=== PATIENT | male | born 1940 | race Caucasian/White ===

== ENCOUNTER 2017-05-30 13:26 | Emergency (ER) | payer OTHER, MEDICARE ==
--- NOTE | 2017-05-30 14:23 | ER Document Report ---
ED General - General Chief Complaint: suicidal threat Stated Complaint: SUICIDAL IDEATION Time Seen by Provider: 05/30/17 13:31 Mode of Arrival: Ambulatory Information source: Patient Notes: 76-year-old male history of dementia who resides at the [facility] presents stating he does not wish to stay there anymore. Patient states he does not like being told what to do what to eat and went to eat. He requests to go somewhere else overall she has been hurt himself TRAVEL OUTSIDE OF THE [place] IN LAST 30 DAYS: No - HPI Onset: Just prior to arrival Onset/Duration: Sudden Quality of pain: No pain Severity: None Pain Level: Denies Associated symptoms: None Exacerbated by: Denies Relieved by: Denies Similar symptoms previously: No Recently seen / treated by doctor: No - Related Data Allergies/Adverse Reactions: No Known Allergies Allergy (Unverified 11/01/13 15:05) Home Medications: Current Home Medications Cetirizine HCl [Zyrtec 10 mg Tablet] 10 mg PO DAILY 05/30/17 [History] Citalopram Hydrobromide [Celexa 20 mg Tablet] 20 mg PO DAILY 05/30/17 [History] Hydrochlorothiazide [Hydrodiuril 12.5 mg Capsule] 12.5 mg PO QAM 05/30/17 [ History] Rivastigmine Tartrate [Rivastigmine] 4.5 mg PO Q12 05/30/17 [History] Simvastatin [Zocor 20 mg Tablet] 20 mg PO QHS 05/30/17 [History] Past Medical History - Social History Smoking Status: Never Smoker Cigarette use (# per day): No Chew tobacco use (# tins/day): No Smoking Education Provided: No Family History: Reviewed & Not Pertinent Patient has suicidal ideation: Yes Patient has homicidal ideation: No - Past Medical History Cardiac Medical History: Reports: Hx Hypertension - on meds Denies: Hx Coronary Artery Disease, Hx Heart Attack Pulmonary Medical History: Reports: Hx Bronchitis - hx of Denies: Hx Asthma, Hx COPD, Hx Pneumonia Neurological Medical History: Denies: Hx Cerebrovascular Accident, Hx Seizures Renal/ Medical History: Denies: Hx Peritoneal Dialysis Musculoskeltal Medical History: Denies Hx Arthritis Psychiatric Medical History: Reports: Hx Depression Past Surgical History: Reports: Hx Appendectomy, Hx Herniorrhaphy - Immunizations Hx Diphtheria, Pertussis, Tetanus Vaccination: Yes Review of Systems - Review of Systems Notes: REVIEW OF SYSTEMS: CONSTITUTIONAL : Denies fever, chills, or sweats. Denies recent illness. EENT: Denies eye, ear, throat, or mouth pain or symptoms. Denies nasal or sinus congestion or discharge. Denies throat, tongue, or mouth swelling or difficulty swallowing. CARDIOVASCULAR: Denies chest pain. Denies palpitations or racing or irregular heart beat. Denies ankle edema. RESPIRATORY: Denies cough, cold, or chest congestion. Denies shortness of breath, difficulty breathing, or wheezing. GASTROINTESTINAL: Denies abdominal pain or distention. Denies nausea, vomiting , or diarrhea. Denies blood in vomitus, stools, or per rectum. Denies black, tarry stools. Denies constipation. GENITOURINARY: Denies difficulty urinating, painful urination, burning, frequency, blood in urine, or discharge. MUSCULOSKELETAL: Denies back or neck pain or stiffness. Denies joint pain or swelling. SKIN: Denies rash, lesions or sores. HEMATOLOGIC : Denies easy bruising or bleeding. LYMPHATIC: Denies swollen, enlarged glands. NEUROLOGICAL: Denies confusion or altered mental status. Denies passing out or loss of consciousness. Denies dizziness or lightheadedness. Denies headache. Denies weakness or paralysis or loss of use of either side. Denies problems with gait or speech. Denies sensory loss, numbness, or tingling. Denies seizures. PSYCHIATRIC: Denies anxiety or stress. Denies depression, suicidal ideation, or homicidal ideation. ALL OTHER SYSTEMS REVIEWED AND NEGATIVE. Dictation was performed using [employer] voice recognition software PHYSICAL EXAMINATION: GENERAL: Well-appearing, well-nourished and in no acute distress. HEAD: Atraumatic, normocephalic. EYES: Pupils equal round and reactive to light, extraocular movements intact, sclera anicteric, conjunctiva are normal. ENT: Nares patent, oropharynx clear without exudates. Moist mucous membranes. NECK: Normal range of motion, supple without lymphadenopathy LUNGS: Breath sounds clear to auscultation bilaterally and equal. No wheezes rales or rhonchi. HEART: Regular rate and rhythm without murmurs ABDOMEN: Soft, nontender, nondistended abdomen. No guarding, no rebound. No masses appreciated. Musculoskeletal: Normal range of motion, no pitting or edema. No cyanosis. NEUROLOGICAL: Cranial nerves grossly intact. Normal speech, normal gait. Normal sensory, motor exams PSYCH: Normal mood, normal affect. SKIN: Warm, Dry, normal turgor, no rashes or lesions noted. Physical Exam - Vital signs Vitals: Temp Pulse BP Pulse Ox 99.0 F 77 137/76 H 98 05/30/17 13:33 05/30/17 13:33 05/30/17 13:33 05/30/17 13:33 Course - Re-evaluation Re-evalutation: 05/30/17 14:49 Patient is quite oriented at this time, he knows the date his location. He has no medical conditions that I can see that are concerning labwork is pending I expect him to be a social consult 05/30/17 16:22 Patient unfortunately became agitated wanted to go home. He swung at security and cause a skin tear. 05/30/17 18:39 Daughter is power of securities attorney she wishes for patient to go home I will discharge at this time - Vital Signs Vital signs: Temp Pulse Resp BP Pulse Ox 99.0 F 77 16 137/76 H 98 05/30/17 13:33 05/30/17 13:33 05/30/17 13:39 05/30/17 13:33 05/30/17 13:33 - Laboratory Result Diagrams: 05/30/17 14:10 05/30/17 14:10 Laboratory results interpreted by me: 05/30/17 05/30/17 14:10 14:10 RBC 3.98 L Hgb 12.5 L Hct 36.7 L Carbon Dioxide 32 H BUN 24 H Salicylates < 1.0 L Acetaminophen < 10 L Discharge - Discharge Clinical Impression: Suicidal behavior without attempted self-injury Dementia Qualifiers: Dementia type: Alzheimer's disease Alzheimer's disease onset: unspecified onset Dementia behavioral disturbance: with behavioral disturbance Qualified Code(s): G30.8 - Other Alzheimer's disease Condition: Stable Disposition: HOME, SELF-CARE Additional Instructions: Suicidal Ideation/Gesture Suicidal ideation is a common medical term for thoughts about suicide, which may be as detailed as a formulated plan, without the suicidal act itself. Although most people who undergo suicidal ideation do not commit suicide, some go on to make suicide attempts. The range of suicidal ideation varies greatly from fleeting to detailed planning, role playing, and unsuccessful attempts. Please talk with your provider regarding your thoughts and needs. Please speak with your daughter in regards to your residential setting. Please return if your symptoms worsen. Referrals: ADIA SALEH MD [Primary Care Provider] - Follow up as needed
[2017-05-30 14:24] LABS: ABSOLUTE BASOPHILS # (AUTO) 0.1 10^3/uL (0.0-0.2); ABSOLUTE EOSINOPHILS # (AUTO) 0.3 10^3/uL (0.0-0.6); ABSOLUTE LYMPHOCYTES (AUTO) 1.7 10^3/uL (0.5-4.7); ABSOLUTE MONOCYTES (AUTO) 0.9 10^3/uL (0.1-1.4); ABSOLUTE NEUT (AUTO) 4.8 10^3/uL (1.7-8.2); EOSINOPHILS % (AUTO) 4.3 % (0-6); HEMATOCRIT 36.7 % (37.9-51.0); HEMOGLOBIN 12.5 g/dL (13.5-17.0); HGB HCT DIFFERENCE 0.8; LYMPHOCYTES % (AUTO) 21.3 % (13-45); MEAN CORPUSCULAR HEMOGLOBIN 31.4 pg (27.0-33.4); MEAN CORPUSCULAR VOLUME 92 fl (80-97); MONOCYTES % (AUTO) 11.7 % (3-13); RED BLOOD COUNT 3.98 10^6/uL (4.35-5.55); RED CELL DISTRIBUTION WIDTH 13.3 % (11.5-14.0); SEGMENTED NEUTROPHILS % (AUTO) 61.7 % (42-78); WHITE BLOOD COUNT 7.8 10^3/uL (4.0-10.5)
[2017-05-30 14:38] LABS: ALANINE AMINOTRANSFERASE 28 U/L (21-72); ALBUMIN 4.4 g/dL (3.5-5.0); ALKALINE PHOSPHATASE 60 U/L (38-126); ANION GAP 9 (5-19); ASPARTATE AMINO TRANSFERASE 23 U/L (17-59); BILIRUBIN,DIRECT 0.4 mg/dL (0.0-0.4); BILIRUBIN,TOTAL 0.5 mg/dL (0.2-1.3); BLOOD UREA NITROGEN 24 mg/dL (7-20); CALCIUM 9.4 mg/dL (8.4-10.2); CARBON DIOXIDE 32 mmol/L (22-30); CHLORIDE 100 mmol/L (98-107); CREATININE RESULT 1.12 mg/dL (0.52-1.25); GLUCOSE 93 mg/dL (75-110); SODIUM 140.6 mmol/L (137-145); TOTAL PROTEIN 7.3 g/dL (6.3-8.2)
[2017-05-30 14:39] LABS: ALCOHOL < 10 mg/dL (NONE DETECTED); APPEARANCE,URINE CLEAR; BILIRUBIN,URINE NEGATIVE (NEGATIVE); GLUCOSE, URINE NEGATIVE (NEGATIVE); KETONES,URINE NEGATIVE (NEGATIVE); LEUKOCYTE ESTERASE,URINE NEGATIVE (NEGATIVE); NITRITE,URINE NEGATIVE (NEGATIVE); PROTEIN,URINE NEGATIVE (NEGATIVE); URINE SPECIFIC GRAVITY 1.003; UROBILINOGEN,URINE NEGATIVE mg/dL (<2.0)
[2017-05-30 14:51] LABS: URINE BARBITURATES SCREEN NEGATIVE; URINE METHADONE SCREEN NEGATIVE; URINE OPIATES LOW NEGATIVE; URINE PHENCYCLIDINE SCREEN NEGATIVE
--- NOTE | 2017-05-30 15:40 | ER Document Report ---
ED Psych Disorder / Suicide - General Chief Complaint: suicidal threat Stated Complaint: SUICIDAL IDEATION Time Seen by Provider: 05/30/17 13:31 Information source: Patient, Relative, H Records TRAVEL OUTSIDE OF THE [place] IN LAST 30 DAYS: No - HPI Patient complains to provider of: Homicidal ideation, Other - pt reports he threatened to cut his wrists in order to be able to leave [facility] Onset was: Sudden Suicide Risk Factors: Male, Other - Pt no longer wants to reside at [facility] Situational problems related to: Other - di Normal mood: Yes Associated symptoms: Normal affect, Normal mood Similar symptoms previously: Yes Recently seen / treated by doctor: Yes Notes: Patient is a 76 year old male who presents via EMS from his residential facility , [facility] due to reports of suicidal ideations. Patient states he is not suicidal. Patient states earlier today he informed the staff at the facility he wanted to leave. Patient states he told them that if he was not allowed to leave he would cut his wrists so he could leave. Patient denies wanting to cut his wrists. Patient denies wanting to by suicide. Patient denies any prior attempts of suicide. Patient instructed this clinician to call his and or daughter and tell them to pic his belongings and pick him up to take him home. Daughter, Areli Jean states she is the legal guardian, and that the patient has been diagnosed with Alzheimers and has been placed in a facility to manage his safety and behaviors. Daughter states she cannot come to the hospital at this time. She states she can email copies of the guardianship documents, but cannot fax or hand deliver. [facility] : Staff Crystal states the patient was threatening suicide. Staff states the patient was upset that his or daughter had not come to see him today, and also stated he was not receiving his medications. She states his daughter is his guardian, and will fax over both the guardianship papers as well as home med list. Staff state they were following protocol by sending him to the ER, and he can return any time. Unspecified Neurocognitive Disorder Patient is psychiatrically cleared for discharge. Patient does not meet criteria for IVC per the [id number] as he is presenting with Dementia related behaviors, which is a medical disorder and not covered under the BH627G. Patient acknowledges he does not want to by suicidem and further reports he made the statement with the intent on leaving the residential facility. I consulted with Dr. Valiente in regards to the care and management of this patient. - Related Data Allergies/Adverse Reactions: No Known Allergies Allergy (Unverified 11/01/13 15:05) Past Medical History - General Information source: Patient, Relative - daughter who states she is also the legal guardian, [facility] Records Cannot obtain history due to: Dementia - Social History Smoking Status: Unknown if Ever Smoked Family History: Reviewed & Not Pertinent Patient has suicidal ideation: No Patient has homicidal ideation: No - Past Medical History Cardiac Medical History: Reports: Hx Hypertension - on meds Denies: Hx Coronary Artery Disease, Hx Heart Attack Pulmonary Medical History: Reports: Hx Bronchitis - hx of Denies: Hx Asthma, Hx COPD, Hx Pneumonia Neurological Medical History: Denies: Hx Cerebrovascular Accident, Hx Seizures Renal/ Medical History: Denies: Hx Peritoneal Dialysis Musculoskeltal Medical History: Denies Hx Arthritis Psychiatric Medical History: Reports: Hx Depression Past Surgical History: Reports: Hx Appendectomy, Hx Herniorrhaphy - Immunizations Hx Diphtheria, Pertussis, Tetanus Vaccination: Yes Physical Exam - Vital signs Vitals: Temp Pulse BP Pulse Ox 99.0 F 77 137/76 H 98 05/30/17 13:33 05/30/17 13:33 05/30/17 13:33 05/30/17 13:33 Course - Vital Signs Vital signs: Temp Pulse Resp BP Pulse Ox 99.0 F 77 137/76 H 98 05/30/17 13:33 05/30/17 13:33 05/30/17 13:33 05/30/17 13:33 - Laboratory Result Diagrams: 05/30/17 14:10 05/30/17 14:10 Laboratory results interpreted by me: 05/30/17 05/30/17 14:10 14:10 RBC 3.98 L Hgb 12.5 L Hct 36.7 L Carbon Dioxide 32 H BUN 24 H Salicylates < 1.0 L Acetaminophen < 10 L Discharge - Discharge Clinical Impression: Suicidal behavior without attempted self-injury Dementia Qualifiers: Dementia type: Alzheimer's disease Alzheimer's disease onset: unspecified onset Dementia behavioral disturbance: with behavioral disturbance Qualified Code(s): G30.8 - Other Alzheimer's disease; F02.81 - Dementia in other diseases classified elsewhere with behavioral disturbance Condition: Stable Disposition: HOME, SELF-CARE Additional Instructions: Suicidal Ideation/Gesture Suicidal ideation is a common medical term for thoughts about suicide, which may be as detailed as a formulated plan, without the suicidal act itself. Although most people who undergo suicidal ideation do not commit suicide, some go on to make suicide attempts. The range of suicidal ideation varies greatly from fleeting to detailed planning, role playing, and unsuccessful attempts. Please talk with your provider regarding your thoughts and needs. Please speak with your daughter in regards to your residential setting. Please return if your symptoms worsen. Referrals: ADIA SALEH MD [Primary Care Provider] - Follow up as needed
[2017-05-30] MEDS ORDERED: LORAZEPAM INJ 2 MG/1 ML VIAL IM ONE (16:17)
[2017-05-30] MEDS ORDERED: DIPHENHYDRAMINE HCL 50 MG/ML VIAL IM ONE (16:17)
[2017-05-30] MEDS ORDERED: DIVALPROEX SODIUM 500 MG TAB.SR.24H PO ONE (17:39)
[2017-05-30] MEDS ORDERED: HALOPERIDOL LACTATE INJ 5 MG/1 ML VIAL IM ONE (17:54)
[2017-05-30 20:13] VITALS: BP 138/71
--- NOTE | 2017-05-30 20:14 | EKG REPORT ---
SEVERITY:- NORMAL ECG - SINUS RHYTHM : Confirmed by: Joey Santa 30-May-2017 20:13:55
== END 2017-05-30 20:20 | disposition home or self-care (01) ==
LOC: ER 13:26
DX: R45.851 Suicidal ideations (principal); G30.8 Other Alzheimer's disease; F02.81 Dementia in other diseases classified elsewhere, unspecified severity, with behavioral disturbance; I10 Essential (primary) hypertension
CPT/HCPCS: 93005; 99285; 96372; 36415; 80307 ×4; 85025; 80053; 81001; 93010; J1200; J1630; J2060

== ENCOUNTER 2017-05-31 07:54 | Emergency (ER) | payer OTHER, MEDICARE ==
[2017-05-31] MEDS ORDERED: BACITRACIN ZINC OINTMENT 15 GM TP ONE (08:00)
--- NOTE | 2017-05-31 08:08 | ER Document Report ---
ED General - General Stated Complaint: FALL ARM PAIN Time Seen by Provider: 05/31/17 08:00 Notes: 76-year-old male with advanced dementia and behavioral disturbance presents to the ED after an unwitnessed fall. He was combative this morning in his facility and when 1 of his dobby loom weaver stepped out of the room to get extra help she returned found him on the floor. He had skin tears to both upper extremities. His mental status per EMS is at his baseline, they transported him here last night for the behavioral disturbance. He had no signs of head trauma. The patient is quite demented and cannot give much of a history when I asked him if anything hurts he says "my ego." TRAVEL OUTSIDE OF THE [place] IN LAST 30 DAYS: No - Related Data Allergies/Adverse Reactions: donepezil Allergy (Verified 05/31/17 08:24) Influenza Virus Vaccines Allergy (Verified 05/31/17 08:24) loratadine Allergy (Verified 05/31/17 08:24) Penicillins Allergy (Verified 05/31/17 08:24) Past Medical History - Social History Smoking Status: Former Smoker Family History: Reviewed & Not Pertinent - Past Medical History Cardiac Medical History: Reports: Hx Hypertension - on meds Denies: Hx Coronary Artery Disease, Hx Heart Attack Pulmonary Medical History: Reports: Hx Bronchitis - hx of Denies: Hx Asthma, Hx COPD, Hx Pneumonia Neurological Medical History: Denies: Hx Cerebrovascular Accident, Hx Seizures Renal/ Medical History: Denies: Hx Peritoneal Dialysis Musculoskeltal Medical History: Denies Hx Arthritis Psychiatric Medical History: Reports: Hx Depression Past Surgical History: Reports: Hx Appendectomy, Hx Herniorrhaphy - Immunizations Hx Diphtheria, Pertussis, Tetanus Vaccination: Yes Review of Systems - Review of Systems Notes: REVIEW OF SYSTEMS Limited secondary to dementia PHYSICAL EXAMINATION General: No acute distress, well-nourished Head: Atraumatic, normocephalic ENT: Mouth normal, oropharynx moist, no exudates or tonsillar enlargement Eyes: Conjunctiva normal, pupils equal, lids normal Neck: No JVD, supple, no guarding CVS: Normal rate, regular rhythm, no murmurs Resp: No resp distress, equal and normal breath sounds bilaterally GI: Nondistended, soft, no tenderness to palpation, no rebound or guarding Ext: Superficial skin tears without bony tenderness or deformity on the right elbow and left forearm. Back: No CVA or midline TTP Skin: No rash, warm Lymphatic: No lymphadeopathy noted Neuro: Awake, alert. Face symmetric. GCS 14. For confusion. Patient's baseline. Follows commands with all 4 extremities. Physical Exam - Vital signs Vitals: Temp Pulse Resp BP Pulse Ox 98.4 F 53 L 16 150/52 H 96 05/31/17 08:04 05/31/17 08:04 05/31/17 08:04 05/31/17 08:04 05/31/17 08:04 Course - Re-evaluation Re-evalutation: 05/31/17 08:08 Likely mechanical fall in a demented patient with behavioral disturbance. Patient is at his neurologic baseline and has skin tears but no bony tenderness. CT will be done but I do not think this is a traumatic brain injury. No indication for extremity films. Local wound care. None are deep enough to require advanced repair. 05/31/17 09:38 Imaging negative. Wounds dressed. Stable for discharge back to [facility] care facility. I have discussed with the patient there likely diagnosis, aftercare plan, follow -up plans and my usual and customary return precautions. They verbalized understanding of this. - Vital Signs Vital signs: Temp Pulse Resp BP Pulse Ox 98.4 F 53 L 16 150/52 H 96 05/31/17 08:04 05/31/17 08:04 05/31/17 08:04 05/31/17 08:04 05/31/17 08:04 - Diagnostic Test Radiology reviewed: Image reviewed, Reports reviewed Discharge - Discharge Clinical Impression: Multiple skin tears Condition: Good Disposition: HOME, SELF-CARE Instructions: Antibiotic Ointment Protection ([facility])
--- NOTE | 2017-05-31 09:00 | RADIOLOGY REPORT (SQ) ---
EXAM DESCRIPTION: CT HEAD WITHOUT COMPLETED DATE/TIME: 05/31/2017 8:35 am REASON FOR STUDY: fall trauyma COMPARISON: CT brain 09/09/2014 TECHNIQUE: Axial images acquired through the brain without intravenous contrast. Images reviewed wi th bone, brain and subdural windows. Images stored on PACS. All CT scanners at this facility use dose modulation, iterative reconstruction, and/or weight based d osing when appropriate to reduce radiation dose to as low as reasonably achievable (ALARA). [facility]: Dose Right [facility]: CareDose [facility]: Dose Right [facility]: Teradose 4D [facility]: [employer] RADIATION DOSE: Up-to-date CT equipment and radiation dose reduction techniques were employed. CTDIv ol: 63.0 mGy. DLP: 1034 mGy-cm. mGy. LIMITATIONS: Motion artifact FINDINGS: VENTRICLES: Normal size and contour. 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 No CT evidence of acute large territory ischemic change, intracranial hemorrhage, mass effect, or mid line shift. CEREBELLUM: No masses. No hemorrhage. No alteration of density. No evidence for acute infarction. EXTRAAXIAL SPACES: No fluid collections. No masses. ORBITS AND GLOBE: No intra- or extraconal masses. Normal contour of globe without masses. CALVARIUM: No fracture. PARANASAL SINUSES: No fluid or mucosal thickening. SOFT TISSUES: No mass or hematoma. OTHER: No other significant finding. IMPRESSION: NORMAL BRAIN CT WITHOUT CONTRAST. TECHNICAL DOCUMENTATION: JOB ID: [id number] Quality ID # [id number]: Final reports with documentation of one or more dose reduction techniques (e.g., Au tomated exposure control, adjustment of the mA and/or kV according to patient size, use of iterative reconstruction technique) 2010 [employer]- All Rights Reserved
--- NOTE | 2017-05-31 09:26 | RADIOLOGY REPORT (SQ) ---
EXAM DESCRIPTION: CT CERVICAL SPINE WITHOUT COMPLETED DATE/TIME: 05/31/2017 8:35 am REASON FOR STUDY: fall trauyma COMPARISON: None. TECHNIQUE: Axial images acquired through the cervical spine without intravenous contrast. Images re viewed with lung, soft tissue and bone windows. Reconstructed coronal and sagittal MPR images review ed. Images stored on PACS. All CT scanners at this facility use dose modulation, iterative reconstruction, and/or weight based d osing when appropriate to reduce radiation dose to as low as reasonably achievable (ALARA). [facility]: Dose Right [facility]: CareDose [facility]: Dose Right [facility]: Teradose 4D [facility]: Smart [employer] RADIATION DOSE: Up-to-date CT equipment and radiation dose reduction techniques were employed. CTDIv ol: 18.9 mGy. DLP: 375 mGy-cm. mGy. LIMITATIONS: None. FINDINGS: ALIGNMENT: Reversal of cervical curvature related to degenerative disc changes at C4-5, C5 -6, and C6-7 MINERALIZATION: Normal. VERTEBRAL BODIES: No fractures or dislocation. DISCS: Craniocervical junction, C1-2 are unremarkable. At C2-3, mild posterior disc bulging present without central stenosis. Mild right foraminal narrowin g. No left foraminal narrowing. At C3-4, high-grade central canal stenosis results from broad diffuse posterior disc bulging and liga mentum flavum thickening. There is moderate right and high-grade left foraminal narrowing from facet and uncovertebral hypertrophy. At C4-5, mild to moderate central canal narrowing results from broad diffuse posterior bony spurring. There is moderate right, and high-grade left foraminal narrowing from facet and uncovertebral hyper trophy. At C5-6, moderate to high-grade central canal stenosis results from broad diffuse disc bulge and bony spurring. High-grade bilateral foraminal stenosis. At C6-7, mild central canal stenosis results from broad diffuse posterior disc bulge and bony spurrin g. Moderate bilateral foraminal narrowing. At C7-T1, moderate left foraminal narrowing results from asymmetric left-sided facet hypertrophy. No central or right foraminal narrowing. FACETS, LATERAL MASSES, POSTERIOR ELEMENTS: No fractures. No dislocation. No acute findings. HARDWARE: None in the spine. VISUALIZED RIBS: No fractures. LUNG APICES AND SOFT TISSUES: Calcification at the bilateral carotid bifurcations. OTHER: No other significant finding. IMPRESSION: No acute changes. Multilevel significant central canal stenosis TECHNICAL DOCUMENTATION: JOB ID: [id number] Quality ID # [id number]: Final reports with documentation of one or more dose reduction techniques (e.g., Au tomated exposure control, adjustment of the mA and/or kV according to patient size, use of iterative reconstruction technique) 2010 [employer]- All Rights Reserved
[2017-05-31 10:17] VITALS: BP 147/57
== END 2017-05-31 10:10 | disposition home or self-care (01) ==
LOC: ER 07:54
DX: S51.811A Laceration without foreign body of right forearm, initial encounter (principal); S51.011A Laceration without foreign body of right elbow, initial encounter; W19.XXXA Unspecified fall, initial encounter; Y92.099 Unspecified place in other non-institutional residence as the place of occurrence of the external cause; F03.91 Unspecified dementia, unspecified severity, with behavioral disturbance; I10 Essential (primary) hypertension
CPT/HCPCS: 99284; 70450; 72125; J3490

== ENCOUNTER 2017-06-22 14:28 | Emergency (ER) | payer OTHER, MEDICARE ==
[2017-06-22 14:50] VITALS: BP 159/61
[2017-06-22 15:35] LABS: APPEARANCE,URINE CLEAR; BILIRUBIN,URINE NEGATIVE (NEGATIVE); GLUCOSE, URINE NEGATIVE (NEGATIVE); KETONES,URINE NEGATIVE (NEGATIVE); LEUKOCYTE ESTERASE,URINE NEGATIVE (NEGATIVE); NITRITE,URINE NEGATIVE (NEGATIVE); PROTEIN,URINE NEGATIVE (NEGATIVE); URINE SPECIFIC GRAVITY 1.008; UROBILINOGEN,URINE NEGATIVE mg/dL (<2.0)
[2017-06-22 15:59] LABS: ALANINE AMINOTRANSFERASE 25 U/L (21-72); ALKALINE PHOSPHATASE 74 U/L (38-126); ANION GAP 11 (5-19); ASPARTATE AMINO TRANSFERASE 23 U/L (17-59); BILIRUBIN,DIRECT 0.4 mg/dL (0.0-0.4); BILIRUBIN,TOTAL 0.8 mg/dL (0.2-1.3); BLOOD UREA NITROGEN 19 mg/dL (7-20); CALCIUM 9.3 mg/dL (8.4-10.2); CARBON DIOXIDE 27 mmol/L (22-30); CHLORIDE 104 mmol/L (98-107); CREATININE RESULT 1.04 mg/dL (0.52-1.25); GLUCOSE 97 mg/dL (75-110); POTASSIUM 4.2 mmol/L (3.6-5.0); SODIUM 141.6 mmol/L (137-145); TOTAL PROTEIN 6.6 g/dL (6.3-8.2)
[2017-06-22 16:00] LABS: ABSOLUTE BASOPHILS # (AUTO) 0.1 10^3/uL (0.0-0.2); ABSOLUTE EOSINOPHILS # (AUTO) 0.3 10^3/uL (0.0-0.6); ABSOLUTE LYMPHOCYTES (AUTO) 1.2 10^3/uL (0.5-4.7); ABSOLUTE MONOCYTES (AUTO) 0.6 10^3/uL (0.1-1.4); ABSOLUTE NEUT (AUTO) 5.2 10^3/uL (1.7-8.2); EOSINOPHILS % (AUTO) 3.8 % (0-6); HEMATOCRIT 39.2 % (37.9-51.0); HEMOGLOBIN 13.6 g/dL (13.5-17.0); HGB HCT DIFFERENCE 1.6; LYMPHOCYTES % (AUTO) 16.7 % (13-45); MEAN CORPUSCULAR HEMOGLOBIN 31.5 pg (27.0-33.4); MEAN CORPUSCULAR HGB CONC 34.8 g/dL (32.0-36.0); MEAN CORPUSCULAR VOLUME 91 fl (80-97); MONOCYTES % (AUTO) 8.6 % (3-13); RED BLOOD COUNT 4.33 10^6/uL (4.35-5.55); RED CELL DISTRIBUTION WIDTH 13.4 % (11.5-14.0); SEGMENTED NEUTROPHILS % (AUTO) 69.9 % (42-78); WHITE BLOOD COUNT 7.5 10^3/uL (4.0-10.5)
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
[2017-06-22] MEDS ORDERED: HALOPERIDOL LACTATE INJ 5 MG/1 ML VIAL ONE (17:18)
== END 2017-06-22 17:42 ==
LOC: ER 14:28
DX: G30.9 Alzheimer's disease, unspecified (principal); F02.80 Dementia in other diseases classified elsewhere, unspecified severity, without behavioral disturbance, psychotic disturbance, mood disturbance, and anxiety; R63.0 Anorexia; R53.1 Weakness
CPT/HCPCS: 36415; 80053; 81001; 84443; 85025; 96374; 99285

== ENCOUNTER 2017-07-31 14:23 | Inpatient (IN) | payer OTHER, MEDICARE ==
[2017-07-31] MEDS ORDERED: DEXTROSE 5%-1/2 NORMAL SALINE 1,000 ML IV PRN (14:40)
--- NOTE | 2017-07-31 14:47 | ER Document Report ---
ED GI/ - General Chief Complaint: Abdominal Pain >50 Stated Complaint: ABDOMINAL PAIN Time Seen by Provider: 07/31/17 14:28 Mode of Arrival: Medic Information source: Patient, Emergency Med Personnel, [facility] Records, Outside Facility Records Notes: 76-year-old male presents to ED for complaint of left lower abdominal pain with nausea and vomiting. He was brought to the ER via EMS from the [facility]. They stated that he would not eat and he has been nausea and vomiting and abdominal pain. Patient does verbalize lower left abdominal pain with tenderness on exam. TRAVEL OUTSIDE OF THE [place] IN LAST 30 DAYS: No - HPI Patient complains to provider of: Abdominal pain, Vomiting Onset: This afternoon Timing/Duration: Sudden Quality of pain: Sharp Severity at maximum: Moderate Severity in ED: Moderate Pain Level: 3 Location: LLQ, RLQ Associated symptoms: Loss of appetite - yesterday, Nausea, Vomiting - just before coming to ed Exacerbated by: Movement, Walking Relieved by: Denies Similar symptoms previously: No Recently seen / treated by doctor: No - Related Data Allergies/Adverse Reactions: donepezil Allergy (Verified 05/31/17 08:24) Influenza Virus Vaccines Allergy (Verified 05/31/17 08:24) loratadine Allergy (Verified 05/31/17 08:24) Penicillins Allergy (Verified 05/31/17 08:24) Home Medications: Current Home Medications Acetaminophen [Mapap] 650 mg PO Q6HP PRN 07/31/17 [History] Aspirin [Aspirin 81 mg Chewable Tablet] 81 mg PO DAILY 07/31/17 [History] Cetirizine HCl [24Hour Allergy] 10 mg PO DAILY 07/31/17 [History] Citalopram Hydrobromide [Citalopram HBr] 20 mg PO DAILY 07/31/17 [History] Docusate Calcium 240 mg PO QHS 07/31/17 [History] Ibuprofen 400 mg PO MEALS 07/31/17 [History] Levothyroxine Sodium 75 mcg PO DAILY 07/31/17 [History] Magnesium Hydroxide [Milk of Magnesia 30 ml Udcup] 30 ml PO DAILYP PRN 07/31/17 [History] Nifedipine [Nifedipine ER] 30 mg PO DAILY 07/31/17 [History] Mccormick-3/Dha/Epa/Fish Oil [Fish Oil 1,000 mg Softgel] 1 cap PO DAILY 07/31/17 [ History] Quetiapine Fumarate 25 mg PO BID 07/31/17 [History] Risperidone [Risperdal 1 mg Tablet] 1 mg PO BID 07/31/17 [History] Tamsulosin HCl 0.8 mg PO QPM 07/31/17 [History] Past Medical History - General Information source: Emergency Med Personnel, [facility] Records, Outside Facility Records Cannot obtain history due to: Dementia - Social History Smoking Status: Former Smoker Cigarette use (# per day): No Frequency of alcohol use: None Lives with: Other - [facility] Family History: Other - unable to obtain Patient has suicidal ideation: No Patient has homicidal ideation: No - Past Medical History Cardiac Medical History: Reports: Hx Atrial Fibrillation, Hx Hypercholesterolemia, Hx Hypertension - on meds, Other - AAA Pulmonary Medical History: Reports: Hx Bronchitis - hx of EENT Medical History: Reports: None Neurological Medical History: Reports: Hx Cerebrovascular Accident Endocrine Medical History: Reports: Hx Hypothyroidism Renal/ Medical History: Reports: Other - Prostatitis Malignancy Medical History: Reports None GI Medical History: Reports: None, Other - hx of AAA Musculoskeltal Medical History: Reports Hx Arthritis Skin Medical History: Reports None Psychiatric Medical History: Reports: Hx Anxiety, Hx Dementia, Hx Depression Traumatic Medical History: Reports: None Infectious Medical History: Reports: None Past Surgical History: Reports: Hx Appendectomy, Hx Herniorrhaphy - Immunizations Hx Diphtheria, Pertussis, Tetanus Vaccination: Yes Review of Systems - Review of Systems Constitutional: No symptoms reported EENT: No symptoms reported Cardiovascular: No symptoms reported Respiratory: No symptoms reported Gastrointestinal: Abdominal pain, Nausea, Vomiting Genitourinary: No symptoms reported Male Genitourinary: No symptoms reported Musculoskeletal: Muscle stiffness Skin: No symptoms reported Hematologic/Lymphatic: No symptoms reported Neurological/Psychological: Dementia -: Yes All other systems reviewed and negative Physical Exam - Vital signs Vitals: Temp 97.9 F 07/31/17 14:39 Interpretation: Normal - General General appearance: Appears well, Alert - HEENT Head: Normocephalic, Atraumatic Eyes: Normal Pupils: PERRL - Respiratory Respiratory status: No respiratory distress Chest status: Nontender Breath sounds: Normal Chest palpation: Normal - Cardiovascular Rhythm: Regular Heart sounds: Normal auscultation Murmur: No - Abdominal Inspection: Healed incision - appendectomy Distension: No distension Bowel sounds: Normal Tenderness: Tender - right and left lower abdomen Organomegaly: No organomegaly - Back Back: Normal, Nontender - Extremities General upper extremity: Normal inspection, Nontender, Normal color, Normal ROM , Normal temperature General lower extremity: Normal inspection, Nontender, Normal color, Normal ROM , Normal temperature, Normal weight bearing. No: Fernando's sign - Neurological Neuro grossly intact: Yes Cognition: Normal - This patient has dementia his cognition is normal for him Orientation: No: AAOx4 - Dementia [place] Coma Scale Eye Opening: Spontaneous [place] Coma Scale Verbal: Oriented - Patient is answering questions appropriately but does have a history of dementia [place] Coma Scale Motor: Obeys Commands [place] Coma Scale Total: 15 Speech: Normal Motor strength normal: LUE, RUE, LLE, RLE Additional motor exam normals: Equal stack clerk Sensory: Normal - Psychological Associated symptoms: Normal affect, Normal mood - Skin Skin Temperature: Warm Skin Moisture: Dry Skin Color: Normal Course - Re-evaluation Re-evalutation: 07/31/17 16:58 Nurse came and informed me that the patient abdomen had become distended firm high-pitched bowel sounds. Consulted Dr. Donovan, who examined the patient. Stopped the oral contrast, spoke with maintenance technician 3rd shift and we were going to l send him straight over to get his CT abdomen and pelvis. While talking to the daughter, for consent she stated the patient had a history of aortic abdominal aneurysm. CT was changed to a CTA of abdomen pelvis and chest and patient sent for his cta abdomen pelvic and chest. 07/31/17 18:[address] scan NG ordered and inserted to low intermittent suction. Dr. Dunn called report on CT of abdomen. Surgeon Dr. Iraheta consulted concerning a large bowel obstruction with a stricture at the sigmoid colon. He stated that if the hospitalist would admit him that surgery would consult any surgical concerns. Dr. Borrero consult he will admit the patient to medical floor. - Vital Signs Vital signs: Temp Pulse Resp BP Pulse Ox 98.7 F 60 13 143/61 H 93 08/04/17 07:54 08/04/17 07:54 08/04/17 07:54 08/04/17 07:54 08/04/17 08:39 - Laboratory Result Diagrams: 08/04/17 05:00 08/04/17 05:00 Laboratory results interpreted by me: 07/31/17 07/31/17 14:56 14:56 WBC 10.9 H RBC 3.88 L Hgb 12.3 L Hct 34.9 L Seg Neutrophils % 86.7 H Lymphocytes % 6.2 L Absolute Neutrophils 9.5 H Potassium 2.8 L* BUN 31 H Glucose 198 H Direct Bilirubin 0.6 H - Diagnostic Test Radiology reviewed: Image reviewed, Reports reviewed Discharge - Discharge Clinical Impression: Large bowel obstruction Abdominal pain Qualifiers: Abdominal location: generalized Qualified Code(s): R10.84 - Generalized abdominal pain Disposition: ADMITTED INPATIENT Admitting Provider: Hospitalist Unit Admitted: Medical Floor
[2017-07-31 15:11] LABS: ABSOLUTE BASOPHILS # (AUTO) 0.1 10^3/uL (0.0-0.2); ABSOLUTE LYMPHOCYTES (AUTO) 0.7 10^3/uL (0.5-4.7); ABSOLUTE MONOCYTES (AUTO) 0.7 10^3/uL (0.1-1.4); ABSOLUTE NEUT (AUTO) 9.5 10^3/uL (1.7-8.2); BASOPHILS % (AUTO) 0.5 % (0-2); EOSINOPHILS % (AUTO) 0.1 % (0-6); HEMATOCRIT 34.9 % (37.9-51.0); HEMOGLOBIN 12.3 g/dL (13.5-17.0); LYMPHOCYTES % (AUTO) 6.2 % (13-45); MEAN CORPUSCULAR HEMOGLOBIN 31.6 pg (27.0-33.4); MEAN CORPUSCULAR HGB CONC 35.1 g/dL (32.0-36.0); MEAN CORPUSCULAR VOLUME 90 fl (80-97); MONOCYTES % (AUTO) 6.5 % (3-13); RED BLOOD COUNT 3.88 10^6/uL (4.35-5.55); RED CELL DISTRIBUTION WIDTH 13.8 % (11.5-14.0); SEGMENTED NEUTROPHILS % (AUTO) 86.7 % (42-78); WHITE BLOOD COUNT 10.9 10^3/uL (4.0-10.5)
[2017-07-31 15:27] LABS: ALANINE AMINOTRANSFERASE 35 U/L (21-72); ALBUMIN 4.3 g/dL (3.5-5.0); ALKALINE PHOSPHATASE 70 U/L (38-126); ANION GAP 17 (5-19); ASPARTATE AMINO TRANSFERASE 25 U/L (17-59); BILIRUBIN,DIRECT 0.6 mg/dL (0.0-0.4); BILIRUBIN,TOTAL 0.9 mg/dL (0.2-1.3); BLOOD UREA NITROGEN 31 mg/dL (7-20); CALCIUM 8.9 mg/dL (8.4-10.2); CARBON DIOXIDE 25 mmol/L (22-30); CHLORIDE 100 mmol/L (98-107); CREATINE KINASE 84 U/L (55-170); CREATININE RESULT 0.91 mg/dL (0.52-1.25); GLUCOSE 198 mg/dL (75-110); LIPASE 67.3 U/L (23-300); SODIUM 141.7 mmol/L (137-145); TOTAL PROTEIN 7.1 g/dL (6.3-8.2)
[2017-07-31 15:30] LABS: POTASSIUM 2.8 mmol/L (3.6-5.0)
[2017-07-31] MEDS ORDERED: 1/2 NORMAL SALINE 1,000 ML IV PRN (15:32)
[2017-07-31 15:39] LABS: CREATINE KINASE MB 1.59 ng/mL (<4.55); TROPONIN I < 0.012 ng/mL
[2017-07-31] MEDS ORDERED: MORPHINE SULFATE 10 MG/ML INJ IV ONE (15:51)
[2017-07-31] MEDS: POTASSI CL 20 MEQ/50 ML RIDER 20 MEQ/50 ML RTUPB IV SCH ×2 (15:55→19:09)
--- NOTE | 2017-07-31 18:10 | RADIOLOGY REPORT (SQ) ---
EXAM DESCRIPTION: CTA CHEST; CTA ABDOMEN/PELVIS W WO COMPLETED DATE/TIME: 07/31/2017 5:28 pm REASON FOR STUDY: abdominal pain, Hx AAA COMPARISON: None. TECHNIQUE: CT scan of the thoracic and abdominal aorta extending to the iliac bifurcation performed with and without intravenous contrast using helical scanning technique with dynamic intravenous contr ast injection. Images reviewed with lung, soft tissue, and bone windows. Reconstructed coronal and sa gittal MPR images reviewed. All images stored on PACS. Advanced 3D imaging as volume rendering, MIPS, SSD performed? yes All CT scanners at this facility use dose modulation, iterative reconstruction, and/or weight based d osing when appropriate to reduce radiation dose to as low as reasonably achievable (ALARA). [facility]: Dose Right [facility]: CareDose [facility]: Dose Right [facility]: Teradose 4D [facility]: RecruitLoop CONTRAST TYPE AND DOSE: contrast/concentration: Isovue 370.00 mg/ml; Total Contrast Delivered: 100.0 ml; Total Saline Delivered: 86.0 ml RENAL FUNCTION: BUN 31 creatinine 0.91 LIMITATIONS: None. FINDINGS: ANGIOGRAPHIC FINDINGS: AORTA : There is no aneurysmal dilatation of the ascending and descending thoracic aorta. There is a neurysmal dilatation of the infrarenal abdominal aorta measuring 3.5 x 3.7 cm in greatest AP and brooke sverse dimensions. Significant amount of mural thrombus seen within the aneurysm sac. No dissection , pseudoaneurysm, or penetrating ulcer identified. There is a common origin of the brachiocephalic a rtery and left common carotid artery. Diffuse calcific and fibrofatty plaque noted throughout the de scending thoracic aorta, aortic arch, and the abdominal aorta. No hemodynamically significant stenos is seen in the aorta. GREAT VESSELS: Minimal calcific atherosclerosis seen in the proximal great vessels. No hemodynamica lly significant stenosis. No dissection visualized dissection in the great vessels. MESENTERIC: The celiac artery is patent with conventional branching anatomy of. Calcific atheromato us disease seen at the origin possible 50 to 75% narrowing. Calcific atheromatous disease seen at th e origin the SMA causing less than 50% stenosis. The SMA is patent. The SUZIE is occluded at its orig in and fills distally via collaterals. RENAL: Patent single bilateral renal arteries. No hemodynamically significant stenosis. ILIAC: Diffuse calcific and fibrofatty atheromatous disease seen throughout the iliac arteries. Hernandez ears to be 50 to 75% stenosis of the distal right common iliac artery secondary dated atheromatous di sease. There appears to be greater density 5% narrowing of the proximal left iliac artery and 50 to 75% stenosis of the distal left common iliac artery. Both hypogastric arteries are patent with calci fic atheromatous disease. There is diffuse calcific atheromatous disease throughout both external il iac arteries causing 50 to 75% stenosis in multiple areas. FEMORAL: Calcific atheromatous disease seen in both femoral arteries causing less than 50% stenosis. The visualized portions of the superficial femoral and profunda femoral arteries are patent with sc attered calcific atheromatous disease. PULMONARY: No acute pulmonary embolus. NONANGIOGRAPHIC FINDINGS: CHEST: Parenchymal scarring noted throughout the lungs. There is centrilobular emphysematous disease noted in the apices. There is some mild paraseptal emphysematous disease noted the disease. Atelec tatic changes noted in both lower lobes. No worrisome pulmonary lesions. No focal consolidations. No pneumothorax. No significant pleural effusion. No mediastinal adenopathy. No pericardial effusi on. Coronary artery calcifications noted. No axillary or supraclavicular adenopathy. Visualized th yroid gland is unremarkable. LIVER: Normal size. No masses or dilated ducts. SPLEEN: Normal size. No focal lesions. PANCREAS: No masses. No significant calcifications. No adjacent inflammation or peripancreatic fluid collections. Pancreatic duct not dilated. GALLBLADDER: No identified stones by CT criteria. No inflammatory changes to suggest cholecystitis. ADRENAL GLANDS: No significant masses or asymmetry. RIGHT KIDNEY AND URETER: No mass, calculi or urinary tract obstruction. LEFT KIDNEY AND URETER: No mass, calculi or urinary tract obstruction. RETROPERITONEUM: No retroperitoneal adenopathy, hemorrhage or masses. BOWEL AND PERITONEAL CAVITY: There is significant gaseous distention of the right colon, transverse c olon and left colon with stool. The colon measure approximately 8.1 cm. There is significant redund helena of the colon throughout the abdomen. There appears to be a focal area of narrowing within the s igmoid colon (series 3, image 180) no obstructing mass is seen in this region question possible stric ture. There is no dilatation of the small bowel. No intra-abdominal free air. No mesenteric adenop athy. APPENDIX: Not visualized. ABDOMINAL WALL: No masses. No hernias. BONY STRUCTURES: No acute osseous abnormality. Multilevel degenerative changes of the spine. 3-D IMAGING: Confirms the above findings. OTHER: No other significant finding. IMPRESSION: 1. There is significant gaseous distention of the right, transverse, and left colons. T here is appears to be long segment narrowing of the distal sigmoid colon without definite mass lesion this area on CT. Question possible large bowel obstruction secondary to underlying stricture. Ther e is significant redundancy within the colon. 2. No aortic dissection identified. There is aneurysmal dilatation of the infrarenal abdominal aort a measuring 3.5 x 3.7 cm. 3. 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 The SMA is patent witho ut greater than 50% narrowing. The SUZIE is occluded at its origin and fills distally via collaterals. Multifocal hemodynamically significant narrowing throughout the iliac arteries as detailed above. TECHNICAL DOCUMENTATION: JOB ID: [id number] Quality ID # [id number]: Final reports with documentation of one or more dose reduction techniques (e.g., Au tomated exposure control, adjustment of the mA and/or kV according to patient size, use of iterative reconstruction technique) 2010 [employer]- All Rights Reserved
[2017-07-31] MEDS ORDERED: ACETAMINOPHEN 325 MG TABLET PO PRN (18:22)
[2017-07-31] MEDS ORDERED: ONDANSETRON HCL INJ/PF 4 MG/2 ML SDV IV PRN (18:22)
[2017-07-31] MEDS ORDERED: LORAZEPAM INJ 2 MG/1 ML VIAL IV PRN (18:31)
--- NOTE | 2017-07-31 18:41 | PDOC H&P ---
History of Present Illness Admission Date/PCP: 07/31/2017 Patient complains of: ABD Pain History of Present Illness: SUZI GARCIA SR is a 76 year old male presented with complaint of abd pain. Patient was unable to give history due to dementia and received a morphine. Patient's son states that patient has had history with colon issues and had a colonoscopy done 2 years ago from a doctor that is about 20 miles outside of [place]. He states that patient has an extra long colon and therefore it takes time for things to move through his GI tract. And also reports that patient does have a AAA that has been monitored from time to time. Son also reports that patient has been losing weight over the last several months. Past Medical History Cardiac Medical History: Reports: Atrial Fibrillation, Hyperlipidema, Hypertension - on meds, Other - AAA Denies: Myocardial Infarction Pulmonary Medical History: Reports: Bronchitis - hx of Denies: Asthma, Chronic Obstructive Pulmonary Disease (COPD), Pneumonia EENT Medical History: Reports: None Neurological Medical History: Denies: Seizures Endocrine Medical History: Reports: Hypothyroidism Renal/ Medical History: Reports: Other - Prostatitis Malignancy Medical History: Reports: None GI Medical History: Reports: None, Other - hx of AAA Musculoskeltal Medical History: Reports: Arthritis Skin Medical History: Reports: None Psychiatric Medical History: Reports: Dementia, Depression Traumatic Medical History: Reports: None Hematology: Denies: Anemia Infectious Medical History: Reports: None Past Surgical History Past Surgical History: Reports: Appendectomy, Herniorrhaphy Social History Lives with: Other - Arc Smoking Status: Former Smoker Family History Family History: Other - unable to obtain Parental Family History Reviewed: Yes Children Family History Reviewed: Yes Sibling(s) Family History Reviewed.: Yes Medication/Allergy Home Medications: Cetirizine HCl [Zyrtec 10 mg Tablet] 10 mg PO DAILY 05/30/17 Citalopram Hydrobromide [Celexa 20 mg Tablet] 20 mg PO DAILY 05/30/17 Hydrochlorothiazide [Hydrodiuril 12.5 mg Capsule] 12.5 mg PO QAM 05/30/17 Rivastigmine Tartrate [Rivastigmine] 4.5 mg PO Q12 05/30/17 Simvastatin [Zocor 20 mg Tablet] 20 mg PO QHS 05/30/17 Allergies/Adverse Reactions: donepezil Allergy (Verified 05/31/17 08:24) Influenza Virus Vaccines Allergy (Verified 05/31/17 08:24) loratadine Allergy (Verified 05/31/17 08:24) Penicillins Allergy (Verified 05/31/17 08:24) Review of Systems ROS unobtainable: Due to mental status Physical Exam Vital Signs: Temp Pulse Resp BP Pulse Ox 97.9 F 15 144/64 H 94 07/31/17 14:39 07/31/17 16:02 07/31/17 16:02 07/31/17 16:02 Intake & Output 07/30/17 07/31/17 08/01/17 06:59 06:59 06:59 Output Total 450 Balance -450 General appearance: PRESENT: other - Laying in bed sleeping would arouse to stimuli but would not answer questions. Head exam: PRESENT: atraumatic, normocephalic Eye exam: PRESENT: conjunctiva pink, EOMI. ABSENT: scleral icterus Ear exam: PRESENT: normal external ear exam Mouth exam: PRESENT: moist, tongue midline Neck exam: ABSENT: carotid bruit, JVD, lymphadenopathy, thyromegaly Respiratory exam: PRESENT: clear to auscultation miguelina. ABSENT: rales, rhonchi, wheezes Cardiovascular exam: PRESENT: RRR. ABSENT: diastolic murmur, rubs, systolic murmur Pulses: PRESENT: normal dorsalis pedis pul Vascular exam: PRESENT: normal capillary refill GI/Abdominal exam: PRESENT: other - G-tube in place, patient's abdomen is distended, patient is tender to palpation in lower quadrants Rectal exam: PRESENT: deferred Extremities exam: PRESENT: full ROM. ABSENT: calf tenderness, clubbing, pedal edema Musculoskeletal exam: PRESENT: full ROM Neurological exam: PRESENT: other - Sleeping but able to be aroused Psychiatric exam: PRESENT: other - Sleeping but able to awake Skin exam: PRESENT: dry, intact, warm. ABSENT: cyanosis, rash Results Laboratory Results: 07/31/17 14:56 07/31/17 14:56 07/31/17 07/31/17 14:56 14:56 WBC 10.9 H RBC 3.88 L Hgb 12.3 L Hct 34.9 L MCV 90 MCH 31.6 MCHC 35.1 RDW 13.8 Plt Count 154 Seg Neutrophils % 86.7 H Lymphocytes % 6.2 L Monocytes % 6.5 Eosinophils % 0.1 Basophils % 0.5 Absolute Neutrophils 9.5 H Absolute Lymphocytes 0.7 Absolute Monocytes 0.7 Absolute Eosinophils 0.0 Absolute Basophils 0.1 Sodium 141.7 Potassium 2.8 L* Chloride 100 Carbon Dioxide 25 Anion Gap 17 BUN 31 H Creatinine 0.91 Est GFR ( Amer) > 60 Est GFR (Non-Af Amer) > 60 Glucose 198 H Calcium 8.9 Total Bilirubin 0.9 AST 25 ALT 35 Alkaline Phosphatase 70 Total Protein 7.1 Albumin 4.3 Lipase 67.3 07/31/17 07/31/17 14:56 14:56 Creatine Kinase 84 CK-MB (CK-2) 1.59 Troponin I < 0.012 Impressions: Abdomen/Pelvis CTA 07/31/17 16:40 IMPRESSION: 1. There is significant gaseous distention of the right, transverse , and left colons. There is appears to be long segment narrowing of the distal sigmoid colon without definite mass lesion this area on CT. Question possible large bowel obstruction secondary to underlying stricture. There is significant redundancy within the colon. 2. No aortic dissection identified. There is aneurysmal dilatation of the infrarenal abdominal aorta measuring 3.5 x 3.7 cm. 3. 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 The SMA is patent without greater than 50% narrowing. The SUZIE is occluded at its origin and fills distally via collaterals. Multifocal hemodynamically significant narrowing throughout the iliac arteries as detailed above. Chest/Abdomen CTA 07/31/17 16:41 IMPRESSION: 1. There is significant gaseous distention of the right, transverse , and left colons. There is appears to be long segment narrowing of the distal sigmoid colon without definite mass lesion this area on CT. Question possible large bowel obstruction secondary to underlying stricture. There is significant redundancy within the colon. 2. No aortic dissection identified. There is aneurysmal dilatation of the infrarenal abdominal aorta measuring 3.5 x 3.7 cm. 3. 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 The SMA is patent without greater than 50% narrowing. The SUZIE is occluded at its origin and fills distally via collaterals. Multifocal hemodynamically significant narrowing throughout the iliac arteries as detailed above. Assessment & Plan - Diagnosis (1) Large bowel obstruction Is this a current diagnosis for this admission?: Yes Plan: Secondary to narrowing of the sigmoid colon: Patient's family states that patient had a colonoscopy approximately 2 years ago and an abnormality was seen but not cancerous. Surgery has been consulted per ER and states that they will follow patient. Patient will continue with NG tube to decompress abdomen. Patient n.p.o. Patient placed on IV fluids. (2) Abdominal pain Qualifiers: Abdominal location: generalized Qualified Code(s): R10.84 - Generalized abdominal pain Is this a current diagnosis for this admission?: Yes Plan: Secondary to bowel obstruction etiology unclear: Concerned that patient could have a malignancy that is causing bowel obstruction. Awaiting surgery's recommendations. (3) Hypokalemia Is this a current diagnosis for this admission?: Yes Plan: Patient given potassium replacement in the emergency room. Will check BMP with mag in a.m. (4) AAA (abdominal aortic aneurysm) without rupture Is this a current diagnosis for this admission?: Yes Plan: No acute issues currently. Will monitor. (5) CAD (coronary artery disease) Is this a current diagnosis for this admission?: No Plan: Supportive care (6) Dementia Is this a current diagnosis for this admission?: Yes Plan: Supportive care. (7) Stroke Is this a current diagnosis for this admission?: No Plan: History of stroke: Supportive care. (8) DVT prophylaxis Is this a current diagnosis for this admission?: Yes Plan: SCDs - Time Time Spent: 30 to 50 Minutes - Family requesting CODE STATUS to be full code. Patient will be admitted to [facility]
--- NOTE | 2017-07-31 19:15 | PDOC CONSULTATION ---
Consultation Consult Date: 07/31/17 Attending physician:: BECK AKBAR Consult reason:: Abdominal pain and colonic stricture History of Present Illness Admission Date/PCP: 07/31/17 18:22 Patient complains of: Abdominal pain and vomiting History of Present Illness: SUZI GARCIA SR is a 76 year old male presented with complaint of abd pain. Patient was unable to give history due to dementia and received a morphine. Patient's son states that patient has had history with colon issues and had a colonoscopy done 2 years ago from a doctor that is about 20 miles outside of [place]. He states that patient has an extra long colon and therefore it takes time for things to move through his GI tract. And also reports that patient does have a AAA that has been monitored from time to time. Son also reports that patient has been losing weight over the last several months. Past Medical History Cardiac Medical History: Reports: Atrial Fibrillation, Hyperlipidema, Hypertension - on meds, Other - AAA Denies: Myocardial Infarction Pulmonary Medical History: Reports: Bronchitis - hx of Denies: Asthma, Chronic Obstructive Pulmonary Disease (COPD), Pneumonia EENT Medical History: Reports: None Neurological Medical History: Denies: Seizures Endocrine Medical History: Reports: Hypothyroidism Renal/ Medical History: Reports: Other - Prostatitis Malignancy Medical History: Reports: None GI Medical History: Reports: None, Other - hx of AAA Musculoskeltal Medical History: Reports: Arthritis Skin Medical History: Reports: None Psychiatric Medical History: Reports: Dementia, Depression Traumatic Medical History: Reports: None Hematology: Denies: Anemia Infectious Medical History: Reports: None Past Surgical History Past Surgical History: Reports: Appendectomy, Herniorrhaphy Social History Lives with: Other - [facility] Smoking Status: Former Smoker Family History Family History: Other - unable to obtain Parental Family History Reviewed: No Children Family History Reviewed: No Sibling(s) Family History Reviewed.: No Medication/Allergy Home Medications: Cetirizine HCl [Zyrtec 10 mg Tablet] 10 mg PO DAILY 05/30/17 Citalopram Hydrobromide [Celexa 20 mg Tablet] 20 mg PO DAILY 05/30/17 Hydrochlorothiazide [Hydrodiuril 12.5 mg Capsule] 12.5 mg PO QAM 05/30/17 Rivastigmine Tartrate [Rivastigmine] 4.5 mg PO Q12 08/21/17 Simvastatin [Zocor 20 mg Tablet] 20 mg PO QHS 05/30/17 Allergies/Adverse Reactions: donepezil Allergy (Verified 05/31/17 08:24) Influenza Virus Vaccines Allergy (Verified 05/31/17 08:24) loratadine Allergy (Verified 05/31/17 08:24) Penicillins Allergy (Verified 05/31/17 08:24) Review of Systems ROS unobtainable: Other - Patient is sedated and Alzheimer's disease. Review of systems is from the son. Physical Exam Vital Signs: Temp Pulse Resp BP Pulse Ox 97.9 F 15 144/64 H 94 07/31/17 14:39 07/31/17 16:02 07/31/17 16:02 07/31/17 16:02 General appearance: PRESENT: other - Somnolent and unarousable GI/Abdominal exam: PRESENT: distended, hyperactive bowel sounds Rectal exam: PRESENT: deferred Results Laboratory Results: White count was 10,000 and potassium is 2.8 Impressions: Abdomen/Pelvis CTA 07/31/17 16:40 IMPRESSION: 1. There is significant gaseous distention of the right, transverse , and left colons. There is appears to be long segment narrowing of the distal sigmoid colon without definite mass lesion this area on CT. Question possible large bowel obstruction secondary to underlying stricture. There is significant redundancy within the colon. 2. No aortic dissection identified. There is aneurysmal dilatation of the infrarenal abdominal aorta measuring 3.5 x 3.7 cm. 3. 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 The SMA is patent without greater than 50% narrowing. The SUZIE is occluded at its origin and fills distally via collaterals. Multifocal hemodynamically significant narrowing throughout the iliac arteries as detailed above. Chest/Abdomen CTA 07/31/17 16:41 IMPRESSION: 1. There is significant gaseous distention of the right, transverse , and left colons. There is appears to be long segment narrowing of the distal sigmoid colon without definite mass lesion this area on CT. Question possible large bowel obstruction secondary to underlying stricture. There is significant redundancy within the colon. 2. No aortic dissection identified. There is aneurysmal dilatation of the infrarenal abdominal aorta measuring 3.5 x 3.7 cm. 3. 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 The SMA is patent without greater than 50% narrowing. The SUZIE is occluded at its origin and fills distally via collaterals. Multifocal hemodynamically significant narrowing throughout the iliac arteries as detailed above. Status: Image reviewed by me Assessment & Plan - Diagnosis (1) Large bowel obstruction Is this a current diagnosis for this admission?: Yes Plan: Patient has multiple medical problems. 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 There are there is no indication for emergency surgery at this time. NG tube and IV fluids have been given. I think the patient will need a diversion with colostomy in the next few days after his physical condition is improved.
[2017-07-31] MEDS: NORMAL SALINE 1000 ML 1,000 ML IV PRN (22:27)
[2017-08-01 06:11] LABS: HEMOGLOBIN 11.7 g/dL (13.5-17.0); HGB HCT DIFFERENCE 1.1; MEAN CORPUSCULAR HEMOGLOBIN 31.2 pg (27.0-33.4); MEAN CORPUSCULAR HGB CONC 34.5 g/dL (32.0-36.0); MEAN CORPUSCULAR VOLUME 90 fl (80-97); RED BLOOD COUNT 3.76 10^6/uL (4.35-5.55); RED CELL DISTRIBUTION WIDTH 13.7 % (11.5-14.0)
[2017-08-01 06:35] LABS: ALANINE AMINOTRANSFERASE 34 U/L (21-72); ALBUMIN 3.7 g/dL (3.5-5.0); ALKALINE PHOSPHATASE 59 U/L (38-126); ANION GAP 14 (5-19); ASPARTATE AMINO TRANSFERASE 27 U/L (17-59); BILIRUBIN,DIRECT 0.4 mg/dL (0.0-0.4); BILIRUBIN,TOTAL 0.8 mg/dL (0.2-1.3); BLOOD UREA NITROGEN 27 mg/dL (7-20); CALCIUM 8.4 mg/dL (8.4-10.2); CARBON DIOXIDE 28 mmol/L (22-30); CHLORIDE 101 mmol/L (98-107); CREATININE RESULT 0.92 mg/dL (0.52-1.25); GLUCOSE 105 mg/dL (75-110); SODIUM 142.7 mmol/L (137-145); TOTAL PROTEIN 6.3 g/dL (6.3-8.2)
[2017-08-01 06:50] LABS: POTASSIUM 2.9 mmol/L (3.6-5.0)
[2017-08-01 06:56] LABS: WHITE BLOOD COUNT 26.8 10^3/uL (4.0-10.5)
[2017-08-01] MEDS ORDERED: POTASSIUM CHLORIDE 20 MEQ/15 ML UDCUP NG ONE (06:56)
[2017-08-01 06:59] LABS: BAND NEUTROPHILS % (MANUAL) 6 % (3-5); BASOPHILS % (MANUAL) 0 % (0-2); EOSINOPHILS % (MANUAL) 0 % (0-6); LYMPHOCYTES % (MANUAL) 5 % (13-45); TOTAL CELLS COUNTED 100
[2017-08-01 07:00] LABS: OVALOCYTES SLIGHT; POIKILOCYTOSIS SLIGHT
[2017-08-01] MEDS: POTASSI CL 20 MEQ/50 ML RIDER 20 MEQ/50 ML RTUPB IV SCH ×3 (08:44→14:54)
[2017-08-01] MEDS ORDERED: MORPHINE SULFATE 10 MG/ML INJ IV PRN ×3 (12:53→19:20)
--- NOTE | 2017-08-01 13:44 | PDOC PROGRESS REPORT ---
Subjective Progress Note for:: 08/01/17 Subjective:: Nursing states that pt pulled out NGT this morning. Nursing states that pt's daughter became upset because we were giving him ativan keep calm. Spoke to patient's son who states that he understands why were having to use Ativan in the situation. Nursing states that patient has been tolerating Ativan without any problems. However daughter refused to allow nurse to give Ativan and patient pulled out his NG tube. Physical Exam Vital Signs: Temp Pulse Resp BP Pulse Ox 99.3 F 71 18 153/58 H 98 08/01/17 11:05 08/01/17 11:05 08/01/17 11:05 08/01/17 11:05 08/01/17 11:05 Intake & Output 07/31/17 08/01/17 08/02/17 06:59 06:59 06:59 Intake Total 875 Output Total 100 Balance 775 Weight 75.1 kg General appearance: PRESENT: no acute distress, well-developed, well-nourished Head exam: PRESENT: atraumatic, normocephalic Eye exam: PRESENT: conjunctiva pink, EOMI. ABSENT: scleral icterus Ear exam: PRESENT: normal external ear exam Mouth exam: PRESENT: moist, tongue midline Neck exam: ABSENT: carotid bruit, JVD, lymphadenopathy, thyromegaly Respiratory exam: PRESENT: clear to auscultation miguelina. ABSENT: rales, rhonchi, wheezes Cardiovascular exam: PRESENT: RRR. ABSENT: diastolic murmur, rubs, systolic murmur Pulses: PRESENT: normal dorsalis pedis pul Vascular exam: PRESENT: normal capillary refill GI/Abdominal exam: PRESENT: tenderness - + tenderness to palpation in all qds. Rectal exam: PRESENT: deferred Extremities exam: PRESENT: full ROM. ABSENT: calf tenderness, clubbing, pedal edema Neurological exam: PRESENT: awake, oriented to person Psychiatric exam: PRESENT: appropriate affect, normal mood. ABSENT: homicidal ideation, suicidal ideation Skin exam: PRESENT: dry, intact, warm. ABSENT: cyanosis, rash Results Laboratory Results: 08/01/17 05:00 08/01/17 05:00 08/01/17 08/01/17 08/01/17 05:00 05:00 05:00 WBC 26.8 H D RBC 3.76 L Hgb 11.7 L Hct 34.0 L MCV 90 MCH 31.2 MCHC 34.5 RDW 13.7 Plt Count 164 Seg Neutrophils % Not Reportable Lymphocytes % Not Reportable Monocytes % Not Reportable Eosinophils % Not Reportable Basophils % Not Reportable Absolute Neutrophils Not Reportable Absolute Lymphocytes Not Reportable Absolute Monocytes Not Reportable Absolute Eosinophils Not Reportable Absolute Basophils Not Reportable Sodium 142.7 Potassium 2.9 L* Chloride 101 Carbon Dioxide 28 Anion Gap 14 BUN 27 H Creatinine 0.92 Est GFR ( Amer) > 60 Est GFR (Non-Af Amer) > 60 Glucose 105 Calcium 8.4 Magnesium 2.0 2.0 Total Bilirubin 0.8 AST 27 ALT 34 Alkaline Phosphatase 59 Total Protein 6.3 Albumin 3.7 Impressions: Abdomen/Pelvis CTA 07/31/17 16:40 IMPRESSION: 1. There is significant gaseous distention of the right, transverse , and left colons. There is appears to be long segment narrowing of the distal sigmoid colon without definite mass lesion this area on CT. Question possible large bowel obstruction secondary to underlying stricture. There is significant redundancy within the colon. 2. No aortic dissection identified. There is aneurysmal dilatation of the infrarenal abdominal aorta measuring 3.5 x 3.7 cm. 3. 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 The SMA is patent without greater than 50% narrowing. The SUZIE is occluded at its origin and fills distally via collaterals. Multifocal hemodynamically significant narrowing throughout the iliac arteries as detailed above. Chest/Abdomen CTA 07/31/17 16:41 IMPRESSION: 1. There is significant gaseous distention of the right, transverse , and left colons. There is appears to be long segment narrowing of the distal sigmoid colon without definite mass lesion this area on CT. Question possible large bowel obstruction secondary to underlying stricture. There is significant redundancy within the colon. 2. No aortic dissection identified. There is aneurysmal dilatation of the infrarenal abdominal aorta measuring 3.5 x 3.7 cm. 3. 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 The SMA is patent without greater than 50% narrowing. The SUZIE is occluded at its origin and fills distally via collaterals. Multifocal hemodynamically significant narrowing throughout the iliac arteries as detailed above. Assessment & Plan - Diagnosis (1) Large bowel obstruction Is this a current diagnosis for this admission?: Yes Plan: Secondary to narrowing of the sigmoid colon: We will continue NG tube. (2) Leukocytosis Is this a current diagnosis for this admission?: Yes Plan: Will monitor. Will place on Levaquin and Flagyl. (3) Abdominal pain Qualifiers: Abdominal location: generalized Qualified Code(s): R10.84 - Generalized abdominal pain Is this a current diagnosis for this admission?: Yes Plan: Secondary to bowel obstruction etiology unclear: Concerned that patient could have a malignancy that is causing bowel obstruction. Awaiting surgery's recommendations. (4) Hypokalemia Is this a current diagnosis for this admission?: Yes Plan: Will give potassium chloride. (5) AAA (abdominal aortic aneurysm) without rupture Is this a current diagnosis for this admission?: Yes Plan: No acute issues currently. Will monitor. (6) CAD (coronary artery disease) Is this a current diagnosis for this admission?: No Plan: Supportive care (7) Dementia Is this a current diagnosis for this admission?: Yes Plan: Supportive care. (8) Stroke Is this a current diagnosis for this admission?: No Plan: History of stroke: Supportive care. (9) DVT prophylaxis Is this a current diagnosis for this admission?: Yes Plan: SCDs - Time Time Spent with patient: 15-24 minutes - Nursing will have NGT placed.
[2017-08-01] MEDS ORDERED: LORAZEPAM INJ 2 MG/1 ML VIAL IV PRN (14:00)
[2017-08-01] MEDS ORDERED: ONDANSETRON HCL INJ/PF 4 MG/2 ML SDV IV PRN (14:00)
[2017-08-01] MEDS ORDERED: ACETAMINOPHEN 325 MG TABLET PO PRN (14:00)
[2017-08-01 16:41] LABS: ANION GAP 12 (5-19); BLOOD UREA NITROGEN 31 mg/dL (7-20); CALCIUM 8.6 mg/dL (8.4-10.2); CARBON DIOXIDE 27 mmol/L (22-30); CHLORIDE 104 mmol/L (98-107); CREATININE RESULT 0.92 mg/dL (0.52-1.25); GLUCOSE 120 mg/dL (75-110); POTASSIUM 3.7 mmol/L (3.6-5.0); SODIUM 143.4 mmol/L (137-145)
--- NOTE | 2017-08-01 16:55 | PDOC CONSULTATION ---
Consultation Consult Date: 08/01/17 Attending physician:: JENNIFER MENDEZ Consult reason:: Large Bowel Obstruction History of Present Illness Admission Date/PCP: 07/31/17 18:22 Patient complains of: This patient is a 76 year old male presented with complaint of abd pain. Patient was unable to give history due to dementia and received a morphine. Patient's son states that patient has had history with colon issues and had a colonoscopy done 2 years ago from a doctor that is about 20 miles outside of [place]. He states that patient has an extra long colon and therefore it takes time for things to move through his GI tract. [facility], which the patient has pulled out already. Upon my examination, he was found to have a distended, tense , and tender abdomen, with diminished B.S. 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 Emergency surgical intervention is highly reommended. Past Medical History Cardiac Medical History: Reports: Atrial Fibrillation, Hyperlipidema, Hypertension - on meds, Other - AAA Denies: Myocardial Infarction Pulmonary Medical History: Reports: Bronchitis - hx of Denies: Asthma, Chronic Obstructive Pulmonary Disease (COPD), Pneumonia EENT Medical History: Reports: None Neurological Medical History: Denies: Seizures Endocrine Medical History: Reports: Hypothyroidism Renal/ Medical History: Reports: Other - Prostatitis Malignancy Medical History: Reports: None GI Medical History: Reports: None, Other - hx of AAA Musculoskeltal Medical History: Reports: Arthritis Skin Medical History: Reports: None Psychiatric Medical History: Reports: Dementia, Depression Traumatic Medical History: Reports: None Hematology: Denies: Anemia Infectious Medical History: Reports: None Past Surgical History Past Surgical History: Reports: Appendectomy, Herniorrhaphy Social History Lives with: Other - [facility] Smoking Status: Unknown if Ever Smoked Frequency of Alcohol Use: None Hx Recreational Drug Use: No - not known at this time Family History Family History: Other - unable to obtain Parental Family History Reviewed: No Children Family History Reviewed: No Sibling(s) Family History Reviewed.: No Medication/Allergy Home Medications: Hydrochlorothiazide [Hydrodiuril 12.5 mg Capsule] 12.5 mg PO QAM 05/30/17 Simvastatin [Zocor 20 mg Tablet] 20 mg PO DAILY 05/30/17 Acetaminophen [Mapap] 650 mg PO Q6HP PRN 07/31/17 Aspirin [Aspirin 81 mg Chewable Tablet] 81 mg PO DAILY 07/31/17 Cetirizine HCl [24Hour Allergy] 10 mg PO DAILY 07/31/17 Citalopram Hydrobromide [Citalopram HBr] 20 mg PO DAILY 07/31/17 Docusate Calcium 240 mg PO QHS 07/31/17 Ibuprofen 400 mg PO MEALS 07/31/17 Levothyroxine Sodium 75 mcg PO DAILY 07/31/17 Magnesium Hydroxide [Milk of Magnesia 30 ml Udcup] 30 ml PO DAILYP PRN 07/31/17 Nifedipine [Nifedipine ER] 30 mg PO DAILY 07/31/17 [place]-3/Dha/Epa/Fish Oil [Fish Oil 1,000 mg Softgel] 1 cap PO DAILY 07/31/17 Quetiapine Fumarate 25 mg PO BID 07/31/17 Risperidone [Risperdal 1 mg Tablet] 1 mg PO BID 07/31/17 Tamsulosin HCl 0.8 mg PO QPM 07/31/17 Allergies/Adverse Reactions: donepezil Allergy (Verified 05/31/17 08:24) Influenza Virus Vaccines Allergy (Verified 05/31/17 08:24) loratadine Allergy (Verified 05/31/17 08:24) Penicillins Allergy (Verified 05/31/17 08:24) Physical Exam Vital Signs: Temp Pulse Resp BP Pulse Ox 99.3 F 71 18 153/58 H 98 08/01/17 11:05 08/01/17 11:05 08/01/17 11:05 08/01/17 11:05 08/01/17 11:05 Intake & Output 07/31/17 08/01/17 08/02/17 06:59 06:59 06:59 Intake Total 875 Output Total 100 Balance 775 Weight 75.1 kg General appearance: PRESENT: well-developed, well-nourished, other - Pt. has dementia. Head exam: PRESENT: atraumatic, normocephalic Eye exam: PRESENT: conjunctiva pink Mouth exam: PRESENT: dry mucosa, neck supple, tongue midline Neck exam: PRESENT: full ROM. ABSENT: JVD, lymphadenopathy, tenderness, thyromegaly, tracheal deviation Respiratory exam: PRESENT: clear to auscultation miguelina, symmetrical Cardiovascular exam: PRESENT: RRR GI/Abdominal exam: PRESENT: diminished bowel sounds, distended, firm, guarding, rigid, tenderness Rectal exam: PRESENT: deferred Extremities exam: ABSENT: calf tenderness, clubbing Results Laboratory Results: 08/01/17 05:00 08/01/17 08/01/17 08/01/17 05:00 05:00 05:00 WBC 26.8 H D RBC 3.76 L Hgb 11.7 L Hct 34.0 L MCV 90 MCH 31.2 MCHC 34.5 RDW 13.7 Plt Count 164 Seg Neutrophils % Not Reportable Lymphocytes % Not Reportable Monocytes % Not Reportable Eosinophils % Not Reportable Basophils % Not Reportable Absolute Neutrophils Not Reportable Absolute Lymphocytes Not Reportable Absolute Monocytes Not Reportable Absolute Eosinophils Not Reportable Absolute Basophils Not Reportable Sodium 142.7 Potassium 2.9 L* Chloride 101 Carbon Dioxide 28 Anion Gap 14 BUN 27 H Creatinine 0.92 Est GFR ( Amer) > 60 Est GFR (Non-Af Amer) > 60 Glucose 105 Calcium 8.4 Magnesium 2.0 2.0 Total Bilirubin 0.8 AST 27 ALT 34 Alkaline Phosphatase 59 Total Protein 6.3 Albumin 3.7 Impressions: Abdomen/Pelvis CTA 07/31/17 16:40 IMPRESSION: 1. There is significant gaseous distention of the right, transverse , and left colons. There is appears to be long segment narrowing of the distal sigmoid colon without definite mass lesion this area on CT. Question possible large bowel obstruction secondary to underlying stricture. There is significant redundancy within the colon. 2. No aortic dissection identified. There is aneurysmal dilatation of the infrarenal abdominal aorta measuring 3.5 x 3.7 cm. 3. 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 The SMA is patent without greater than 50% narrowing. The SUZIE is occluded at its origin and fills distally via collaterals. Multifocal hemodynamically significant narrowing throughout the iliac arteries as detailed above. Chest/Abdomen CTA 07/31/17 16:41 IMPRESSION: 1. There is significant gaseous distention of the right, transverse , and left colons. There is appears to be long segment narrowing of the distal sigmoid colon without definite mass lesion this area on CT. Question possible large bowel obstruction secondary to underlying stricture. There is significant redundancy within the colon. 2. No aortic dissection identified. There is aneurysmal dilatation of the infrarenal abdominal aorta measuring 3.5 x 3.7 cm. 3. 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 The SMA is patent without greater than 50% narrowing. The SUZIE is occluded at its origin and fills distally via collaterals. Multifocal hemodynamically significant narrowing throughout the iliac arteries as detailed above. Assessment & Plan - Diagnosis (1) Large bowel obstruction Is this a current diagnosis for this admission?: Yes - Plan Summary Plan Summary: Patient is to be taken to the O.R. today for diverting colostomy, and sigmoid resection.
[2017-08-01] MEDS ORDERED: FENTANYL CITRATE INJ/PF 250 MCG/5 ML AMPULE ONE (17:52)
[2017-08-01] MEDS ORDERED: MIDAZOLAM 2 MG/2 ML INJ ONE (17:52)
[2017-08-01] MEDS ORDERED: PROPOFOL INJ 200 MG/20 ML VIAL IV ONE (17:53)
[2017-08-01] MEDS ORDERED: MORPHINE SULFATE 10 MG/ML INJ ONE (17:53)
[2017-08-01] MEDS: LEVOFLOXACIN 750 MG/D5W RTU 750 MG/150 ML RTUPB IV SCH (18:36)
[2017-08-01] MEDS ORDERED: DIPHENHYDRAMINE HCL 50 MG/ML VIAL IV PRN (19:20)
[2017-08-01] MEDS ORDERED: FENTANYL CITRATE INJ/PF 100 MCG/2 ML AMPUL IV PRN ×3 (19:20)
[2017-08-01] MEDS ORDERED: MEPERIDINE HCL/PF INJ 25 MG/1 ML DISP.SYRIN IV PRN (19:20)
[2017-08-01] MEDS: METRONIDAZOLE 500 MG/NS RTU 100 ML IV SCH ×2 (19:39→20:17)
[2017-08-01] MEDS ORDERED: FENTANYL CITRATE INJ/PF 100 MCG/2 ML AMPUL ONE (20:09)
[2017-08-01] MEDS ORDERED: PROPOFOL 100 ML IV ONE (21:39)
--- NOTE | 2017-08-01 21:42 | EKG REPORT ---
SEVERITY:- BORDERLINE ECG - SINUS RHYTHM BORDERLINE T ABNORMALITIES, INFERIOR LEADS BORDERLINE PROLONGED QT INTERVAL : Confirmed by: Joey Santa 01-Aug-2017 21:41:26
--- NOTE | 2017-08-01 21:49 | Operative Report ---
Operative Report DATE OF SURGERY: 08/01/17 PREOPERATIVE DIAGNOSIS: Large bowel obstruction secondary to segmental stricture and sigmoid volvulus with ischemia POSTOPERATIVE DIAGNOSIS: Same OPERATION: Exploratory Laparotomy, Sigmoid colectomy, Diverting Colostomy SURGEON: JENNIFER MENDEZ ANESTHESIA: GA TISSUE REMOVED OR ALTERED: Sigmoid colon COMPLICATIONS: None ESTIMATED BLOOD LOSS: 50cc
--- NOTE | 2017-08-01 22:37 | OPERATIVE REPORT E ---
Operative Report NAME: SUZI GARCIA : 1940 AGE: 76Y DATE OF SURGERY: 08/01/2017 ROOM: 601 PREOPERATIVE DIAGNOSIS: Large bowel obstruction secondary to segmental stricture of the sigmoid colon. 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 OPERATION: 1. Sigmoid colectomy for markedly redundant sigmoid colon. 2. Sigmoid volvulus with diverting descending colon colostomy. SURGEON: JENNIFER MENDEZ M.D. ANESTHESIA: General. REPLACEMENT: Crystalloid. DRAINS: None. COMPLICATIONS: None. CONDITION: Stable. FINDINGS: The patient had ischemic sigmoid colon secondary to sigmoid volvulus causing sigmoid ischemia with reported segmental narrowing or stricture of the sigmoid colon according to the CT scan. INDICATION FOR PROCEDURE: This 76-year-old male presented to the hospital with abdominal pain, abdomen on exam which showed diffuse tenderness with some guarding and rebound tenderness. CT scan revealed dilated right transverse descending colon as well as sigmoid colon with a long segment stricture of the sigmoid colon causing obstruction. Because of the patient's abdominal findings on exam with tenderness at the time of making rounds, surgical intervention was recommended. PROCEDURE: The patient was brought to the operating room suite and placed in a supine position on the operating table. Monitoring devices were attached and IV sedation was administered followed by the induction of general endotracheal anesthesia. The patient's abdomen was prepped and draped in the usual sterile manner, and a then timeout was achieved. After all concurred, a midline incision was made through the skin and subcutaneous tissue down to the linea alba. The linea alba was divided. The abdominal cavity was entered. The patient was noted to have marked dilatation of the entire colon, particularly the transverse colon and the sigmoid colon. The patient had a markedly redundant sigmoid colon with a length of sigmoid colon close to 40 cm in length, which required decompression in order to manipulate it. In the sigmoid colon and on the transverse colon, a 3-0 silk pursestring was placed and a #16 gauge Angiocath was placed into the bowel at the midpoint of the pursestring. We decompressed the transverse colon, descending colon and sigmoid colon in order so that we could mobilize each. We then noted the patient had sigmoid volvulus with ischemia of the *------* mesenteric wall involving a 10 cm length of sigmoid colon. We began by incising along the white line of Toldt to mobilize the sigmoid colon. The ureter was identified. After mobilizing the sigmoid colon along the white line of Toldt, we made an opening in the mesentery at the most proximal end of the sigmoid colon and divided the proximal sigmoid colon using the ESTEE 75. We then divided the rectosigmoid junction using 75 mm ESTEE and we then divided the mesentery using the LigaSure. After removing the extend length of redundant sigmoid, we then decided to create an end-diverting descending colon colostomy. An opening was made in the abdominal way midway between the umbilicus and the anterior superior *------*. We placed an Allis on the skin and cut directly under the Allis to create a circular opening. We then enlarged this opening through skin and subcutaneous tissue down to the fascia. The fascia, peritoneum was divided, the opening was stretched and the descending colon was then brought through as an end colostomy. We then secured the descending colon to the peritoneum using 3-0 silk and once this was done, we proceeded to irrigate the abdomen with normal saline and then proceeded to close the abdomen. The fascia was closed using #1 PDS and the skin was approximated using skin ton. The descending colon colostomy was matured using 3-0 and 4-0 Vicryl and colostomy bag was placed and stool was noted to be emptying directly into the colostomy immediately. DICTATING PHYSICIAN: JENNIFER MENDEZ M.D. [id number] PHY#: [id number] ID: [id number] JOB#: [id number] ACCT: [id number] cc:JENNIFER MENDEZ M.D. >
[2017-08-02] MEDS ORDERED: FUROSEMIDE INJ/PF 20 MG/2 ML SDV IV PRN (00:11)
[2017-08-02] MEDS ORDERED: NORMAL SALINE 500 ML IV PRN (00:15)
[2017-08-02 00:26] LABS: ARTERIAL BLOOD BASE EXCESS 0.2 mmol/L; ARTERIAL BLOOD O2 SATURATION 98.8 % (94-98)
[2017-08-02] MEDS: PROPOFOL 100 ML IV PRN ×3 (00:34→23:55)
[2017-08-02] MEDS ORDERED: NORMAL SALINE 500 ML IV ONE ×2 (00:45→21:45)
[2017-08-02] MEDS ORDERED: FAMOTIDINE INJ/PF 20 MG/2 ML SDV IV ONE (00:45)
[2017-08-02] MEDS: MORPHINE SULFATE 10 MG/ML INJ IV PRN ×6 (02:13→20:27)
[2017-08-02] MEDS: METRONIDAZOLE 500 MG/NS RTU 100 ML IV SCH ×4 (02:13→20:26)
--- NOTE | 2017-08-02 03:19 | RADIOLOGY REPORT (SQ) ---
EXAM DESCRIPTION: CHEST SINGLE VIEW COMPLETED DATE/TIME: 08/02/2017 2:46 am REASON FOR STUDY: ETT Placement COMPARISON: 08/16/2016. CT, 07/31/2017. EXAM PARAMETERS: NUMBER OF VIEWS: One view. TECHNIQUE: Single frontal radiographic view of the chest acquired. RADIATION DOSE: NA LIMITATIONS: None. FINDINGS: LUNGS AND PLEURA: Moderate -small lung volume. Minimal opacity -effusion of the left cost ophrenic angle. MEDIASTINUM AND HILAR STRUCTURES: No masses. Contour normal. HEART AND VASCULAR STRUCTURES: Normal cardiac silhouette size. Atherosclerosis. BONES: No acute findings. HARDWARE: Adequate appearing endotracheal tube and NG tube. Surgical clips of the abdomen along the midline. OTHER: No other significant finding. IMPRESSION: Small lung volume. Small left basilar effusion -opacity. Lines and tubes. TECHNICAL DOCUMENTATION: JOB ID: [id number]
[2017-08-02 04:18] LABS: HEMATOCRIT 31.1 % (37.9-51.0); HEMOGLOBIN 10.8 g/dL (13.5-17.0); HGB HCT DIFFERENCE 1.3; MEAN CORPUSCULAR HEMOGLOBIN 31.7 pg (27.0-33.4); MEAN CORPUSCULAR HGB CONC 34.9 g/dL (32.0-36.0); MEAN CORPUSCULAR VOLUME 91 fl (80-97); RED BLOOD COUNT 3.42 10^6/uL (4.35-5.55); WHITE BLOOD COUNT 16.9 10^3/uL (4.0-10.5)
[2017-08-02 04:21] LABS: ALANINE AMINOTRANSFERASE 30 U/L (21-72); ALBUMIN 2.4 g/dL (3.5-5.0); ALKALINE PHOSPHATASE 37 U/L (38-126); ANION GAP 8 (5-19); ASPARTATE AMINO TRANSFERASE 21 U/L (17-59); BILIRUBIN,DIRECT 0.4 mg/dL (0.0-0.4); BILIRUBIN,TOTAL 0.7 mg/dL (0.2-1.3); BLOOD UREA NITROGEN 29 mg/dL (7-20); CALCIUM 7.1 mg/dL (8.4-10.2); CARBON DIOXIDE 25 mmol/L (22-30); CHLORIDE 109 mmol/L (98-107); CREATININE RESULT 0.83 mg/dL (0.52-1.25); GLUCOSE 107 mg/dL (75-110); POTASSIUM 4.1 mmol/L (3.6-5.0); SODIUM 142.4 mmol/L (137-145); TOTAL PROTEIN 4.5 g/dL (6.3-8.2)
[2017-08-02 04:52] LABS: BAND NEUTROPHILS % (MANUAL) 4 % (3-5); BASOPHILS % (MANUAL) 0 % (0-2); EOSINOPHILS % (MANUAL) 0 % (0-6); LYMPHOCYTES % (MANUAL) 4 % (13-45); TOTAL CELLS COUNTED 100
[2017-08-02 04:55] LABS: ANISOCYTOSIS SLIGHT; POIKILOCYTOSIS SLIGHT; TOXIC GRANULATION 1+; TOXIC VACUOLATION PRESENT
[2017-08-02 04:56] LABS: OVALOCYTES SLIGHT
[2017-08-02 06:31] LABS: ARTERIAL BLOOD BASE EXCESS -1.7 mmol/L; ARTERIAL BLOOD O2 SATURATION 95.1 % (94-98)
[2017-08-02] MEDS: FAMOTIDINE INJ/PF 20 MG/2 ML SDV IV SCH ×2 (10:14→21:48)
[2017-08-02] MEDS: ENOXAPARIN SODIUM INJ 40 MG/0.4 ML DISP.SYRIN SUBCUT SCH (10:15)
[2017-08-02] MEDS ORDERED: ROCURONIUM BROMIDE INJ 50 MG/5 ML VIAL IV ONE (12:04)
[2017-08-02] MEDS ORDERED: SUCCINYLCHOLINE CHLORIDE INJ 200 MG/10 ML VIAL ONE (12:04)
--- NOTE | 2017-08-02 13:13 | PDOC CONSULTATION ---
Consultation Consult Date: 08/02/17 Attending physician:: JENNIFER MENDEZ Consult reason:: Respiratory failure History of Present Illness Admission Date/PCP: 07/31/17 18:22 History of Present Illness: SUZI GARCIA SR is a 76 year old male presented with complaint of abd pain.He was subsequently taken to the operating room had colonic surgery is now returning to the ICU. Surgery resulted in a left-sided ostomy. He is Alzheimer 's patient was unable to deliver the amount of inflammation preoperatively currently he is intubated and sedated Past Medical History Cardiac Medical History: Reports: Atrial Fibrillation, Hyperlipidema, Hypertension - on meds, Other - AAA Denies: Myocardial Infarction Pulmonary Medical History: Reports: Bronchitis - hx of Denies: Asthma, Chronic Obstructive Pulmonary Disease (COPD), Pneumonia EENT Medical History: Reports: None Neurological Medical History: Denies: Seizures Endocrine Medical History: Reports: Hypothyroidism Renal/ Medical History: Reports: Other - Prostatitis Malignancy Medical History: Reports: None GI Medical History: Reports: None, Other - hx of AAA Musculoskeltal Medical History: Reports: Arthritis Skin Medical History: Reports: None Psychiatric Medical History: Reports: Dementia, Depression Traumatic Medical History: Reports: None Hematology: Denies: Anemia Infectious Medical History: Reports: None Past Surgical History Past Surgical History: Reports: Appendectomy, Herniorrhaphy Social History Information Source: [facility] Records Lives with: Other - [facility] Smoking Status: Unknown if Ever Smoked Frequency of Alcohol Use: None Hx Recreational Drug Use: No - not known at this time - Advance Directive Resuscitation Status: Full Code Family History Family History: Other - unable to obtain Parental Family History Reviewed: No Children Family History Reviewed: No Sibling(s) Family History Reviewed.: No Medication/Allergy Home Medications: Hydrochlorothiazide [Hydrodiuril 12.5 mg Capsule] 12.5 mg PO QAM 05/30/17 Simvastatin [Zocor 20 mg Tablet] 20 mg PO DAILY 05/30/17 Acetaminophen [Mapap] 650 mg PO Q6HP PRN 07/31/17 Aspirin [Aspirin 81 mg Chewable Tablet] 81 mg PO DAILY 07/31/17 Cetirizine HCl [24Hour Allergy] 10 mg PO DAILY 07/31/17 Citalopram Hydrobromide [Citalopram HBr] 20 mg PO DAILY 07/31/17 Docusate Calcium 240 mg PO QHS 07/31/17 Ibuprofen 400 mg PO MEALS 07/31/17 Levothyroxine Sodium 75 mcg PO DAILY 07/31/17 Magnesium Hydroxide [Milk of Magnesia 30 ml Udcup] 30 ml PO DAILYP PRN 07/31/17 Nifedipine [Nifedipine ER] 30 mg PO DAILY 07/31/17 [place]-3/Dha/Epa/Fish Oil [Fish Oil 1,000 mg Softgel] 1 cap PO DAILY 07/31/17 Quetiapine Fumarate 25 mg PO BID 07/31/17 Risperidone [Risperdal 1 mg Tablet] 1 mg PO BID 07/31/17 Tamsulosin HCl 0.8 mg PO QPM 07/31/17 Allergies/Adverse Reactions: donepezil Allergy (Verified 05/31/17 08:24) Influenza Virus Vaccines Allergy (Verified 05/31/17 08:24) loratadine Allergy (Verified 05/31/17 08:24) Penicillins Allergy (Verified 05/31/17 08:24) Review of Systems ROS unobtainable: Due to endotracheal tube, Due to mental status Physical Exam Vital Signs: Temp Pulse Resp BP Pulse Ox 97.9 F 66 17 115/53 L 95 08/02/17 07:31 08/02/17 08:00 08/02/17 07:31 08/02/17 07:31 08/02/17 07:31 Intake & Output 08/01/17 08/02/17 08/03/17 06:59 06:59 06:59 Intake Total 875 7244 Output Total 100 895 75 Balance 775 6349 -75 Weight 75.1 kg 78.5 kg General appearance: PRESENT: no acute distress, disheveled, well-developed, well -nourished Head exam: PRESENT: atraumatic, normocephalic Eye exam: PRESENT: conjunctiva pale Mouth exam: PRESENT: moist, neck supple, tongue midline, other - Endotracheal tube intact Neck exam: ABSENT: carotid bruit, JVD, lymphadenopathy, thyromegaly Respiratory exam: PRESENT: decreased breath sounds, prolonged expiratory phas, rhonchi, symmetrical, unlabored. ABSENT: crackles, rales, retraction, stridor, tachypnea Cardiovascular exam: PRESENT: RRR, +S1, +S2 Pulses: PRESENT: normal radial pulses GI/Abdominal exam: PRESENT: other - Postoperative midline surgical incision dressing dry and intact left-sided ostomy bag Rectal exam: PRESENT: deferred Gentrourinary exam: PRESENT: indwelling catheter Musculoskeletal exam: PRESENT: normal inspection Neurological exam: PRESENT: other - Sedated Skin exam: PRESENT: dry, warm Results Laboratory Results: 08/02/17 03:48 08/02/17 03:48 08/01/17 08/01/17 08/02/17 16:00 18:12 00:15 WBC RBC Hgb Hct MCV MCH MCHC RDW Plt Count Seg Neutrophils % Lymphocytes % Monocytes % Eosinophils % Basophils % Absolute Neutrophils Absolute Lymphocytes Absolute Monocytes Absolute Eosinophils Absolute Basophils Carbonic Acid 1.31 HCO3/H2CO3 Ratio 19:1 ABG pH 7.39 ABG pCO2 43.5 ABG pO2 145.3 H ABG HCO3 25.4 ABG O2 Saturation 98.8 H ABG Base Excess 0.2 FiO2 70% Sodium 143.4 Potassium 3.7 Chloride 104 Carbon Dioxide 27 Anion Gap 12 BUN 31 H Creatinine 0.92 Est GFR ( Amer) > 60 Est GFR (Non-Af Amer) > 60 Glucose 120 H Calcium 8.6 Total Bilirubin AST ALT Alkaline Phosphatase Total Protein Albumin Blood Type AB POSITIVE Antibody Screen NEGATIVE 08/02/17 08/02/17 08/02/17 03:48 03:48 05:47 WBC 16.9 H RBC 3.42 L Hgb 10.8 L Hct 31.1 L MCV 91 MCH 31.7 MCHC 34.9 RDW 14.0 Plt Count 132 L Seg Neutrophils % Not Reportable Lymphocytes % Not Reportable Monocytes % Not Reportable Eosinophils % Not Reportable Basophils % Not Reportable Absolute Neutrophils Not Reportable Absolute Lymphocytes Not Reportable Absolute Monocytes Not Reportable Absolute Eosinophils Not Reportable Absolute Basophils Not Reportable Carbonic Acid 1.26 HCO3/H2CO3 Ratio 18:1 ABG pH 7.37 ABG pCO2 41.8 ABG pO2 77.6 L ABG HCO3 23.6 ABG O2 Saturation 95.1 ABG Base Excess -1.7 FiO2 30% Sodium 142.4 Potassium 4.1 Chloride 109 H Carbon Dioxide 25 Anion Gap 8 BUN 29 H Creatinine 0.83 Est GFR ( Amer) > 60 Est GFR (Non-Af Amer) > 60 Glucose 107 Calcium 7.1 L Total Bilirubin 0.7 AST 21 ALT 30 Alkaline Phosphatase 37 L Total Protein 4.5 L Albumin 2.4 L Blood Type Antibody Screen Impressions: Abdomen/Pelvis CTA 07/31/17 16:40 IMPRESSION: 1. There is significant gaseous distention of the right, transverse , and left colons. There is appears to be long segment narrowing of the distal sigmoid colon without definite mass lesion this area on CT. Question possible large bowel obstruction secondary to underlying stricture. There is significant redundancy within the colon. 2. No aortic dissection identified. There is aneurysmal dilatation of the infrarenal abdominal aorta measuring 3.5 x 3.7 cm. 3. 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 The SMA is patent without greater than 50% narrowing. The SUZIE is occluded at its origin and fills distally via collaterals. Multifocal hemodynamically significant narrowing throughout the iliac arteries as detailed above. Chest/Abdomen CTA 07/31/17 16:41 IMPRESSION: 1. There is significant gaseous distention of the right, transverse , and left colons. There is appears to be long segment narrowing of the distal sigmoid colon without definite mass lesion this area on CT. Question possible large bowel obstruction secondary to underlying stricture. There is significant redundancy within the colon. 2. No aortic dissection identified. There is aneurysmal dilatation of the infrarenal abdominal aorta measuring 3.5 x 3.7 cm. 3. 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 The SMA is patent without greater than 50% narrowing. The SUZIE is occluded at its origin and fills distally via collaterals. Multifocal hemodynamically significant narrowing throughout the iliac arteries as detailed above. Chest X-Ray 08/01/17 00:00 IMPRESSION: Small lung volume. Small left basilar effusion -opacity. Lines and tubes. Assessment & Plan - Diagnosis (1) Respiratory failure Is this a current diagnosis for this admission?: Yes Plan: Currently having long periods apnea on pressure support and CPAP appears to be well-nourished although ventilatory requirements low but unable to arouse for sufficient enough response to believe patient could protect his airway (2) Dementia Is this a current diagnosis for this admission?: Yes (3) Incarcerated left inguinal hernia Is this a current diagnosis for this admission?: Yes - Time Critical Time spent with patient: 35 or more minutes - 50 minutes
--- NOTE | 2017-08-02 13:45 | PDOC PROGRESS REPORT ---
Subjective Progress Note for:: 08/02/17 Subjective:: Patient is intubated and sedated. Physical Exam Vital Signs: Temp Pulse Resp BP Pulse Ox 98.7 F 68 16 108/63 94 08/02/17 12:00 08/02/17 12:00 08/02/17 12:00 08/02/17 12:00 08/02/17 12:00 Intake & Output 08/01/17 08/02/17 08/03/17 06:59 06:59 06:59 Intake Total 875 7244 Output Total 100 895 195 Balance 775 6349 -195 Weight 75.1 kg 78.5 kg General appearance: PRESENT: no acute distress Eye exam: PRESENT: conjunctiva pink. ABSENT: scleral icterus Mouth exam: PRESENT: moist, tongue midline Neck exam: ABSENT: JVD Respiratory exam: PRESENT: clear to auscultation miguelina. ABSENT: rales, rhonchi, wheezes Cardiovascular exam: PRESENT: RRR. ABSENT: diastolic murmur, rubs, systolic murmur GI/Abdominal exam: PRESENT: normal bowel sounds, soft, other - Ostomy in place in the left lower quadrant.. ABSENT: distended, guarding, mass, organolmegaly, rebound, tenderness Extremities exam: ABSENT: calf tenderness, clubbing, pedal edema Neurological exam: PRESENT: other - Patient is intubated and sedated. Psychiatric exam: PRESENT: appropriate affect Skin exam: PRESENT: dry, intact, warm. ABSENT: cyanosis, rash Results Laboratory Results: 08/02/17 03:48 08/02/17 03:48 08/01/17 08/01/17 08/02/17 16:00 18:12 00:15 WBC RBC Hgb Hct MCV MCH MCHC RDW Plt Count Seg Neutrophils % Lymphocytes % Monocytes % Eosinophils % Basophils % Absolute Neutrophils Absolute Lymphocytes Absolute Monocytes Absolute Eosinophils Absolute Basophils Carbonic Acid 1.31 HCO3/H2CO3 Ratio 19:1 ABG pH 7.39 ABG pCO2 43.5 ABG pO2 145.3 H ABG HCO3 25.4 ABG O2 Saturation 98.8 H ABG Base Excess 0.2 FiO2 70% Sodium 143.4 Potassium 3.7 Chloride 104 Carbon Dioxide 27 Anion Gap 12 BUN 31 H Creatinine 0.92 Est GFR ( Amer) > 60 Est GFR (Non-Af Amer) > 60 Glucose 120 H Calcium 8.6 Total Bilirubin AST ALT Alkaline Phosphatase Total Protein Albumin Blood Type AB POSITIVE Antibody Screen NEGATIVE 08/02/17 08/02/17 08/02/17 03:48 03:48 05:47 WBC 16.9 H RBC 3.42 L Hgb 10.8 L Hct 31.1 L MCV 91 MCH 31.7 MCHC 34.9 RDW 14.0 Plt Count 132 L Seg Neutrophils % Not Reportable Lymphocytes % Not Reportable Monocytes % Not Reportable Eosinophils % Not Reportable Basophils % Not Reportable Absolute Neutrophils Not Reportable Absolute Lymphocytes Not Reportable Absolute Monocytes Not Reportable Absolute Eosinophils Not Reportable Absolute Basophils Not Reportable Carbonic Acid 1.26 HCO3/H2CO3 Ratio 18:1 ABG pH 7.37 ABG pCO2 41.8 ABG pO2 77.6 L ABG HCO3 23.6 ABG O2 Saturation 95.1 ABG Base Excess -1.7 FiO2 30% Sodium 142.4 Potassium 4.1 Chloride 109 H Carbon Dioxide 25 Anion Gap 8 BUN 29 H Creatinine 0.83 Est GFR ( Amer) > 60 Est GFR (Non-Af Amer) > 60 Glucose 107 Calcium 7.1 L Total Bilirubin 0.7 AST 21 ALT 30 Alkaline Phosphatase 37 L Total Protein 4.5 L Albumin 2.4 L Blood Type Antibody Screen Impressions: Abdomen/Pelvis CTA 07/31/17 16:40 IMPRESSION: 1. There is significant gaseous distention of the right, transverse , and left colons. There is appears to be long segment narrowing of the distal sigmoid colon without definite mass lesion this area on CT. Question possible large bowel obstruction secondary to underlying stricture. There is significant redundancy within the colon. 2. No aortic dissection identified. There is aneurysmal dilatation of the infrarenal abdominal aorta measuring 3.5 x 3.7 cm. 3. 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 The SMA is patent without greater than 50% narrowing. The SUZIE is occluded at its origin and fills distally via collaterals. Multifocal hemodynamically significant narrowing throughout the iliac arteries as detailed above. Chest/Abdomen CTA 07/31/17 16:41 IMPRESSION: 1. There is significant gaseous distention of the right, transverse , and left colons. There is appears to be long segment narrowing of the distal sigmoid colon without definite mass lesion this area on CT. Question possible large bowel obstruction secondary to underlying stricture. There is significant redundancy within the colon. 2. No aortic dissection identified. There is aneurysmal dilatation of the infrarenal abdominal aorta measuring 3.5 x 3.7 cm. 3. 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 The SMA is patent without greater than 50% narrowing. The SUZIE is occluded at its origin and fills distally via collaterals. Multifocal hemodynamically significant narrowing throughout the iliac arteries as detailed above. Chest X-Ray 08/01/17 00:00 IMPRESSION: Small lung volume. Small left basilar effusion -opacity. Lines and tubes. Assessment & Plan - Diagnosis (1) Large bowel obstruction Is this a current diagnosis for this admission?: Yes Plan: Patient had surgery for obstruction with volvulus. he he currently has a ostomy that appears to be functioning. (2) CAD (coronary artery disease) Is this a current diagnosis for this admission?: Yes Plan: Patient is intubated and unable to complain of any difficulties. (3) Dementia Is this a current diagnosis for this admission?: Yes (4) Hypokalemia Is this a current diagnosis for this admission?: Yes Plan: Resolved. (5) Leukocytosis Is this a current diagnosis for this admission?: Yes Plan: The patient's white count is still elevated but has decreased. Continue with Flagyl and Levaquin. (6) AAA (abdominal aortic aneurysm) without rupture Is this a current diagnosis for this admission?: Yes (7) DVT prophylaxis Is this a current diagnosis for this admission?: Yes - Time Time Spent with patient: 25-34 minutes - Inpatient Certification Medical Necessity: Need Close Monitoring Due to Risk of Patient Decompensation, Need for IV Antibiotics - Plan Summary Plan Summary: Patient had surgery yesterday. Will rest on the vent today and hopefully be able to be extubated tomorrow.
[2017-08-02] MEDS: LEVOFLOXACIN 750 MG/D5W RTU 750 MG/150 ML RTUPB IV SCH (17:12)
[2017-08-02] MEDS: NORMAL SALINE 1000 ML 1,000 ML IV PRN (17:12)
[2017-08-03] MEDS ORDERED: NORMAL SALINE 500 ML IV ONE (02:00)
[2017-08-03] MEDS: MORPHINE SULFATE 10 MG/ML INJ IV PRN ×2 (02:07→21:33)
[2017-08-03] MEDS: METRONIDAZOLE 500 MG/NS RTU 100 ML IV SCH ×4 (03:00→21:32)
[2017-08-03 03:47] LABS: ABSOLUTE BASOPHILS # (AUTO) 0.1 10^3/uL (0.0-0.2); ABSOLUTE NEUT (AUTO) 9.7 10^3/uL (1.7-8.2); BASOPHILS % (AUTO) 0.5 % (0-2); EOSINOPHILS % (AUTO) 0.1 % (0-6); HEMATOCRIT 27.8 % (37.9-51.0); HEMOGLOBIN 9.7 g/dL (13.5-17.0); HGB HCT DIFFERENCE 1.3; LYMPHOCYTES % (AUTO) 8.8 % (13-45); MEAN CORPUSCULAR HEMOGLOBIN 31.9 pg (27.0-33.4); MEAN CORPUSCULAR HGB CONC 34.8 g/dL (32.0-36.0); MEAN CORPUSCULAR VOLUME 92 fl (80-97); MONOCYTES % (AUTO) 8.8 % (3-13); RED BLOOD COUNT 3.04 10^6/uL (4.35-5.55); RED CELL DISTRIBUTION WIDTH 13.9 % (11.5-14.0); SEGMENTED NEUTROPHILS % (AUTO) 81.8 % (42-78); WHITE BLOOD COUNT 11.8 10^3/uL (4.0-10.5)
[2017-08-03 04:09] LABS: ALANINE AMINOTRANSFERASE 31 U/L (21-72); ALBUMIN 2.4 g/dL (3.5-5.0); ALKALINE PHOSPHATASE 44 U/L (38-126); ANION GAP 6 (5-19); ASPARTATE AMINO TRANSFERASE 41 U/L (17-59); BILIRUBIN,DIRECT 0.4 mg/dL (0.0-0.4); BILIRUBIN,TOTAL 0.5 mg/dL (0.2-1.3); BLOOD UREA NITROGEN 30 mg/dL (7-20); CALCIUM 7.2 mg/dL (8.4-10.2); CARBON DIOXIDE 27 mmol/L (22-30); CHLORIDE 112 mmol/L (98-107); CREATININE RESULT 0.99 mg/dL (0.52-1.25); GLUCOSE 81 mg/dL (75-110); POTASSIUM 4.2 mmol/L (3.6-5.0); SODIUM 144.5 mmol/L (137-145); TOTAL PROTEIN 4.7 g/dL (6.3-8.2)
[2017-08-03 05:33] LABS: ARTERIAL BLOOD BASE EXCESS 2.3 mmol/L; ARTERIAL BLOOD O2 SATURATION 92.1 % (94-98)
[2017-08-03 06:54] LABS: APPEARANCE,URINE CLEAR; BILIRUBIN,URINE NEGATIVE (NEGATIVE); GLUCOSE, URINE NEGATIVE (NEGATIVE); KETONES,URINE NEGATIVE (NEGATIVE); LEUKOCYTE ESTERASE,URINE SMALL (NEGATIVE); NITRITE,URINE NEGATIVE (NEGATIVE); PROTEIN,URINE 30 mg/dL (NEGATIVE); URINE SPECIFIC GRAVITY 1.027
--- NOTE | 2017-08-03 07:42 | RADIOLOGY REPORT (SQ) ---
EXAM DESCRIPTION: CHEST SINGLE VIEW COMPLETED DATE/TIME: 08/03/2017 6:09 am REASON FOR STUDY: Pt intubated COMPARISON: 08/02/2017. EXAM PARAMETERS: NUMBER OF VIEWS: One view. TECHNIQUE: Single frontal radiographic view of the chest acquired. RADIATION DOSE: NA LIMITATIONS: None. FINDINGS: LUNGS AND PLEURA: Moderate opacity -layered effusion of bilateral lung bases. Moderate gita ng volumes. MEDIASTINUM AND HILAR STRUCTURES: No masses. Contour normal. HEART AND VASCULAR STRUCTURES: Borderline cardiac silhouette size. Atherosclerosis. BONES: No acute findings. HARDWARE: Adequate appearing endotracheal and nasogastric tubes. OTHER: No other significant finding. IMPRESSION: Moderate bibasilar opacity-effusion. Interval worsening. Lines and tubes. TECHNICAL DOCUMENTATION: JOB ID: [id number]
[2017-08-03] MEDS: NORMAL SALINE 1000 ML 1,000 ML IV PRN (08:46)
[2017-08-03] MEDS: PROPOFOL 100 ML IV PRN ×2 (08:51→17:12)
--- NOTE | 2017-08-03 10:29 | PDOC PROGRESS REPORT ---
Subjective Progress Note for:: 08/03/17 Subjective:: Patient intubated Responsive focally to stimuli Incision C/D/I Stoma pink edematous Physical Exam Vital Signs: Temp Pulse Resp BP Pulse Ox 98.5 F 57 L 10 L 93/49 L 95 08/03/17 05:08 08/02/17 19:58 08/03/17 06:05 08/03/17 06:05 08/03/17 06:05 Intake & Output 08/02/17 08/03/17 08/04/17 06:59 06:59 06:59 Intake Total 7244 4021 Output Total 895 797 Balance 6349 3224 Weight 78.5 kg 80.9 kg General appearance: PRESENT: no acute distress, well-developed, well-nourished Head exam: PRESENT: atraumatic, normocephalic Mouth exam: PRESENT: moist, tongue midline, other - OET tube in place Neck exam: ABSENT: lymphadenopathy, thyromegaly Respiratory exam: PRESENT: rhonchi - bilateral basal rhonich. ABSENT: accessory muscle use Cardiovascular exam: PRESENT: RRR. ABSENT: rubs Vascular exam: PRESENT: normal capillary refill GI/Abdominal exam: PRESENT: normal bowel sounds, soft. ABSENT: hernia Extremities exam: ABSENT: clubbing Neurological exam: PRESENT: other - sedated Results Laboratory Results: 08/03/17 03:26 08/03/17 03:26 08/03/17 08/03/17 08/03/17 03:26 03:26 03:26 WBC 11.8 H RBC 3.04 L Hgb 9.7 L Hct 27.8 L MCV 92 MCH 31.9 MCHC 34.8 RDW 13.9 Plt Count 105 L Seg Neutrophils % 81.8 H Lymphocytes % 8.8 L Monocytes % 8.8 Eosinophils % 0.1 Basophils % 0.5 Absolute Neutrophils 9.7 H Absolute Lymphocytes 1.0 Absolute Monocytes 1.0 Absolute Eosinophils 0.0 Absolute Basophils 0.1 Carbonic Acid HCO3/H2CO3 Ratio ABG pH ABG pCO2 ABG pO2 ABG HCO3 ABG O2 Saturation ABG Base Excess FiO2 Sodium Cancelled 144.5 Potassium Cancelled 4.2 Chloride Cancelled 112 H Carbon Dioxide Cancelled 27 Anion Gap Cancelled 6 BUN Cancelled 30 H Creatinine Cancelled 0.99 Est GFR ( Amer) Cancelled > 60 Est GFR (Non-Af Amer) Cancelled > 60 Glucose Cancelled 81 Calcium Cancelled 7.2 L Magnesium 2.0 Total Bilirubin 0.5 AST 41 ALT 31 Alkaline Phosphatase 44 Total Protein 4.7 L Albumin 2.4 L Urine Color Urine Appearance Urine pH Ur Specific [place] Urine Protein Urine Glucose (UA) Urine Ketones Urine Blood Urine Nitrite Ur Leukocyte Esterase Urine WBC (Auto) Urine RBC (Auto) 08/03/17 08/03/17 05:10 06:30 WBC RBC Hgb Hct MCV MCH MCHC RDW Plt Count Seg Neutrophils % Lymphocytes % Monocytes % Eosinophils % Basophils % Absolute Neutrophils Absolute Lymphocytes Absolute Monocytes Absolute Eosinophils Absolute Basophils Carbonic Acid 1.35 HCO3/H2CO3 Ratio 20:1 ABG pH 7.40 ABG pCO2 44.7 ABG pO2 63.1 L ABG HCO3 27.3 H ABG O2 Saturation 92.1 L ABG Base Excess 2.3 FiO2 30% Sodium Potassium Chloride Carbon Dioxide Anion Gap BUN Creatinine Est GFR ( Amer) Est GFR (Non-Af Amer) Glucose Calcium Magnesium Total Bilirubin AST ALT Alkaline Phosphatase Total Protein Albumin Urine Color [place] Urine Appearance CLEAR Urine pH 5.0 Ur Specific [place] 1.027 Urine Protein 30 H Urine Glucose (UA) NEGATIVE Urine Ketones NEGATIVE Urine Blood NEGATIVE Urine Nitrite NEGATIVE Ur Leukocyte Esterase SMALL H Urine WBC (Auto) 6 Urine RBC (Auto) 1 Impressions: Abdomen/Pelvis CTA 07/31/17 16:40 IMPRESSION: 1. There is significant gaseous distention of the right, transverse , and left colons. There is appears to be long segment narrowing of the distal sigmoid colon without definite mass lesion this area on CT. Question possible large bowel obstruction secondary to underlying stricture. There is significant redundancy within the colon. 2. No aortic dissection identified. There is aneurysmal dilatation of the infrarenal abdominal aorta measuring 3.5 x 3.7 cm. 3. 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 The SMA is patent without greater than 50% narrowing. The SUZIE is occluded at its origin and fills distally via collaterals. Multifocal hemodynamically significant narrowing throughout the iliac arteries as detailed above. Chest/Abdomen CTA 07/31/17 16:41 IMPRESSION: 1. There is significant gaseous distention of the right, transverse , and left colons. There is appears to be long segment narrowing of the distal sigmoid colon without definite mass lesion this area on CT. Question possible large bowel obstruction secondary to underlying stricture. There is significant redundancy within the colon. 2. No aortic dissection identified. There is aneurysmal dilatation of the infrarenal abdominal aorta measuring 3.5 x 3.7 cm. 3. 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 The SMA is patent without greater than 50% narrowing. The SUZIE is occluded at its origin and fills distally via collaterals. Multifocal hemodynamically significant narrowing throughout the iliac arteries as detailed above. Chest X-Ray 08/03/17 06:00 IMPRESSION: Moderate bibasilar opacity-effusion. Interval worsening. Lines and tubes. Assessment & Plan - Diagnosis (1) S/P colectomy Is this a current diagnosis for this admission?: Yes Plan: Coordination of care with PCC and Hospitalist. Awaiting bowel function prior to trialing with any oral intake. Anticipate stoma output soon. Monitor WBC/Hgb Monitor Uop, adequate Plans per ICU possible extubation today Pain control Pulmonary toilet DVT/GI prophylaxis Monitor incision, Incision C/D/I Dietary with any bowel function, held surrounding timing of extubation
--- NOTE | 2017-08-03 11:45 | PDOC PROGRESS REPORT ---
Subjective Progress Note for:: 08/03/17 Subjective:: Patient is intubated and sedated. Physical Exam Vital Signs: Temp Pulse Resp BP Pulse Ox 98.5 F 57 L 10 L 93/49 L 98 08/03/17 05:08 08/02/17 19:58 08/03/17 06:05 08/03/17 06:05 08/03/17 11:02 Intake & Output 08/02/17 08/03/17 08/04/17 06:59 06:59 06:59 Intake Total 7244 4021 Output Total 895 797 Balance 6349 3224 Weight 78.5 kg 80.9 kg General appearance: PRESENT: no acute distress Eye exam: PRESENT: conjunctiva pink. ABSENT: scleral icterus Ear exam: PRESENT: normal external ear exam Mouth exam: PRESENT: moist, tongue midline Neck exam: ABSENT: JVD Respiratory exam: PRESENT: clear to auscultation miguelina. ABSENT: rales, rhonchi, wheezes Cardiovascular exam: PRESENT: RRR. ABSENT: diastolic murmur, rubs, systolic murmur GI/Abdominal exam: PRESENT: normal bowel sounds, soft, other - Midline surgical wound with no drainage.. ABSENT: distended, guarding, mass, organolmegaly, rebound, tenderness Extremities exam: ABSENT: calf tenderness, clubbing, pedal edema Neurological exam: PRESENT: other - Intubated and sedated. Psychiatric exam: PRESENT: other - Unable to assess. Skin exam: PRESENT: dry, intact, warm. ABSENT: cyanosis, rash Results Laboratory Results: 08/03/17 03:26 08/03/17 03:26 08/03/17 08/03/17 08/03/17 03:26 03:26 03:26 WBC 11.8 H RBC 3.04 L Hgb 9.7 L Hct 27.8 L MCV 92 MCH 31.9 MCHC 34.8 RDW 13.9 Plt Count 105 L Seg Neutrophils % 81.8 H Lymphocytes % 8.8 L Monocytes % 8.8 Eosinophils % 0.1 Basophils % 0.5 Absolute Neutrophils 9.7 H Absolute Lymphocytes 1.0 Absolute Monocytes 1.0 Absolute Eosinophils 0.0 Absolute Basophils 0.1 Carbonic Acid HCO3/H2CO3 Ratio ABG pH ABG pCO2 ABG pO2 ABG HCO3 ABG O2 Saturation ABG Base Excess FiO2 Sodium Cancelled 144.5 Potassium Cancelled 4.2 Chloride Cancelled 112 H Carbon Dioxide Cancelled 27 Anion Gap Cancelled 6 BUN Cancelled 30 H Creatinine Cancelled 0.99 Est GFR ( Amer) Cancelled > 60 Est GFR (Non-Af Amer) Cancelled > 60 Glucose Cancelled 81 Calcium Cancelled 7.2 L Magnesium 2.0 Total Bilirubin 0.5 AST 41 ALT 31 Alkaline Phosphatase 44 Total Protein 4.7 L Albumin 2.4 L Urine Color Urine Appearance Urine pH Ur Specific [place] Urine Protein Urine Glucose (UA) Urine Ketones Urine Blood Urine Nitrite Ur Leukocyte Esterase Urine WBC (Auto) Urine RBC (Auto) 08/03/17 08/03/17 05:10 06:30 WBC RBC Hgb Hct MCV MCH MCHC RDW Plt Count Seg Neutrophils % Lymphocytes % Monocytes % Eosinophils % Basophils % Absolute Neutrophils Absolute Lymphocytes Absolute Monocytes Absolute Eosinophils Absolute Basophils Carbonic Acid 1.35 HCO3/H2CO3 Ratio 20:1 ABG pH 7.40 ABG pCO2 44.7 ABG pO2 63.1 L ABG HCO3 27.3 H ABG O2 Saturation 92.1 L ABG Base Excess 2.3 FiO2 30% Sodium Potassium Chloride Carbon Dioxide Anion Gap BUN Creatinine Est GFR ( Amer) Est GFR (Non-Af Amer) Glucose Calcium Magnesium Total Bilirubin AST ALT Alkaline Phosphatase Total Protein Albumin Urine Color [place] Urine Appearance CLEAR Urine pH 5.0 Ur Specific [place] 1.027 Urine Protein 30 H Urine Glucose (UA) NEGATIVE Urine Ketones NEGATIVE Urine Blood NEGATIVE Urine Nitrite NEGATIVE Ur Leukocyte Esterase SMALL H Urine WBC (Auto) 6 Urine RBC (Auto) 1 Impressions: Abdomen/Pelvis CTA 07/31/17 16:40 IMPRESSION: 1. There is significant gaseous distention of the right, transverse , and left colons. There is appears to be long segment narrowing of the distal sigmoid colon without definite mass lesion this area on CT. Question possible large bowel obstruction secondary to underlying stricture. There is significant redundancy within the colon. 2. No aortic dissection identified. There is aneurysmal dilatation of the infrarenal abdominal aorta measuring 3.5 x 3.7 cm. 3. 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 The SMA is patent without greater than 50% narrowing. The SUZIE is occluded at its origin and fills distally via collaterals. Multifocal hemodynamically significant narrowing throughout the iliac arteries as detailed above. Chest/Abdomen CTA 07/31/17 16:41 IMPRESSION: 1. There is significant gaseous distention of the right, transverse , and left colons. There is appears to be long segment narrowing of the distal sigmoid colon without definite mass lesion this area on CT. Question possible large bowel obstruction secondary to underlying stricture. There is significant redundancy within the colon. 2. No aortic dissection identified. There is aneurysmal dilatation of the infrarenal abdominal aorta measuring 3.5 x 3.7 cm. 3. 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 The SMA is patent without greater than 50% narrowing. The SUZIE is occluded at its origin and fills distally via collaterals. Multifocal hemodynamically significant narrowing throughout the iliac arteries as detailed above. Chest X-Ray 08/03/17 06:00 IMPRESSION: Moderate bibasilar opacity-effusion. Interval worsening. Lines and tubes. Assessment & Plan - Diagnosis (1) Large bowel obstruction Is this a current diagnosis for this admission?: Yes Plan: Patient had surgery for obstruction with volvulus. he he currently has a ostomy that appears to be functioning. (2) CAD (coronary artery disease) Is this a current diagnosis for this admission?: Yes Plan: Patient is intubated and unable to complain of any difficulties. (3) Dementia Is this a current diagnosis for this admission?: Yes (4) Hypokalemia Is this a current diagnosis for this admission?: Yes Plan: Resolved. (5) Leukocytosis Is this a current diagnosis for this admission?: Yes Plan: The patient's white count is still elevated but has decreased. Continue with Flagyl and Levaquin. (6) AAA (abdominal aortic aneurysm) without rupture Is this a current diagnosis for this admission?: Yes (7) DVT prophylaxis Is this a current diagnosis for this admission?: Yes - Time Time Spent with patient: 25-34 minutes - Inpatient Certification Medical Necessity: Need Close Monitoring Due to Risk of Patient Decompensation, Need for IV Antibiotics
[2017-08-03 12:10] LABS: PROTHROMBIN TIME 16.1 SEC (11.4-15.4)
[2017-08-03] MEDS: ENOXAPARIN SODIUM INJ 40 MG/0.4 ML DISP.SYRIN SUBCUT SCH (12:13)
[2017-08-03] MEDS: FAMOTIDINE INJ/PF 20 MG/2 ML SDV IV SCH ×2 (13:26→21:33)
--- NOTE | 2017-08-03 14:56 | PDOC PROGRESS REPORT ---
Subjective Progress Note for:: 08/03/17 Subjective:: Intubated and sedated Did poorly on sedation vacation Physical Exam Vital Signs: Temp Pulse Resp BP Pulse Ox 98.5 F 51 L 0 L 118/50 L 99 08/03/17 05:08 08/03/17 08:00 08/03/17 14:05 08/03/17 14:06 08/03/17 14:06 Intake & Output 08/02/17 08/03/17 08/04/17 06:59 06:59 06:59 Intake Total 7244 4021 Output Total 895 797 125 Balance 6349 3224 -125 Weight 78.5 kg 80.9 kg General appearance: PRESENT: no acute distress, disheveled, thin, well-developed Head exam: PRESENT: atraumatic, normocephalic Eye exam: PRESENT: conjunctiva pale Mouth exam: PRESENT: dry mucosa, neck supple, tongue midline, other - Endotracheal tube in place Neck exam: ABSENT: carotid bruit, JVD, lymphadenopathy, thyromegaly Respiratory exam: PRESENT: decreased breath sounds, prolonged expiratory phas, rales, rhonchi, symmetrical, unlabored. ABSENT: retraction, stridor, tachypnea Cardiovascular exam: PRESENT: RRR, +S1, +S2 Pulses: PRESENT: normal radial pulses GI/Abdominal exam: PRESENT: other - Status post surgery dressing midline dry and intact ostomy left lower abdomen Rectal exam: PRESENT: deferred Gentrourinary exam: PRESENT: indwelling catheter Musculoskeletal exam: PRESENT: normal inspection Skin exam: PRESENT: dry, warm Results Laboratory Results: 08/03/17 03:26 08/03/17 03:26 08/03/17 08/03/17 08/03/17 03:26 03:26 03:26 WBC 11.8 H RBC 3.04 L Hgb 9.7 L Hct 27.8 L MCV 92 MCH 31.9 MCHC 34.8 RDW 13.9 Plt Count 105 L Seg Neutrophils % 81.8 H Lymphocytes % 8.8 L Monocytes % 8.8 Eosinophils % 0.1 Basophils % 0.5 Absolute Neutrophils 9.7 H Absolute Lymphocytes 1.0 Absolute Monocytes 1.0 Absolute Eosinophils 0.0 Absolute Basophils 0.1 Carbonic Acid HCO3/H2CO3 Ratio ABG pH ABG pCO2 ABG pO2 ABG HCO3 ABG O2 Saturation ABG Base Excess FiO2 Sodium Cancelled 144.5 Potassium Cancelled 4.2 Chloride Cancelled 112 H Carbon Dioxide Cancelled 27 Anion Gap Cancelled 6 BUN Cancelled 30 H Creatinine Cancelled 0.99 Est GFR ( Amer) Cancelled > 60 Est GFR (Non-Af Amer) Cancelled > 60 Glucose Cancelled 81 Calcium Cancelled 7.2 L Magnesium 2.0 Total Bilirubin 0.5 AST 41 ALT 31 Alkaline Phosphatase 44 Total Protein 4.7 L Albumin 2.4 L Urine Color Urine Appearance Urine pH Ur Specific [place] Urine Protein Urine Glucose (UA) Urine Ketones Urine Blood Urine Nitrite Ur Leukocyte Esterase Urine WBC (Auto) Urine RBC (Auto) 08/03/17 08/03/17 05:10 06:30 WBC RBC Hgb Hct MCV MCH MCHC RDW Plt Count Seg Neutrophils % Lymphocytes % Monocytes % Eosinophils % Basophils % Absolute Neutrophils Absolute Lymphocytes Absolute Monocytes Absolute Eosinophils Absolute Basophils Carbonic Acid 1.35 HCO3/H2CO3 Ratio 20:1 ABG pH 7.40 ABG pCO2 44.7 ABG pO2 63.1 L ABG HCO3 27.3 H ABG O2 Saturation 92.1 L ABG Base Excess 2.3 FiO2 30% Sodium Potassium Chloride Carbon Dioxide Anion Gap BUN Creatinine Est GFR ( Amer) Est GFR (Non-Af Amer) Glucose Calcium Magnesium Total Bilirubin AST ALT Alkaline Phosphatase Total Protein Albumin Urine Color [place] Urine Appearance CLEAR Urine pH 5.0 Ur Specific [place] 1.027 Urine Protein 30 H Urine Glucose (UA) NEGATIVE Urine Ketones NEGATIVE Urine Blood NEGATIVE Urine Nitrite NEGATIVE Ur Leukocyte Esterase SMALL H Urine WBC (Auto) 6 Urine RBC (Auto) 1 Impressions: Abdomen/Pelvis CTA 07/31/17 16:40 IMPRESSION: 1. There is significant gaseous distention of the right, transverse , and left colons. There is appears to be long segment narrowing of the distal sigmoid colon without definite mass lesion this area on CT. Question possible large bowel obstruction secondary to underlying stricture. There is significant redundancy within the colon. 2. No aortic dissection identified. There is aneurysmal dilatation of the infrarenal abdominal aorta measuring 3.5 x 3.7 cm. 3. 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 The SMA is patent without greater than 50% narrowing. The SUZIE is occluded at its origin and fills distally via collaterals. Multifocal hemodynamically significant narrowing throughout the iliac arteries as detailed above. Chest/Abdomen CTA 07/31/17 16:41 IMPRESSION: 1. There is significant gaseous distention of the right, transverse , and left colons. There is appears to be long segment narrowing of the distal sigmoid colon without definite mass lesion this area on CT. Question possible large bowel obstruction secondary to underlying stricture. There is significant redundancy within the colon. 2. No aortic dissection identified. There is aneurysmal dilatation of the infrarenal abdominal aorta measuring 3.5 x 3.7 cm. 3. 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 The SMA is patent without greater than 50% narrowing. The SUZIE is occluded at its origin and fills distally via collaterals. Multifocal hemodynamically significant narrowing throughout the iliac arteries as detailed above. Chest X-Ray 08/03/17 06:00 IMPRESSION: Moderate bibasilar opacity-effusion. Interval worsening. Lines and tubes. Assessment & Plan - Diagnosis (1) Respiratory failure Is this a current diagnosis for this admission?: Yes Plan: Patient failed sedation vacation became agitated tachypnea and subsequently ulcerations to fill his rapidly returned to his baseline. We will attempt again to extubate him and upon extubation will immediately place him on BiPAP. (2) Dementia Is this a current diagnosis for this admission?: Yes (3) Incarcerated left inguinal hernia Is this a current diagnosis for this admission?: Yes Plan: As per surgery - Time Critical Time spent with patient: 25-34 minutes
[2017-08-03] MEDS ORDERED: NORMAL SALINE 10 ML SDV (AFTER EACH USE) IV PRN (15:31)
--- NOTE | 2017-08-03 15:39 | RADIOLOGY REPORT (SQ) ---
EXAM DESCRIPTION: PICC INSERTION; U/S GUIDE FOR VASCULAR ACCESS COMPLETED DATE/TIME: 08/03/2017 3:20 pm REASON FOR STUDY: iv access; IV ACCESS COMPARISON: Chest films 08/03/2017, 08/02/2017 CT angio chest 07/31/2017 FLUOROSCOPY TIME: No fluoro 2 portable digital chest films during and post placement, 1 ultrasound imagesaved to PACS. TECHNIQUE: Fluoroscopic guided PICC placement. LIMITATIONS: None. PROCEDURE: After written consent and assessment were obtained, ultrasound was used on the patient's right arm for PICC access. The right arm was prepped and draped in a sterile fashion along with the u ltrasound probe. The entry site was anesthetized with 3 mL of 1% lidocaine. A 21 gauge 7 cm needle wa s advanced through the skin and into the basilic vein under live ultrasound guidance. An ultrasound image was saved to PACS confirming access site. A .018 guide wire was then inserted through the need le and into the venous system. The needle was the removed and an 11 blade scalpel was used to make a 1cm skin incision. A 5 fr peel-away sheath was advanced over the wire and into the venous system. A measurement was then made using the existing wire and live fluoroscopic guidance. The wire was then r emoved and the trimmed. The PICC was advanced through the peel-away sheath and into the venous system . The peel-away sheath was removed and the catheter was adhered to the patients arm with a stat lock. The catheter was then aspirated and flushed and a sterile bandage was placed over the access site. A fluoroscopic spot image was saved to PACS confirming the catheter tip within the superior vena cava . IMPRESSION: SUCCESSFUL PLACEMENT OF A 5 FR DUAL LUMEN 31 CM PICC IN THE RIGHT BASILIC VEIN. COMMENT: Patient medication list reviewed: Yes- Quality ID# [id number]:Eligible professional attests to doc umenting in the medical record they obtained, updated, or reviewed the patient's current medications. . Quality ID 145: Final reports for procedures using fluoroscopy that document radiation exposure alhaji new, or exposure time and number of fluorographic images (if radiation exposure indices are not avail able) Quality ID #76: The patient was prepped and draped using maximum sterile barrier technique including cap, mask, sterile gown, sterile gloves, a large sterile sheet, hand hygiene, and 2% Chlorhexidine fo r cutaneous antisepsis. When ultrasound is used, sterile ultrasound techniques are followed requiring sterile gel and sterile probes. TECHNICAL DOCUMENTATION: JOB ID: [id number] [employer] [facility] [employer]- All Rights Reserved
[2017-08-03] MEDS: LEVOFLOXACIN 750 MG/D5W RTU 750 MG/150 ML RTUPB IV SCH (18:03)
[2017-08-03] MEDS: NORMAL SALINE 10 ML SDV (SCHEDULED) IV SCH (21:34)
[2017-08-04] MEDS: NORMAL SALINE 1000 ML 1,000 ML IV PRN ×3 (00:02→20:11)
[2017-08-04] MEDS: PROPOFOL 100 ML IV PRN ×2 (00:07→05:06)
[2017-08-04] MEDS: METRONIDAZOLE 500 MG/NS RTU 100 ML IV SCH ×4 (03:27→20:17)
[2017-08-04 05:21] LABS: ABSOLUTE BASOPHILS # (AUTO) 0.1 10^3/uL (0.0-0.2); ABSOLUTE EOSINOPHILS # (AUTO) 0.1 10^3/uL (0.0-0.6); ABSOLUTE LYMPHOCYTES (AUTO) 1.1 10^3/uL (0.5-4.7); ABSOLUTE MONOCYTES (AUTO) 0.9 10^3/uL (0.1-1.4); ABSOLUTE NEUT (AUTO) 9.4 10^3/uL (1.7-8.2); BASOPHILS % (AUTO) 0.5 % (0-2); EOSINOPHILS % (AUTO) 0.6 % (0-6); HEMOGLOBIN 9.1 g/dL (13.5-17.0); HGB HCT DIFFERENCE 1.3; LYMPHOCYTES % (AUTO) 9.6 % (13-45); MEAN CORPUSCULAR HEMOGLOBIN 32.2 pg (27.0-33.4); MEAN CORPUSCULAR HGB CONC 35.1 g/dL (32.0-36.0); MEAN CORPUSCULAR VOLUME 92 fl (80-97); MONOCYTES % (AUTO) 7.6 % (3-13); RED BLOOD COUNT 2.83 10^6/uL (4.35-5.55); RED CELL DISTRIBUTION WIDTH 14.1 % (11.5-14.0); SEGMENTED NEUTROPHILS % (AUTO) 81.7 % (42-78); WHITE BLOOD COUNT 11.5 10^3/uL (4.0-10.5)
[2017-08-04 05:33] LABS: ALANINE AMINOTRANSFERASE 35 U/L (21-72); ALBUMIN 2.1 g/dL (3.5-5.0); ALKALINE PHOSPHATASE 39 U/L (38-126); ANION GAP 9 (5-19); ASPARTATE AMINO TRANSFERASE 26 U/L (17-59); BILIRUBIN,DIRECT 0.4 mg/dL (0.0-0.4); BILIRUBIN,TOTAL 0.4 mg/dL (0.2-1.3); BLOOD UREA NITROGEN 24 mg/dL (7-20); CARBON DIOXIDE 22 mmol/L (22-30); CHLORIDE 113 mmol/L (98-107); CREATININE RESULT 0.77 mg/dL (0.52-1.25); GLUCOSE 76 mg/dL (75-110); POTASSIUM 3.4 mmol/L (3.6-5.0); SODIUM 144.3 mmol/L (137-145); TOTAL PROTEIN 3.9 g/dL (6.3-8.2)
[2017-08-04 06:34] LABS: ARTERIAL BLOOD BASE EXCESS -3.2 mmol/L; ARTERIAL BLOOD O2 SATURATION 97.2 % (94-98)
[2017-08-04] MEDS: POTASSIUM CHLORIDE 20 MEQ/50 ML RTU IV SCH ×2 (06:45→09:39)
--- NOTE | 2017-08-04 07:30 | PDOC PROGRESS REPORT ---
Subjective Progress Note for:: 08/04/17 Subjective:: Patient intubated Responsive focally to stimuli Functional stoma initiating tube feeds, dietary consult Failed vent weaning trial yesturday Physical Exam Vital Signs: Temp Pulse Resp BP Pulse Ox 98.4 F 54 L 14 134/52 H 96 08/04/17 05:02 08/03/17 23:58 08/04/17 06:00 08/04/17 05:46 08/04/17 06:00 Intake & Output 08/03/17 08/04/17 08/05/17 06:59 06:59 06:59 Intake Total 4021 2500 Output Total 797 935 Balance 3224 1565 Weight 80.9 kg 83.2 kg General appearance: PRESENT: no acute distress Head exam: PRESENT: atraumatic, normocephalic Neck exam: ABSENT: lymphadenopathy, thyromegaly, tracheal deviation Respiratory exam: PRESENT: clear to auscultation miguelina Cardiovascular exam: PRESENT: RRR Vascular exam: PRESENT: normal capillary refill GI/Abdominal exam: PRESENT: soft, other - incision C/D/I, edema at the lower aspect Stoma pink Extremities exam: PRESENT: other - minimal bilateral lower extremity edema Results Laboratory Results: 08/04/17 05:00 08/04/17 05:00 08/04/17 08/04/17 08/04/17 05:00 05:00 05:30 WBC 11.5 H RBC 2.83 L Hgb 9.1 L Hct 26.0 L MCV 92 MCH 32.2 MCHC 35.1 RDW 14.1 H Plt Count 119 L Seg Neutrophils % 81.7 H Lymphocytes % 9.6 L Monocytes % 7.6 Eosinophils % 0.6 Basophils % 0.5 Absolute Neutrophils 9.4 H Absolute Lymphocytes 1.1 Absolute Monocytes 0.9 Absolute Eosinophils 0.1 Absolute Basophils 0.1 Carbonic Acid 1.07 HCO3/H2CO3 Ratio 19:1 ABG pH 7.39 ABG pCO2 35.5 ABG pO2 94.2 ABG HCO3 21.1 ABG O2 Saturation 97.2 ABG Base Excess -3.2 FiO2 40% Sodium 144.3 Potassium 3.4 L Chloride 113 H Carbon Dioxide 22 Anion Gap 9 BUN 24 H Creatinine 0.77 Est GFR ( Amer) > 60 Est GFR (Non-Af Amer) > 60 Glucose 76 Calcium 7.0 L* Magnesium 2.0 Total Bilirubin 0.4 AST 26 ALT 35 Alkaline Phosphatase 39 Total Protein 3.9 L Albumin 2.1 L Impressions: Abdomen/Pelvis CTA 07/31/17 16:40 IMPRESSION: 1. There is significant gaseous distention of the right, transverse , and left colons. There is appears to be long segment narrowing of the distal sigmoid colon without definite mass lesion this area on CT. Question possible large bowel obstruction secondary to underlying stricture. There is significant redundancy within the colon. 2. No aortic dissection identified. There is aneurysmal dilatation of the infrarenal abdominal aorta measuring 3.5 x 3.7 cm. 3. 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 The SMA is patent without greater than 50% narrowing. The SUZIE is occluded at its origin and fills distally via collaterals. Multifocal hemodynamically significant narrowing throughout the iliac arteries as detailed above. Chest/Abdomen CTA 07/31/17 16:41 IMPRESSION: 1. There is significant gaseous distention of the right, transverse , and left colons. There is appears to be long segment narrowing of the distal sigmoid colon without definite mass lesion this area on CT. Question possible large bowel obstruction secondary to underlying stricture. There is significant redundancy within the colon. 2. No aortic dissection identified. There is aneurysmal dilatation of the infrarenal abdominal aorta measuring 3.5 x 3.7 cm. 3. 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 The SMA is patent without greater than 50% narrowing. The SUZIE is occluded at its origin and fills distally via collaterals. Multifocal hemodynamically significant narrowing throughout the iliac arteries as detailed above. Interventional Vascular Procedure 08/03/17 00:00 IMPRESSION: SUCCESSFUL PLACEMENT OF A 5 FR DUAL LUMEN 31 CM PICC IN THE RIGHT BASILIC VEIN. PICC Line Insertion 08/03/17 00:00 IMPRESSION: SUCCESSFUL PLACEMENT OF A 5 FR DUAL LUMEN 31 CM PICC IN THE RIGHT BASILIC VEIN. Assessment & Plan - Diagnosis (1) S/P colectomy Is this a current diagnosis for this admission?: Yes Plan: Failed weaning from vent yesturday Monitor WBC/Hgb Monitor Uop, adequate Pain control Pulmonary toilet DVT/GI prophylaxis Monitor incision, Incision C/D/I Added tube feeds of jevity at 10mls/hour, goal of 65mls, advance q4 10mls to goal, hold for residual of 300mls Hold feeds with any extubation
--- NOTE | 2017-08-04 07:55 | RADIOLOGY REPORT (SQ) ---
EXAM DESCRIPTION: CHEST SINGLE VIEW COMPLETED DATE/TIME: 08/04/2017 6:40 am REASON FOR STUDY: Pt on vent COMPARISON: 08/03/2017. EXAM PARAMETERS: NUMBER OF VIEWS: One view. TECHNIQUE: Single frontal radiographic view of the chest acquired. RADIATION DOSE: NA LIMITATIONS: None. FINDINGS: LUNGS AND PLEURA: Moderate lung volume, small patchiness of the left lower lobe, and mild interstitial markings. MEDIASTINUM AND HILAR STRUCTURES: No masses. Contour normal. HEART AND VASCULAR STRUCTURES: Mild enlargement of the cardiac silhouette. Atherosclerosis. BONES: No acute findings. HARDWARE: Adequate appearing endotracheal tube and right subclavian PICC. OTHER: No other significant finding. IMPRESSION: No significant interval change. TECHNICAL DOCUMENTATION: JOB ID: [id number]
[2017-08-04] MEDS: ENOXAPARIN SODIUM INJ 40 MG/0.4 ML DISP.SYRIN SUBCUT SCH (09:38)
[2017-08-04] MEDS: HALOPERIDOL LACTATE INJ 5 MG/1 ML VIAL IV PRN ×2 (09:39→16:48)
[2017-08-04] MEDS: FAMOTIDINE INJ/PF 20 MG/2 ML SDV IV SCH ×2 (09:39→21:48)
[2017-08-04] MEDS: NORMAL SALINE 10 ML SDV (SCHEDULED) IV SCH ×2 (09:40→22:09)
[2017-08-04 12:11] LABS: ARTERIAL BLOOD BASE EXCESS -1.9 mmol/L; ARTERIAL BLOOD O2 SATURATION 97.4 % (94-98)
[2017-08-04] MEDS: LEVOFLOXACIN 750 MG/D5W RTU 750 MG/150 ML RTUPB IV SCH (16:51)
[2017-08-04] MEDS ORDERED: HYDRALAZINE HCL INJ/PF 20 MG/1 ML SDV IV PRN (17:07)
--- NOTE | 2017-08-04 17:32 | PDOC PROGRESS REPORT ---
Subjective Progress Note for:: 08/04/17 Subjective:: Patient is intubated and sedated. Physical Exam Vital Signs: Temp Pulse Resp BP Pulse Ox 99.7 F 92 20 167/72 H 93 08/04/17 16:00 08/04/17 16:00 08/04/17 16:32 08/04/17 16:00 08/04/17 16:32 Intake & Output 08/03/17 08/04/17 08/05/17 06:59 06:59 06:59 Intake Total 4021 2500 Output Total 797 935 420 Balance 3224 1565 -420 Weight 80.9 kg 83.2 kg General appearance: PRESENT: no acute distress Eye exam: PRESENT: conjunctiva pink. ABSENT: scleral icterus Mouth exam: PRESENT: moist, tongue midline Neck exam: ABSENT: JVD Respiratory exam: PRESENT: clear to auscultation miguelina. ABSENT: rales, rhonchi, wheezes Cardiovascular exam: PRESENT: RRR. ABSENT: diastolic murmur, rubs, systolic murmur GI/Abdominal exam: PRESENT: normal bowel sounds, soft, other - Midline surgical wound with ton and no drainage. ABSENT: distended, guarding, mass, organolmegaly, rebound, tenderness Extremities exam: ABSENT: calf tenderness, clubbing, pedal edema Neurological exam: PRESENT: other - Intubated and sedated at the time of my exam the morning Skin exam: PRESENT: dry, intact, warm. ABSENT: cyanosis, rash Results Laboratory Results: 08/04/17 05:00 08/04/17 05:00 08/04/17 08/04/17 08/04/17 05:00 05:00 05:30 WBC 11.5 H RBC 2.83 L Hgb 9.1 L Hct 26.0 L MCV 92 MCH 32.2 MCHC 35.1 RDW 14.1 H Plt Count 119 L Seg Neutrophils % 81.7 H Lymphocytes % 9.6 L Monocytes % 7.6 Eosinophils % 0.6 Basophils % 0.5 Absolute Neutrophils 9.4 H Absolute Lymphocytes 1.1 Absolute Monocytes 0.9 Absolute Eosinophils 0.1 Absolute Basophils 0.1 Carbonic Acid 1.07 HCO3/H2CO3 Ratio 19:1 ABG pH 7.39 ABG pCO2 35.5 ABG pO2 94.2 ABG HCO3 21.1 ABG O2 Saturation 97.2 ABG Base Excess -3.2 FiO2 40% Sodium 144.3 Potassium 3.4 L Chloride 113 H Carbon Dioxide 22 Anion Gap 9 BUN 24 H Creatinine 0.77 Est GFR ( Amer) > 60 Est GFR (Non-Af Amer) > 60 Glucose 76 Calcium 7.0 L* Magnesium 2.0 Total Bilirubin 0.4 AST 26 ALT 35 Alkaline Phosphatase 39 Total Protein 3.9 L Albumin 2.1 L 08/04/17 11:55 WBC RBC Hgb Hct MCV MCH MCHC RDW Plt Count Seg Neutrophils % Lymphocytes % Monocytes % Eosinophils % Basophils % Absolute Neutrophils Absolute Lymphocytes Absolute Monocytes Absolute Eosinophils Absolute Basophils Carbonic Acid 0.99 L HCO3/H2CO3 Ratio 21:1 ABG pH 7.44 ABG pCO2 32.9 L ABG pO2 92.9 ABG HCO3 21.7 ABG O2 Saturation 97.4 ABG Base Excess -1.9 FiO2 40% Sodium Potassium Chloride Carbon Dioxide Anion Gap BUN Creatinine Est GFR ( Amer) Est GFR (Non-Af Amer) Glucose Calcium Magnesium Total Bilirubin AST ALT Alkaline Phosphatase Total Protein Albumin Impressions: Abdomen/Pelvis CTA 07/31/17 16:40 IMPRESSION: 1. There is significant gaseous distention of the right, transverse , and left colons. There is appears to be long segment narrowing of the distal sigmoid colon without definite mass lesion this area on CT. Question possible large bowel obstruction secondary to underlying stricture. There is significant redundancy within the colon. 2. No aortic dissection identified. There is aneurysmal dilatation of the infrarenal abdominal aorta measuring 3.5 x 3.7 cm. 3. 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 The SMA is patent without greater than 50% narrowing. The SUZIE is occluded at its origin and fills distally via collaterals. Multifocal hemodynamically significant narrowing throughout the iliac arteries as detailed above. Chest/Abdomen CTA 07/31/17 16:41 IMPRESSION: 1. There is significant gaseous distention of the right, transverse , and left colons. There is appears to be long segment narrowing of the distal sigmoid colon without definite mass lesion this area on CT. Question possible large bowel obstruction secondary to underlying stricture. There is significant redundancy within the colon. 2. No aortic dissection identified. There is aneurysmal dilatation of the infrarenal abdominal aorta measuring 3.5 x 3.7 cm. 3. 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 The SMA is patent without greater than 50% narrowing. The SUZIE is occluded at its origin and fills distally via collaterals. Multifocal hemodynamically significant narrowing throughout the iliac arteries as detailed above. Interventional Vascular Procedure 08/03/17 00:00 IMPRESSION: SUCCESSFUL PLACEMENT OF A 5 FR DUAL LUMEN 31 CM PICC IN THE RIGHT BASILIC VEIN. PICC Line Insertion 08/03/17 00:00 IMPRESSION: SUCCESSFUL PLACEMENT OF A 5 FR DUAL LUMEN 31 CM PICC IN THE RIGHT BASILIC VEIN. Chest X-Ray 08/04/17 06:00 IMPRESSION: No significant interval change. Assessment & Plan - Diagnosis (1) Large bowel obstruction Is this a current diagnosis for this admission?: Yes Plan: Patient had surgery for obstruction with volvulus. he he currently has a ostomy that appears to be functioning. (2) CAD (coronary artery disease) Is this a current diagnosis for this admission?: Yes Plan: Patient is intubated and unable to complain of any difficulties. (3) Dementia Is this a current diagnosis for this admission?: Yes (4) Hypokalemia Is this a current diagnosis for this admission?: Yes Plan: Resolved. (5) Leukocytosis Is this a current diagnosis for this admission?: Yes Plan: The patient's white count needs to improve. Continue with Flagyl and Levaquin. (6) AAA (abdominal aortic aneurysm) without rupture Is this a current diagnosis for this admission?: Yes (7) DVT prophylaxis Is this a current diagnosis for this admission?: Yes - Time Time Spent with patient: 25-34 minutes - Inpatient Certification Medical Necessity: Need Close Monitoring Due to Risk of Patient Decompensation - Plan Summary Plan Summary: Patient is improving and may be able to be extubated today. Will defer to pulmonary medicine.
--- NOTE | 2017-08-04 18:16 | PDOC PROGRESS REPORT ---
Subjective Progress Note for:: 08/04/17 Subjective:: Intubated Physical Exam Vital Signs: Temp Pulse Resp BP Pulse Ox 98.7 F 60 13 143/61 H 93 08/04/17 07:54 08/04/17 07:54 08/04/17 07:54 08/04/17 07:54 08/04/17 08:39 Intake & Output 08/03/17 08/04/17 08/05/17 06:59 06:59 06:59 Intake Total 4021 2500 Output Total 797 935 75 Balance 3224 1565 -75 Weight 80.9 kg 83.2 kg General appearance: PRESENT: no acute distress, disheveled, thin, well-developed Head exam: PRESENT: atraumatic, normocephalic Eye exam: PRESENT: conjunctiva pale Mouth exam: PRESENT: dry mucosa, neck supple, tongue midline, other - ET tube Neck exam: ABSENT: carotid bruit, JVD, lymphadenopathy, thyromegaly Respiratory exam: PRESENT: decreased breath sounds, prolonged expiratory phas, rhonchi, symmetrical, unlabored. ABSENT: rales, retraction, stridor, tachypnea Cardiovascular exam: PRESENT: RRR, +S1, +S2 Pulses: PRESENT: normal radial pulses GI/Abdominal exam: PRESENT: other - s/p surgery Rectal exam: PRESENT: deferred Gentrourinary exam: PRESENT: indwelling catheter Musculoskeletal exam: PRESENT: normal inspection Neurological exam: PRESENT: awake Psychiatric exam: PRESENT: flat affect Skin exam: PRESENT: dry, warm Results Laboratory Results: 08/04/17 05:00 08/04/17 05:00 08/04/17 08/04/17 08/04/17 05:00 05:00 05:30 WBC 11.5 H RBC 2.83 L Hgb 9.1 L Hct 26.0 L MCV 92 MCH 32.2 MCHC 35.1 RDW 14.1 H Plt Count 119 L Seg Neutrophils % 81.7 H Lymphocytes % 9.6 L Monocytes % 7.6 Eosinophils % 0.6 Basophils % 0.5 Absolute Neutrophils 9.4 H Absolute Lymphocytes 1.1 Absolute Monocytes 0.9 Absolute Eosinophils 0.1 Absolute Basophils 0.1 Carbonic Acid 1.07 HCO3/H2CO3 Ratio 19:1 ABG pH 7.39 ABG pCO2 35.5 ABG pO2 94.2 ABG HCO3 21.1 ABG O2 Saturation 97.2 ABG Base Excess -3.2 FiO2 40% Sodium 144.3 Potassium 3.4 L Chloride 113 H Carbon Dioxide 22 Anion Gap 9 BUN 24 H Creatinine 0.77 Est GFR ( Amer) > 60 Est GFR (Non-Af Amer) > 60 Glucose 76 Calcium 7.0 L* Magnesium 2.0 Total Bilirubin 0.4 AST 26 ALT 35 Alkaline Phosphatase 39 Total Protein 3.9 L Albumin 2.1 L Impressions: Abdomen/Pelvis CTA 07/31/17 16:40 IMPRESSION: 1. There is significant gaseous distention of the right, transverse , and left colons. There is appears to be long segment narrowing of the distal sigmoid colon without definite mass lesion this area on CT. Question possible large bowel obstruction secondary to underlying stricture. There is significant redundancy within the colon. 2. No aortic dissection identified. There is aneurysmal dilatation of the infrarenal abdominal aorta measuring 3.5 x 3.7 cm. 3. 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 The SMA is patent without greater than 50% narrowing. The SUZIE is occluded at its origin and fills distally via collaterals. Multifocal hemodynamically significant narrowing throughout the iliac arteries as detailed above. Chest/Abdomen CTA 07/31/17 16:41 IMPRESSION: 1. There is significant gaseous distention of the right, transverse , and left colons. There is appears to be long segment narrowing of the distal sigmoid colon without definite mass lesion this area on CT. Question possible large bowel obstruction secondary to underlying stricture. There is significant redundancy within the colon. 2. No aortic dissection identified. There is aneurysmal dilatation of the infrarenal abdominal aorta measuring 3.5 x 3.7 cm. 3. 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 The SMA is patent without greater than 50% narrowing. The SUZIE is occluded at its origin and fills distally via collaterals. Multifocal hemodynamically significant narrowing throughout the iliac arteries as detailed above. Interventional Vascular Procedure 08/03/17 00:00 IMPRESSION: SUCCESSFUL PLACEMENT OF A 5 FR DUAL LUMEN 31 CM PICC IN THE RIGHT BASILIC VEIN. PICC Line Insertion 08/03/17 00:00 IMPRESSION: SUCCESSFUL PLACEMENT OF A 5 FR DUAL LUMEN 31 CM PICC IN THE RIGHT BASILIC VEIN. Chest X-Ray 08/04/17 06:00 IMPRESSION: No significant interval change. Assessment & Plan - Diagnosis (1) Respiratory failure Is this a current diagnosis for this admission?: Yes Plan: extubate to bipap (2) Dementia Is this a current diagnosis for this admission?: Yes (3) Incarcerated left inguinal hernia Is this a current diagnosis for this admission?: Yes Plan: As per surgery - Time Critical Time spent with patient: 35 or more minutes - 55 min extubation
[2017-08-04] MEDS ORDERED: NORMAL SALINE 500 ML IV ONE (18:30)
[2017-08-04] MEDS ORDERED: OLANZAPINE 2.5 MG TABLET NG ONE (20:00)
[2017-08-05] MEDS: HALOPERIDOL LACTATE INJ 5 MG/1 ML VIAL IV PRN (00:22)
[2017-08-05] MEDS: MORPHINE SULFATE 10 MG/ML INJ IV PRN ×2 (00:29→22:59)
[2017-08-05] MEDS ORDERED: DILTIAZEM HCL/D5W 125 MG/125 ML RTUINJ IV ONE (00:36)
[2017-08-05] MEDS: METRONIDAZOLE 500 MG/NS RTU 100 ML IV SCH ×4 (03:18→21:55)
[2017-08-05 06:41] LABS: ARTERIAL BLOOD BASE EXCESS -0.9 mmol/L
[2017-08-05 06:46] LABS: HEMATOCRIT 31.2 % (37.9-51.0); HEMOGLOBIN 10.7 g/dL (13.5-17.0); HGB HCT DIFFERENCE 0.9; MEAN CORPUSCULAR HEMOGLOBIN 31.2 pg (27.0-33.4); MEAN CORPUSCULAR HGB CONC 34.1 g/dL (32.0-36.0); MEAN CORPUSCULAR VOLUME 92 fl (80-97); RED BLOOD COUNT 3.41 10^6/uL (4.35-5.55); RED CELL DISTRIBUTION WIDTH 14.1 % (11.5-14.0); WHITE BLOOD COUNT 12.5 10^3/uL (4.0-10.5)
[2017-08-05 06:53] LABS: ANION GAP 8 (5-19); BLOOD UREA NITROGEN 20 mg/dL (7-20); CALCIUM 7.5 mg/dL (8.4-10.2); CARBON DIOXIDE 25 mmol/L (22-30); CHLORIDE 114 mmol/L (98-107); CREATININE RESULT 0.74 mg/dL (0.52-1.25); GLUCOSE 146 mg/dL (75-110); MAGNESIUM 2.2 mg/dL (1.6-2.3); POTASSIUM 3.4 mmol/L (3.6-5.0)
[2017-08-05 06:58] LABS: APPEARANCE,URINE SLIGHTLY-CLOUDY; BILIRUBIN,URINE NEGATIVE (NEGATIVE); GLUCOSE, URINE NEGATIVE (NEGATIVE); KETONES,URINE 20 mg/dL (NEGATIVE); LEUKOCYTE ESTERASE,URINE SMALL (NEGATIVE); NITRITE,URINE NEGATIVE (NEGATIVE); PROTEIN,URINE NEGATIVE (NEGATIVE); URINE SPECIFIC GRAVITY 1.025
--- NOTE | 2017-08-05 07:19 | PDOC PROGRESS REPORT ---
Subjective Progress Note for:: 08/05/17 Subjective:: Episode of afib with svr, now rate controlled but still in afib Patient extubated yesturday NGT in place with feeds progressing to goal Responsive, question near baseline given advanced dementia prior to clinical course and hospitalization probable transfer to [facility] today with continued stability Needs swallow evaluation Physical Exam Vital Signs: Temp Pulse Resp BP Pulse Ox 97.0 F 84 15 117/58 L 97 08/05/17 04:00 08/04/17 20:00 08/05/17 06:38 08/05/17 06:38 08/05/17 06:38 Intake & Output 08/04/17 08/05/17 08/06/17 06:59 06:59 06:59 Intake Total 2500 3582 Output Total 935 1050 Balance 1565 2532 Weight 83.2 kg 85 kg General appearance: PRESENT: no acute distress, well-developed, well-nourished Head exam: PRESENT: atraumatic, normocephalic Eye exam: PRESENT: conjunctiva pink Mouth exam: PRESENT: moist, neck supple, tongue midline Respiratory exam: PRESENT: clear to auscultation miguelina Cardiovascular exam: PRESENT: irregular rhythm Vascular exam: PRESENT: normal capillary refill GI/Abdominal exam: PRESENT: normal bowel sounds, soft, tenderness, other - Incision C/D/I, stoma pink and functional. ABSENT: hernia, rebound Neurological exam: PRESENT: awake, CN II-XII grossly intact. ABSENT: alert Psychiatric exam: ABSENT: agitated, anxious Results Laboratory Results: 08/05/17 06:26 08/05/17 06:26 08/04/17 08/05/17 08/05/17 11:55 06:26 06:26 WBC 12.5 H RBC 3.41 L Hgb 10.7 L Hct 31.2 L MCV 92 MCH 31.2 MCHC 34.1 RDW 14.1 H Plt Count 170 Carbonic Acid 0.99 L HCO3/H2CO3 Ratio 21:1 ABG pH 7.44 ABG pCO2 32.9 L ABG pO2 92.9 ABG HCO3 21.7 ABG O2 Saturation 97.4 ABG Base Excess -1.9 FiO2 40% Sodium 147.0 H Potassium 3.4 L Chloride 114 H Carbon Dioxide 25 Anion Gap 8 BUN 20 Creatinine 0.74 Est GFR ( Amer) > 60 Est GFR (Non-Af Amer) > 60 Glucose 146 H Calcium 7.5 L Magnesium 2.2 Urine Color Urine Appearance Urine pH Ur Specific [place] Urine Protein Urine Glucose (UA) Urine Ketones Urine Blood Urine Nitrite Ur Leukocyte Esterase Urine WBC (Auto) Urine RBC (Auto) 08/05/17 08/05/17 06:26 06:30 WBC RBC Hgb Hct MCV MCH MCHC RDW Plt Count Carbonic Acid 0.99 L HCO3/H2CO3 Ratio 22:1 ABG pH 7.45 ABG pCO2 32.9 L ABG pO2 76.2 L ABG HCO3 22.5 ABG O2 Saturation 96.0 ABG Base Excess -0.9 FiO2 4L Sodium Potassium Chloride Carbon Dioxide Anion Gap BUN Creatinine Est GFR ( Amer) Est GFR (Non-Af Amer) Glucose Calcium Magnesium Urine Color [place] Urine Appearance SLIGHTLY-CLOUDY Urine pH 5.0 Ur Specific [place] 1.025 Urine Protein NEGATIVE Urine Glucose (UA) NEGATIVE Urine Ketones 20 H Urine Blood SMALL H Urine Nitrite NEGATIVE Ur Leukocyte Esterase SMALL H Urine WBC (Auto) 9 Urine RBC (Auto) 78 Impressions: Abdomen/Pelvis CTA 07/31/17 16:40 IMPRESSION: 1. There is significant gaseous distention of the right, transverse , and left colons. There is appears to be long segment narrowing of the distal sigmoid colon without definite mass lesion this area on CT. Question possible large bowel obstruction secondary to underlying stricture. There is significant redundancy within the colon. 2. No aortic dissection identified. There is aneurysmal dilatation of the infrarenal abdominal aorta measuring 3.5 x 3.7 cm. 3. 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 The SMA is patent without greater than 50% narrowing. The SUZIE is occluded at its origin and fills distally via collaterals. Multifocal hemodynamically significant narrowing throughout the iliac arteries as detailed above. Chest/Abdomen CTA 07/31/17 16:41 IMPRESSION: 1. There is significant gaseous distention of the right, transverse , and left colons. There is appears to be long segment narrowing of the distal sigmoid colon without definite mass lesion this area on CT. Question possible large bowel obstruction secondary to underlying stricture. There is significant redundancy within the colon. 2. No aortic dissection identified. There is aneurysmal dilatation of the infrarenal abdominal aorta measuring 3.5 x 3.7 cm. 3. 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 The SMA is patent without greater than 50% narrowing. The SUZIE is occluded at its origin and fills distally via collaterals. Multifocal hemodynamically significant narrowing throughout the iliac arteries as detailed above. Interventional Vascular Procedure 08/03/17 00:00 IMPRESSION: SUCCESSFUL PLACEMENT OF A 5 FR DUAL LUMEN 31 CM PICC IN THE RIGHT BASILIC VEIN. PICC Line Insertion 08/03/17 00:00 IMPRESSION: SUCCESSFUL PLACEMENT OF A 5 FR DUAL LUMEN 31 CM PICC IN THE RIGHT BASILIC VEIN. Assessment & Plan - Diagnosis (1) S/P colectomy Is this a current diagnosis for this admission?: Yes Plan: Pain control, minimize narcotic use Pulmonary toilet, attempt IS use but not likely amenable given mentation Continue IV qtt cardizem with current rate control Likely transfer to [facility] today Speech therapy evaluation for swallow function Continue to advance feeds to goal, currently via NGT Monitor UOP, responded to bolus last PM DVT/GI prophylaxis Antibiotics, broad spectrum
--- NOTE | 2017-08-05 07:48 | RADIOLOGY REPORT (SQ) ---
EXAM DESCRIPTION: CHEST SINGLE VIEW COMPLETED DATE/TIME: 08/05/2017 6:53 am REASON FOR STUDY: resp failure COMPARISON: 08/04/2017. 08/03/2017 EXAM PARAMETERS: NUMBER OF VIEWS: One view. TECHNIQUE: Single frontal radiographic view of the chest acquired. RADIATION DOSE: NA LIMITATIONS: None. FINDINGS: LUNGS AND PLEURA: Moderate lung volumes. Mild interstitial markings. Small obscuration - effusion of the left costophrenic angle. MEDIASTINUM AND HILAR STRUCTURES: No masses. Contour normal. HEART AND VASCULAR STRUCTURES: Mild enlargement of the cardiac silhouette. Atherosclerosis. BONES: No acute findings. HARDWARE: Adequate appearing NG tube. Right subclavian PICC tip at the cavoatrial junction. OTHER: No other significant finding. IMPRESSION: No significant interval change pre TECHNICAL DOCUMENTATION: JOB ID: [id number]
[2017-08-05] MEDS: NORMAL SALINE 10 ML SDV (SCHEDULED) IV SCH ×2 (10:39→22:40)
[2017-08-05] MEDS: FAMOTIDINE INJ/PF 20 MG/2 ML SDV IV SCH ×2 (10:43→21:56)
[2017-08-05] MEDS: ENOXAPARIN SODIUM INJ 40 MG/0.4 ML DISP.SYRIN SUBCUT SCH (10:43)
[2017-08-05] MEDS: OLANZAPINE 2.5 MG TABLET NG SCH ×2 (10:43→22:40)
[2017-08-05] MEDS: NORMAL SALINE 1000 ML 1,000 ML IV PRN ×2 (12:42→23:56)
--- NOTE | 2017-08-05 13:34 | PDOC PROGRESS REPORT ---
Subjective Progress Note for:: 08/05/17 Subjective:: Patient is demented and confused and does not answer questions for me. Physical Exam Vital Signs: Temp Pulse Resp BP Pulse Ox 97.9 F 105 H 19 134/56 H 93 08/05/17 10:00 08/05/17 10:00 08/05/17 11:00 08/05/17 10:23 08/05/17 11:00 Intake & Output 08/04/17 08/05/17 08/06/17 06:59 06:59 06:59 Intake Total 2500 3582 Output Total 935 1050 235 Balance 1565 2532 -235 Weight 83.2 kg 85 kg General appearance: PRESENT: no acute distress Eye exam: PRESENT: conjunctiva pink. ABSENT: scleral icterus Mouth exam: PRESENT: moist, tongue midline Neck exam: ABSENT: JVD Respiratory exam: PRESENT: clear to auscultation miguelina. ABSENT: rales, rhonchi, wheezes Cardiovascular exam: PRESENT: RRR. ABSENT: diastolic murmur, rubs, systolic murmur GI/Abdominal exam: PRESENT: normal bowel sounds, soft, other - Patient's midline surgical wound has ton with no drainage.. ABSENT: distended, guarding, mass, organolmegaly, rebound, tenderness Extremities exam: ABSENT: calf tenderness, clubbing, pedal edema Neurological exam: PRESENT: awake. ABSENT: oriented to person, oriented to place, oriented to time, oriented to situation Psychiatric exam: PRESENT: anxious Skin exam: PRESENT: dry, intact, warm. ABSENT: cyanosis, rash Results Laboratory Results: 08/05/17 06:26 08/05/17 06:26 08/05/17 08/05/17 08/05/17 06:26 06:26 06:26 WBC 12.5 H RBC 3.41 L Hgb 10.7 L Hct 31.2 L MCV 92 MCH 31.2 MCHC 34.1 RDW 14.1 H Plt Count 170 Carbonic Acid 0.99 L HCO3/H2CO3 Ratio 22:1 ABG pH 7.45 ABG pCO2 32.9 L ABG pO2 76.2 L ABG HCO3 22.5 ABG O2 Saturation 96.0 ABG Base Excess -0.9 FiO2 4L Sodium 147.0 H Potassium 3.4 L Chloride 114 H Carbon Dioxide 25 Anion Gap 8 BUN 20 Creatinine 0.74 Est GFR ( Amer) > 60 Est GFR (Non-Af Amer) > 60 Glucose 146 H Calcium 7.5 L Magnesium 2.2 Urine Color Urine Appearance Urine pH Ur Specific [place] Urine Protein Urine Glucose (UA) Urine Ketones Urine Blood Urine Nitrite Ur Leukocyte Esterase Urine WBC (Auto) Urine RBC (Auto) Stool Occult Blood 08/05/17 08/05/17 06:30 06:30 WBC RBC Hgb Hct MCV MCH MCHC RDW Plt Count Carbonic Acid HCO3/H2CO3 Ratio ABG pH ABG pCO2 ABG pO2 ABG HCO3 ABG O2 Saturation ABG Base Excess FiO2 Sodium Potassium Chloride Carbon Dioxide Anion Gap BUN Creatinine Est GFR ( Amer) Est GFR (Non-Af Amer) Glucose Calcium Magnesium Urine Color [place] Urine Appearance SLIGHTLY-CLOUDY Urine pH 5.0 Ur Specific [place] 1.025 Urine Protein NEGATIVE Urine Glucose (UA) NEGATIVE Urine Ketones 20 H Urine Blood SMALL H Urine Nitrite NEGATIVE Ur Leukocyte Esterase SMALL H Urine WBC (Auto) 9 Urine RBC (Auto) 78 Stool Occult Blood NEGATIVE Impressions: Abdomen/Pelvis CTA 07/31/17 16:40 IMPRESSION: 1. There is significant gaseous distention of the right, transverse , and left colons. There is appears to be long segment narrowing of the distal sigmoid colon without definite mass lesion this area on CT. Question possible large bowel obstruction secondary to underlying stricture. There is significant redundancy within the colon. 2. No aortic dissection identified. There is aneurysmal dilatation of the infrarenal abdominal aorta measuring 3.5 x 3.7 cm. 3. 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 The SMA is patent without greater than 50% narrowing. The SUZIE is occluded at its origin and fills distally via collaterals. Multifocal hemodynamically significant narrowing throughout the iliac arteries as detailed above. Chest/Abdomen CTA 07/31/17 16:41 IMPRESSION: 1. There is significant gaseous distention of the right, transverse , and left colons. There is appears to be long segment narrowing of the distal sigmoid colon without definite mass lesion this area on CT. Question possible large bowel obstruction secondary to underlying stricture. There is significant redundancy within the colon. 2. No aortic dissection identified. There is aneurysmal dilatation of the infrarenal abdominal aorta measuring 3.5 x 3.7 cm. 3. 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 The SMA is patent without greater than 50% narrowing. The SUZIE is occluded at its origin and fills distally via collaterals. Multifocal hemodynamically significant narrowing throughout the iliac arteries as detailed above. Interventional Vascular Procedure 08/03/17 00:00 IMPRESSION: SUCCESSFUL PLACEMENT OF A 5 FR DUAL LUMEN 31 CM PICC IN THE RIGHT BASILIC VEIN. PICC Line Insertion 08/03/17 00:00 IMPRESSION: SUCCESSFUL PLACEMENT OF A 5 FR DUAL LUMEN 31 CM PICC IN THE RIGHT BASILIC VEIN. Chest X-Ray 08/05/17 06:00 IMPRESSION: No significant interval change pre Assessment & Plan - Diagnosis (1) Large bowel obstruction Is this a current diagnosis for this admission?: Yes Plan: Patient had surgery for obstruction with volvulus. He currently has a ostomy that appears to be functioning. (2) CAD (coronary artery disease) Is this a current diagnosis for this admission?: Yes Plan: No evidence for active disease at this time. (3) Dementia Is this a current diagnosis for this admission?: Yes (4) Hypokalemia Is this a current diagnosis for this admission?: Yes Plan: Resolved. (5) Leukocytosis Is this a current diagnosis for this admission?: Yes Plan: The patient's white count continues to improve. Continue with Flagyl and Levaquin. (6) AAA (abdominal aortic aneurysm) without rupture Is this a current diagnosis for this admission?: Yes (7) DVT prophylaxis Is this a current diagnosis for this admission?: Yes (8) Tachycardia Is this a current diagnosis for this admission?: Yes Plan: Patient was started on diltiazem drip last night for rate control. - Time Time Spent with patient: 25-34 minutes - Inpatient Certification Medical Necessity: Need Close Monitoring Due to Risk of Patient Decompensation
[2017-08-05] MEDS ORDERED: POTASSIUM CHLORIDE 20 MEQ/15 ML UDCUP PO ONE (15:00)
[2017-08-05] MEDS: LEVOFLOXACIN 750 MG/D5W RTU 750 MG/150 ML RTUPB IV SCH (17:50)
[2017-08-05] MEDS: DILTIAZEM HCL/D5W 125 MG/125 ML RTUINJ IV PRN (18:37)
--- NOTE | 2017-08-05 19:43 | RADIOLOGY REPORT (SQ) ---
EXAM DESCRIPTION: KUB/ABDOMEN (SINGLE VIEW) COMPLETED DATE/TIME: 08/05/2017 7:05 pm REASON FOR STUDY: persistent vomitting COMPARISON: Correlation made to CT from 07/31/2017 NUMBER OF VIEWS: One view. TECHNIQUE: Supine radiographic image of the abdomen acquired. LIMITATIONS: None. FINDINGS: BOWEL GAS PATTERN: Marked gaseous distension limb of small and possibly large bowel loops. CALCIFICATIONS: No suspicious calcifications. SOFT TISSUES: No gross mass or suggestion of organomegaly. HARDWARE: Skin ton in place compatible with recent surgery. Partial visualization of nasogastric tube appear BONES: No acute fracture. No worrisome bone lesions. OTHER: No other significant finding. IMPRESSION: MARKED GASEOUS DISTENSION OF SMALL AND POSSIBLY LARGE BOWEL LOOPS STATUS POST RECENT MANUELA KARY. PRESUMABLY THIS REPRESENTS A POSTOPERATIVE ILEUS HOWEVER PERSISTENT OBSTRUCTION CANNOT BE EXCL UDED. TECHNICAL DOCUMENTATION: JOB ID: [id number] [employer]- All Rights Reserved
[2017-08-05] MEDS ORDERED: POTASSIUM CHLORIDE 20 MEQ/15 ML UDCUP PO SCH ×2 (22:00→23:00)
[2017-08-06] MEDS: METRONIDAZOLE 500 MG/NS RTU 100 ML IV SCH ×2 (02:13→08:50)
[2017-08-06] MEDS: DILTIAZEM HCL/D5W 125 MG/125 ML RTUINJ IV PRN (04:12)
[2017-08-06 04:40] LABS: HEMATOCRIT 30.6 % (37.9-51.0); HEMOGLOBIN 10.5 g/dL (13.5-17.0); HGB HCT DIFFERENCE 0.9; MEAN CORPUSCULAR HEMOGLOBIN 30.8 pg (27.0-33.4); MEAN CORPUSCULAR HGB CONC 34.2 g/dL (32.0-36.0); MEAN CORPUSCULAR VOLUME 90 fl (80-97); RED BLOOD COUNT 3.41 10^6/uL (4.35-5.55); RED CELL DISTRIBUTION WIDTH 14.1 % (11.5-14.0); WHITE BLOOD COUNT 13.2 10^3/uL (4.0-10.5)
[2017-08-06] MEDS: POTASSIUM CHLORIDE 20 MEQ/50 ML RTU IV SCH ×3 (05:06→21:24)
[2017-08-06] MEDS: METOCLOPRAMIDE HCL INJ/PF 10 MG/2 ML SDV IV SCH ×2 (05:07→13:21)
[2017-08-06] MEDS: NORMAL SALINE 1000 ML 1,000 ML IV PRN ×3 (05:08→22:26)
[2017-08-06 07:29] LABS: ANION GAP 10 (5-19); BLOOD UREA NITROGEN 19 mg/dL (7-20); CALCIUM 7.3 mg/dL (8.4-10.2); CARBON DIOXIDE 23 mmol/L (22-30); CHLORIDE 115 mmol/L (98-107); CREATININE RESULT 0.67 mg/dL (0.52-1.25); GLUCOSE 124 mg/dL (75-110); POTASSIUM 3.3 mmol/L (3.6-5.0)
[2017-08-06] MEDS: ENOXAPARIN SODIUM INJ 40 MG/0.4 ML DISP.SYRIN SUBCUT SCH (10:14)
[2017-08-06] MEDS: FAMOTIDINE INJ/PF 20 MG/2 ML SDV IV SCH ×2 (10:14→21:24)
[2017-08-06] MEDS: NORMAL SALINE 10 ML SDV (SCHEDULED) IV SCH ×2 (10:15→21:36)
--- NOTE | 2017-08-06 10:37 | PROGRESS NOTE E ---
Progress Note NAME: SUZI GARCIA : 1940 AGE: 76Y DATE: 08/06/2017 ROOM: 327 This is hospital day 6, postoperative day 5. SUBJECTIVE: The patient is non-communicative. PHYSICAL EXAMINATION: Patient is examined on the third floor of [facility]. VITAL SIGNS: The vital signs are stable. PSYCHIATRIC: The patient is hardly arousable. He grimaces but does not vocalize. ABDOMEN: Examined. Minimal distension. Midline incision with ton intact. Paramedian incision, chronic. Ostomy full of stool. LABORATORY PROFILE: Shows white blood cell count of 13,200; hemoglobin of 10.5. Electrolytes show potassium of 3.3. Calcium is 7.3. IMPRESSION: 1. SATISFACTORY FUNCTIONING OF DIVERTING COLOSTOMY, 5 DAYS STATUS POST SIGMOID COLECTOMY FOR VOLVULUS; FINAL PATHOLOGY REPORT SHOWS SIGMOID COLON WITH ACUTE ISCHEMIC CHANGES INCLUDING NECROSIS. 2. SEVERE DEMENTIA. 3. ELECTROLYTE ABNORMALITIES. RECOMMENDATIONS: 1. Continuing correcting electrolytes. 2. Patient unable to participate in swallowing study by report yesterday; ongoing nutritional needs to be discussed with medical team and healthcare power of portable canteen operator. 3. We will need to discuss with family expectations of ongoing medical care including ultimate objectives, particularly with regards to nutritional support, and code status; We will attempt to make those connections today. DICTATING PHYSICIAN: SAHIL DE LEON M.D. [id number] PHY#: [id number] ID: [id number] JOB#: [id number] ACCT: [id number] cc: > [facility]
[2017-08-06] MEDS: OLANZAPINE INJ/PF 10 MG SDV IM SCH ×2 (11:30→21:35)
--- NOTE | 2017-08-06 11:45 | PDOC PROGRESS REPORT ---
Subjective Progress Note for:: 08/06/17 Subjective:: Patient is demented and confused and does not answer questions for me. Physical Exam Vital Signs: Temp Pulse Resp BP Pulse Ox 97.6 F 83 19 121/66 96 08/06/17 08:26 08/06/17 09:00 08/06/17 08:26 08/06/17 11:02 08/06/17 08:26 Intake & Output 08/05/17 08/06/17 08/07/17 06:59 06:59 06:59 Intake Total 3582 1923 Output Total 1050 1635 Balance 2532 288 Weight 85 kg 84.8 kg General appearance: PRESENT: no acute distress Eye exam: PRESENT: conjunctiva pink. ABSENT: scleral icterus Mouth exam: PRESENT: moist, tongue midline Neck exam: ABSENT: JVD Respiratory exam: PRESENT: clear to auscultation miguelina. ABSENT: rales, rhonchi, wheezes Cardiovascular exam: PRESENT: RRR, systolic murmur - 2/6 systolic murmur. ABSENT: diastolic murmur, rubs GI/Abdominal exam: PRESENT: normal bowel sounds, soft, other - Midline surgical wound with ton present no drainage.. ABSENT: distended, guarding, mass, organolmegaly, rebound, tenderness Extremities exam: PRESENT: full ROM. ABSENT: calf tenderness, clubbing, pedal edema Neurological exam: PRESENT: awake, other - Patient is demented and does not answer questions. Psychiatric exam: PRESENT: flat affect Results Laboratory Results: 08/06/17 04:20 08/06/17 04:20 08/06/17 08/06/17 08/06/17 04:20 04:20 04:20 WBC 13.2 H RBC 3.41 L Hgb 10.5 L Hct 30.6 L MCV 90 MCH 30.8 MCHC 34.2 RDW 14.1 H Plt Count 179 Sodium 148.0 H Potassium 3.3 L Chloride 115 H Carbon Dioxide 23 Anion Gap 10 BUN 19 Creatinine 0.67 Est GFR ( Amer) > 60 Est GFR (Non-Af Amer) > 60 Glucose 124 H Calcium 7.3 L Stool Occult Blood NEGATIVE Impressions: Abdomen/Pelvis CTA 07/31/17 16:40 IMPRESSION: 1. There is significant gaseous distention of the right, transverse , and left colons. There is appears to be long segment narrowing of the distal sigmoid colon without definite mass lesion this area on CT. Question possible large bowel obstruction secondary to underlying stricture. There is significant redundancy within the colon. 2. No aortic dissection identified. There is aneurysmal dilatation of the infrarenal abdominal aorta measuring 3.5 x 3.7 cm. 3. 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 The SMA is patent without greater than 50% narrowing. The SUZIE is occluded at its origin and fills distally via collaterals. Multifocal hemodynamically significant narrowing throughout the iliac arteries as detailed above. Chest/Abdomen CTA 07/31/17 16:41 IMPRESSION: 1. There is significant gaseous distention of the right, transverse , and left colons. There is appears to be long segment narrowing of the distal sigmoid colon without definite mass lesion this area on CT. Question possible large bowel obstruction secondary to underlying stricture. There is significant redundancy within the colon. 2. No aortic dissection identified. There is aneurysmal dilatation of the infrarenal abdominal aorta measuring 3.5 x 3.7 cm. 3. 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 The SMA is patent without greater than 50% narrowing. The SUZIE is occluded at its origin and fills distally via collaterals. Multifocal hemodynamically significant narrowing throughout the iliac arteries as detailed above. Interventional Vascular Procedure 08/03/17 00:00 IMPRESSION: SUCCESSFUL PLACEMENT OF A 5 FR DUAL LUMEN 31 CM PICC IN THE RIGHT BASILIC VEIN. PICC Line Insertion 08/03/17 00:00 IMPRESSION: SUCCESSFUL PLACEMENT OF A 5 FR DUAL LUMEN 31 CM PICC IN THE RIGHT BASILIC VEIN. KUB X-Ray 08/05/17 00:00 IMPRESSION: MARKED GASEOUS DISTENSION OF SMALL AND POSSIBLY LARGE BOWEL LOOPS STATUS POST RECENT SURGERY. PRESUMABLY THIS REPRESENTS A POSTOPERATIVE ILEUS HOWEVER PERSISTENT OBSTRUCTION CANNOT BE EXCLUDED. Chest X-Ray 08/05/17 06:00 IMPRESSION: No significant interval change pre Assessment & Plan - Diagnosis (1) Large bowel obstruction Is this a current diagnosis for this admission?: Yes Plan: Patient had surgery for obstruction with volvulus. He currently has a ostomy that appears to be functioning. (2) CAD (coronary artery disease) Is this a current diagnosis for this admission?: Yes Plan: No evidence for active disease at this time. (3) Dementia Is this a current diagnosis for this admission?: Yes Plan: Patient is on IV Seroquel. (4) Hypokalemia Is this a current diagnosis for this admission?: Yes Plan: Resolved. (5) Leukocytosis Is this a current diagnosis for this admission?: Yes Plan: The patient's white count has improved. Surgery is recommending stopping the antibiotics. (6) AAA (abdominal aortic aneurysm) without rupture Is this a current diagnosis for this admission?: Yes (7) DVT prophylaxis Is this a current diagnosis for this admission?: Yes (8) Tachycardia Is this a current diagnosis for this admission?: Yes Plan: Patient was started on diltiazem drip last night for rate control. The patient this morning converted from atrial fibrillation to normal sinus rhythm. - Time Time Spent with patient: 25-34 minutes - Inpatient Certification Medical Necessity: Need Close Monitoring Due to Risk of Patient Decompensation, Need For IV Fluids
--- NOTE | 2017-08-06 13:35 | PDOC PROGRESS REPORT ---
Subjective Progress Note for:: 08/05/17 Subjective:: 24 hours status post extubation Physical Exam Vital Signs: Temp Pulse Resp BP Pulse Ox 97.9 F 105 H 19 134/56 H 93 08/05/17 10:00 08/05/17 10:00 08/05/17 11:00 08/05/17 10:23 08/05/17 11:00 Intake & Output 08/04/17 08/05/17 08/06/17 06:59 06:59 06:59 Intake Total 2500 3582 Output Total 935 1050 235 Balance 1565 2532 -235 Weight 83.2 kg 85 kg General appearance: PRESENT: no acute distress, cooperative, disheveled, thin, well-developed Head exam: PRESENT: atraumatic, normocephalic Eye exam: PRESENT: conjunctiva pale, EOMI Mouth exam: PRESENT: dry mucosa, neck supple, tongue midline Neck exam: ABSENT: carotid bruit, JVD, lymphadenopathy, thyromegaly Respiratory exam: PRESENT: decreased breath sounds, prolonged expiratory phas, rhonchi, symmetrical, unlabored, wheezes. ABSENT: rales, retraction, stridor, tachypnea Cardiovascular exam: PRESENT: RRR, +S1, +S2 Pulses: PRESENT: normal radial pulses GI/Abdominal exam: PRESENT: other - Post surgery on dressing dry and intact ostomy Rectal exam: PRESENT: deferred Gentrourinary exam: PRESENT: indwelling catheter Musculoskeletal exam: PRESENT: tenderness Neurological exam: PRESENT: awake. ABSENT: alert Psychiatric exam: PRESENT: flat affect Skin exam: PRESENT: dry, warm Results Laboratory Results: 08/05/17 06:26 08/05/17 06:26 08/05/17 08/05/17 08/05/17 06:26 06:26 06:26 WBC 12.5 H RBC 3.41 L Hgb 10.7 L Hct 31.2 L MCV 92 MCH 31.2 MCHC 34.1 RDW 14.1 H Plt Count 170 Carbonic Acid 0.99 L HCO3/H2CO3 Ratio 22:1 ABG pH 7.45 ABG pCO2 32.9 L ABG pO2 76.2 L ABG HCO3 22.5 ABG O2 Saturation 96.0 ABG Base Excess -0.9 FiO2 4L Sodium 147.0 H Potassium 3.4 L Chloride 114 H Carbon Dioxide 25 Anion Gap 8 BUN 20 Creatinine 0.74 Est GFR ( Amer) > 60 Est GFR (Non-Af Amer) > 60 Glucose 146 H Calcium 7.5 L Magnesium 2.2 Urine Color Urine Appearance Urine pH Ur Specific [place] Urine Protein Urine Glucose (UA) Urine Ketones Urine Blood Urine Nitrite Ur Leukocyte Esterase Urine WBC (Auto) Urine RBC (Auto) Stool Occult Blood 08/05/17 08/05/17 06:30 06:30 WBC RBC Hgb Hct MCV MCH MCHC RDW Plt Count Carbonic Acid HCO3/H2CO3 Ratio ABG pH ABG pCO2 ABG pO2 ABG HCO3 ABG O2 Saturation ABG Base Excess FiO2 Sodium Potassium Chloride Carbon Dioxide Anion Gap BUN Creatinine Est GFR ( Amer) Est GFR (Non-Af Amer) Glucose Calcium Magnesium Urine Color [place] Urine Appearance SLIGHTLY-CLOUDY Urine pH 5.0 Ur Specific [place] 1.025 Urine Protein NEGATIVE Urine Glucose (UA) NEGATIVE Urine Ketones 20 H Urine Blood SMALL H Urine Nitrite NEGATIVE Ur Leukocyte Esterase SMALL H Urine WBC (Auto) 9 Urine RBC (Auto) 78 Stool Occult Blood NEGATIVE Impressions: Abdomen/Pelvis CTA 07/31/17 16:40 IMPRESSION: 1. There is significant gaseous distention of the right, transverse , and left colons. There is appears to be long segment narrowing of the distal sigmoid colon without definite mass lesion this area on CT. Question possible large bowel obstruction secondary to underlying stricture. There is significant redundancy within the colon. 2. No aortic dissection identified. There is aneurysmal dilatation of the infrarenal abdominal aorta measuring 3.5 x 3.7 cm. 3. 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 The SMA is patent without greater than 50% narrowing. The SUZIE is occluded at its origin and fills distally via collaterals. Multifocal hemodynamically significant narrowing throughout the iliac arteries as detailed above. Chest/Abdomen CTA 07/31/17 16:41 IMPRESSION: 1. There is significant gaseous distention of the right, transverse , and left colons. There is appears to be long segment narrowing of the distal sigmoid colon without definite mass lesion this area on CT. Question possible large bowel obstruction secondary to underlying stricture. There is significant redundancy within the colon. 2. No aortic dissection identified. There is aneurysmal dilatation of the infrarenal abdominal aorta measuring 3.5 x 3.7 cm. 3. 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 The SMA is patent without greater than 50% narrowing. The SUZIE is occluded at its origin and fills distally via collaterals. Multifocal hemodynamically significant narrowing throughout the iliac arteries as detailed above. Interventional Vascular Procedure 08/03/17 00:00 IMPRESSION: SUCCESSFUL PLACEMENT OF A 5 FR DUAL LUMEN 31 CM PICC IN THE RIGHT BASILIC VEIN. PICC Line Insertion 08/03/17 00:00 IMPRESSION: SUCCESSFUL PLACEMENT OF A 5 FR DUAL LUMEN 31 CM PICC IN THE RIGHT BASILIC VEIN. Chest X-Ray 08/05/17 06:00 IMPRESSION: No significant interval change pre Assessment & Plan - Diagnosis (1) Respiratory failure Is this a current diagnosis for this admission?: Yes Plan: Was weaned from ventilator to BiPAP currently on nasal cannula patient stated (2) Dementia Is this a current diagnosis for this admission?: Yes (3) Incarcerated left inguinal hernia Is this a current diagnosis for this admission?: Yes Plan: As per surgery - Time Time Spent with patient: 25-34 minutes
--- NOTE | 2017-08-06 13:45 | EKG REPORT ---
SEVERITY:- BORDERLINE ECG - SINUS RHYTHM BORDERLINE T ABNORMALITIES, INFERIOR LEADS APC : Confirmed by: Joey Santa 06-Aug-2017 13:44:49
[2017-08-07 05:48] LABS: ABSOLUTE NEUT (AUTO) 10.5 10^3/uL (1.7-8.2); BASOPHILS % (AUTO) 0.4 % (0-2); EOSINOPHILS % (AUTO) 0.1 % (0-6); HEMATOCRIT 32.8 % (37.9-51.0); HEMOGLOBIN 11.1 g/dL (13.5-17.0); HGB HCT DIFFERENCE 0.5; MEAN CORPUSCULAR HEMOGLOBIN 30.6 pg (27.0-33.4); MEAN CORPUSCULAR HGB CONC 33.7 g/dL (32.0-36.0); MEAN CORPUSCULAR VOLUME 91 fl (80-97); MONOCYTES % (AUTO) 7.9 % (3-13); RED BLOOD COUNT 3.63 10^6/uL (4.35-5.55); RED CELL DISTRIBUTION WIDTH 14.5 % (11.5-14.0); SEGMENTED NEUTROPHILS % (AUTO) 83.6 % (42-78); WHITE BLOOD COUNT 12.6 10^3/uL (4.0-10.5)
[2017-08-07 06:06] LABS: ANION GAP 12 (5-19); BLOOD UREA NITROGEN 23 mg/dL (7-20); CALCIUM 7.5 mg/dL (8.4-10.2); CARBON DIOXIDE 22 mmol/L (22-30); CHLORIDE 116 mmol/L (98-107); CREATININE RESULT 0.72 mg/dL (0.52-1.25); GLUCOSE 122 mg/dL (75-110); POTASSIUM 3.4 mmol/L (3.6-5.0); SODIUM 149.9 mmol/L (137-145)
[2017-08-07] MEDS: FAMOTIDINE INJ/PF 20 MG/2 ML SDV IV SCH ×2 (10:52→21:48)
[2017-08-07] MEDS: ENOXAPARIN SODIUM INJ 40 MG/0.4 ML DISP.SYRIN SUBCUT SCH (10:52)
[2017-08-07] MEDS: NORMAL SALINE 10 ML SDV (SCHEDULED) IV SCH ×2 (11:11→21:55)
[2017-08-07] MEDS: OLANZAPINE INJ/PF 10 MG SDV IM SCH ×2 (11:15→21:49)
--- NOTE | 2017-08-07 11:19 | PDOC PROGRESS REPORT ---
Subjective Progress Note for:: 08/07/17 Subjective:: Patient is demented and confused and does not answer questions for me. He has had some nausea and vomiting this morning. Physical Exam Vital Signs: Temp Pulse Resp BP Pulse Ox 98.5 F 84 22 H 180/69 H 100 08/07/17 08:02 08/07/17 08:02 08/07/17 08:02 08/07/17 08:02 08/07/17 08:02 Intake & Output 08/06/17 08/07/17 08/08/17 06:59 06:59 06:59 Intake Total 1923 1900 Output Total 1635 851 Balance 288 1049 Weight 84.8 kg 86.8 kg General appearance: PRESENT: no acute distress Eye exam: PRESENT: conjunctiva pink. ABSENT: scleral icterus Mouth exam: PRESENT: moist, tongue midline Neck exam: ABSENT: JVD Respiratory exam: PRESENT: clear to auscultation miguelina. ABSENT: rales, rhonchi, wheezes Cardiovascular exam: PRESENT: RRR. ABSENT: diastolic murmur, rubs, systolic murmur GI/Abdominal exam: PRESENT: normal bowel sounds, soft, other - Midline surgical wound dry and intact.. ABSENT: distended, guarding, mass, organolmegaly, rebound, tenderness Extremities exam: ABSENT: calf tenderness, clubbing, pedal edema Neurological exam: PRESENT: awake. ABSENT: oriented to person, oriented to place, oriented to time, oriented to situation, motor sensory deficit Psychiatric exam: PRESENT: flat affect Skin exam: PRESENT: dry, intact, warm. ABSENT: cyanosis, rash Results Laboratory Results: 08/07/17 05:20 08/07/17 05:20 08/07/17 08/07/17 05:20 05:20 WBC 12.6 H RBC 3.63 L Hgb 11.1 L Hct 32.8 L MCV 91 MCH 30.6 MCHC 33.7 RDW 14.5 H Plt Count 203 Seg Neutrophils % 83.6 H Lymphocytes % 8.0 L Monocytes % 7.9 Eosinophils % 0.1 Basophils % 0.4 Absolute Neutrophils 10.5 H Absolute Lymphocytes 1.0 Absolute Monocytes 1.0 Absolute Eosinophils 0.0 Absolute Basophils 0.0 Sodium 149.9 H Potassium 3.4 L Chloride 116 H Carbon Dioxide 22 Anion Gap 12 BUN 23 H Creatinine 0.72 Est GFR ( Amer) > 60 Est GFR (Non-Af Amer) > 60 Glucose 122 H Calcium 7.5 L Impressions: Abdomen/Pelvis CTA 07/31/17 16:40 IMPRESSION: 1. There is significant gaseous distention of the right, transverse , and left colons. There is appears to be long segment narrowing of the distal sigmoid colon without definite mass lesion this area on CT. Question possible large bowel obstruction secondary to underlying stricture. There is significant redundancy within the colon. 2. No aortic dissection identified. There is aneurysmal dilatation of the infrarenal abdominal aorta measuring 3.5 x 3.7 cm. 3. 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 The SMA is patent without greater than 50% narrowing. The SUZIE is occluded at its origin and fills distally via collaterals. Multifocal hemodynamically significant narrowing throughout the iliac arteries as detailed above. Chest/Abdomen CTA 07/31/17 16:41 IMPRESSION: 1. There is significant gaseous distention of the right, transverse , and left colons. There is appears to be long segment narrowing of the distal sigmoid colon without definite mass lesion this area on CT. Question possible large bowel obstruction secondary to underlying stricture. There is significant redundancy within the colon. 2. No aortic dissection identified. There is aneurysmal dilatation of the infrarenal abdominal aorta measuring 3.5 x 3.7 cm. 3. 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 The SMA is patent without greater than 50% narrowing. The SUZIE is occluded at its origin and fills distally via collaterals. Multifocal hemodynamically significant narrowing throughout the iliac arteries as detailed above. Interventional Vascular Procedure 08/03/17 00:00 IMPRESSION: SUCCESSFUL PLACEMENT OF A 5 FR DUAL LUMEN 31 CM PICC IN THE RIGHT BASILIC VEIN. PICC Line Insertion 08/03/17 00:00 IMPRESSION: SUCCESSFUL PLACEMENT OF A 5 FR DUAL LUMEN 31 CM PICC IN THE RIGHT BASILIC VEIN. KUB X-Ray 08/05/17 00:00 IMPRESSION: MARKED GASEOUS DISTENSION OF SMALL AND POSSIBLY LARGE BOWEL LOOPS STATUS POST RECENT SURGERY. PRESUMABLY THIS REPRESENTS A POSTOPERATIVE ILEUS HOWEVER PERSISTENT OBSTRUCTION CANNOT BE EXCLUDED. Chest X-Ray 08/05/17 06:00 IMPRESSION: No significant interval change pre Assessment & Plan - Diagnosis (1) Large bowel obstruction Is this a current diagnosis for this admission?: Yes Plan: Patient had surgery for obstruction with volvulus. He currently has a ostomy that appears to be functioning. Patient however is having some nausea and vomiting this morning. We will replace an NG tube down to check KUB. (2) CAD (coronary artery disease) Is this a current diagnosis for this admission?: Yes (3) Dementia Is this a current diagnosis for this admission?: Yes Plan: Patient is on IV Seroquel. (4) Hypokalemia Is this a current diagnosis for this admission?: Yes Plan: Resolved. (5) Leukocytosis Is this a current diagnosis for this admission?: Yes Plan: The patient's white count has remained stable. Antibiotics were stopped. (6) AAA (abdominal aortic aneurysm) without rupture Is this a current diagnosis for this admission?: Yes (7) DVT prophylaxis Is this a current diagnosis for this admission?: Yes (8) Tachycardia Is this a current diagnosis for this admission?: Yes Plan: Patient remains in a normal sinus rhythm. He has been in atrial fibrillation previously. - Time Time Spent with patient: 25-34 minutes - Inpatient Certification Medical Necessity: Need Close Monitoring Due to Risk of Patient Decompensation
--- NOTE | 2017-08-07 13:00 | RADIOLOGY REPORT (SQ) ---
EXAM DESCRIPTION: KUB/ABDOMEN (SINGLE VIEW) COMPLETED DATE/TIME: 08/07/2017 12:39 pm REASON FOR STUDY: check tube placement COMPARISON: 08/05/2017 NUMBER OF VIEWS: One view. TECHNIQUE: Supine radiographic image of the abdomen acquired. LIMITATIONS: None. FINDINGS: Nasogastric tube in the stomach. Persistent dilated loops of small bowel in the left uppe r quadrant and mid abdomen. Skin ton. IMPRESSION: Nasogastric tube in the stomach.
--- NOTE | 2017-08-07 14:47 | PDOC PROGRESS REPORT ---
Subjective Progress Note for:: 08/07/17 Subjective:: Patient developed abdominal distention and pain early this morning. Nasogastric tube was inserted in approximately 800 cc of dark green bile was evacuated. Patient is clinically improved. Otherwise no change overnight. 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 No eye opening. GI/Abdominal exam: PRESENT: other - Soft ton in place no significant distention only mild. Ostomy with minimal amount of stool, moderate edema to the wall. Results Laboratory Results: 08/07/17 05:20 08/07/17 05:20 08/07/17 08/07/17 05:20 05:20 WBC 12.6 H RBC 3.63 L Hgb 11.1 L Hct 32.8 L MCV 91 MCH 30.6 MCHC 33.7 RDW 14.5 H Plt Count 203 Seg Neutrophils % 83.6 H Lymphocytes % 8.0 L Monocytes % 7.9 Eosinophils % 0.1 Basophils % 0.4 Absolute Neutrophils 10.5 H Absolute Lymphocytes 1.0 Absolute Monocytes 1.0 Absolute Eosinophils 0.0 Absolute Basophils 0.0 Sodium 149.9 H Potassium 3.4 L Chloride 116 H Carbon Dioxide 22 Anion Gap 12 BUN 23 H Creatinine 0.72 Est GFR ( Amer) > 60 Est GFR (Non-Af Amer) > 60 Glucose 122 H Calcium 7.5 L Impressions: Abdomen/Pelvis CTA 07/31/17 16:40 IMPRESSION: 1. There is significant gaseous distention of the right, transverse , and left colons. There is appears to be long segment narrowing of the distal sigmoid colon without definite mass lesion this area on CT. Question possible large bowel obstruction secondary to underlying stricture. There is significant redundancy within the colon. 2. No aortic dissection identified. There is aneurysmal dilatation of the infrarenal abdominal aorta measuring 3.5 x 3.7 cm. 3. 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 The SMA is patent without greater than 50% narrowing. The SUZIE is occluded at its origin and fills distally via collaterals. Multifocal hemodynamically significant narrowing throughout the iliac arteries as detailed above. Chest/Abdomen CTA 07/31/17 16:41 IMPRESSION: 1. There is significant gaseous distention of the right, transverse , and left colons. There is appears to be long segment narrowing of the distal sigmoid colon without definite mass lesion this area on CT. Question possible large bowel obstruction secondary to underlying stricture. There is significant redundancy within the colon. 2. No aortic dissection identified. There is aneurysmal dilatation of the infrarenal abdominal aorta measuring 3.5 x 3.7 cm. 3. 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 The SMA is patent without greater than 50% narrowing. The SUZIE is occluded at its origin and fills distally via collaterals. Multifocal hemodynamically significant narrowing throughout the iliac arteries as detailed above. Interventional Vascular Procedure 08/03/17 00:00 IMPRESSION: SUCCESSFUL PLACEMENT OF A 5 FR DUAL LUMEN 31 CM PICC IN THE RIGHT BASILIC VEIN. PICC Line Insertion 08/03/17 00:00 IMPRESSION: SUCCESSFUL PLACEMENT OF A 5 FR DUAL LUMEN 31 CM PICC IN THE RIGHT BASILIC VEIN. Chest X-Ray 08/05/17 06:00 IMPRESSION: No significant interval change pre KUB X-Ray 08/07/17 00:00 IMPRESSION: Nasogastric tube in the stomach. Assessment & Plan - Diagnosis (1) Large bowel obstruction Is this a current diagnosis for this admission?: Yes Plan: Patient is now one-week status post exploratory laparotomy, sigmoid colectomy, diverting colostomy for sigmoid volvulus. Operative course delayed due to postoperative ileus now with nasogastric tube noted with clinical improvement, but nonresolution. Plan: 1. Continue IV fluids and nasogastric decompression; electrolytes being replaced for potassium of 3.4. 2. No formal communication is been had with durable healthcare power of corporate associate attorney, and medical staff regarding level of aggressiveness of care and management plan going forward. I will be available to communicate with the family to get this dialogue moving. 3. We will check abdominal films tomorrow to assess interval change in ileus pattern.
[2017-08-07] MEDS ORDERED: POTASSIUM CHLORIDE 20 MEQ/50 ML RTU IV ONE (15:30)
[2017-08-07] MEDS: NORMAL SALINE 1000 ML 1,000 ML IV PRN (21:40)
[2017-08-07] MEDS: HALOPERIDOL LACTATE INJ 5 MG/1 ML VIAL IV PRN (23:37)
[2017-08-08] MEDS: MORPHINE SULFATE 10 MG/ML INJ IV PRN (00:43)
[2017-08-08 06:50] LABS: ABSOLUTE EOSINOPHILS # (AUTO) 0.1 10^3/uL (0.0-0.6); ABSOLUTE LYMPHOCYTES (AUTO) 1.1 10^3/uL (0.5-4.7); ABSOLUTE MONOCYTES (AUTO) 1.4 10^3/uL (0.1-1.4); BASOPHILS % (AUTO) 0.2 % (0-2); HEMOGLOBIN 10.9 g/dL (13.5-17.0); HGB HCT DIFFERENCE 0.7; LYMPHOCYTES % (AUTO) 7.4 % (13-45); MEAN CORPUSCULAR HGB CONC 33.9 g/dL (32.0-36.0); MEAN CORPUSCULAR VOLUME 92 fl (80-97); MONOCYTES % (AUTO) 9.5 % (3-13); RED CELL DISTRIBUTION WIDTH 14.4 % (11.5-14.0); SEGMENTED NEUTROPHILS % (AUTO) 81.9 % (42-78); WHITE BLOOD COUNT 14.6 10^3/uL (4.0-10.5)
[2017-08-08 06:52] LABS: APPEARANCE,URINE CLEAR; BILIRUBIN,URINE NEGATIVE (NEGATIVE); GLUCOSE, URINE NEGATIVE (NEGATIVE); KETONES,URINE 20 mg/dL (NEGATIVE); LEUKOCYTE ESTERASE,URINE TRACE (NEGATIVE); NITRITE,URINE NEGATIVE (NEGATIVE); PROTEIN,URINE NEGATIVE (NEGATIVE); URINE SPECIFIC GRAVITY 1.017; UROBILINOGEN,URINE NEGATIVE mg/dL (<2.0)
[2017-08-08 07:06] LABS: ANION GAP 8 (5-19); BLOOD UREA NITROGEN 21 mg/dL (7-20); CALCIUM 7.4 mg/dL (8.4-10.2); CARBON DIOXIDE 25 mmol/L (22-30); CHLORIDE 116 mmol/L (98-107); CREATININE RESULT 0.61 mg/dL (0.52-1.25); GLUCOSE 113 mg/dL (75-110); POTASSIUM 3.2 mmol/L (3.6-5.0); SODIUM 149.2 mmol/L (137-145)
[2017-08-08] MEDS ORDERED: ACETAMINOPHEN SOLN 325 MG/10.15 ML UDCUP NG PRN (07:30)
--- NOTE | 2017-08-08 08:18 | PDOC PROGRESS REPORT ---
Subjective Progress Note for:: 08/08/17 Subjective:: Patient minimally interactive, functional at bedside with nonpurposeful movements, may be baseline No family at bedside Stoma functional, liquid stool output NGT output bilious in appearance AAS shows NGT crossing midline and recovery of bilious output only with continuous suction per nursing, converted back to LIWS and retraction of NGT 5cm Physical Exam Vital Signs: Temp Pulse Resp BP Pulse Ox 97.9 F 28 L 20 139/75 H 86 L 08/07/17 19:42 08/08/17 04:28 08/07/17 23:52 08/08/17 04:28 08/08/17 04:28 Intake & Output 08/07/17 08/08/17 08/09/17 06:59 06:59 06:59 Intake Total 1900 3110 Output Total 851 2300 Balance 1049 810 Weight 86.8 kg 86 kg General appearance: PRESENT: no acute distress Head exam: PRESENT: atraumatic, normocephalic Eye exam: PRESENT: conjunctiva pink Mouth exam: PRESENT: moist, neck supple Neck exam: ABSENT: lymphadenopathy, thyromegaly, tracheal deviation Respiratory exam: PRESENT: clear to auscultation miguelina Cardiovascular exam: PRESENT: RRR Vascular exam: PRESENT: normal capillary refill GI/Abdominal exam: PRESENT: distended, hypoactive bowel sounds, soft, tenderness. ABSENT: firm, guarding Extremities exam: ABSENT: pedal edema Neurological exam: PRESENT: alert, awake, oriented to person, oriented to place , oriented to time, CN II-XII grossly intact Results Laboratory Results: 08/08/17 06:40 08/08/17 06:40 08/08/17 08/08/17 08/08/17 06:15 06:40 06:40 WBC 14.6 H RBC 3.50 L Hgb 10.9 L Hct 32.0 L MCV 92 MCH 31.0 MCHC 33.9 RDW 14.4 H Plt Count 196 Seg Neutrophils % 81.9 H Lymphocytes % 7.4 L Monocytes % 9.5 Eosinophils % 1.0 Basophils % 0.2 Absolute Neutrophils 12.0 H Absolute Lymphocytes 1.1 Absolute Monocytes 1.4 Absolute Eosinophils 0.1 Absolute Basophils 0.0 Sodium 149.2 H Potassium 3.2 L Chloride 116 H Carbon Dioxide 25 Anion Gap 8 BUN 21 H Creatinine 0.61 Est GFR ( Amer) > 60 Est GFR (Non-Af Amer) > 60 Glucose 113 H Calcium 7.4 L Urine Color YELLOW Urine Appearance CLEAR Urine pH 5.0 Ur Specific [place] 1.017 Urine Protein NEGATIVE Urine Glucose (UA) NEGATIVE Urine Ketones 20 H Urine Blood MODERATE H Urine Nitrite NEGATIVE Ur Leukocyte Esterase TRACE H Urine WBC (Auto) 11 Urine RBC (Auto) 50 Impressions: Abdomen/Pelvis CTA 07/31/17 16:40 IMPRESSION: 1. There is significant gaseous distention of the right, transverse , and left colons. There is appears to be long segment narrowing of the distal sigmoid colon without definite mass lesion this area on CT. Question possible large bowel obstruction secondary to underlying stricture. There is significant redundancy within the colon. 2. No aortic dissection identified. There is aneurysmal dilatation of the infrarenal abdominal aorta measuring 3.5 x 3.7 cm. 3. 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 The SMA is patent without greater than 50% narrowing. The SUZIE is occluded at its origin and fills distally via collaterals. Multifocal hemodynamically significant narrowing throughout the iliac arteries as detailed above. Chest/Abdomen CTA 07/31/17 16:41 IMPRESSION: 1. There is significant gaseous distention of the right, transverse , and left colons. There is appears to be long segment narrowing of the distal sigmoid colon without definite mass lesion this area on CT. Question possible large bowel obstruction secondary to underlying stricture. There is significant redundancy within the colon. 2. No aortic dissection identified. There is aneurysmal dilatation of the infrarenal abdominal aorta measuring 3.5 x 3.7 cm. 3. 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 The SMA is patent without greater than 50% narrowing. The SUZIE is occluded at its origin and fills distally via collaterals. Multifocal hemodynamically significant narrowing throughout the iliac arteries as detailed above. Interventional Vascular Procedure 08/03/17 00:00 IMPRESSION: SUCCESSFUL PLACEMENT OF A 5 FR DUAL LUMEN 31 CM PICC IN THE RIGHT BASILIC VEIN. PICC Line Insertion 08/03/17 00:00 IMPRESSION: SUCCESSFUL PLACEMENT OF A 5 FR DUAL LUMEN 31 CM PICC IN THE RIGHT BASILIC VEIN. Chest X-Ray 08/05/17 06:00 IMPRESSION: No significant interval change pre KUB X-Ray 08/07/17 00:00 IMPRESSION: Nasogastric tube in the stomach. Assessment & Plan - Diagnosis (1) S/P colectomy Is this a current diagnosis for this admission?: Yes Plan: POD 7 s/p laparotomy, sigmoidectomy Postoperative ileus Baseline advanced dementia Pain control Pulmonary toilet as possible, lungs clear Per Primary team discussion with family recently for code status and care wishing full code and feeding tube if necessary With return of bowel function will need to assess swallow function and discern need for feeding tube
[2017-08-08] MEDS: POTASSI CL 20 MEQ/50 ML RIDER 20 MEQ/50 ML RTUPB IV SCH ×2 (08:38→11:33)
--- NOTE | 2017-08-08 10:27 | RADIOLOGY REPORT (SQ) ---
EXAM DESCRIPTION: ABDOMEN 2 VIEWS COMPLETED DATE/TIME: 08/08/2017 7:39 am REASON FOR STUDY: Interval change in postoperative lesions COMPARISON: None. NUMBER OF VIEWS: Two views. TECHNIQUE: Supine and erect images of the abdomen acquired. LIMITATIONS: None. FINDINGS: FREE AIR: None. No abnormal gas collections. LUNG BASES: Clear. BOWEL GAS PATTERN: There are distended loops of small bowel. CALCIFICATIONS: No suspicious calcifications. SOFT TISSUES: No gross mass or suggestion of organomegaly. HARDWARE: Skin ton are present in the midline. And NG tube extends to the stomach. BONES: No acute fracture. No worrisome bone lesions. OTHER: No other significant finding. IMPRESSION: Distention of some small bowel loops postsurgically. Ileus versus partial small bowel o bstruction. TECHNICAL DOCUMENTATION: JOB ID: [id number] [employer]- All Rights Reserved
[2017-08-08] MEDS: FAMOTIDINE INJ/PF 20 MG/2 ML SDV IV SCH ×2 (11:12→21:12)
[2017-08-08] MEDS: OLANZAPINE INJ/PF 10 MG SDV IM SCH ×2 (11:12→21:12)
[2017-08-08] MEDS: ENOXAPARIN SODIUM INJ 40 MG/0.4 ML DISP.SYRIN SUBCUT SCH (11:13)
[2017-08-08] MEDS: NORMAL SALINE 10 ML SDV (SCHEDULED) IV SCH ×2 (11:13→21:12)
--- NOTE | 2017-08-08 12:23 | PDOC PROGRESS REPORT ---
Subjective Progress Note for:: 08/08/17 Subjective:: 76-year-old gentleman who has a history dementia who presented with abdominal pain. Patient was found to have a bowel obstruction. The patient was initially managed conservatively with NG tube. The patient failed to improve and eventually underwent a partial colectomy with colostomy and Marjorie pouch. The patient was found to have a volvulus as the cause for his large bowel obstruction. The patient postoperatively did well and initially was in the intensive care unit for short period of time. The patient had resumption of bowel function and was transferred to the floor. Over the last 24 hours the patient has developed a ileus and has had some nausea. Because of this an NG tube was placed. He pulled out his initial NG and it was replaced and he was placed in mittens. The case was discussed with the patient's daughter on Tuesday and she reported that he was a full code and they wanted everything done for their father As this was his wishes. We discussed the possibility of hospice and they were not interested in that at all. Physical Exam Vital Signs: Temp Pulse Resp BP Pulse Ox 97.4 F 78 18 117/93 H 100 08/08/17 08:31 08/08/17 08:31 08/08/17 08:31 08/08/17 08:31 08/08/17 08:31 Intake & Output 08/07/17 08/08/17 08/09/17 06:59 06:59 06:59 Intake Total 1900 3110 Output Total 851 2300 Balance 1049 810 Weight 86.8 kg 86 kg General appearance: PRESENT: no acute distress Eye exam: PRESENT: conjunctiva pink. ABSENT: scleral icterus Mouth exam: PRESENT: moist, tongue midline Neck exam: ABSENT: JVD Respiratory exam: PRESENT: clear to auscultation miguelina. ABSENT: rales, rhonchi, wheezes Cardiovascular exam: PRESENT: RRR. ABSENT: diastolic murmur, rubs, systolic murmur GI/Abdominal exam: PRESENT: hypoactive bowel sounds, normal bowel sounds, soft, other - Midline surgical ton with no drainage.. ABSENT: distended, guarding , mass, organolmegaly, rebound Extremities exam: PRESENT: full ROM. ABSENT: calf tenderness, clubbing, pedal edema Neurological exam: PRESENT: awake, oriented to person. ABSENT: oriented to place, oriented to time, oriented to situation Psychiatric exam: PRESENT: flat affect Skin exam: PRESENT: dry, intact, warm. ABSENT: cyanosis, rash Results Laboratory Results: 08/08/17 06:40 08/08/17 06:40 08/08/17 08/08/17 08/08/17 06:15 06:40 06:40 WBC 14.6 H RBC 3.50 L Hgb 10.9 L Hct 32.0 L MCV 92 MCH 31.0 MCHC 33.9 RDW 14.4 H Plt Count 196 Seg Neutrophils % 81.9 H Lymphocytes % 7.4 L Monocytes % 9.5 Eosinophils % 1.0 Basophils % 0.2 Absolute Neutrophils 12.0 H Absolute Lymphocytes 1.1 Absolute Monocytes 1.4 Absolute Eosinophils 0.1 Absolute Basophils 0.0 Sodium 149.2 H Potassium 3.2 L Chloride 116 H Carbon Dioxide 25 Anion Gap 8 BUN 21 H Creatinine 0.61 Est GFR ( Amer) > 60 Est GFR (Non-Af Amer) > 60 Glucose 113 H Calcium 7.4 L Urine Color YELLOW Urine Appearance CLEAR Urine pH 5.0 Ur Specific [place] 1.017 Urine Protein NEGATIVE Urine Glucose (UA) NEGATIVE Urine Ketones 20 H Urine Blood MODERATE H Urine Nitrite NEGATIVE Ur Leukocyte Esterase TRACE H Urine WBC (Auto) 11 Urine RBC (Auto) 50 Impressions: Abdomen/Pelvis CTA 07/31/17 16:40 IMPRESSION: 1. There is significant gaseous distention of the right, transverse , and left colons. There is appears to be long segment narrowing of the distal sigmoid colon without definite mass lesion this area on CT. Question possible large bowel obstruction secondary to underlying stricture. There is significant redundancy within the colon. 2. No aortic dissection identified. There is aneurysmal dilatation of the infrarenal abdominal aorta measuring 3.5 x 3.7 cm. 3. 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 The SMA is patent without greater than 50% narrowing. The SUZIE is occluded at its origin and fills distally via collaterals. Multifocal hemodynamically significant narrowing throughout the iliac arteries as detailed above. Chest/Abdomen CTA 07/31/17 16:41 IMPRESSION: 1. There is significant gaseous distention of the right, transverse , and left colons. There is appears to be long segment narrowing of the distal sigmoid colon without definite mass lesion this area on CT. Question possible large bowel obstruction secondary to underlying stricture. There is significant redundancy within the colon. 2. No aortic dissection identified. There is aneurysmal dilatation of the infrarenal abdominal aorta measuring 3.5 x 3.7 cm. 3. 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 The SMA is patent without greater than 50% narrowing. The SUZIE is occluded at its origin and fills distally via collaterals. Multifocal hemodynamically significant narrowing throughout the iliac arteries as detailed above. Interventional Vascular Procedure 08/03/17 00:00 IMPRESSION: SUCCESSFUL PLACEMENT OF A 5 FR DUAL LUMEN 31 CM PICC IN THE RIGHT BASILIC VEIN. PICC Line Insertion 08/03/17 00:00 IMPRESSION: SUCCESSFUL PLACEMENT OF A 5 FR DUAL LUMEN 31 CM PICC IN THE RIGHT BASILIC VEIN. Chest X-Ray 08/05/17 06:00 IMPRESSION: No significant interval change pre KUB X-Ray 08/07/17 00:00 IMPRESSION: Nasogastric tube in the stomach. Abdomen X-Ray 08/08/17 08:00 IMPRESSION: Distention of some small bowel loops postsurgically. Ileus versus partial small bowel obstruction. Assessment & Plan - Diagnosis (1) Large bowel obstruction Is this a current diagnosis for this admission?: Yes Plan: Patient had surgery for obstruction with volvulus. He currently has a ostomy that appears to be functioning. The patient however appears to have a small bowel ileus. NG tube has been placed and he is on low intermittent suction. Patient is being followed by surgery. 2 days ago I discussed with the family as to whether or not to be more aggressive or whether or not to make him a DNR possibly comfort care and they are adamant that they want everything done for him. Will continue with the NG tube for now and hopefully his ileus will resolve. (2) CAD (coronary artery disease) Is this a current diagnosis for this admission?: Yes Plan: No evidence for active disease at this time. (3) Dementia Is this a current diagnosis for this admission?: Yes Plan: Patient is on IV Seroquel. (4) Hypokalemia Is this a current diagnosis for this admission?: Yes Plan: Resolved. (5) Leukocytosis Is this a current diagnosis for this admission?: Yes Plan: The patient's white count has remained stable. Antibiotics were stopped. (6) AAA (abdominal aortic aneurysm) without rupture Is this a current diagnosis for this admission?: Yes (7) DVT prophylaxis Is this a current diagnosis for this admission?: Yes (8) Tachycardia Is this a current diagnosis for this admission?: Yes Plan: Patient remains in a normal sinus rhythm. He has been in atrial fibrillation previously. - Time Time Spent with patient: 25-34 minutes - Inpatient Certification Medical Necessity: Need Close Monitoring Due to Risk of Patient Decompensation, Need For IV Fluids
--- NOTE | 2017-08-08 14:29 | PDOC PROGRESS REPORT ---
Subjective Progress Note for:: 08/08/17 Subjective:: Disoriented and confused Physical Exam Vital Signs: Temp Pulse Resp BP Pulse Ox 97.4 F 78 18 117/93 H 100 08/08/17 08:31 08/08/17 14:00 08/08/17 08:31 08/08/17 08:31 08/08/17 08:31 Intake & Output 08/07/17 08/08/17 08/09/17 06:59 06:59 06:59 Intake Total 1900 3110 Output Total 851 2300 Balance 1049 810 Weight 86.8 kg 86 kg General appearance: PRESENT: no acute distress, disheveled, thin, well-developed Head exam: PRESENT: atraumatic, normocephalic Eye exam: PRESENT: conjunctiva pale, EOMI Mouth exam: PRESENT: dry mucosa, neck supple, tongue midline Neck exam: ABSENT: carotid bruit, JVD, lymphadenopathy, thyromegaly Respiratory exam: PRESENT: decreased breath sounds, prolonged expiratory phas, rhonchi, symmetrical, unlabored. ABSENT: accessory muscle use, chest wall tenderness, crackles, retraction, stridor, tachypnea Cardiovascular exam: PRESENT: RRR, +S1, +S2 Pulses: PRESENT: normal radial pulses GI/Abdominal exam: PRESENT: normal bowel sounds, soft. ABSENT: distended, guarding, mass, organolmegaly, rebound, tenderness Rectal exam: PRESENT: deferred Gentrourinary exam: PRESENT: indwelling catheter Neurological exam: PRESENT: awake. ABSENT: alert, altered, oriented to person, oriented to place, oriented to time, oriented to situation Skin exam: PRESENT: dry Results Laboratory Results: 08/08/17 06:40 08/08/17 06:40 08/08/17 08/08/17 08/08/17 06:15 06:40 06:40 WBC 14.6 H RBC 3.50 L Hgb 10.9 L Hct 32.0 L MCV 92 MCH 31.0 MCHC 33.9 RDW 14.4 H Plt Count 196 Seg Neutrophils % 81.9 H Lymphocytes % 7.4 L Monocytes % 9.5 Eosinophils % 1.0 Basophils % 0.2 Absolute Neutrophils 12.0 H Absolute Lymphocytes 1.1 Absolute Monocytes 1.4 Absolute Eosinophils 0.1 Absolute Basophils 0.0 Sodium 149.2 H Potassium 3.2 L Chloride 116 H Carbon Dioxide 25 Anion Gap 8 BUN 21 H Creatinine 0.61 Est GFR ( Amer) > 60 Est GFR (Non-Af Amer) > 60 Glucose 113 H Calcium 7.4 L Urine Color YELLOW Urine Appearance CLEAR Urine pH 5.0 Ur Specific Porum 1.017 Urine Protein NEGATIVE Urine Glucose (UA) NEGATIVE Urine Ketones 20 H Urine Blood MODERATE H Urine Nitrite NEGATIVE Ur Leukocyte Esterase TRACE H Urine WBC (Auto) 11 Urine RBC (Auto) 50 Impressions: Abdomen/Pelvis CTA 07/31/17 16:40 IMPRESSION: 1. There is significant gaseous distention of the right, transverse , and left colons. There is appears to be long segment narrowing of the distal sigmoid colon without definite mass lesion this area on CT. Question possible large bowel obstruction secondary to underlying stricture. There is significant redundancy within the colon. 2. No aortic dissection identified. There is aneurysmal dilatation of the infrarenal abdominal aorta measuring 3.5 x 3.7 cm. 3. 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 The SMA is patent without greater than 50% narrowing. The SUZIE is occluded at its origin and fills distally via collaterals. Multifocal hemodynamically significant narrowing throughout the iliac arteries as detailed above. Chest/Abdomen CTA 07/31/17 16:41 IMPRESSION: 1. There is significant gaseous distention of the right, transverse , and left colons. There is appears to be long segment narrowing of the distal sigmoid colon without definite mass lesion this area on CT. Question possible large bowel obstruction secondary to underlying stricture. There is significant redundancy within the colon. 2. No aortic dissection identified. There is aneurysmal dilatation of the infrarenal abdominal aorta measuring 3.5 x 3.7 cm. 3. 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 The SMA is patent without greater than 50% narrowing. The SUZIE is occluded at its origin and fills distally via collaterals. Multifocal hemodynamically significant narrowing throughout the iliac arteries as detailed above. Interventional Vascular Procedure 08/03/17 00:00 IMPRESSION: SUCCESSFUL PLACEMENT OF A 5 FR DUAL LUMEN 31 CM PICC IN THE RIGHT BASILIC VEIN. PICC Line Insertion 08/03/17 00:00 IMPRESSION: SUCCESSFUL PLACEMENT OF A 5 FR DUAL LUMEN 31 CM PICC IN THE RIGHT BASILIC VEIN. Chest X-Ray 08/05/17 06:00 IMPRESSION: No significant interval change pre KUB X-Ray 08/07/17 00:00 IMPRESSION: Nasogastric tube in the stomach. Abdomen X-Ray 08/08/17 08:00 IMPRESSION: Distention of some small bowel loops postsurgically. Ileus versus partial small bowel obstruction. Assessment & Plan - Diagnosis (1) Respiratory failure Is this a current diagnosis for this admission?: No (2) Dementia Is this a current diagnosis for this admission?: Yes Plan: unchanged (3) Incarcerated left inguinal hernia Is this a current diagnosis for this admission?: Yes Plan: As per surgery - Plan Summary Plan Summary: will sign off please call if Ican be of additional assistance;thank you for allowing me to help participate in his care
[2017-08-08] MEDS: NORMAL SALINE 1000 ML 1,000 ML IV PRN (20:01)
[2017-08-09] MEDS: MORPHINE SULFATE 10 MG/ML INJ IV PRN (01:13)
[2017-08-09] MEDS: HALOPERIDOL LACTATE INJ 5 MG/1 ML VIAL IV PRN (02:23)
[2017-08-09 06:40] LABS: ABSOLUTE EOSINOPHILS # (AUTO) 0.2 10^3/uL (0.0-0.6); ABSOLUTE LYMPHOCYTES (AUTO) 0.8 10^3/uL (0.5-4.7); ABSOLUTE NEUT (AUTO) 8.8 10^3/uL (1.7-8.2); BASOPHILS % (AUTO) 0.3 % (0-2); EOSINOPHILS % (AUTO) 2.2 % (0-6); HEMATOCRIT 28.5 % (37.9-51.0); HEMOGLOBIN 9.7 g/dL (13.5-17.0); HGB HCT DIFFERENCE 0.6; LYMPHOCYTES % (AUTO) 7.8 % (13-45); MEAN CORPUSCULAR HGB CONC 33.9 g/dL (32.0-36.0); MEAN CORPUSCULAR VOLUME 91 fl (80-97); RED BLOOD COUNT 3.12 10^6/uL (4.35-5.55); RED CELL DISTRIBUTION WIDTH 14.3 % (11.5-14.0); SEGMENTED NEUTROPHILS % (AUTO) 80.7 % (42-78); WHITE BLOOD COUNT 10.9 10^3/uL (4.0-10.5)
[2017-08-09 07:00] LABS: BLOOD UREA NITROGEN 17 mg/dL (7-20); CHLORIDE 115 mmol/L (98-107); CREATININE RESULT 0.56 mg/dL (0.52-1.25); GLUCOSE 84 mg/dL (75-110)
[2017-08-09 07:10] LABS: ANION GAP 5 (5-19); CARBON DIOXIDE 28 mmol/L (22-30); POTASSIUM 3.2 mmol/L (3.6-5.0); SODIUM 147.7 mmol/L (137-145)
--- NOTE | 2017-08-09 08:59 | PDOC PROGRESS REPORT ---
Subjective Progress Note for:: 08/09/17 Subjective:: Improved mentation NGT output minimal Stoma functional but output less Postoperative illeus after function likely 2nd to hypokalemia Physical Exam Vital Signs: Temp Pulse Resp BP Pulse Ox 97.9 F 70 20 142/62 H 100 08/09/17 07:31 08/09/17 07:31 08/09/17 07:31 08/09/17 07:31 08/09/17 07:31 Intake & Output 08/08/17 08/09/17 08/10/17 06:59 06:59 06:59 Intake Total 3110 3200 Output Total 2300 2070 Balance 810 1130 Weight 86 kg 89.6 kg General appearance: PRESENT: no acute distress. ABSENT: mild distress Head exam: PRESENT: atraumatic, normocephalic Eye exam: PRESENT: conjunctiva pink. ABSENT: conjunctiva pale Mouth exam: PRESENT: moist, neck supple Neck exam: ABSENT: lymphadenopathy, tenderness, thyromegaly, tracheal deviation Respiratory exam: PRESENT: symmetrical, unlabored. ABSENT: accessory muscle use , tachypnea Vascular exam: PRESENT: normal capillary refill GI/Abdominal exam: PRESENT: hypoactive bowel sounds, soft, other - incision C/D/ I. ABSENT: distended, firm, guarding, hernia Extremities exam: ABSENT: calf tenderness, pedal edema, tenderness Neurological exam: PRESENT: alert, awake, oriented to person, CN II-XII grossly intact. ABSENT: oriented to place, oriented to time Psychiatric exam: ABSENT: agitated, anxious Results Laboratory Results: 08/09/17 06:20 08/09/17 06:20 08/09/17 08/09/17 06:20 06:20 WBC 10.9 H RBC 3.12 L Hgb 9.7 L Hct 28.5 L MCV 91 MCH 31.0 MCHC 33.9 RDW 14.3 H Plt Count 185 Seg Neutrophils % 80.7 H Lymphocytes % 7.8 L Monocytes % 9.0 Eosinophils % 2.2 Basophils % 0.3 Absolute Neutrophils 8.8 H Absolute Lymphocytes 0.8 Absolute Monocytes 1.0 Absolute Eosinophils 0.2 Absolute Basophils 0.0 Sodium 147.7 H Potassium 3.2 L Chloride 115 H Carbon Dioxide 28 Anion Gap 5 BUN 17 Creatinine 0.56 Est GFR ( Amer) > 60 Est GFR (Non-Af Amer) > 60 Glucose 84 Calcium 7.0 L* Magnesium 2.0 Impressions: Abdomen/Pelvis CTA 07/31/17 16:40 IMPRESSION: 1. There is significant gaseous distention of the right, transverse , and left colons. There is appears to be long segment narrowing of the distal sigmoid colon without definite mass lesion this area on CT. Question possible large bowel obstruction secondary to underlying stricture. There is significant redundancy within the colon. 2. No aortic dissection identified. There is aneurysmal dilatation of the infrarenal abdominal aorta measuring 3.5 x 3.7 cm. 3. 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 The SMA is patent without greater than 50% narrowing. The SUZIE is occluded at its origin and fills distally via collaterals. Multifocal hemodynamically significant narrowing throughout the iliac arteries as detailed above. Chest/Abdomen CTA 07/31/17 16:41 IMPRESSION: 1. There is significant gaseous distention of the right, transverse , and left colons. There is appears to be long segment narrowing of the distal sigmoid colon without definite mass lesion this area on CT. Question possible large bowel obstruction secondary to underlying stricture. There is significant redundancy within the colon. 2. No aortic dissection identified. There is aneurysmal dilatation of the infrarenal abdominal aorta measuring 3.5 x 3.7 cm. 3. 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 The SMA is patent without greater than 50% narrowing. The SUZIE is occluded at its origin and fills distally via collaterals. Multifocal hemodynamically significant narrowing throughout the iliac arteries as detailed above. Interventional Vascular Procedure 08/03/17 00:00 IMPRESSION: SUCCESSFUL PLACEMENT OF A 5 FR DUAL LUMEN 31 CM PICC IN THE RIGHT BASILIC VEIN. PICC Line Insertion 08/03/17 00:00 IMPRESSION: SUCCESSFUL PLACEMENT OF A 5 FR DUAL LUMEN 31 CM PICC IN THE RIGHT BASILIC VEIN. Chest X-Ray 08/05/17 06:00 IMPRESSION: No significant interval change pre KUB X-Ray 08/07/17 00:00 IMPRESSION: Nasogastric tube in the stomach. Abdomen X-Ray 08/08/17 08:00 IMPRESSION: Distention of some small bowel loops postsurgically. Ileus versus partial small bowel obstruction. Assessment & Plan - Diagnosis (1) S/P colectomy Is this a current diagnosis for this admission?: Yes Plan: Postoperative illeus should improve with electrolyte correction given prior history of function and loss corresponding with electrolyte derrangement Speech evaluation with subsequent trial of diet, confirm tolerance and progression of fluid prior to removal of NGT Monitor midline incision Stoma probed at bedside, nonobstructed DVT/GI prophylaxis PT consultation for ADLs
[2017-08-09] MEDS: OLANZAPINE INJ/PF 10 MG SDV IM SCH ×2 (10:30→21:31)
[2017-08-09] MEDS: FAMOTIDINE INJ/PF 20 MG/2 ML SDV IV SCH (10:30)
[2017-08-09] MEDS: ENOXAPARIN SODIUM INJ 40 MG/0.4 ML DISP.SYRIN SUBCUT SCH (10:30)
[2017-08-09] MEDS: NORMAL SALINE 10 ML SDV (SCHEDULED) IV SCH (10:30)
[2017-08-09] MEDS: POTASSI CL 40 MEQ/D5-1/2NS 1L 1000 ML IV PRN (16:06)
--- NOTE | 2017-08-09 16:27 | PDOC PROGRESS REPORT ---
Subjective Progress Note for:: 08/09/17 Subjective:: Unable to obtain since markedly confused. ROS: Unable to obtain due to mental status All significant laboratories and diagnostics had been reviewed. Physical Exam Vital Signs: Temp Pulse Resp BP Pulse Ox 97.9 F 70 20 142/62 H 100 08/09/17 07:31 08/09/17 07:31 08/09/17 07:31 08/09/17 07:31 08/09/17 07:31 Intake & Output 08/08/17 08/09/17 08/10/17 06:59 06:59 06:59 Intake Total 3110 3200 Output Total 2300 2070 Balance 810 1130 Weight 86 kg 89.6 kg General appearance: PRESENT: no acute distress, cooperative, well-developed, well-nourished Head exam: PRESENT: atraumatic, normocephalic Eye exam: PRESENT: conjunctiva pink, EOMI, PERRLA Mouth exam: PRESENT: moist Neck exam: PRESENT: full ROM. ABSENT: JVD, tenderness Respiratory exam: PRESENT: clear to auscultation miguelina, unlabored Cardiovascular exam: PRESENT: RRR. ABSENT: diastolic murmur, systolic murmur Vascular exam: PRESENT: normal capillary refill GI/Abdominal exam: PRESENT: hypoactive bowel sounds. ABSENT: guarding, tenderness Rectal exam: PRESENT: deferred Extremities exam: PRESENT: full ROM. ABSENT: calf tenderness, clubbing, joint swelling, tenderness Musculoskeletal exam: ABSENT: tenderness Neurological exam: PRESENT: alert, awake, oriented to person. ABSENT: oriented to place, oriented to time Psychiatric exam: PRESENT: anxious Skin exam: PRESENT: intact, normal color Results Laboratory Results: 08/09/17 06:20 08/09/17 06:20 08/09/17 08/09/17 06:20 06:20 WBC 10.9 H RBC 3.12 L Hgb 9.7 L Hct 28.5 L MCV 91 MCH 31.0 MCHC 33.9 RDW 14.3 H Plt Count 185 Seg Neutrophils % 80.7 H Lymphocytes % 7.8 L Monocytes % 9.0 Eosinophils % 2.2 Basophils % 0.3 Absolute Neutrophils 8.8 H Absolute Lymphocytes 0.8 Absolute Monocytes 1.0 Absolute Eosinophils 0.2 Absolute Basophils 0.0 Sodium 147.7 H Potassium 3.2 L Chloride 115 H Carbon Dioxide 28 Anion Gap 5 BUN 17 Creatinine 0.56 Est GFR ( Amer) > 60 Est GFR (Non-Af Amer) > 60 Glucose 84 Calcium 7.0 L* Magnesium 2.0 Impressions: Abdomen/Pelvis CTA 07/31/17 16:40 IMPRESSION: 1. There is significant gaseous distention of the right, transverse , and left colons. There is appears to be long segment narrowing of the distal sigmoid colon without definite mass lesion this area on CT. Question possible large bowel obstruction secondary to underlying stricture. There is significant redundancy within the colon. 2. No aortic dissection identified. There is aneurysmal dilatation of the infrarenal abdominal aorta measuring 3.5 x 3.7 cm. 3. 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 The SMA is patent without greater than 50% narrowing. The SUZIE is occluded at its origin and fills distally via collaterals. Multifocal hemodynamically significant narrowing throughout the iliac arteries as detailed above. Chest/Abdomen CTA 07/31/17 16:41 IMPRESSION: 1. There is significant gaseous distention of the right, transverse , and left colons. There is appears to be long segment narrowing of the distal sigmoid colon without definite mass lesion this area on CT. Question possible large bowel obstruction secondary to underlying stricture. There is significant redundancy within the colon. 2. No aortic dissection identified. There is aneurysmal dilatation of the infrarenal abdominal aorta measuring 3.5 x 3.7 cm. 3. 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 The SMA is patent without greater than 50% narrowing. The SUZIE is occluded at its origin and fills distally via collaterals. Multifocal hemodynamically significant narrowing throughout the iliac arteries as detailed above. Interventional Vascular Procedure 08/03/17 00:00 IMPRESSION: SUCCESSFUL PLACEMENT OF A 5 FR DUAL LUMEN 31 CM PICC IN THE RIGHT BASILIC VEIN. PICC Line Insertion 08/03/17 00:00 IMPRESSION: SUCCESSFUL PLACEMENT OF A 5 FR DUAL LUMEN 31 CM PICC IN THE RIGHT BASILIC VEIN. Chest X-Ray 08/05/17 06:00 IMPRESSION: No significant interval change pre KUB X-Ray 08/07/17 00:00 IMPRESSION: Nasogastric tube in the stomach. Abdomen X-Ray 08/08/17 08:00 IMPRESSION: Distention of some small bowel loops postsurgically. Ileus versus partial small bowel obstruction. Assessment & Plan - Diagnosis (1) Sigmoid volvulus Is this a current diagnosis for this admission?: Yes Plan: Tolerated procedure well but developed ileus which required NG placement. (2) Hypokalemia Is this a current diagnosis for this admission?: Yes Plan: relace IV via maintenance IVF's and boluses. Trend. (3) Dementia Qualifiers: Dementia type: unspecified type Dementia behavioral disturbance: with behavioral disturbance Qualified Code(s): F03.91 - Unspecified dementia with behavioral disturbance Is this a current diagnosis for this admission?: Yes Plan: Will discontinue haldol and keep zyprexa as ordered. Continue mitten and restrains to try to avoid pulling off NG tube. (4) S/P colectomy Is this a current diagnosis for this admission?: Yes Plan: Being follow up by surgical team and appreciated. To change IVF's to D51/2 NSS with KCL 40 meq/liter and try reglan IV. - Time Time Spent with patient: 15-24 minutes Medications reviewed and adjusted accordingly: Yes Anticipated discharge: SNF - Inpatient Certification I certify that my determination is in accordance with my understanding of Medicare's requirements for reasonable and necessary INPATIENT services [42 CFR 412.3e].: Yes Medical Necessity: Need Close Monitoring Due to Risk of Patient Decompensation, Need For IV Fluids, Other - persistent ileus
[2017-08-09] MEDS: METOCLOPRAMIDE HCL INJ/PF 10 MG/2 ML SDV IV SCH ×2 (17:27→21:31)
[2017-08-10] MEDS: MORPHINE SULFATE 10 MG/ML INJ IV PRN (01:55)
[2017-08-10] MEDS: POTASSI CL 40 MEQ/D5-1/2NS 1L 1000 ML IV PRN (01:56)
[2017-08-10] MEDS ORDERED: DILTIAZEM HCL INJ 25 MG/5 ML VIAL ONE (03:15)
[2017-08-10] MEDS ORDERED: DILTIAZEM HCL/D5W 125 MG/125 ML RTUINJ IV ONE (03:15)
[2017-08-10] MEDS ORDERED: DILTIAZEM HCL/D5W 125 MG/125 ML RTUINJ IV PRN (03:50)
[2017-08-10] MEDS ORDERED: DILTIAZEM HCL INJ 25 MG/5 ML VIAL IV ONE (04:00)
[2017-08-10 06:34] LABS: HEMATOCRIT 29.7 % (37.9-51.0); HEMOGLOBIN 10.1 g/dL (13.5-17.0); HGB HCT DIFFERENCE 0.6; MEAN CORPUSCULAR HEMOGLOBIN 30.9 pg (27.0-33.4); MEAN CORPUSCULAR HGB CONC 33.9 g/dL (32.0-36.0); MEAN CORPUSCULAR VOLUME 91 fl (80-97); RED BLOOD COUNT 3.26 10^6/uL (4.35-5.55); RED CELL DISTRIBUTION WIDTH 14.6 % (11.5-14.0)
[2017-08-10] MEDS: METOCLOPRAMIDE HCL INJ/PF 10 MG/2 ML SDV IV SCH (08:42)
[2017-08-10 09:39] LABS: ANION GAP 5 (5-19); BLOOD UREA NITROGEN 13 mg/dL (7-20); CALCIUM 7.2 mg/dL (8.4-10.2); CARBON DIOXIDE 30 mmol/L (22-30); CHLORIDE 108 mmol/L (98-107); CREATININE RESULT 0.59 mg/dL (0.52-1.25); GLUCOSE 139 mg/dL (75-110); POTASSIUM 3.4 mmol/L (3.6-5.0); SODIUM 143.2 mmol/L (137-145)
[2017-08-10 11:02] LABS: APPEARANCE,URINE SLIGHTLY-CLOUDY; BILIRUBIN,URINE NEGATIVE (NEGATIVE); GLUCOSE, URINE NEGATIVE (NEGATIVE); KETONES,URINE 20 mg/dL (NEGATIVE); LEUKOCYTE ESTERASE,URINE NEGATIVE (NEGATIVE); NITRITE,URINE NEGATIVE (NEGATIVE); PROTEIN,URINE NEGATIVE (NEGATIVE); URINE SPECIFIC GRAVITY 1.016; UROBILINOGEN,URINE NEGATIVE mg/dL (<2.0)
[2017-08-10] MEDS ORDERED: FUROSEMIDE INJ/PF 40 MG/4 ML SDV IV ONE (11:21)
[2017-08-10] MEDS ORDERED: POTASSIUM CHLORIDE 20 MEQ/15 ML UDCUP PO ONE (11:22)
[2017-08-10] MEDS: OLANZAPINE INJ/PF 10 MG SDV IM SCH ×2 (11:51→21:33)
[2017-08-10] MEDS: ENOXAPARIN SODIUM INJ 40 MG/0.4 ML DISP.SYRIN SUBCUT SCH (11:51)
[2017-08-10] MEDS ORDERED: DILTIAZEM HCL 30 MG TABLET PO ONE (12:30)
--- NOTE | 2017-08-10 13:17 | PROGRESS NOTE E ---
Progress Note NAME: SUZI GARCIA : 1940 AGE: 76Y DATE: 08/10/2017 ROOM: 327 SUBJECTIVE: The patient is still confused. NG drainage minimal since last night. OBJECTIVE: VITAL SIGNS: Stable and afebrile. ABDOMEN: Soft, with the incision site clean and dry. Colostomy is viable and appears to be functioning. ASSESSMENT: ILEUS POST COLOSTOMY. PLAN: Discontinue the NG tube and start the patient on clear liquids. DICTATING PHYSICIAN: ELISSA TOVAR M.D. [id number] PHY#: [id number] ID: [id number] JOB#: [id number] ACCT: [id number] cc: >
[2017-08-10] MEDS: METOCLOPRAMIDE HCL ORAL SOLN 10 MG/10 ML UDCUP PO SCH ×2 (18:05→21:35)
[2017-08-10] MEDS: DILTIAZEM HCL 30 MG TABLET PO SCH (21:33)
--- NOTE | 2017-08-10 23:42 | PDOC PROGRESS REPORT ---
Subjective Progress Note for:: 08/10/17 Subjective:: Unable to obtain since markedly confused. Nurse reports that patient had a good bowel movement and that surgery ordered removal of NG. No swallowing difficulties noted by occupational therapy. ROS: Unable to obtain due to mental status All significant laboratories and diagnostics had been reviewed. Physical Exam Vital Signs: Temp Pulse Resp BP Pulse Ox 97.6 F 106 H 21 H 121/54 L 89 L 08/10/17 03:07 08/10/17 07:00 08/10/17 03:07 08/10/17 07:00 08/10/17 03:07 Intake & Output 08/09/17 08/10/17 08/11/17 06:59 06:59 06:59 Intake Total 3200 3350 Output Total 2070 1475 Balance 1130 1875 Weight 89.6 kg 85.4 kg General appearance: PRESENT: no acute distress, cooperative Head exam: PRESENT: atraumatic, normocephalic Eye exam: PRESENT: EOMI Mouth exam: PRESENT: moist, neck supple Neck exam: ABSENT: JVD, tenderness Respiratory exam: PRESENT: chest wall tenderness, clear to auscultation miguelina Cardiovascular exam: PRESENT: other - irregular. ABSENT: diastolic murmur, systolic murmur Vascular exam: PRESENT: normal capillary refill GI/Abdominal exam: PRESENT: normal bowel sounds, soft. ABSENT: guarding, tenderness Extremities exam: PRESENT: other - extremetiesswelling Neurological exam: PRESENT: alert, other - confused Results Laboratory Results: 08/10/17 05:23 08/09/17 06:20 08/10/17 05:23 WBC 12.0 H RBC 3.26 L Hgb 10.1 L Hct 29.7 L MCV 91 MCH 30.9 MCHC 33.9 RDW 14.6 H Plt Count 218 Impressions: Abdomen/Pelvis CTA 07/31/17 16:40 IMPRESSION: 1. There is significant gaseous distention of the right, transverse , and left colons. There is appears to be long segment narrowing of the distal sigmoid colon without definite mass lesion this area on CT. Question possible large bowel obstruction secondary to underlying stricture. There is significant redundancy within the colon. 2. No aortic dissection identified. There is aneurysmal dilatation of the infrarenal abdominal aorta measuring 3.5 x 3.7 cm. 3. 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 The SMA is patent without greater than 50% narrowing. The SUZIE is occluded at its origin and fills distally via collaterals. Multifocal hemodynamically significant narrowing throughout the iliac arteries as detailed above. Chest/Abdomen CTA 07/31/17 16:41 IMPRESSION: 1. There is significant gaseous distention of the right, transverse , and left colons. There is appears to be long segment narrowing of the distal sigmoid colon without definite mass lesion this area on CT. Question possible large bowel obstruction secondary to underlying stricture. There is significant redundancy within the colon. 2. No aortic dissection identified. There is aneurysmal dilatation of the infrarenal abdominal aorta measuring 3.5 x 3.7 cm. 3. 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 The SMA is patent without greater than 50% narrowing. The SUZIE is occluded at its origin and fills distally via collaterals. Multifocal hemodynamically significant narrowing throughout the iliac arteries as detailed above. Interventional Vascular Procedure 08/03/17 00:00 IMPRESSION: SUCCESSFUL PLACEMENT OF A 5 FR DUAL LUMEN 31 CM PICC IN THE RIGHT BASILIC VEIN. PICC Line Insertion 08/03/17 00:00 IMPRESSION: SUCCESSFUL PLACEMENT OF A 5 FR DUAL LUMEN 31 CM PICC IN THE RIGHT BASILIC VEIN. Chest X-Ray 08/05/17 06:00 IMPRESSION: No significant interval change pre KUB X-Ray 08/07/17 00:00 IMPRESSION: Nasogastric tube in the stomach. Abdomen X-Ray 08/08/17 08:00 IMPRESSION: Distention of some small bowel loops postsurgically. Ileus versus partial small bowel obstruction. Assessment & Plan - Diagnosis (1) Sigmoid volvulus Is this a current diagnosis for this admission?: Yes Plan: Tolerated procedure well but developed ileus which required NG placement. Ileus resolved. (2) Dementia Qualifiers: Dementia type: unspecified type Dementia behavioral disturbance: with behavioral disturbance Qualified Code(s): F03.91 - Unspecified dementia with behavioral disturbance Is this a current diagnosis for this admission?: Yes Plan: Discontinue restrains, rey and limit iv access. Increase ambulation. (3) S/P colectomy Is this a current diagnosis for this admission?: Yes Plan: Doing better. Foolwed up by surgical team. (4) Hypokalemia Is this a current diagnosis for this admission?: Yes Plan: Replace orally and trend. (5) Atrial fibrillation Is this a current diagnosis for this admission?: Yes Plan: Had to be started on cardiazem drip overnight.Concerned about fluid overload. Rate improved and to order BNP. Order lasix iv x one dose empirally and to start cardiazem orally. Wean off cardiazem iv. - Time Time Spent with patient: 15-24 minutes Anticipated discharge: SNF - Inpatient Certification I certify that my determination is in accordance with my understanding of Medicare's requirements for reasonable and necessary INPATIENT services [42 CFR 412.3e].: Yes Medical Necessity: Significant Comorbidiites Make Outpatient Treatment Too Risky , Need For Continuous Telemetry Monitoring
[2017-08-11] MEDS: DILTIAZEM HCL 30 MG TABLET PO SCH (06:09)
[2017-08-11 07:08] LABS: ALANINE AMINOTRANSFERASE 37 U/L (21-72); ALBUMIN 2.4 g/dL (3.5-5.0); ALKALINE PHOSPHATASE 46 U/L (38-126); ANION GAP 7 (5-19); ASPARTATE AMINO TRANSFERASE 35 U/L (17-59); BILIRUBIN,DIRECT 1.1 mg/dL (0.0-0.4); BILIRUBIN,TOTAL 1.7 mg/dL (0.2-1.3); BLOOD UREA NITROGEN 14 mg/dL (7-20); CALCIUM 7.7 mg/dL (8.4-10.2); CARBON DIOXIDE 32 mmol/L (22-30); CHLORIDE 105 mmol/L (98-107); CREATININE RESULT 0.72 mg/dL (0.52-1.25); GLUCOSE 90 mg/dL (75-110); MAGNESIUM 1.9 mg/dL (1.6-2.3); POTASSIUM 3.3 mmol/L (3.6-5.0); TOTAL PROTEIN 4.5 g/dL (6.3-8.2)
[2017-08-11] MEDS: METOCLOPRAMIDE HCL ORAL SOLN 10 MG/10 ML UDCUP PO SCH ×2 (08:22→10:32)
--- NOTE | 2017-08-11 09:28 | PDOC PROGRESS REPORT ---
Subjective Progress Note for:: 08/11/17 Subjective:: No complaints. No apparent distress however patient is in a bad mood Physical Exam Vital Signs: Temp Pulse Resp BP Pulse Ox 99 F 66 16 135/50 H 93 08/11/17 04:00 08/11/17 04:00 08/11/17 04:00 08/11/17 04:00 08/11/17 04:00 Intake & Output 08/10/17 08/11/17 08/12/17 06:59 06:59 06:59 Intake Total 3350 1837 Output Total 1475 2400 Balance 1875 -563 Weight 85.4 kg 85.2 kg General appearance: PRESENT: no acute distress Respiratory exam: PRESENT: clear to auscultation miguelina Cardiovascular exam: PRESENT: RRR GI/Abdominal exam: PRESENT: other - Soft, wound clean dry and intact, ostomy bag with small amount of solid stool and some air. Results Laboratory Results: 08/10/17 05:23 08/11/17 06:20 08/10/17 08/10/17 08/10/17 07:30 07:30 08:51 Sodium 143.2 Potassium 3.4 L Chloride 108 H Carbon Dioxide 30 Anion Gap 5 BUN 13 Creatinine 0.59 Est GFR ( Amer) > 60 Est GFR (Non-Af Amer) > 60 Glucose 139 H Calcium 7.2 L Magnesium Total Bilirubin AST ALT Alkaline Phosphatase Total Protein Albumin Urine Color YELLOW Urine Appearance SLIGHTLY-CLOUDY Urine pH 6.0 Ur Specific [place] 1.016 Urine Protein NEGATIVE Urine Glucose (UA) NEGATIVE Urine Ketones 20 H Urine Blood LARGE H Urine Nitrite NEGATIVE Ur Leukocyte Esterase NEGATIVE Urine WBC (Auto) 5 Urine RBC (Auto) >182 Stool Occult Blood NEGATIVE 08/11/17 06:20 Sodium 144.0 Potassium 3.3 L Chloride 105 Carbon Dioxide 32 H Anion Gap 7 BUN 14 Creatinine 0.72 Est GFR ( Amer) > 60 Est GFR (Non-Af Amer) > 60 Glucose 90 Calcium 7.7 L Magnesium 1.9 Total Bilirubin 1.7 H AST 35 ALT 37 Alkaline Phosphatase 46 Total Protein 4.5 L Albumin 2.4 L Urine Color Urine Appearance Urine pH Ur Specific [place] Urine Protein Urine Glucose (UA) Urine Ketones Urine Blood Urine Nitrite Ur Leukocyte Esterase Urine WBC (Auto) Urine RBC (Auto) Stool Occult Blood 08/11/17 06:20 NT-Pro-B Natriuret Pep 5230 H Impressions: Abdomen/Pelvis CTA 07/31/17 16:40 IMPRESSION: 1. There is significant gaseous distention of the right, transverse , and left colons. There is appears to be long segment narrowing of the distal sigmoid colon without definite mass lesion this area on CT. Question possible large bowel obstruction secondary to underlying stricture. There is significant redundancy within the colon. 2. No aortic dissection identified. There is aneurysmal dilatation of the infrarenal abdominal aorta measuring 3.5 x 3.7 cm. 3. 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 The SMA is patent without greater than 50% narrowing. The SUZIE is occluded at its origin and fills distally via collaterals. Multifocal hemodynamically significant narrowing throughout the iliac arteries as detailed above. Chest/Abdomen CTA 07/31/17 16:41 IMPRESSION: 1. There is significant gaseous distention of the right, transverse , and left colons. There is appears to be long segment narrowing of the distal sigmoid colon without definite mass lesion this area on CT. Question possible large bowel obstruction secondary to underlying stricture. There is significant redundancy within the colon. 2. No aortic dissection identified. There is aneurysmal dilatation of the infrarenal abdominal aorta measuring 3.5 x 3.7 cm. 3. 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 The SMA is patent without greater than 50% narrowing. The SUZIE is occluded at its origin and fills distally via collaterals. Multifocal hemodynamically significant narrowing throughout the iliac arteries as detailed above. Interventional Vascular Procedure 08/03/17 00:00 IMPRESSION: SUCCESSFUL PLACEMENT OF A 5 FR DUAL LUMEN 31 CM PICC IN THE RIGHT BASILIC VEIN. PICC Line Insertion 08/03/17 00:00 IMPRESSION: SUCCESSFUL PLACEMENT OF A 5 FR DUAL LUMEN 31 CM PICC IN THE RIGHT BASILIC VEIN. Chest X-Ray 08/05/17 06:00 IMPRESSION: No significant interval change pre KUB X-Ray 08/07/17 00:00 IMPRESSION: Nasogastric tube in the stomach. Abdomen X-Ray 08/08/17 08:00 IMPRESSION: Distention of some small bowel loops postsurgically. Ileus versus partial small bowel obstruction. Assessment & Plan - Diagnosis (1) Sigmoid volvulus Is this a current diagnosis for this admission?: Yes Plan: Status post Muir's procedure. Output noted in the ostomy bag now. Will start clear liquids.
[2017-08-11] MEDS ORDERED: POTASSIUM CHLORIDE 10 MEQ TABLET.SA PO SCH (10:00)
[2017-08-11] MEDS: OLANZAPINE INJ/PF 10 MG SDV IM SCH ×2 (10:26→22:13)
[2017-08-11] MEDS: ENOXAPARIN SODIUM INJ 40 MG/0.4 ML DISP.SYRIN SUBCUT SCH (10:34)
[2017-08-11] MEDS ORDERED: METOPROLOL TARTRATE PF/INJ 5 MG/5 ML SDV IV SCH (12:00)
[2017-08-11] MEDS: POTASSI CL 40 MEQ/D5-1/2NS 1L 40 MEQ/1,000 ML RTUINJ IV PRN (12:11)
[2017-08-11] MEDS ORDERED: METOPROLOL TARTRATE PF/INJ 5 MG/5 ML SDV IV ONE (12:30)
[2017-08-11] MEDS ORDERED: PHARMACY COMMUNICATION ORDER MC NR (12:30)
--- NOTE | 2017-08-11 13:25 | RADIOLOGY REPORT (SQ) ---
EXAM DESCRIPTION: CHEST SINGLE VIEW COMPLETED DATE/TIME: 08/11/2017 1:12 pm REASON FOR STUDY: aspiration COMPARISON: 08/05/2017. EXAM PARAMETERS: NUMBER OF VIEWS: One view. TECHNIQUE: Single frontal radiographic view of the chest acquired. RADIATION DOSE: NA LIMITATIONS: None. FINDINGS: LUNGS AND PLEURA: Slightly increased parenchymal density in the right lung base. Generall y stable appearance of the left lung. MEDIASTINUM AND HILAR STRUCTURES: No masses. Contour normal. HEART AND VASCULAR STRUCTURES: Heart upper limits of normal in size. Normal vasculature. BONES: No acute findings. HARDWARE: None in the chest. OTHER: No other significant finding. IMPRESSION: SLIGHTLY INCREASED PARENCHYMAL DENSITY IN THE RIGHT LUNG BASE, NONSPECIFIC. MAY BE DUE TO ATELECTASIS VERSUS DEVELOPING INFILTRATE. TECHNICAL DOCUMENTATION: JOB ID: [id number]
--- NOTE | 2017-08-11 13:26 | RADIOLOGY REPORT (SQ) ---
EXAM DESCRIPTION: KUB/ABDOMEN (SINGLE VIEW) COMPLETED DATE/TIME: 08/11/2017 1:12 pm REASON FOR STUDY: Check Placement of NG Tube COMPARISON: 08/08/2017. NUMBER OF VIEWS: One view. TECHNIQUE: Supine radiographic image of the abdomen acquired. LIMITATIONS: None. FINDINGS: BOWEL GAS PATTERN: Dilated small bowel with a few nonspecific air-fluid levels. Similar t o the previous study. CALCIFICATIONS: No suspicious calcifications. SOFT TISSUES: No gross mass or suggestion of organomegaly. HARDWARE: Nasogastric tube with the tip in the stomach. Midline skin ton. BONES: No acute fracture. No worrisome bone lesions. OTHER: No other significant finding. IMPRESSION: SATISFACTORY POSITION OF THE NASOGASTRIC TUBE. NO CHANGE IN THE SMALL BOWEL DILATION, S UGGESTING EITHER ILEUS OR PARTIAL OBSTRUCTION. TECHNICAL DOCUMENTATION: JOB ID: [id number] [employer]- All Rights Reserved
[2017-08-11] MEDS ORDERED: DEXTROSE 40% GEL 15 GM TUBE PO PRN ×2 (13:27)
[2017-08-11] MEDS ORDERED: DEXTROSE 50%-WATER 25 GM/50 ML DISP.SYRIN IV PRN ×2 (13:27)
[2017-08-11] MEDS ORDERED: GLUCAGON,HUMAN RECOMB 1 MG INJ SUBCUT PRN (13:27)
--- NOTE | 2017-08-11 13:44 | PDOC PROGRESS REPORT ---
Subjective Progress Note for:: 08/11/17 Subjective:: Patient was noted with small amounts of emesis for which he had an NG tube placed and during placement apparently had large amounts of emesis as well as copious amounts of dark fluid aspirated via the NG tube. All occurred prior to start of a diet. He was noted to have diminished saturations for which he was placed on oxygen by facemask with 100% saturations. Patient is alert and somewhat cooperative. Physical Exam Vital Signs: Temp Pulse Resp BP Pulse Ox 98.9 F 122 H 17 128/65 H 89 L 08/11/17 12:20 08/11/17 12:20 08/11/17 12:20 08/11/17 12:20 08/11/17 12:20 Intake & Output 08/10/17 08/11/17 08/12/17 06:59 06:59 06:59 Intake Total 3350 1837 Output Total 1475 2400 1140 Balance 1875 -563 -1140 Weight 85.4 kg 85.2 kg General appearance: PRESENT: no acute distress, disheveled Respiratory exam: PRESENT: rhonchi Cardiovascular exam: PRESENT: RRR GI/Abdominal exam: PRESENT: other - Soft, wound clean dry and intact. Had stool and air this morning in his ostomy bag but since ostomy bag was changed today no further output. No apparent tenderness. Abdomen appears protuberant. NG tube output is dark bilious. Neurological exam: PRESENT: alert, awake Psychiatric exam: PRESENT: agitated Results Laboratory Results: 08/10/17 05:23 08/11/17 06:20 08/11/17 08/11/17 06:20 12:52 Carbonic Acid Cancelled HCO3/H2CO3 Ratio Cancelled ABG pH Cancelled ABG pCO2 Cancelled ABG pO2 Cancelled ABG HCO3 Cancelled ABG O2 Saturation Cancelled ABG Base Excess Cancelled FiO2 Cancelled Sodium 144.0 Potassium 3.3 L Chloride 105 Carbon Dioxide 32 H Anion Gap 7 BUN 14 Creatinine 0.72 Est GFR ( Amer) > 60 Est GFR (Non-Af Amer) > 60 Glucose 90 Calcium 7.7 L Magnesium 1.9 Total Bilirubin 1.7 H AST 35 ALT 37 Alkaline Phosphatase 46 Total Protein 4.5 L Albumin 2.4 L 08/11/17 06:20 NT-Pro-B Natriuret Pep 5230 H Impressions: Abdomen/Pelvis CTA 07/31/17 16:40 IMPRESSION: 1. There is significant gaseous distention of the right, transverse , and left colons. There is appears to be long segment narrowing of the distal sigmoid colon without definite mass lesion this area on CT. Question possible large bowel obstruction secondary to underlying stricture. There is significant redundancy within the colon. 2. No aortic dissection identified. There is aneurysmal dilatation of the infrarenal abdominal aorta measuring 3.5 x 3.7 cm. 3. 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 The SMA is patent without greater than 50% narrowing. The SUZIE is occluded at its origin and fills distally via collaterals. Multifocal hemodynamically significant narrowing throughout the iliac arteries as detailed above. Chest/Abdomen CTA 07/31/17 16:41 IMPRESSION: 1. There is significant gaseous distention of the right, transverse , and left colons. There is appears to be long segment narrowing of the distal sigmoid colon without definite mass lesion this area on CT. Question possible large bowel obstruction secondary to underlying stricture. There is significant redundancy within the colon. 2. No aortic dissection identified. There is aneurysmal dilatation of the infrarenal abdominal aorta measuring 3.5 x 3.7 cm. 3. 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 The SMA is patent without greater than 50% narrowing. The SUZIE is occluded at its origin and fills distally via collaterals. Multifocal hemodynamically significant narrowing throughout the iliac arteries as detailed above. Interventional Vascular Procedure 08/03/17 00:00 IMPRESSION: SUCCESSFUL PLACEMENT OF A 5 FR DUAL LUMEN 31 CM PICC IN THE RIGHT BASILIC VEIN. PICC Line Insertion 08/03/17 00:00 IMPRESSION: SUCCESSFUL PLACEMENT OF A 5 FR DUAL LUMEN 31 CM PICC IN THE RIGHT BASILIC VEIN. KUB X-Ray 08/07/17 00:00 IMPRESSION: Nasogastric tube in the stomach. Abdomen X-Ray 08/08/17 08:00 IMPRESSION: Distention of some small bowel loops postsurgically. Ileus versus partial small bowel obstruction. Assessment & Plan - Diagnosis (1) Sigmoid volvulus Is this a current diagnosis for this admission?: Yes Plan: Status post Muir's procedure. Was going to start liquid diet today but patient has had emesis with dark bilious output via NG tube. Chest x-ray reveals opacity in the right lower lung field and KUB demonstrates dilated loops of small bowel. Patient has postoperative bowel obstruction versus ileus. He may have aspirated. Will transfer the patient to the intensive care unit for closer monitoring and aggressive pulmonary toilet. Start Abx. If he has worsening of his pulmonary status will intubate. Check abdominal pelvic CT scan when he is more stable in the unit.
[2017-08-11] MEDS ORDERED: LEVOTHYROXINE SODIUM INJ/PF 0.5 MG SDV IV SCH (13:45)
[2017-08-11] MEDS ORDERED: CLINDAMYCIN 600 MG/D5W RTU 600 MG/50 ML RTUPB IV SCH (14:00)
[2017-08-11] MEDS ORDERED: DEXTROSE 40% GEL 15 GM TUBE NG PRN ×2 (14:00)
[2017-08-11 14:02] LABS: ABSOLUTE BASOPHILS # (AUTO) 0.1 10^3/uL (0.0-0.2); ABSOLUTE EOSINOPHILS # (AUTO) 0.1 10^3/uL (0.0-0.6); ABSOLUTE LYMPHOCYTES (AUTO) 0.8 10^3/uL (0.5-4.7); ABSOLUTE MONOCYTES (AUTO) 1.1 10^3/uL (0.1-1.4); ABSOLUTE NEUT (AUTO) 10.8 10^3/uL (1.7-8.2); BASOPHILS % (AUTO) 0.4 % (0-2); EOSINOPHILS % (AUTO) 0.9 % (0-6); HEMATOCRIT 30.1 % (37.9-51.0); HEMOGLOBIN 10.3 g/dL (13.5-17.0); HGB HCT DIFFERENCE 0.8; LYMPHOCYTES % (AUTO) 6.4 % (13-45); MEAN CORPUSCULAR HEMOGLOBIN 30.9 pg (27.0-33.4); MEAN CORPUSCULAR HGB CONC 34.1 g/dL (32.0-36.0); MEAN CORPUSCULAR VOLUME 91 fl (80-97); MONOCYTES % (AUTO) 8.6 % (3-13); RED BLOOD COUNT 3.32 10^6/uL (4.35-5.55); RED CELL DISTRIBUTION WIDTH 14.2 % (11.5-14.0); SEGMENTED NEUTROPHILS % (AUTO) 83.7 % (42-78); WHITE BLOOD COUNT 12.9 10^3/uL (4.0-10.5)
[2017-08-11 14:08] LABS: ARTERIAL BLOOD O2 SATURATION 99.5 % (94-98)
[2017-08-11 14:15] LABS: ALANINE AMINOTRANSFERASE 43 U/L (21-72); ALBUMIN 2.4 g/dL (3.5-5.0); ALKALINE PHOSPHATASE 54 U/L (38-126); ANION GAP 7 (5-19); ASPARTATE AMINO TRANSFERASE 50 U/L (17-59); BILIRUBIN,DIRECT 0.8 mg/dL (0.0-0.4); BILIRUBIN,TOTAL 1.4 mg/dL (0.2-1.3); BLOOD UREA NITROGEN 14 mg/dL (7-20); CALCIUM 7.5 mg/dL (8.4-10.2); CARBON DIOXIDE 32 mmol/L (22-30); CHLORIDE 105 mmol/L (98-107); GLUCOSE 107 mg/dL (75-110); POTASSIUM 3.3 mmol/L (3.6-5.0); SODIUM 144.2 mmol/L (137-145); TOTAL PROTEIN 4.8 g/dL (6.3-8.2)
[2017-08-11] MEDS ORDERED: LEVOTHYROXINE SODIUM INJ/PF 0.1 MG SDV IV ONE (14:15)
[2017-08-11] MEDS ORDERED: FUROSEMIDE INJ/PF 20 MG/2 ML SDV IV ONE (14:42)
[2017-08-11] MEDS: METRONIDAZOLE 500 MG/NS RTU 100 ML IV SCH ×2 (14:58→22:04)
[2017-08-11] MEDS: LEVOFLOXACIN 500 MG/D5W RTU 500 MG/100 ML RTUPB IV SCH (15:29)
[2017-08-11] MEDS: POTASSI CL 20 MEQ/50 ML RIDER 20 MEQ/50 ML RTUPB IV SCH ×2 (16:35→22:10)
--- NOTE | 2017-08-11 17:47 | RADIOLOGY REPORT (SQ) ---
EXAM DESCRIPTION: VENOUS UNILATERAL UPPER COMPLETED DATE/TIME: 08/11/2017 5:16 pm REASON FOR STUDY: RUE swelling COMPARISON: None. TECHNIQUE: Dynamic and static bang scale and color images acquired of the right arm venous system. S elected spectral images acquired with additional compression and augmentation maneuvers. The contrala teral subclavian vein and internal jugular vein were also imaged. Images stored on PACS. LIMITATIONS: None. FINDINGS: There is acute, nonocclusive thrombus in the distal right superficial femoral vein around the PICC line. There is nonocclusive thrombus in the right cephalic vein. IMPRESSION: There is DVT and SVT in the right upper extremity as described. TECHNICAL DOCUMENTATION: JOB ID: [id number] [employer]- All Rights Reserved
[2017-08-11] MEDS: METOPROLOL TARTRATE PF/INJ 5 MG/5 ML SDV IV SCH (18:39)
[2017-08-11] MEDS: ENOXAPARIN SODIUM INJ 100 MG/1 ML DISP.SYRIN SUBCUT SCH (22:12)
[2017-08-11] MEDS: FUROSEMIDE INJ/PF 20 MG/2 ML SDV IV SCH (22:12)
[2017-08-12] MEDS: METOPROLOL TARTRATE PF/INJ 5 MG/5 ML SDV IV SCH ×4 (00:33→17:42)
[2017-08-12] MEDS: POTASSI CL 40 MEQ/D5-1/2NS 1L 40 MEQ/1,000 ML RTUINJ IV PRN ×3 (00:34→22:55)
[2017-08-12] MEDS: METRONIDAZOLE 500 MG/NS RTU 100 ML IV SCH ×4 (02:02→20:08)
--- NOTE | 2017-08-12 03:26 | PDOC PROGRESS REPORT ---
Subjective Progress Note for:: 08/11/17 Subjective:: Unable to obtain since markedly confused. ROS: Unable to obtain due to mental status All significant laboratories and diagnostics had been reviewed. Physical Exam Vital Signs: Temp Pulse Resp BP Pulse Ox 99 F 66 16 135/50 H 93 08/11/17 04:00 08/11/17 04:00 08/11/17 04:00 08/11/17 04:00 08/11/17 04:00 Intake & Output 08/10/17 08/11/17 08/12/17 06:59 06:59 06:59 Intake Total 3350 1804 Output Total 1475 2400 Balance 1875 -596 Weight 85.4 kg 85.2 kg General appearance: PRESENT: no acute distress, cooperative Head exam: PRESENT: atraumatic, normocephalic Eye exam: PRESENT: EOMI, PERRLA Ear exam: PRESENT: normal external ear exam Mouth exam: PRESENT: moist Neck exam: PRESENT: full ROM. ABSENT: JVD Respiratory exam: PRESENT: crackles, decreased breath sounds. ABSENT: chest wall tenderness Cardiovascular exam: PRESENT: other - irregular. ABSENT: diastolic murmur, systolic murmur Vascular exam: PRESENT: normal capillary refill GI/Abdominal exam: PRESENT: distended, hypoactive bowel sounds, other - hard Extremities exam: PRESENT: full ROM, other - RUE swollen. ABSENT: pedal edema Musculoskeletal exam: PRESENT: other - bed ridden Neurological exam: PRESENT: altered Skin exam: PRESENT: normal color Results Laboratory Results: 08/10/17 05:23 08/11/17 06:20 08/10/17 08/10/17 08/10/17 07:30 07:30 08:51 Sodium 143.2 Potassium 3.4 L Chloride 108 H Carbon Dioxide 30 Anion Gap 5 BUN 13 Creatinine 0.59 Est GFR ( Amer) > 60 Est GFR (Non-Af Amer) > 60 Glucose 139 H Calcium 7.2 L Magnesium Total Bilirubin AST ALT Alkaline Phosphatase Total Protein Albumin Urine Color YELLOW Urine Appearance SLIGHTLY-CLOUDY Urine pH 6.0 Ur Specific [place] 1.016 Urine Protein NEGATIVE Urine Glucose (UA) NEGATIVE Urine Ketones 20 H Urine Blood LARGE H Urine Nitrite NEGATIVE Ur Leukocyte Esterase NEGATIVE Urine WBC (Auto) 5 Urine RBC (Auto) >182 Stool Occult Blood NEGATIVE 08/11/17 06:20 Sodium 144.0 Potassium 3.3 L Chloride 105 Carbon Dioxide 32 H Anion Gap 7 BUN 14 Creatinine 0.72 Est GFR ( Amer) > 60 Est GFR (Non-Af Amer) > 60 Glucose 90 Calcium 7.7 L Magnesium 1.9 Total Bilirubin 1.7 H AST 35 ALT 37 Alkaline Phosphatase 46 Total Protein 4.5 L Albumin 2.4 L Urine Color Urine Appearance Urine pH Ur Specific [place] Urine Protein Urine Glucose (UA) Urine Ketones Urine Blood Urine Nitrite Ur Leukocyte Esterase Urine WBC (Auto) Urine RBC (Auto) Stool Occult Blood Impressions: Abdomen/Pelvis CTA 07/31/17 16:40 IMPRESSION: 1. There is significant gaseous distention of the right, transverse , and left colons. There is appears to be long segment narrowing of the distal sigmoid colon without definite mass lesion this area on CT. Question possible large bowel obstruction secondary to underlying stricture. There is significant redundancy within the colon. 2. No aortic dissection identified. There is aneurysmal dilatation of the infrarenal abdominal aorta measuring 3.5 x 3.7 cm. 3. 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 The SMA is patent without greater than 50% narrowing. The SUZIE is occluded at its origin and fills distally via collaterals. Multifocal hemodynamically significant narrowing throughout the iliac arteries as detailed above. Chest/Abdomen CTA 07/31/17 16:41 IMPRESSION: 1. There is significant gaseous distention of the right, transverse , and left colons. There is appears to be long segment narrowing of the distal sigmoid colon without definite mass lesion this area on CT. Question possible large bowel obstruction secondary to underlying stricture. There is significant redundancy within the colon. 2. No aortic dissection identified. There is aneurysmal dilatation of the infrarenal abdominal aorta measuring 3.5 x 3.7 cm. 3. 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 The SMA is patent without greater than 50% narrowing. The SUZIE is occluded at its origin and fills distally via collaterals. Multifocal hemodynamically significant narrowing throughout the iliac arteries as detailed above. Interventional Vascular Procedure 08/03/17 00:00 IMPRESSION: SUCCESSFUL PLACEMENT OF A 5 FR DUAL LUMEN 31 CM PICC IN THE RIGHT BASILIC VEIN. PICC Line Insertion 08/03/17 00:00 IMPRESSION: SUCCESSFUL PLACEMENT OF A 5 FR DUAL LUMEN 31 CM PICC IN THE RIGHT BASILIC VEIN. Chest X-Ray 08/05/17 06:00 IMPRESSION: No significant interval change pre KUB X-Ray 08/07/17 00:00 IMPRESSION: Nasogastric tube in the stomach. Abdomen X-Ray 08/08/17 08:00 IMPRESSION: Distention of some small bowel loops postsurgically. Ileus versus partial small bowel obstruction. Assessment & Plan - Diagnosis (1) Sigmoid volvulus Is this a current diagnosis for this admission?: Yes Plan: Tolerated procedure well but developed ileus which required NG placement which was removed on 08/10 since began to move his bowel. Ordered reinsertion of NG since abdomen became distend and patient vomited according to nurse. (2) Dementia Qualifiers: Dementia type: unspecified type Dementia behavioral disturbance: with behavioral disturbance Qualified Code(s): F03.91 - Unspecified dementia with behavioral disturbance Is this a current diagnosis for this admission?: Yes Plan: Accordingly patient is baseline. (3) S/P colectomy Is this a current diagnosis for this admission?: Yes Plan: Ileus recurred (4) Hypokalemia Is this a current diagnosis for this admission?: Yes Plan: Replace thur iv and trend. (5) Atrial fibrillation Is this a current diagnosis for this admission?: Yes Plan: To place on lopressor iv since cardiazem can cause constipation (6) Arm swelling Is this a current diagnosis for this admission?: Yes Plan: BEL[place]N donnelly where PICC is located. Concerned about DVT. Order venous sonogram. (7) Fluid overload Is this a current diagnosis for this admission?: Yes Plan: Start lasix IV - Time Time Spent with patient: 35 or more minutes Anticipated discharge: SNF Within: within 72 hours - Inpatient Certification I certify that my determination is in accordance with my understanding of Medicare's requirements for reasonable and necessary INPATIENT services [42 CFR 412.3e].: Yes Medical Necessity: Need Close Monitoring Due to Risk of Patient Decompensation, Need For IV Fluids
[2017-08-12 04:25] LABS: HEMATOCRIT 31.2 % (37.9-51.0); HEMOGLOBIN 10.8 g/dL (13.5-17.0); HGB HCT DIFFERENCE 1.2; MEAN CORPUSCULAR HEMOGLOBIN 31.2 pg (27.0-33.4); MEAN CORPUSCULAR HGB CONC 34.7 g/dL (32.0-36.0); MEAN CORPUSCULAR VOLUME 90 fl (80-97); RED BLOOD COUNT 3.47 10^6/uL (4.35-5.55); RED CELL DISTRIBUTION WIDTH 14.5 % (11.5-14.0)
[2017-08-12] MEDS ORDERED: HALOPERIDOL LACTATE INJ 5 MG/1 ML VIAL IV PRN (05:16)
[2017-08-12 07:22] LABS: APPEARANCE,URINE CLEAR; BILIRUBIN,URINE NEGATIVE (NEGATIVE); GLUCOSE, URINE NEGATIVE (NEGATIVE); KETONES,URINE NEGATIVE (NEGATIVE); LEUKOCYTE ESTERASE,URINE NEGATIVE (NEGATIVE); NITRITE,URINE NEGATIVE (NEGATIVE); PROTEIN,URINE NEGATIVE (NEGATIVE)
[2017-08-12 08:01] LABS: ANION GAP 7 (5-19); BLOOD UREA NITROGEN 12 mg/dL (7-20); CALCIUM 7.6 mg/dL (8.4-10.2); CARBON DIOXIDE 33 mmol/L (22-30); CHLORIDE 102 mmol/L (98-107); CREATININE RESULT 0.71 mg/dL (0.52-1.25); GLUCOSE 109 mg/dL (75-110); MAGNESIUM 1.9 mg/dL (1.6-2.3); POTASSIUM 3.6 mmol/L (3.6-5.0); SODIUM 142.3 mmol/L (137-145)
--- NOTE | 2017-08-12 09:26 | PDOC PROGRESS REPORT ---
Subjective Progress Note for:: 08/12/17 Subjective:: Unable to obtain since markedly confused. Was agitated last night and restrains were placed. Today says that has pain in his stomach. Appears a bit more coherent. ROS: Unable to obtain due to mental status All significant laboratories and diagnostics had been reviewed. Physical Exam Vital Signs: Temp Pulse Resp BP Pulse Ox 98.5 F 122 H 15 124/51 L 99 08/12/17 03:43 08/11/17 12:20 08/12/17 06:45 08/12/17 06:45 08/12/17 06:45 Intake & Output 08/11/17 08/12/17 08/13/17 06:59 06:59 06:59 Intake Total 1837 586 Output Total 2400 3090 600 Balance -563 -2504 -600 Weight 85.2 kg 80 kg General appearance: PRESENT: no acute distress, cooperative Head exam: PRESENT: atraumatic, normocephalic Eye exam: PRESENT: conjunctiva pink, EOMI, PERRLA Mouth exam: PRESENT: moist Neck exam: PRESENT: full ROM, tenderness. ABSENT: JVD Respiratory exam: PRESENT: clear to auscultation miguelina. ABSENT: chest wall tenderness Cardiovascular exam: ABSENT: diastolic murmur - IRR, systolic murmur Vascular exam: PRESENT: normal capillary refill GI/Abdominal exam: PRESENT: diminished bowel sounds - better output from ostomy , tenderness, other - less distended Extremities exam: PRESENT: other - RUE swelling improved Neurological exam: PRESENT: awake Results Laboratory Results: 08/12/17 04:10 08/12/17 04:10 08/11/17 08/11/17 08/11/17 12:52 13:15 13:45 WBC RBC Hgb Hct MCV MCH MCHC RDW Plt Count Seg Neutrophils % Lymphocytes % Monocytes % Eosinophils % Basophils % Absolute Neutrophils Absolute Lymphocytes Absolute Monocytes Absolute Eosinophils Absolute Basophils Carbonic Acid Cancelled Cancelled 1.26 HCO3/H2CO3 Ratio Cancelled Cancelled 24:1 ABG pH Cancelled Cancelled 7.49 H ABG pCO2 Cancelled Cancelled 41.9 ABG pO2 Cancelled Cancelled 214.2 H ABG HCO3 Cancelled Cancelled 31.0 H ABG O2 Saturation Cancelled Cancelled 99.5 H ABG Base Excess Cancelled Cancelled 7.0 FiO2 Cancelled Cancelled 15L Sodium Potassium Chloride Carbon Dioxide Anion Gap BUN Creatinine Est GFR ( Amer) Est GFR (Non-Af Amer) Glucose Calcium Magnesium Total Bilirubin AST ALT Alkaline Phosphatase Total Protein Albumin Urine Color Urine Appearance Urine pH Ur Specific [place] Urine Protein Urine Glucose (UA) Urine Ketones Urine Blood Urine Nitrite Ur Leukocyte Esterase Urine WBC (Auto) Urine RBC (Auto) Stool Occult Blood 08/11/17 08/11/17 08/12/17 13:50 13:50 04:10 WBC 12.9 H 13.0 H RBC 3.32 L 3.47 L Hgb 10.3 L 10.8 L Hct 30.1 L 31.2 L MCV 91 90 MCH 30.9 31.2 MCHC 34.1 34.7 RDW 14.2 H 14.5 H Plt Count 251 255 Seg Neutrophils % 83.7 H Lymphocytes % 6.4 L Monocytes % 8.6 Eosinophils % 0.9 Basophils % 0.4 Absolute Neutrophils 10.8 H Absolute Lymphocytes 0.8 Absolute Monocytes 1.1 Absolute Eosinophils 0.1 Absolute Basophils 0.1 Carbonic Acid HCO3/H2CO3 Ratio ABG pH ABG pCO2 ABG pO2 ABG HCO3 ABG O2 Saturation ABG Base Excess FiO2 Sodium 144.2 Potassium 3.3 L Chloride 105 Carbon Dioxide 32 H Anion Gap 7 BUN 14 Creatinine 0.80 Est GFR ( Amer) > 60 Est GFR (Non-Af Amer) > 60 Glucose 107 Calcium 7.5 L Magnesium Total Bilirubin 1.4 H AST 50 ALT 43 Alkaline Phosphatase 54 Total Protein 4.8 L Albumin 2.4 L Urine Color Urine Appearance Urine pH Ur Specific [place] Urine Protein Urine Glucose (UA) Urine Ketones Urine Blood Urine Nitrite Ur Leukocyte Esterase Urine WBC (Auto) Urine RBC (Auto) Stool Occult Blood 08/12/17 08/12/17 08/12/17 04:10 07:00 07:00 WBC RBC Hgb Hct MCV MCH MCHC RDW Plt Count Seg Neutrophils % Lymphocytes % Monocytes % Eosinophils % Basophils % Absolute Neutrophils Absolute Lymphocytes Absolute Monocytes Absolute Eosinophils Absolute Basophils Carbonic Acid HCO3/H2CO3 Ratio ABG pH ABG pCO2 ABG pO2 ABG HCO3 ABG O2 Saturation ABG Base Excess FiO2 Sodium 142.3 Potassium 3.6 Chloride 102 Carbon Dioxide 33 H Anion Gap 7 BUN 12 Creatinine 0.71 Est GFR ( Amer) > 60 Est GFR (Non-Af Amer) > 60 Glucose 109 Calcium 7.6 L Magnesium 1.9 Total Bilirubin AST ALT Alkaline Phosphatase Total Protein Albumin Urine Color YELLOW Urine Appearance CLEAR Urine pH 8.0 Ur Specific [place] 1.010 Urine Protein NEGATIVE Urine Glucose (UA) NEGATIVE Urine Ketones NEGATIVE Urine Blood NEGATIVE Urine Nitrite NEGATIVE Ur Leukocyte Esterase NEGATIVE Urine WBC (Auto) 2 Urine RBC (Auto) 1 Stool Occult Blood POSITIVE 08/11/17 06:20 NT-Pro-B Natriuret Pep 5230 H Impressions: Abdomen/Pelvis CTA 07/31/17 16:40 IMPRESSION: 1. There is significant gaseous distention of the right, transverse , and left colons. There is appears to be long segment narrowing of the distal sigmoid colon without definite mass lesion this area on CT. Question possible large bowel obstruction secondary to underlying stricture. There is significant redundancy within the colon. 2. No aortic dissection identified. There is aneurysmal dilatation of the infrarenal abdominal aorta measuring 3.5 x 3.7 cm. 3. 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 The SMA is patent without greater than 50% narrowing. The SUZIE is occluded at its origin and fills distally via collaterals. Multifocal hemodynamically significant narrowing throughout the iliac arteries as detailed above. Chest/Abdomen CTA 07/31/17 16:41 IMPRESSION: 1. There is significant gaseous distention of the right, transverse , and left colons. There is appears to be long segment narrowing of the distal sigmoid colon without definite mass lesion this area on CT. Question possible large bowel obstruction secondary to underlying stricture. There is significant redundancy within the colon. 2. No aortic dissection identified. There is aneurysmal dilatation of the infrarenal abdominal aorta measuring 3.5 x 3.7 cm. 3. 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 The SMA is patent without greater than 50% narrowing. The SUZIE is occluded at its origin and fills distally via collaterals. Multifocal hemodynamically significant narrowing throughout the iliac arteries as detailed above. Interventional Vascular Procedure 08/03/17 00:00 IMPRESSION: SUCCESSFUL PLACEMENT OF A 5 FR DUAL LUMEN 31 CM PICC IN THE RIGHT BASILIC VEIN. PICC Line Insertion 08/03/17 00:00 IMPRESSION: SUCCESSFUL PLACEMENT OF A 5 FR DUAL LUMEN 31 CM PICC IN THE RIGHT BASILIC VEIN. Abdomen X-Ray 08/08/17 08:00 IMPRESSION: Distention of some small bowel loops postsurgically. Ileus versus partial small bowel obstruction. Chest X-Ray 08/11/17 00:00 IMPRESSION: SLIGHTLY INCREASED PARENCHYMAL DENSITY IN THE RIGHT LUNG BASE, NONSPECIFIC. MAY BE DUE TO ATELECTASIS VERSUS DEVELOPING INFILTRATE. Venous Doppler Study 08/11/17 00:00 IMPRESSION: There is DVT and SVT in the right upper extremity as described. KUB X-Ray 08/11/17 12:22 IMPRESSION: SATISFACTORY POSITION OF THE NASOGASTRIC TUBE. NO CHANGE IN THE SMALL BOWEL DILATION, SUGGESTING EITHER ILEUS OR PARTIAL OBSTRUCTION. Assessment & Plan - Diagnosis (1) Sigmoid volvulus Is this a current diagnosis for this admission?: Yes Plan: Tolerated procedure well but developed ileus which required NG placement which was removed on 08/10 since began to move his bowel. Ordered reinsertion of NG since abdomen became distended and patient vomited according to nurse. Abdomen less distended and is having decent output from the ostomy. Restart reglan. (2) Dementia Qualifiers: Dementia type: unspecified type Dementia behavioral disturbance: with behavioral disturbance Qualified Code(s): F03.91 - Unspecified dementia with behavioral disturbance Is this a current diagnosis for this admission?: Yes Plan: Accordingly patient is baseline. Will continue zyprexa but will add scheduled morphine (discussed with nurse) since pain may be worsening agitation. (3) S/P colectomy Is this a current diagnosis for this admission?: Yes Plan: Ileus recurred. Followe up by surgery. (4) Hypokalemia Is this a current diagnosis for this admission?: Yes Plan: Replace thur iv and trend. Improving (5) Atrial fibrillation Is this a current diagnosis for this admission?: Yes Plan: Continue lopressor instead of cardiazem (6) Fluid overload Is this a current diagnosis for this admission?: Yes Plan: Appears improved. (7) DVT of axillary vein, acute right Plan: Started on lovenox 1 mg/kg bid since may need to go to surgery. Discussed with surgery. (8) Aspiration pneumonia due to gastric secretions Plan: Continue levaquin and flagyl - Time Time Spent with patient: 15-24 minutes Medications reviewed and adjusted accordingly: Yes Anticipated discharge: SNF Within: Other - when improved which is uncertain to estimate at this time - Inpatient Certification Based on my medical assessment, after consideration of the patient's comorbidities, presenting symptoms, or acuity I expect that the services needed warrant INPATIENT care.: Yes I certify that my determination is in accordance with my understanding of Medicare's requirements for reasonable and necessary INPATIENT services [42 CFR 412.3e].: Yes Medical Necessity: Need For IV Fluids, Need For Continuous Telemetry Monitoring , Need for Pain Control, Need for IV Antibiotics
[2017-08-12] MEDS: FUROSEMIDE INJ/PF 20 MG/2 ML SDV IV SCH ×2 (09:35→22:50)
[2017-08-12] MEDS: LEVOTHYROXINE SODIUM INJ/PF 0.1 MG SDV IV SCH (09:35)
[2017-08-12] MEDS: OLANZAPINE INJ/PF 10 MG SDV IM SCH ×2 (09:35→22:50)
[2017-08-12] MEDS: ENOXAPARIN SODIUM INJ 100 MG/1 ML DISP.SYRIN SUBCUT SCH ×2 (09:35→22:50)
[2017-08-12] MEDS: METOCLOPRAMIDE HCL INJ/PF 10 MG/2 ML SDV IV SCH ×2 (12:49→17:43)
[2017-08-12] MEDS: LEVOFLOXACIN 500 MG/D5W RTU 500 MG/100 ML RTUPB IV SCH (15:33)
--- NOTE | 2017-08-12 21:09 | PDOC PROGRESS REPORT ---
Subjective Progress Note for:: 08/12/17 Subjective:: Patient appears alert but not very communicative though appears to be saying no abdominal pains when asked. Physical Exam Vital Signs: Temp Pulse Resp BP Pulse Ox 98.4 F 55 L 15 128/80 H 98 08/12/17 20:00 08/12/17 20:00 08/12/17 20:00 08/12/17 20:00 08/12/17 20:00 Intake & Output 08/11/17 08/12/17 08/13/17 06:59 06:59 06:59 Intake Total 1837 586 Output Total 2400 3090 900 Balance -563 -2504 -900 Weight 85.2 kg 80 kg General appearance: PRESENT: no acute distress Respiratory exam: PRESENT: other - Patient undergoing chest compression through a special bed for atelectasis GI/Abdominal exam: PRESENT: soft - No obvious tenderness but may have some voluntary guarding. Colostomy is viable but bag is empty. Nurse claims the bag was emptied of about 100 cc of fluid and air NG tube only drained about 100 cc according to the nurse since this morning Results Laboratory Results: 08/12/17 04:10 08/12/17 04:10 08/12/17 08/12/17 08/12/17 04:10 04:10 07:00 WBC 13.0 H RBC 3.47 L Hgb 10.8 L Hct 31.2 L MCV 90 MCH 31.2 MCHC 34.7 RDW 14.5 H Plt Count 255 Sodium 142.3 Potassium 3.6 Chloride 102 Carbon Dioxide 33 H Anion Gap 7 BUN 12 Creatinine 0.71 Est GFR ( Amer) > 60 Est GFR (Non-Af Amer) > 60 Glucose 109 Calcium 7.6 L Magnesium 1.9 Urine Color Urine Appearance Urine pH Ur Specific [place] Urine Protein Urine Glucose (UA) Urine Ketones Urine Blood Urine Nitrite Ur Leukocyte Esterase Urine WBC (Auto) Urine RBC (Auto) Stool Occult Blood POSITIVE 08/12/17 07:00 WBC RBC Hgb Hct MCV MCH MCHC RDW Plt Count Sodium Potassium Chloride Carbon Dioxide Anion Gap BUN Creatinine Est GFR ( Amer) Est GFR (Non-Af Amer) Glucose Calcium Magnesium Urine Color YELLOW Urine Appearance CLEAR Urine pH 8.0 Ur Specific [place] 1.010 Urine Protein NEGATIVE Urine Glucose (UA) NEGATIVE Urine Ketones NEGATIVE Urine Blood NEGATIVE Urine Nitrite NEGATIVE Ur Leukocyte Esterase NEGATIVE Urine WBC (Auto) 2 Urine RBC (Auto) 1 Stool Occult Blood 08/11/17 06:20 NT-Pro-B Natriuret Pep 5230 H Impressions: Abdomen/Pelvis CTA 07/31/17 16:40 IMPRESSION: 1. There is significant gaseous distention of the right, transverse , and left colons. There is appears to be long segment narrowing of the distal sigmoid colon without definite mass lesion this area on CT. Question possible large bowel obstruction secondary to underlying stricture. There is significant redundancy within the colon. 2. No aortic dissection identified. There is aneurysmal dilatation of the infrarenal abdominal aorta measuring 3.5 x 3.7 cm. 3. 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 The SMA is patent without greater than 50% narrowing. The SUZIE is occluded at its origin and fills distally via collaterals. Multifocal hemodynamically significant narrowing throughout the iliac arteries as detailed above. Chest/Abdomen CTA 07/31/17 16:41 IMPRESSION: 1. There is significant gaseous distention of the right, transverse , and left colons. There is appears to be long segment narrowing of the distal sigmoid colon without definite mass lesion this area on CT. Question possible large bowel obstruction secondary to underlying stricture. There is significant redundancy within the colon. 2. No aortic dissection identified. There is aneurysmal dilatation of the infrarenal abdominal aorta measuring 3.5 x 3.7 cm. 3. 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 The SMA is patent without greater than 50% narrowing. The SUZIE is occluded at its origin and fills distally via collaterals. Multifocal hemodynamically significant narrowing throughout the iliac arteries as detailed above. Interventional Vascular Procedure 08/03/17 00:00 IMPRESSION: SUCCESSFUL PLACEMENT OF A 5 FR DUAL LUMEN 31 CM PICC IN THE RIGHT BASILIC VEIN. PICC Line Insertion 08/03/17 00:00 IMPRESSION: SUCCESSFUL PLACEMENT OF A 5 FR DUAL LUMEN 31 CM PICC IN THE RIGHT BASILIC VEIN. Abdomen X-Ray 08/08/17 08:00 IMPRESSION: Distention of some small bowel loops postsurgically. Ileus versus partial small bowel obstruction. Chest X-Ray 08/11/17 00:00 IMPRESSION: SLIGHTLY INCREASED PARENCHYMAL DENSITY IN THE RIGHT LUNG BASE, NONSPECIFIC. MAY BE DUE TO ATELECTASIS VERSUS DEVELOPING INFILTRATE. Venous Doppler Study 08/11/17 00:00 IMPRESSION: There is DVT and SVT in the right upper extremity as described. KUB X-Ray 08/11/17 12:22 IMPRESSION: SATISFACTORY POSITION OF THE NASOGASTRIC TUBE. NO CHANGE IN THE SMALL BOWEL DILATION, SUGGESTING EITHER ILEUS OR PARTIAL OBSTRUCTION. Assessment & Plan - Diagnosis (1) Postoperative ileus Is this a current diagnosis for this admission?: Yes - Time Time Spent with patient: 15-24 minutes - Plan Summary Plan Summary: #1 continue the NG tube overnight. 2. Monitor colostomy function and if still with minimal improvement may do CT scan of the abdomen and pelvis tomorrow with the contrast via the NG tube
[2017-08-13] MEDS: METOCLOPRAMIDE HCL INJ/PF 10 MG/2 ML SDV IV SCH ×5 (00:39→23:41)
[2017-08-13] MEDS: METOPROLOL TARTRATE PF/INJ 5 MG/5 ML SDV IV SCH ×5 (00:40→23:35)
[2017-08-13 01:15] LABS: APPEARANCE,URINE CLEAR; BILIRUBIN,URINE NEGATIVE (NEGATIVE); GLUCOSE, URINE NEGATIVE (NEGATIVE); KETONES,URINE NEGATIVE (NEGATIVE); LEUKOCYTE ESTERASE,URINE NEGATIVE (NEGATIVE); NITRITE,URINE NEGATIVE (NEGATIVE); PROTEIN,URINE NEGATIVE (NEGATIVE); URINE SPECIFIC GRAVITY 1.004; UROBILINOGEN,URINE NEGATIVE mg/dL (<2.0)
[2017-08-13] MEDS: METRONIDAZOLE 500 MG/NS RTU 100 ML IV SCH ×4 (02:15→22:53)
[2017-08-13] MEDS: MORPHINE SULFATE 10 MG/ML INJ IV PRN ×2 (02:16→23:38)
[2017-08-13 04:47] LABS: ABSOLUTE BASOPHILS # (AUTO) 0.1 10^3/uL (0.0-0.2); ABSOLUTE EOSINOPHILS # (AUTO) 0.3 10^3/uL (0.0-0.6); ABSOLUTE LYMPHOCYTES (AUTO) 1.4 10^3/uL (0.5-4.7); ABSOLUTE MONOCYTES (AUTO) 1.1 10^3/uL (0.1-1.4); ABSOLUTE NEUT (AUTO) 7.2 10^3/uL (1.7-8.2); BASOPHILS % (AUTO) 0.9 % (0-2); EOSINOPHILS % (AUTO) 2.7 % (0-6); HEMATOCRIT 29.7 % (37.9-51.0); HEMOGLOBIN 10.4 g/dL (13.5-17.0); HGB HCT DIFFERENCE 1.5; MEAN CORPUSCULAR VOLUME 91 fl (80-97); MONOCYTES % (AUTO) 11.2 % (3-13); RED BLOOD COUNT 3.25 10^6/uL (4.35-5.55); RED CELL DISTRIBUTION WIDTH 14.6 % (11.5-14.0); SEGMENTED NEUTROPHILS % (AUTO) 71.2 % (42-78); WHITE BLOOD COUNT 10.2 10^3/uL (4.0-10.5)
[2017-08-13 04:59] LABS: ALANINE AMINOTRANSFERASE 42 U/L (21-72); ALBUMIN 2.4 g/dL (3.5-5.0); ALKALINE PHOSPHATASE 46 U/L (38-126); ANION GAP 5 (5-19); ASPARTATE AMINO TRANSFERASE 41 U/L (17-59); BILIRUBIN,DIRECT 0.5 mg/dL (0.0-0.4); BILIRUBIN,TOTAL 0.9 mg/dL (0.2-1.3); BLOOD UREA NITROGEN 10 mg/dL (7-20); CALCIUM 7.2 mg/dL (8.4-10.2); CARBON DIOXIDE 35 mmol/L (22-30); CHLORIDE 100 mmol/L (98-107); CREATININE RESULT 0.83 mg/dL (0.52-1.25); GLUCOSE 100 mg/dL (75-110); MAGNESIUM 1.7 mg/dL (1.6-2.3); POTASSIUM 3.8 mmol/L (3.6-5.0); SODIUM 140.3 mmol/L (137-145); TOTAL PROTEIN 4.8 g/dL (6.3-8.2)
--- NOTE | 2017-08-13 08:51 | PDOC PROGRESS REPORT ---
Subjective Progress Note for:: 08/13/17 Subjective:: Unable to obtain since markedly confused. Nurse reports good output in the ostomy. Has been getting morphine around the clock. ROS: Unable to obtain due to mental status All significant laboratories and diagnostics had been reviewed. Physical Exam Vital Signs: Temp Pulse Resp BP Pulse Ox 99.3 F 62 14 114/49 L 100 08/13/17 05:03 08/13/17 05:03 08/13/17 06:00 08/13/17 05:49 08/13/17 06:00 Intake & Output 08/12/17 08/13/17 08/14/17 06:59 06:59 05:59 Intake Total 586 1228 Output Total 3090 7635 Balance -6724 -5521 Weight 80 kg 77.6 kg General appearance: PRESENT: no acute distress, cooperative Head exam: PRESENT: atraumatic, normocephalic Eye exam: PRESENT: EOMI, PERRLA Mouth exam: PRESENT: moist, neck supple Neck exam: PRESENT: full ROM. ABSENT: JVD Respiratory exam: PRESENT: clear to auscultation miguelina Cardiovascular exam: ABSENT: diastolic murmur, systolic murmur - IRR Vascular exam: PRESENT: normal capillary refill GI/Abdominal exam: PRESENT: normal bowel sounds. ABSENT: guarding, tenderness Extremities exam: ABSENT: joint swelling, pedal edema, tenderness Musculoskeletal exam: PRESENT: full ROM Neurological exam: PRESENT: alert Results Laboratory Results: 08/13/17 04:38 08/13/17 04:38 08/12/17 08/13/17 08/13/17 04:10 00:55 04:38 WBC 10.2 RBC 3.25 L Hgb 10.4 L Hct 29.7 L MCV 91 MCH 32.0 MCHC 35.0 RDW 14.6 H Plt Count 231 Seg Neutrophils % 71.2 Lymphocytes % 14.0 Monocytes % 11.2 Eosinophils % 2.7 Basophils % 0.9 Absolute Neutrophils 7.2 Absolute Lymphocytes 1.4 Absolute Monocytes 1.1 Absolute Eosinophils 0.3 Absolute Basophils 0.1 Sodium 142.3 Potassium 3.6 Chloride 102 Carbon Dioxide 33 H Anion Gap 7 BUN 12 Creatinine 0.71 Est GFR ( Amer) > 60 Est GFR (Non-Af Amer) > 60 Glucose 109 Calcium 7.6 L Magnesium 1.9 Total Bilirubin AST ALT Alkaline Phosphatase Total Protein Albumin Urine Color YELLOW Urine Appearance CLEAR Urine pH 8.0 Ur Specific [place] 1.004 Urine Protein NEGATIVE Urine Glucose (UA) NEGATIVE Urine Ketones NEGATIVE Urine Blood NEGATIVE Urine Nitrite NEGATIVE Ur Leukocyte Esterase NEGATIVE Urine WBC (Auto) 1 Urine RBC (Auto) 0 Stool Occult Blood 08/13/17 08/13/17 04:38 05:40 WBC RBC Hgb Hct MCV MCH MCHC RDW Plt Count Seg Neutrophils % Lymphocytes % Monocytes % Eosinophils % Basophils % Absolute Neutrophils Absolute Lymphocytes Absolute Monocytes Absolute Eosinophils Absolute Basophils Sodium 140.3 Potassium 3.8 Chloride 100 Carbon Dioxide 35 H Anion Gap 5 BUN 10 Creatinine 0.83 Est GFR ( Amer) > 60 Est GFR (Non-Af Amer) > 60 Glucose 100 Calcium 7.2 L Magnesium 1.7 Total Bilirubin 0.9 AST 41 ALT 42 Alkaline Phosphatase 46 Total Protein 4.8 L Albumin 2.4 L Urine Color Urine Appearance Urine pH Ur Specific [place] Urine Protein Urine Glucose (UA) Urine Ketones Urine Blood Urine Nitrite Ur Leukocyte Esterase Urine WBC (Auto) Urine RBC (Auto) Stool Occult Blood POSITIVE 08/11/17 06:20 NT-Pro-B Natriuret Pep 5230 H Impressions: Abdomen/Pelvis CTA 07/31/17 16:40 IMPRESSION: 1. There is significant gaseous distention of the right, transverse , and left colons. There is appears to be long segment narrowing of the distal sigmoid colon without definite mass lesion this area on CT. Question possible large bowel obstruction secondary to underlying stricture. There is significant redundancy within the colon. 2. No aortic dissection identified. There is aneurysmal dilatation of the infrarenal abdominal aorta measuring 3.5 x 3.7 cm. 3. 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 The SMA is patent without greater than 50% narrowing. The SUZIE is occluded at its origin and fills distally via collaterals. Multifocal hemodynamically significant narrowing throughout the iliac arteries as detailed above. Chest/Abdomen CTA 07/31/17 16:41 IMPRESSION: 1. There is significant gaseous distention of the right, transverse , and left colons. There is appears to be long segment narrowing of the distal sigmoid colon without definite mass lesion this area on CT. Question possible large bowel obstruction secondary to underlying stricture. There is significant redundancy within the colon. 2. No aortic dissection identified. There is aneurysmal dilatation of the infrarenal abdominal aorta measuring 3.5 x 3.7 cm. 3. 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 The SMA is patent without greater than 50% narrowing. The SUZIE is occluded at its origin and fills distally via collaterals. Multifocal hemodynamically significant narrowing throughout the iliac arteries as detailed above. Interventional Vascular Procedure 08/03/17 00:00 IMPRESSION: SUCCESSFUL PLACEMENT OF A 5 FR DUAL LUMEN 31 CM PICC IN THE RIGHT BASILIC VEIN. PICC Line Insertion 08/03/17 00:00 IMPRESSION: SUCCESSFUL PLACEMENT OF A 5 FR DUAL LUMEN 31 CM PICC IN THE RIGHT BASILIC VEIN. Abdomen X-Ray 08/08/17 08:00 IMPRESSION: Distention of some small bowel loops postsurgically. Ileus versus partial small bowel obstruction. Chest X-Ray 08/11/17 00:00 IMPRESSION: SLIGHTLY INCREASED PARENCHYMAL DENSITY IN THE RIGHT LUNG BASE, NONSPECIFIC. MAY BE DUE TO ATELECTASIS VERSUS DEVELOPING INFILTRATE. Venous Doppler Study 08/11/17 00:00 IMPRESSION: There is DVT and SVT in the right upper extremity as described. KUB X-Ray 08/11/17 12:22 IMPRESSION: SATISFACTORY POSITION OF THE NASOGASTRIC TUBE. NO CHANGE IN THE SMALL BOWEL DILATION, SUGGESTING EITHER ILEUS OR PARTIAL OBSTRUCTION. Assessment & Plan - Diagnosis (1) Sigmoid volvulus Is this a current diagnosis for this admission?: Yes Plan: Tolerated procedure well but developed ileus which required NG placement which was removed on 08/10 since began to move his bowel. Ordered reinsertion of NG on 08/11 since abdomen became distended and patient vomited according to nurse. Abdomen improved. Will defer to surgery when to remove NG and start clear liquids. In my opinion will be worth to try. (2) Dementia Qualifiers: Dementia type: unspecified type Dementia behavioral disturbance: with behavioral disturbance Qualified Code(s): F03.91 - Unspecified dementia with behavioral disturbance Is this a current diagnosis for this admission?: Yes Plan: Accordingly patient is baseline. Continue present tx. (3) S/P colectomy Is this a current diagnosis for this admission?: Yes Plan: Ileus resolved. Transfer to telemetry unit. (4) Hypokalemia Is this a current diagnosis for this admission?: Yes Plan: Resolved. Trend (5) Atrial fibrillation Is this a current diagnosis for this admission?: Yes Plan: Stable on current tx. (6) Fluid overload Is this a current diagnosis for this admission?: Yes Plan: Doing better. Continue lasix iv for 24 hrs. (7) DVT of axillary vein, acute right Is this a current diagnosis for this admission?: Yes Plan: Cntinue lovenox 1 mg/kg bid since may need to go to surgery. (8) Aspiration pneumonia due to gastric secretions Is this a current diagnosis for this admission?: Yes Plan: Continue levaquin and flagyl - Time Time Spent with patient: 15-24 minutes Medications reviewed and adjusted accordingly: Yes Anticipated discharge: Home, SNF Within: Other - undetermined at this time - Inpatient Certification Based on my medical assessment, after consideration of the patient's comorbidities, presenting symptoms, or acuity I expect that the services needed warrant INPATIENT care.: Yes I certify that my determination is in accordance with my understanding of Medicare's requirements for reasonable and necessary INPATIENT services [42 CFR 412.3e].: Yes Medical Necessity: Need For IV Fluids, Need for Pain Control, Need for IV Antibiotics
[2017-08-13] MEDS: LEVOTHYROXINE SODIUM INJ/PF 0.1 MG SDV IV SCH (11:02)
[2017-08-13] MEDS: OLANZAPINE INJ/PF 10 MG SDV IM SCH ×2 (11:02→23:41)
[2017-08-13] MEDS: FUROSEMIDE INJ/PF 20 MG/2 ML SDV IV SCH ×3 (11:03→22:55)
[2017-08-13] MEDS: ENOXAPARIN SODIUM INJ 100 MG/1 ML DISP.SYRIN SUBCUT SCH ×2 (11:04→22:54)
[2017-08-13] MEDS: POTASSI CL 40 MEQ/D5-1/2NS 1L 40 MEQ/1,000 ML RTUINJ IV PRN (12:17)
[2017-08-13] MEDS: LEVOFLOXACIN 500 MG/D5W RTU 500 MG/100 ML RTUPB IV SCH (16:38)
--- NOTE | 2017-08-13 19:45 | PDOC PROGRESS REPORT ---
Subjective Progress Note for:: 08/13/17 Subjective:: Patient remains quite confused. Nurses claimed of the colostomy has been functioning better. I spoke to 1 of the nurses who took care of him the day and it is probably better to leave the NG tube in and try to use it for feeding since patient is quite confused and will need swallowing evaluation by speech pathologist Tuesday. Physical Exam Vital Signs: Temp Pulse Resp BP Pulse Ox 99.0 F 59 L 18 107/85 97 08/13/17 12:00 08/13/17 16:00 08/13/17 16:00 08/13/17 16:00 08/13/17 16:34 Intake & Output 08/12/17 08/13/17 08/14/17 06:59 06:59 05:59 Intake Total 586 1228 Output Total 3090 3135 200 Balance -2504 -1907 -200 Weight 80 kg 77.6 kg Exam: Vital signs remained stable. Patient remains confused and unable to answer appropriately. His abdomen is less distended and the colostomy had some small amount of stool in the bag. Nurses claim the colostomy has been functioning better. I spoke to 1 of the nurses who took care of him in the past few days and patient will need swallowing evaluation to prevent him from developing aspiration. Meantime we will start him on NG tube feedings tomorrow. He will then swallow eval relation with the speech pathologist on Tuesday Results Laboratory Results: 08/13/17 04:38 08/13/17 04:38 08/13/17 08/13/17 08/13/17 00:55 04:38 04:38 WBC 10.2 RBC 3.25 L Hgb 10.4 L Hct 29.7 L MCV 91 MCH 32.0 MCHC 35.0 RDW 14.6 H Plt Count 231 Seg Neutrophils % 71.2 Lymphocytes % 14.0 Monocytes % 11.2 Eosinophils % 2.7 Basophils % 0.9 Absolute Neutrophils 7.2 Absolute Lymphocytes 1.4 Absolute Monocytes 1.1 Absolute Eosinophils 0.3 Absolute Basophils 0.1 Sodium 140.3 Potassium 3.8 Chloride 100 Carbon Dioxide 35 H Anion Gap 5 BUN 10 Creatinine 0.83 Est GFR ( Amer) > 60 Est GFR (Non-Af Amer) > 60 Glucose 100 Calcium 7.2 L Magnesium 1.7 Total Bilirubin 0.9 AST 41 ALT 42 Alkaline Phosphatase 46 Total Protein 4.8 L Albumin 2.4 L Urine Color YELLOW Urine Appearance CLEAR Urine pH 8.0 Ur Specific [place] 1.004 Urine Protein NEGATIVE Urine Glucose (UA) NEGATIVE Urine Ketones NEGATIVE Urine Blood NEGATIVE Urine Nitrite NEGATIVE Ur Leukocyte Esterase NEGATIVE Urine WBC (Auto) 1 Urine RBC (Auto) 0 Stool Occult Blood 08/13/17 05:40 WBC RBC Hgb Hct MCV MCH MCHC RDW Plt Count Seg Neutrophils % Lymphocytes % Monocytes % Eosinophils % Basophils % Absolute Neutrophils Absolute Lymphocytes Absolute Monocytes Absolute Eosinophils Absolute Basophils Sodium Potassium Chloride Carbon Dioxide Anion Gap BUN Creatinine Est GFR ( Amer) Est GFR (Non-Af Amer) Glucose Calcium Magnesium Total Bilirubin AST ALT Alkaline Phosphatase Total Protein Albumin Urine Color Urine Appearance Urine pH Ur Specific [place] Urine Protein Urine Glucose (UA) Urine Ketones Urine Blood Urine Nitrite Ur Leukocyte Esterase Urine WBC (Auto) Urine RBC (Auto) Stool Occult Blood POSITIVE 08/11/17 06:20 NT-Pro-B Natriuret Pep 5230 H Impressions: Abdomen/Pelvis CTA 07/31/17 16:40 IMPRESSION: 1. There is significant gaseous distention of the right, transverse , and left colons. There is appears to be long segment narrowing of the distal sigmoid colon without definite mass lesion this area on CT. Question possible large bowel obstruction secondary to underlying stricture. There is significant redundancy within the colon. 2. No aortic dissection identified. There is aneurysmal dilatation of the infrarenal abdominal aorta measuring 3.5 x 3.7 cm. 3. 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 The SMA is patent without greater than 50% narrowing. The SUZIE is occluded at its origin and fills distally via collaterals. Multifocal hemodynamically significant narrowing throughout the iliac arteries as detailed above. Chest/Abdomen CTA 07/31/17 16:41 IMPRESSION: 1. There is significant gaseous distention of the right, transverse , and left colons. There is appears to be long segment narrowing of the distal sigmoid colon without definite mass lesion this area on CT. Question possible large bowel obstruction secondary to underlying stricture. There is significant redundancy within the colon. 2. No aortic dissection identified. There is aneurysmal dilatation of the infrarenal abdominal aorta measuring 3.5 x 3.7 cm. 3. 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 The SMA is patent without greater than 50% narrowing. The SUZIE is occluded at its origin and fills distally via collaterals. Multifocal hemodynamically significant narrowing throughout the iliac arteries as detailed above. Interventional Vascular Procedure 08/03/17 00:00 IMPRESSION: SUCCESSFUL PLACEMENT OF A 5 FR DUAL LUMEN 31 CM PICC IN THE RIGHT BASILIC VEIN. PICC Line Insertion 08/03/17 00:00 IMPRESSION: SUCCESSFUL PLACEMENT OF A 5 FR DUAL LUMEN 31 CM PICC IN THE RIGHT BASILIC VEIN. Abdomen X-Ray 08/08/17 08:00 IMPRESSION: Distention of some small bowel loops postsurgically. Ileus versus partial small bowel obstruction. Chest X-Ray 08/11/17 00:00 IMPRESSION: SLIGHTLY INCREASED PARENCHYMAL DENSITY IN THE RIGHT LUNG BASE, NONSPECIFIC. MAY BE DUE TO ATELECTASIS VERSUS DEVELOPING INFILTRATE. Venous Doppler Study 08/11/17 00:00 IMPRESSION: There is DVT and SVT in the right upper extremity as described. KUB X-Ray 08/11/17 12:22 IMPRESSION: SATISFACTORY POSITION OF THE NASOGASTRIC TUBE. NO CHANGE IN THE SMALL BOWEL DILATION, SUGGESTING EITHER ILEUS OR PARTIAL OBSTRUCTION. Assessment & Plan - Diagnosis (1) Postoperative ileus Is this a current diagnosis for this admission?: Yes - Time Time Spent with patient: 15-24 minutes - Plan Summary Plan Summary: Possible start tube feedings in a.m. if the colostomy continues to function well. Patient has been confused and unable to respond appropriately. He he will then have a swallowing evaluation on Tuesday prior to pulling the NG tube. He will need adequate nutrition since his been n.p.o. for quite a few days.
[2017-08-14] MEDS: METRONIDAZOLE 500 MG/NS RTU 100 ML IV SCH ×4 (02:37→21:32)
[2017-08-14] MEDS ORDERED: HALOPERIDOL LACTATE INJ 5 MG/1 ML VIAL ONE (06:24)
[2017-08-14] MEDS ORDERED: HALOPERIDOL LACTATE INJ 5 MG/1 ML VIAL IV PRN (06:25)
[2017-08-14] MEDS: METOPROLOL TARTRATE PF/INJ 5 MG/5 ML SDV IV SCH ×3 (06:27→17:14)
[2017-08-14] MEDS: METOCLOPRAMIDE HCL INJ/PF 10 MG/2 ML SDV IV SCH ×3 (06:28→17:18)
[2017-08-14] MEDS: POTASSI CL 40 MEQ/D5-1/2NS 1L 40 MEQ/1,000 ML RTUINJ IV PRN ×2 (08:15→21:31)
[2017-08-14 08:31] LABS: ANION GAP 7 (5-19); BLOOD UREA NITROGEN 10 mg/dL (7-20); CALCIUM 7.6 mg/dL (8.4-10.2); CARBON DIOXIDE 31 mmol/L (22-30); CHLORIDE 101 mmol/L (98-107); CREATININE RESULT 0.92 mg/dL (0.52-1.25); GLUCOSE 84 mg/dL (75-110); MAGNESIUM 1.7 mg/dL (1.6-2.3); SODIUM 138.6 mmol/L (137-145)
[2017-08-14] MEDS: LEVOTHYROXINE SODIUM INJ/PF 0.1 MG SDV IV SCH (11:13)
[2017-08-14] MEDS: ENOXAPARIN SODIUM INJ 100 MG/1 ML DISP.SYRIN SUBCUT SCH ×2 (11:13→23:00)
[2017-08-14] MEDS: FUROSEMIDE INJ/PF 20 MG/2 ML SDV IV SCH ×2 (11:41)
--- NOTE | 2017-08-14 15:01 | PDOC PROGRESS REPORT ---
Subjective Progress Note for:: 08/14/17 Subjective:: Unable to obtain since markedly confused. and son to bedside and updated regarding patient's condition. Encouraged to look into revisiting code status but reluctant to change. Son was transiently upset because thought patient had comprehension of what we were discussing, eg. full code status. ROS: Unable to obtain due to mental status All significant laboratories and diagnostics had been reviewed. Physical Exam Vital Signs: Temp Pulse Resp BP Pulse Ox 99.0 F 124 H 18 131/109 H 97 08/14/17 05:06 08/14/17 05:06 08/14/17 05:06 08/14/17 05:06 08/14/17 05:06 Intake & Output 08/13/17 08/14/17 08/15/17 07:59 06:59 06:59 Intake Total Output Total Balance Weight General appearance: PRESENT: no acute distress, cooperative Head exam: PRESENT: atraumatic, normocephalic Eye exam: PRESENT: EOMI Ear exam: PRESENT: normal external ear exam Mouth exam: PRESENT: moist, neck supple Neck exam: PRESENT: full ROM, tenderness. ABSENT: JVD Respiratory exam: PRESENT: clear to auscultation miguelina Cardiovascular exam: ABSENT: diastolic murmur, systolic murmur - IRRR Vascular exam: PRESENT: normal capillary refill GI/Abdominal exam: PRESENT: normal bowel sounds, other - good ostomy output. ABSENT: distended, firm, guarding Musculoskeletal exam: PRESENT: full ROM Neurological exam: PRESENT: other - somnolent Results Laboratory Results: 08/13/17 04:38 08/13/17 04:38 08/11/17 06:20 NT-Pro-B Natriuret Pep 5230 H Impressions: Abdomen/Pelvis CTA 07/31/17 16:40 IMPRESSION: 1. There is significant gaseous distention of the right, transverse , and left colons. There is appears to be long segment narrowing of the distal sigmoid colon without definite mass lesion this area on CT. Question possible large bowel obstruction secondary to underlying stricture. There is significant redundancy within the colon. 2. No aortic dissection identified. There is aneurysmal dilatation of the infrarenal abdominal aorta measuring 3.5 x 3.7 cm. 3. 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 The SMA is patent without greater than 50% narrowing. The SUZIE is occluded at its origin and fills distally via collaterals. Multifocal hemodynamically significant narrowing throughout the iliac arteries as detailed above. Chest/Abdomen CTA 07/31/17 16:41 IMPRESSION: 1. There is significant gaseous distention of the right, transverse , and left colons. There is appears to be long segment narrowing of the distal sigmoid colon without definite mass lesion this area on CT. Question possible large bowel obstruction secondary to underlying stricture. There is significant redundancy within the colon. 2. No aortic dissection identified. There is aneurysmal dilatation of the infrarenal abdominal aorta measuring 3.5 x 3.7 cm. 3. 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 The SMA is patent without greater than 50% narrowing. The SUZIE is occluded at its origin and fills distally via collaterals. Multifocal hemodynamically significant narrowing throughout the iliac arteries as detailed above. Interventional Vascular Procedure 08/03/17 00:00 IMPRESSION: SUCCESSFUL PLACEMENT OF A 5 FR DUAL LUMEN 31 CM PICC IN THE RIGHT BASILIC VEIN. PICC Line Insertion 08/03/17 00:00 IMPRESSION: SUCCESSFUL PLACEMENT OF A 5 FR DUAL LUMEN 31 CM PICC IN THE RIGHT BASILIC VEIN. Abdomen X-Ray 08/08/17 08:00 IMPRESSION: Distention of some small bowel loops postsurgically. Ileus versus partial small bowel obstruction. Chest X-Ray 08/11/17 00:00 IMPRESSION: SLIGHTLY INCREASED PARENCHYMAL DENSITY IN THE RIGHT LUNG BASE, NONSPECIFIC. MAY BE DUE TO ATELECTASIS VERSUS DEVELOPING INFILTRATE. Venous Doppler Study 08/11/17 00:00 IMPRESSION: There is DVT and SVT in the right upper extremity as described. KUB X-Ray 08/11/17 12:22 IMPRESSION: SATISFACTORY POSITION OF THE NASOGASTRIC TUBE. NO CHANGE IN THE SMALL BOWEL DILATION, SUGGESTING EITHER ILEUS OR PARTIAL OBSTRUCTION. Assessment & Plan - Diagnosis (1) Sigmoid volvulus Is this a current diagnosis for this admission?: Yes Plan: Tolerated procedure well but developed ileus which required NG placement which was removed on 08/10 since began to move his bowel. Ordered reinsertion of NG on 08/11 since abdomen became distended and patient vomited according to nurse. Abdomen improved. Recommend removal of NG tube and start clear liquids. Patient was seen earlier during the week by ST and passed swallowing test. (2) Dementia Qualifiers: Dementia type: unspecified type Dementia behavioral disturbance: with behavioral disturbance Qualified Code(s): F03.91 - Unspecified dementia with behavioral disturbance Is this a current diagnosis for this admission?: Yes Plan: Accordingly patient is baseline. Had been getting more agitated at night and medicated. Now somnolent. Will change zyprexa to bedtime. (3) S/P colectomy Is this a current diagnosis for this admission?: Yes Plan: Ileus resolved. (4) Hypokalemia Is this a current diagnosis for this admission?: Yes Plan: Resolved. Trend (5) Atrial fibrillation Is this a current diagnosis for this admission?: Yes Plan: Stable on current tx. (6) Fluid overload Is this a current diagnosis for this admission?: Yes Plan: Doing better. Discontinue lasix IV. (7) DVT of axillary vein, acute right Is this a current diagnosis for this admission?: Yes Plan: Continue lovenox 1 mg/kg bid for now. If no need for surgery may transition to DOAC (8) Aspiration pneumonia due to gastric secretions Is this a current diagnosis for this admission?: Yes Plan: Continue levaquin and flagyl - Time Time Spent with patient: 25-34 minutes Medications reviewed and adjusted accordingly: Yes Anticipated discharge: SNF Within: when bed available, Other - unable to tell at this present time - Inpatient Certification Based on my medical assessment, after consideration of the patient's comorbidities, presenting symptoms, or acuity I expect that the services needed warrant INPATIENT care.: Yes I certify that my determination is in accordance with my understanding of Medicare's requirements for reasonable and necessary INPATIENT services [42 CFR 412.3e].: Yes Medical Necessity: Need For IV Fluids, Need For Continuous Telemetry Monitoring , Need for Pain Control, Need for IV Antibiotics
[2017-08-14] MEDS: LEVOFLOXACIN 500 MG/D5W RTU 500 MG/100 ML RTUPB IV SCH (15:36)
--- NOTE | 2017-08-14 19:28 | PDOC PROGRESS REPORT ---
Subjective Progress Note for:: 08/14/17 Subjective:: Patient's remains confused and unable to tell us if he has any significant pains. However his colostomy appears to be functioning well. Physical Exam Vital Signs: Temp Pulse Resp BP Pulse Ox 98.6 F 115 H 18 131/55 H 93 08/14/17 16:28 08/14/17 16:28 08/14/17 16:28 08/14/17 16:28 08/14/17 16:28 Intake & Output 08/13/17 08/14/17 08/15/17 07:59 06:59 06:59 Intake Total 1200 Output Total 25 Balance 1175 Weight Exam: Colostomy appears to be functioning well. Abdomen is appears to be less distended with minimal tenderness. Incision is clean and dry. The nurses can remove alternate ton. Results Laboratory Results: 08/13/17 04:38 08/14/17 08:02 08/14/17 08:02 Sodium 138.6 Potassium 4.0 Chloride 101 Carbon Dioxide 31 H Anion Gap 7 BUN 10 Creatinine 0.92 Est GFR ( Amer) > 60 Est GFR (Non-Af Amer) > 60 Glucose 84 Calcium 7.6 L Magnesium 1.7 08/11/17 06:20 NT-Pro-B Natriuret Pep 5230 H Impressions: Abdomen/Pelvis CTA 07/31/17 16:40 IMPRESSION: 1. There is significant gaseous distention of the right, transverse , and left colons. There is appears to be long segment narrowing of the distal sigmoid colon without definite mass lesion this area on CT. Question possible large bowel obstruction secondary to underlying stricture. There is significant redundancy within the colon. 2. No aortic dissection identified. There is aneurysmal dilatation of the infrarenal abdominal aorta measuring 3.5 x 3.7 cm. 3. 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 The SMA is patent without greater than 50% narrowing. The SUZIE is occluded at its origin and fills distally via collaterals. Multifocal hemodynamically significant narrowing throughout the iliac arteries as detailed above. Chest/Abdomen CTA 07/31/17 16:41 IMPRESSION: 1. There is significant gaseous distention of the right, transverse , and left colons. There is appears to be long segment narrowing of the distal sigmoid colon without definite mass lesion this area on CT. Question possible large bowel obstruction secondary to underlying stricture. There is significant redundancy within the colon. 2. No aortic dissection identified. There is aneurysmal dilatation of the infrarenal abdominal aorta measuring 3.5 x 3.7 cm. 3. 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 The SMA is patent without greater than 50% narrowing. The SUZIE is occluded at its origin and fills distally via collaterals. Multifocal hemodynamically significant narrowing throughout the iliac arteries as detailed above. Interventional Vascular Procedure 08/03/17 00:00 IMPRESSION: SUCCESSFUL PLACEMENT OF A 5 FR DUAL LUMEN 31 CM PICC IN THE RIGHT BASILIC VEIN. PICC Line Insertion 08/03/17 00:00 IMPRESSION: SUCCESSFUL PLACEMENT OF A 5 FR DUAL LUMEN 31 CM PICC IN THE RIGHT BASILIC VEIN. Abdomen X-Ray 08/08/17 08:00 IMPRESSION: Distention of some small bowel loops postsurgically. Ileus versus partial small bowel obstruction. Chest X-Ray 08/11/17 00:00 IMPRESSION: SLIGHTLY INCREASED PARENCHYMAL DENSITY IN THE RIGHT LUNG BASE, NONSPECIFIC. MAY BE DUE TO ATELECTASIS VERSUS DEVELOPING INFILTRATE. Venous Doppler Study 08/11/17 00:00 IMPRESSION: There is DVT and SVT in the right upper extremity as described. KUB X-Ray 08/11/17 12:22 IMPRESSION: SATISFACTORY POSITION OF THE NASOGASTRIC TUBE. NO CHANGE IN THE SMALL BOWEL DILATION, SUGGESTING EITHER ILEUS OR PARTIAL OBSTRUCTION. Assessment & Plan - Diagnosis (1) Postoperative ileus Is this a current diagnosis for this admission?: Yes Plan: iLEUS appears to be resolving. Therefore the NG tube can be DC'd and start him on clear liquids. - Time Time Spent with patient: 15-24 minutes - Plan Summary Plan Summary: #1 DC NG tube and start on clear liquid diet 2. May need to be scheduled for swallowing eval by speech pathologist tomorrow prior to increasing his diet 3. The hospitalist will schedule him for possible swallowing eval.
[2017-08-14] MEDS ORDERED: OLANZAPINE INJ/PF 10 MG SDV IM SCH (22:00)
[2017-08-15] MEDS: METOCLOPRAMIDE HCL INJ/PF 10 MG/2 ML SDV IV SCH ×3 (01:08→12:13)
[2017-08-15] MEDS: METOPROLOL TARTRATE PF/INJ 5 MG/5 ML SDV IV SCH ×2 (01:08→05:37)
[2017-08-15] MEDS: METRONIDAZOLE 500 MG/NS RTU 100 ML IV SCH ×2 (04:20→09:31)
[2017-08-15 08:24] LABS: HEMATOCRIT 29.2 % (37.9-51.0); HEMOGLOBIN 10.1 g/dL (13.5-17.0); HGB HCT DIFFERENCE 1.1; MEAN CORPUSCULAR HEMOGLOBIN 31.6 pg (27.0-33.4); MEAN CORPUSCULAR HGB CONC 34.6 g/dL (32.0-36.0); MEAN CORPUSCULAR VOLUME 91 fl (80-97); RED CELL DISTRIBUTION WIDTH 14.7 % (11.5-14.0); WHITE BLOOD COUNT 7.3 10^3/uL (4.0-10.5)
[2017-08-15] MEDS: LEVOTHYROXINE SODIUM INJ/PF 0.1 MG SDV IV SCH (09:31)
[2017-08-15] MEDS: POTASSI CL 40 MEQ/D5-1/2NS 1L 40 MEQ/1,000 ML RTUINJ IV PRN (09:32)
[2017-08-15] MEDS: ENOXAPARIN SODIUM INJ 100 MG/1 ML DISP.SYRIN SUBCUT SCH (09:32)
--- NOTE | 2017-08-15 09:55 | PDOC PROGRESS REPORT ---
Subjective Subjective:: Patient much more awake alert communicative but disoriented. He is currently minutes on. Physical Exam Vital Signs: Temp Pulse Resp BP Pulse Ox 98.3 F 63 18 117/57 L 90 L 08/15/17 04:00 08/15/17 07:00 08/15/17 04:00 08/15/17 04:00 08/15/17 04:00 Intake & Output 08/14/17 08/15/17 08/16/17 06:59 06:59 06:59 Intake Total 2500 Output Total 25 Balance 2475 Weight 78.8 kg General appearance: PRESENT: no acute distress GI/Abdominal exam: PRESENT: other - Taught, nontender, not distended. One half ton out. Ostomy with stool. Results Laboratory Results: 08/15/17 07:38 08/14/17 08:02 08/15/17 07:38 WBC 7.3 RBC 3.20 L Hgb 10.1 L Hct 29.2 L MCV 91 MCH 31.6 MCHC 34.6 RDW 14.7 H Plt Count 237 08/11/17 06:20 NT-Pro-B Natriuret Pep 5230 H Impressions: Abdomen/Pelvis CTA 07/31/17 16:40 IMPRESSION: 1. There is significant gaseous distention of the right, transverse , and left colons. There is appears to be long segment narrowing of the distal sigmoid colon without definite mass lesion this area on CT. Question possible large bowel obstruction secondary to underlying stricture. There is significant redundancy within the colon. 2. No aortic dissection identified. There is aneurysmal dilatation of the infrarenal abdominal aorta measuring 3.5 x 3.7 cm. 3. 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 The SMA is patent without greater than 50% narrowing. The SUZIE is occluded at its origin and fills distally via collaterals. Multifocal hemodynamically significant narrowing throughout the iliac arteries as detailed above. Chest/Abdomen CTA 07/31/17 16:41 IMPRESSION: 1. There is significant gaseous distention of the right, transverse , and left colons. There is appears to be long segment narrowing of the distal sigmoid colon without definite mass lesion this area on CT. Question possible large bowel obstruction secondary to underlying stricture. There is significant redundancy within the colon. 2. No aortic dissection identified. There is aneurysmal dilatation of the infrarenal abdominal aorta measuring 3.5 x 3.7 cm. 3. 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 The SMA is patent without greater than 50% narrowing. The SUZIE is occluded at its origin and fills distally via collaterals. Multifocal hemodynamically significant narrowing throughout the iliac arteries as detailed above. Interventional Vascular Procedure 08/03/17 00:00 IMPRESSION: SUCCESSFUL PLACEMENT OF A 5 FR DUAL LUMEN 31 CM PICC IN THE RIGHT BASILIC VEIN. PICC Line Insertion 08/03/17 00:00 IMPRESSION: SUCCESSFUL PLACEMENT OF A 5 FR DUAL LUMEN 31 CM PICC IN THE RIGHT BASILIC VEIN. Abdomen X-Ray 08/08/17 08:00 IMPRESSION: Distention of some small bowel loops postsurgically. Ileus versus partial small bowel obstruction. Chest X-Ray 08/11/17 00:00 IMPRESSION: SLIGHTLY INCREASED PARENCHYMAL DENSITY IN THE RIGHT LUNG BASE, NONSPECIFIC. MAY BE DUE TO ATELECTASIS VERSUS DEVELOPING INFILTRATE. Venous Doppler Study 08/11/17 00:00 IMPRESSION: There is DVT and SVT in the right upper extremity as described. KUB X-Ray 08/11/17 12:22 IMPRESSION: SATISFACTORY POSITION OF THE NASOGASTRIC TUBE. NO CHANGE IN THE SMALL BOWEL DILATION, SUGGESTING EITHER ILEUS OR PARTIAL OBSTRUCTION. Assessment & Plan - Diagnosis (1) Large bowel obstruction Plan: Patient is 2 weeks status post exploratory laparotomy, sigmoid colectomy, colostomy for sigmoid volvulus. Clinically he has improved. P.o. intake maintenance marginal. Ostomy output excellent. Recommendations 1. Switch to regular diet, provide more options; need close supervision while bed 2. Would leave maintaining ton in for another week. 2. Surgery will sign off at this time. He can follow-up with [facility] in 1 week for final staple removal.
[2017-08-15] MEDS: FUROSEMIDE INJ/PF 20 MG/2 ML SDV IV SCH (10:19)
[2017-08-15] MEDS: MORPHINE SULFATE 10 MG/ML INJ IV PRN (11:03)
[2017-08-15] MEDS: METRONIDAZOLE 500 MG TABLET PO SCH ×2 (13:51→23:04)
[2017-08-15] MEDS: DEXTROSE 5%-WATER 1000 ML 1,000 ML with POTASSIUM CHLORIDE 20 MEQ IV PRN ×2 (13:51)
--- NOTE | 2017-08-15 14:44 | PDOC PROGRESS REPORT ---
Subjective Progress Note for:: 08/15/17 Subjective:: Unable to obtain since markedly confused. Nurse reports that patient continues with agitation at bedtime. Has been able to tolerate po. since NG was pulled out. Seen by surgeon and would like to sign off since stable and recommends to advance diet. ROS: Unable to obtain due to mental status All significant laboratories and diagnostics had been reviewed. Physical Exam Vital Signs: Temp Pulse Resp BP Pulse Ox 98.3 F 41 L 18 117/57 L 90 L 08/15/17 04:00 08/15/17 04:00 08/15/17 04:00 08/15/17 04:00 08/15/17 04:00 Intake & Output 08/14/17 08/15/17 08/16/17 06:59 06:59 06:59 Intake Total 2500 Output Total 25 Balance 2475 Weight 78.8 kg General appearance: PRESENT: no acute distress, cooperative, obese Head exam: PRESENT: atraumatic, normocephalic Eye exam: PRESENT: EOMI, PERRLA Mouth exam: PRESENT: moist, neck supple Neck exam: PRESENT: full ROM. ABSENT: JVD, tenderness Respiratory exam: PRESENT: clear to auscultation miguelina Cardiovascular exam: ABSENT: diastolic murmur, RRR - IRRR, systolic murmur Vascular exam: PRESENT: normal capillary refill GI/Abdominal exam: PRESENT: normal bowel sounds, soft. ABSENT: distended, firm , guarding Extremities exam: PRESENT: full ROM. ABSENT: joint swelling, pedal edema Neurological exam: PRESENT: alert Results Laboratory Results: 08/13/17 04:38 08/14/17 08:02 08/14/17 08:02 Sodium 138.6 Potassium 4.0 Chloride 101 Carbon Dioxide 31 H Anion Gap 7 BUN 10 Creatinine 0.92 Est GFR ( Amer) > 60 Est GFR (Non-Af Amer) > 60 Glucose 84 Calcium 7.6 L Magnesium 1.7 08/11/17 06:20 NT-Pro-B Natriuret Pep 5230 H Impressions: Abdomen/Pelvis CTA 07/31/17 16:40 IMPRESSION: 1. There is significant gaseous distention of the right, transverse , and left colons. There is appears to be long segment narrowing of the distal sigmoid colon without definite mass lesion this area on CT. Question possible large bowel obstruction secondary to underlying stricture. There is significant redundancy within the colon. 2. No aortic dissection identified. There is aneurysmal dilatation of the infrarenal abdominal aorta measuring 3.5 x 3.7 cm. 3. 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 The SMA is patent without greater than 50% narrowing. The SUZIE is occluded at its origin and fills distally via collaterals. Multifocal hemodynamically significant narrowing throughout the iliac arteries as detailed above. Chest/Abdomen CTA 07/31/17 16:41 IMPRESSION: 1. There is significant gaseous distention of the right, transverse , and left colons. There is appears to be long segment narrowing of the distal sigmoid colon without definite mass lesion this area on CT. Question possible large bowel obstruction secondary to underlying stricture. There is significant redundancy within the colon. 2. No aortic dissection identified. There is aneurysmal dilatation of the infrarenal abdominal aorta measuring 3.5 x 3.7 cm. 3. 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 The SMA is patent without greater than 50% narrowing. The SUZIE is occluded at its origin and fills distally via collaterals. Multifocal hemodynamically significant narrowing throughout the iliac arteries as detailed above. Interventional Vascular Procedure 08/03/17 00:00 IMPRESSION: SUCCESSFUL PLACEMENT OF A 5 FR DUAL LUMEN 31 CM PICC IN THE RIGHT BASILIC VEIN. PICC Line Insertion 08/03/17 00:00 IMPRESSION: SUCCESSFUL PLACEMENT OF A 5 FR DUAL LUMEN 31 CM PICC IN THE RIGHT BASILIC VEIN. Abdomen X-Ray 08/08/17 08:00 IMPRESSION: Distention of some small bowel loops postsurgically. Ileus versus partial small bowel obstruction. Chest X-Ray 08/11/17 00:00 IMPRESSION: SLIGHTLY INCREASED PARENCHYMAL DENSITY IN THE RIGHT LUNG BASE, NONSPECIFIC. MAY BE DUE TO ATELECTASIS VERSUS DEVELOPING INFILTRATE. Venous Doppler Study 08/11/17 00:00 IMPRESSION: There is DVT and SVT in the right upper extremity as described. KUB X-Ray 08/11/17 12:22 IMPRESSION: SATISFACTORY POSITION OF THE NASOGASTRIC TUBE. NO CHANGE IN THE SMALL BOWEL DILATION, SUGGESTING EITHER ILEUS OR PARTIAL OBSTRUCTION. Assessment & Plan - Diagnosis (1) Sigmoid volvulus Is this a current diagnosis for this admission?: Yes Plan: Tolerated procedure well but developed ileus which required NG placement which was removed on 08/10 since began to move his bowel. Ordered reinsertion of NG on 08/11 since abdomen became distended and patient vomited according to nurse. Abdomen improved. Recommend removal of NG tube and start clear liquids. Patient was seen earlier during the week by ST and passed swallowing test. Tolerated clear liquids and surgery recommended to advance diet to regular. Will keep fluids for now until certain is tolerating po. (2) Dementia Qualifiers: Dementia type: unspecified type Dementia behavioral disturbance: with behavioral disturbance Qualified Code(s): F03.91 - Unspecified dementia with behavioral disturbance Is this a current diagnosis for this admission?: Yes Plan: Accordingly patient is baseline as per family. Discussed with nurse need to remove restrains 48 hrs before considering transfer to dementia unit. Try exelon. (3) S/P colectomy Is this a current diagnosis for this admission?: Yes (4) Hypokalemia Is this a current diagnosis for this admission?: Yes Plan: Resolved. Trend (5) Atrial fibrillation Is this a current diagnosis for this admission?: Yes Plan: D/c lopressor IV and place on toprol xl. (6) Fluid overload Is this a current diagnosis for this admission?: Yes Plan: Doing better. Discontinue lasix IV. (7) DVT of axillary vein, acute right Is this a current diagnosis for this admission?: Yes Plan: Discontinue lovenox 1 mg/kg bid . To place on eliquis. (8) Aspiration pneumonia due to gastric secretions Is this a current diagnosis for this admission?: Yes Plan: Transition to levaquin and flagyl po. - Time Time Spent with patient: 15-24 minutes Medications reviewed and adjusted accordingly: Yes Anticipated discharge: SNF Within: within 72 hours - Inpatient Certification Medical Necessity: Significant Comorbidiites Make Outpatient Treatment Too Risky
[2017-08-15] MEDS ORDERED: HYDRALAZINE HCL INJ/PF 20 MG/1 ML SDV IV PRN ×2 (15:00)
[2017-08-15] MEDS ORDERED: RIVASTIGMINE 4.6 MG/24 HR PATCH.TD24 TD SCH (16:00)
[2017-08-15] MEDS ORDERED: OLANZAPINE 5 MG TABLET PO SCH (22:00)
[2017-08-15] MEDS ORDERED: ENOXAPARIN SODIUM INJ 80 MG/0.8 ML DISP.SYRIN SUBCUT SCH (22:00)
[2017-08-15] MEDS ORDERED: METOPROLOL SUCCINATE 50 MG TAB.SR.24H PO SCH (22:00)
[2017-08-15] MEDS: APIXABAN 5 MG TABLET PO SCH (23:05)
[2017-08-16] MEDS: MORPHINE SULFATE 10 MG/ML INJ IV PRN ×3 (00:29→22:18)
[2017-08-16] MEDS: DEXTROSE 5%-WATER 1000 ML 1,000 ML with POTASSIUM CHLORIDE 20 MEQ IV PRN ×2 (06:12)
[2017-08-16] MEDS: METRONIDAZOLE 500 MG TABLET PO SCH ×3 (06:13→21:52)
[2017-08-16] MEDS: LEVOTHYROXINE SODIUM 0.075 MG TABLET PO SCH (10:25)
[2017-08-16] MEDS: APIXABAN 5 MG TABLET PO SCH ×2 (10:31→21:52)
[2017-08-16] MEDS: LEVOFLOXACIN 500 MG TABLET PO SCH (10:31)
[2017-08-16] MEDS: LISINOPRIL 5 MG TABLET PO SCH (10:33)
[2017-08-16] MEDS ORDERED: METOPROLOL SUCCINATE 25 MG TAB.SR.24H PO ONE (13:00)
--- NOTE | 2017-08-16 16:22 | PDOC PROGRESS REPORT ---
Subjective Progress Note for:: 08/16/17 Subjective:: Unable to obtain since markedly confused. Nurse reports that patient continues with agitation at bedtime. ROS: Unable to obtain due to mental status All significant laboratories and diagnostics had been reviewed. Physical Exam Vital Signs: Temp Pulse Resp BP Pulse Ox 98.9 F 58 L 18 118/49 L 94 08/15/17 20:00 08/16/17 02:00 08/15/17 20:00 08/15/17 20:00 08/15/17 20:00 Intake & Output 08/15/17 08/16/17 08/17/17 06:59 06:59 06:59 Intake Total 2500 1893 Output Total 25 76 Balance 2475 1817 Weight 78.8 kg 78.4 kg General appearance: PRESENT: no acute distress, cooperative Head exam: PRESENT: atraumatic, normocephalic Eye exam: PRESENT: EOMI, PERRLA Ear exam: PRESENT: normal external ear exam Mouth exam: PRESENT: moist, neck supple Respiratory exam: PRESENT: clear to auscultation miguelina Cardiovascular exam: ABSENT: diastolic murmur - IRRR, systolic murmur Vascular exam: PRESENT: normal capillary refill GI/Abdominal exam: PRESENT: normal bowel sounds, soft. ABSENT: guarding, tenderness Extremities exam: PRESENT: full ROM, joint swelling. ABSENT: pedal edema Neurological exam: PRESENT: alert Psychiatric exam: PRESENT: agitated Results Laboratory Results: 08/15/17 07:38 08/14/17 08:02 08/15/17 08/15/17 07:38 12:35 WBC 7.3 RBC 3.20 L Hgb 10.1 L Hct 29.2 L MCV 91 MCH 31.6 MCHC 34.6 RDW 14.7 H Plt Count 237 Stool Occult Blood POSITIVE 08/11/17 06:20 NT-Pro-B Natriuret Pep 5230 H Impressions: Abdomen/Pelvis CTA 07/31/17 16:40 IMPRESSION: 1. There is significant gaseous distention of the right, transverse , and left colons. There is appears to be long segment narrowing of the distal sigmoid colon without definite mass lesion this area on CT. Question possible large bowel obstruction secondary to underlying stricture. There is significant redundancy within the colon. 2. No aortic dissection identified. There is aneurysmal dilatation of the infrarenal abdominal aorta measuring 3.5 x 3.7 cm. 3. 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 The SMA is patent without greater than 50% narrowing. The SUZIE is occluded at its origin and fills distally via collaterals. Multifocal hemodynamically significant narrowing throughout the iliac arteries as detailed above. Chest/Abdomen CTA 07/31/17 16:41 IMPRESSION: 1. There is significant gaseous distention of the right, transverse , and left colons. There is appears to be long segment narrowing of the distal sigmoid colon without definite mass lesion this area on CT. Question possible large bowel obstruction secondary to underlying stricture. There is significant redundancy within the colon. 2. No aortic dissection identified. There is aneurysmal dilatation of the infrarenal abdominal aorta measuring 3.5 x 3.7 cm. 3. 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 The SMA is patent without greater than 50% narrowing. The SUZIE is occluded at its origin and fills distally via collaterals. Multifocal hemodynamically significant narrowing throughout the iliac arteries as detailed above. Interventional Vascular Procedure 08/03/17 00:00 IMPRESSION: SUCCESSFUL PLACEMENT OF A 5 FR DUAL LUMEN 31 CM PICC IN THE RIGHT BASILIC VEIN. PICC Line Insertion 08/03/17 00:00 IMPRESSION: SUCCESSFUL PLACEMENT OF A 5 FR DUAL LUMEN 31 CM PICC IN THE RIGHT BASILIC VEIN. Abdomen X-Ray 08/08/17 08:00 IMPRESSION: Distention of some small bowel loops postsurgically. Ileus versus partial small bowel obstruction. Chest X-Ray 08/11/17 00:00 IMPRESSION: SLIGHTLY INCREASED PARENCHYMAL DENSITY IN THE RIGHT LUNG BASE, NONSPECIFIC. MAY BE DUE TO ATELECTASIS VERSUS DEVELOPING INFILTRATE. Venous Doppler Study 08/11/17 00:00 IMPRESSION: There is DVT and SVT in the right upper extremity as described. KUB X-Ray 08/11/17 12:22 IMPRESSION: SATISFACTORY POSITION OF THE NASOGASTRIC TUBE. NO CHANGE IN THE SMALL BOWEL DILATION, SUGGESTING EITHER ILEUS OR PARTIAL OBSTRUCTION. Assessment & Plan - Diagnosis (1) Sigmoid volvulus Is this a current diagnosis for this admission?: Yes Plan: Tolerated procedure well but developed ileus which required NG placement which was removed on 08/10 since began to move his bowel. Ordered reinsertion of NG on 08/11 since abdomen became distended and patient vomited according to nurse. Abdomen improved. Recommend removal of NG tube and start clear liquids. Patient was seen earlier during the week by ST and passed swallowing test. Discontinue fluids and encourage po in anticipation to discharge. (2) Dementia Qualifiers: Dementia type: unspecified type Dementia behavioral disturbance: with behavioral disturbance Qualified Code(s): F03.91 - Unspecified dementia with behavioral disturbance Is this a current diagnosis for this admission?: Yes Plan: Accordingly patient is baseline as per family. Discussed with nurse need to remove restrains 48 hrs before considering transfer to dementia unit. Reorder exelon patch. (3) S/P colectomy Is this a current diagnosis for this admission?: Yes Plan: Ileus resolved. (4) Hypokalemia Is this a current diagnosis for this admission?: Yes Plan: Resolved. D/C fluids. (5) Atrial fibrillation Is this a current diagnosis for this admission?: Yes Plan: continue toprol xl (6) Fluid overload Is this a current diagnosis for this admission?: Yes Plan: Resolved (7) DVT of axillary vein, acute right Is this a current diagnosis for this admission?: Yes Plan: Continue eliquis (8) Aspiration pneumonia due to gastric secretions Qualifiers: Lung location: unspecified part of lung Is this a current diagnosis for this admission?: Yes Plan: repeat cxr for resolution. Continue flagyl and levaquin. - Time Time Spent with patient: 15-24 minutes Medications reviewed and adjusted accordingly: Yes Anticipated discharge: Other - dementia unit Within: within 48 hours - Inpatient Certification Based on my medical assessment, after consideration of the patient's comorbidities, presenting symptoms, or acuity I expect that the services needed warrant INPATIENT care.: Yes I certify that my determination is in accordance with my understanding of Medicare's requirements for reasonable and necessary INPATIENT services [42 CFR 412.3e].: Yes Medical Necessity: Need Close Monitoring Due to Risk of Patient Decompensation
[2017-08-16] MEDS ORDERED: RIVASTIGMINE 4.6 MG/24 HR PATCH.TD24 TD ONE (17:00)
--- NOTE | 2017-08-16 17:15 | RADIOLOGY REPORT (SQ) ---
EXAM DESCRIPTION: CHEST SINGLE VIEW COMPLETED DATE/TIME: 08/16/2017 4:49 pm REASON FOR STUDY: follow up pneumonia COMPARISON: AP chest 08/11/2017, 08/05/2017, 08/03/2017 CT angio chest 07/31/2017 EXAM PARAMETERS: NUMBER OF VIEWS: One view. TECHNIQUE: Single frontal radiographic view of the chest acquired. RADIATION DOSE: NA LIMITATIONS: None. FINDINGS: LUNGS AND PLEURA: Hazy opacity over the right lower chest likely due to a combination of s mall right pleural effusion, and right basilar airspace disease atelectasis versus pneumonia. This i s more prominent than on previous chest film 08/11/2017 Left lung clear. No left pleural effusion. No right or left pneumothorax. MEDIASTINUM AND HILAR STRUCTURES: No masses. Contour normal. HEART AND VASCULAR STRUCTURES: Heart normal in size. Normal vasculature. BONES: No acute findings. HARDWARE: None in the chest. OTHER: No other significant finding. IMPRESSION: Small right pleural effusion with right lower lobe airspace disease atelectasis versus p neumonia. This is more prominent than on chest film 08/11/2017. TECHNICAL DOCUMENTATION: JOB ID: [id number] [employer]- All Rights Reserved
[2017-08-16] MEDS: OLANZAPINE 5 MG TABLET PO SCH (20:34)
[2017-08-17] MEDS: MORPHINE SULFATE 10 MG/ML INJ IV PRN (03:08)
[2017-08-17] MEDS ORDERED: LACTATED RINGERS 1000 ML IV PRN (05:00)
[2017-08-17] MEDS ORDERED: LIDOCAINE 0.5% INJ-PF (5 MG/ML) 50 ML SDV SUBCUT PRN (05:00)
[2017-08-17] MEDS: METRONIDAZOLE 500 MG TABLET PO SCH (05:35)
[2017-08-17 05:53] LABS: MEAN CORPUSCULAR HEMOGLOBIN 31.5 pg (27.0-33.4); MEAN CORPUSCULAR HGB CONC 34.6 g/dL (32.0-36.0); MEAN CORPUSCULAR VOLUME 91 fl (80-97); RED BLOOD COUNT 3.18 10^6/uL (4.35-5.55); RED CELL DISTRIBUTION WIDTH 14.9 % (11.5-14.0); WHITE BLOOD COUNT 7.8 10^3/uL (4.0-10.5)
[2017-08-17] MEDS ORDERED: LORAZEPAM INJ 2 MG/1 ML VIAL IV PRN (10:27)
[2017-08-17] MEDS ORDERED: DEXTROSE 40% GEL 15 GM TUBE PO PRN ×2 (10:30)
[2017-08-17] MEDS: LEVOTHYROXINE SODIUM 0.075 MG TABLET PO SCH (10:47)
[2017-08-17] MEDS: LEVOFLOXACIN 500 MG TABLET PO SCH (10:47)
[2017-08-17] MEDS: APIXABAN 5 MG TABLET PO SCH ×2 (10:47→21:34)
[2017-08-17] MEDS: METOPROLOL SUCCINATE 25 MG TAB.SR.24H PO SCH (11:09)
[2017-08-17] MEDS: LISINOPRIL 5 MG TABLET PO SCH (11:09)
[2017-08-17] MEDS: METOCLOPRAMIDE HCL INJ/PF 10 MG/2 ML SDV IV SCH ×3 (12:28→23:07)
[2017-08-17] MEDS: RIVASTIGMINE 4.6 MG/24 HR PATCH.TD24 TD SCH (12:30)
--- NOTE | 2017-08-17 13:22 | PDOC PROGRESS REPORT ---
Subjective Progress Note for:: 08/17/17 Subjective:: Unable to obtain since markedly confused. Nurse reports that patient has not been having output from ostomy and that is not eating. ROS: Unable to obtain due to mental status All significant laboratories and diagnostics had been reviewed. Physical Exam Vital Signs: Temp Pulse Resp BP Pulse Ox 97.9 F 62 16 117/61 96 08/17/17 00:11 08/17/17 02:00 08/17/17 00:11 08/17/17 00:11 08/16/17 20:24 Intake & Output 08/16/17 08/17/17 08/18/17 06:59 06:59 06:59 Intake Total 1893 795 Output Total 76 50 Balance 1817 745 Weight 78.4 kg 73.7 kg General appearance: PRESENT: no acute distress, cooperative Head exam: PRESENT: atraumatic, normocephalic Eye exam: PRESENT: EOMI, PERRLA Ear exam: PRESENT: normal external ear exam Mouth exam: PRESENT: moist, neck supple Neck exam: PRESENT: full ROM, tenderness. ABSENT: JVD Respiratory exam: PRESENT: clear to auscultation miguelina Cardiovascular exam: ABSENT: diastolic murmur - IRR, systolic murmur Vascular exam: PRESENT: normal capillary refill GI/Abdominal exam: PRESENT: hypoactive bowel sounds, soft, tenderness Extremities exam: PRESENT: full ROM, joint swelling. ABSENT: pedal edema Neurological exam: PRESENT: altered Psychiatric exam: PRESENT: agitated Results Laboratory Results: 08/17/17 05:39 08/14/17 08:02 08/17/17 05:39 WBC 7.8 RBC 3.18 L Hgb 10.0 L Hct 29.0 L MCV 91 MCH 31.5 MCHC 34.6 RDW 14.9 H Plt Count 224 08/11/17 06:20 NT-Pro-B Natriuret Pep 5230 H Impressions: Abdomen/Pelvis CTA 07/31/17 16:40 IMPRESSION: 1. There is significant gaseous distention of the right, transverse , and left colons. There is appears to be long segment narrowing of the distal sigmoid colon without definite mass lesion this area on CT. Question possible large bowel obstruction secondary to underlying stricture. There is significant redundancy within the colon. 2. No aortic dissection identified. There is aneurysmal dilatation of the infrarenal abdominal aorta measuring 3.5 x 3.7 cm. 3. 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 The SMA is patent without greater than 50% narrowing. The SUZIE is occluded at its origin and fills distally via collaterals. Multifocal hemodynamically significant narrowing throughout the iliac arteries as detailed above. Chest/Abdomen CTA 07/31/17 16:41 IMPRESSION: 1. There is significant gaseous distention of the right, transverse , and left colons. There is appears to be long segment narrowing of the distal sigmoid colon without definite mass lesion this area on CT. Question possible large bowel obstruction secondary to underlying stricture. There is significant redundancy within the colon. 2. No aortic dissection identified. There is aneurysmal dilatation of the infrarenal abdominal aorta measuring 3.5 x 3.7 cm. 3. 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 The SMA is patent without greater than 50% narrowing. The SUZIE is occluded at its origin and fills distally via collaterals. Multifocal hemodynamically significant narrowing throughout the iliac arteries as detailed above. Interventional Vascular Procedure 08/03/17 00:00 IMPRESSION: SUCCESSFUL PLACEMENT OF A 5 FR DUAL LUMEN 31 CM PICC IN THE RIGHT BASILIC VEIN. PICC Line Insertion 08/03/17 00:00 IMPRESSION: SUCCESSFUL PLACEMENT OF A 5 FR DUAL LUMEN 31 CM PICC IN THE RIGHT BASILIC VEIN. Abdomen X-Ray 08/08/17 08:00 IMPRESSION: Distention of some small bowel loops postsurgically. Ileus versus partial small bowel obstruction. Venous Doppler Study 08/11/17 00:00 IMPRESSION: There is DVT and SVT in the right upper extremity as described. KUB X-Ray 08/11/17 12:22 IMPRESSION: SATISFACTORY POSITION OF THE NASOGASTRIC TUBE. NO CHANGE IN THE SMALL BOWEL DILATION, SUGGESTING EITHER ILEUS OR PARTIAL OBSTRUCTION. Chest X-Ray 08/16/17 00:00 IMPRESSION: Small right pleural effusion with right lower lobe airspace disease atelectasis versus pneumonia. This is more prominent than on chest film 08/11/2017. Assessment & Plan - Diagnosis (1) Sigmoid volvulus Is this a current diagnosis for this admission?: Yes Plan: Tolerated procedure well but developed ileus which required NG placement which was removed on 08/10 since began to move his bowel. Ordered reinsertion of NG on 08/11 since abdomen became distended and patient vomited according to nurse. Abdomen improved. Recommend removal of NG tube and start clear liquids. Patient was seen earlier during the week by ST and passed swallowing test. Restart fluids and order CT of abdomen/pelvis but only IV since not taking po. Depending on results will reconsult surgery. Will keep NPO except for meds. (2) Dementia Qualifiers: Dementia type: unspecified type Dementia behavioral disturbance: with behavioral disturbance Qualified Code(s): F03.91 - Unspecified dementia with behavioral disturbance Is this a current diagnosis for this admission?: Yes Plan: Accordingly patient is baseline as per family. Off restrains. Continue exelon patch. (3) S/P colectomy Is this a current diagnosis for this admission?: Yes Plan: No output. Order CT abdomen/pelvis as previously discussed (4) Hypokalemia Is this a current diagnosis for this admission?: Yes Plan: Restart fluids and trend (5) Atrial fibrillation Qualifiers: Atrial fibrillation type: persistent Qualified Code(s): I48.1 - Persistent atrial fibrillation Is this a current diagnosis for this admission?: Yes Plan: Continue toprol xl (6) Fluid overload Qualifiers: Hypervolemia type: other Qualified Code(s): E87.79 - Other fluid overload Is this a current diagnosis for this admission?: Yes Plan: Resolved (7) DVT of axillary vein, acute right Is this a current diagnosis for this admission?: Yes Plan: Continue eliquis. Secondary to PICC. (8) Aspiration pneumonia due to gastric secretions Qualifiers: Laterality: right Lung location: unspecified part of lung Qualified Code( s): J69.0 - Pneumonitis due to inhalation of food and vomit Is this a current diagnosis for this admission?: Yes Plan: CXR shows worsening. Change antibiotic to imipenem and zyvox (for MRSA) - Time Time Spent with patient: 15-24 minutes Anticipated discharge: Other - [facility] when ready - Inpatient Certification Based on my medical assessment, after consideration of the patient's comorbidities, presenting symptoms, or acuity I expect that the services needed warrant INPATIENT care.: Yes I certify that my determination is in accordance with my understanding of Medicare's requirements for reasonable and necessary INPATIENT services [42 CFR 412.3e].: Yes Medical Necessity: Need For IV Fluids, Need for IV Antibiotics
--- NOTE | 2017-08-17 14:06 | RADIOLOGY REPORT (SQ) ---
EXAM DESCRIPTION: CT ABD/PELVIS WITH IV ONLY COMPLETED DATE/TIME: 08/17/2017 1:21 pm REASON FOR STUDY: evaluate for recurrent obstruction COMPARISON: Chest film 08/16/2017, 08/11/2017 Abdominal films 08/11/2017, 08/08/2017, 08/07/2017, 08/05/2017 TECHNIQUE: CT scan of the abdomen and pelvis performed using helical scanning technique with dynamic intravenous contrast injection. No oral contrast. Images reviewed with lung, soft tissue, and bone windows. Reconstructed coronal and sagittal MPR images reviewed. Delayed images for evaluation of the urinary system also acquired. All images stored on PACS. All CT scanners at this facility use dose modulation, iterative reconstruction, and/or weight based d osing when appropriate to reduce radiation dose to as low as reasonably achievable (ALARA). [facility]: Dose Right [facility]: CareDose [facility]: Dose Right [facility]: Teradose 4D [facility]: ReferralMD CONTRAST TYPE AND DOSE: contrast/concentration: Isovue 370.00 mg/ml; Total Contrast Delivered: 79.0 ml; Total Saline Delivered: 68.0 ml RENAL FUNCTION: Creatinine 0.92 RADIATION DOSE: Up-to-date CT equipment and radiation dose reduction techniques were employed. CTDIv ol: 10.1 - 11.7 mGy. DLP: 1243 mGy-cm.. LIMITATIONS: None. FINDINGS: LOWER CHEST: There are moderate to large bilateral pleural effusions and near complete col lapse of the right and left lower lobes. This report was called to Dr. Martin LIVER: Normal size. No masses. Subcentimeter hepatic cysts in the right and left lobe liver. No dil ated ducts. SPLEEN: Normal size. No focal lesions. PANCREAS: No masses. No significant calcifications. No adjacent inflammation or peripancreatic fluid collections. Pancreatic duct not dilated. GALLBLADDER: No identified stones by CT criteria. No inflammatory changes to suggest cholecystitis. ADRENAL GLANDS: No significant masses or asymmetry. RIGHT KIDNEY AND URETER: No solid masses. No significant calcifications. No hydronephrosis or hyd roureter. LEFT KIDNEY AND URETER: No solid masses. No significant calcifications. No hydronephrosis or hydr oureter. AORTA AND VESSELS: 3.9 x 3.9 cm unruptured infrarenal abdominal aortic aneurysm. No dissection. 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 RETROPERITONEUM: No retroperitoneal adenopathy, hemorrhage or masses. BOWEL AND PERITONEAL CAVITY: No masses, no bowel obstruction or inflammatory changes. No significant free fluid or peritoneal masses. Left lower quadrant ostomy. APPENDIX: Not identified PELVIS: No mass. Small amount of free fluid. Normal bladder. ABDOMINAL WALL: No masses. No hernias. BONES: No significant or acute findings. OTHER: No other significant finding. 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 TECHNICAL DOCUMENTATION: JOB ID: [id number] Quality ID # [id number]: Final reports with documentation of one or more dose reduction techniques (e.g., Au tomated exposure control, adjustment of the mA and/or kV according to patient size, use of iterative reconstruction technique) 2010 [employer]- All Rights Reserved
[2017-08-17] MEDS: IMIPENEM/CILASTATIN SODIUM 500 MG in NORMAL SALINE 100 ML IV SCH ×2 (14:53→21:34)
[2017-08-17] MEDS ORDERED: FUROSEMIDE INJ/PF 40 MG/4 ML SDV IV ONE (15:00)
[2017-08-17] MEDS: POTASSI CL 20 MEQ/D5LR 1L 20 MEQ/1,000 ML RTUINJ IV PRN (15:09)
[2017-08-17] MEDS: LINEZOLID 300 ML IV SCH (18:46)
[2017-08-17] MEDS: OLANZAPINE 5 MG TABLET PO SCH (21:32)
[2017-08-17] MEDS: FUROSEMIDE INJ/PF 40 MG/4 ML SDV IV SCH (21:34)
[2017-08-18] MEDS: IMIPENEM/CILASTATIN SODIUM 500 MG in NORMAL SALINE 100 ML IV SCH ×4 (03:34→21:11)
[2017-08-18] MEDS: POTASSI CL 20 MEQ/D5LR 1L 20 MEQ/1,000 ML RTUINJ IV PRN (03:34)
[2017-08-18] MEDS: METOCLOPRAMIDE HCL INJ/PF 10 MG/2 ML SDV IV SCH ×3 (05:11→18:33)
[2017-08-18] MEDS: LINEZOLID 300 ML IV SCH ×2 (05:11→18:37)
[2017-08-18 07:25] LABS: ALANINE AMINOTRANSFERASE 32 U/L (21-72); ALBUMIN 2.8 g/dL (3.5-5.0); ALKALINE PHOSPHATASE 44 U/L (38-126); ANION GAP 9 (5-19); ASPARTATE AMINO TRANSFERASE 41 U/L (17-59); BILIRUBIN,DIRECT 0.7 mg/dL (0.0-0.4); BILIRUBIN,TOTAL 0.9 mg/dL (0.2-1.3); BLOOD UREA NITROGEN 6 mg/dL (7-20); CALCIUM 8.3 mg/dL (8.4-10.2); CARBON DIOXIDE 30 mmol/L (22-30); CHLORIDE 100 mmol/L (98-107); CREATININE RESULT 1.02 mg/dL (0.52-1.25); GLUCOSE 155 mg/dL (75-110); MAGNESIUM 1.7 mg/dL (1.6-2.3); POTASSIUM 3.7 mmol/L (3.6-5.0); SODIUM 139.4 mmol/L (137-145); TOTAL PROTEIN 5.5 g/dL (6.3-8.2)
[2017-08-18] MEDS: LEVOTHYROXINE SODIUM 0.075 MG TABLET PO SCH (10:38)
[2017-08-18] MEDS: FUROSEMIDE INJ/PF 40 MG/4 ML SDV IV SCH ×2 (10:55→21:11)
[2017-08-18] MEDS: METOPROLOL SUCCINATE 25 MG TAB.SR.24H PO SCH (10:55)
[2017-08-18] MEDS: LISINOPRIL 5 MG TABLET PO SCH (10:55)
--- NOTE | 2017-08-18 14:16 | PDOC PROGRESS REPORT ---
Subjective Progress Note for:: 08/18/17 Subjective:: Unable to obtain since markedly confused. the bedside and updated about patient's condition ROS: Unable to obtain due to mental status All significant laboratories and diagnostics had been reviewed. Physical Exam Vital Signs: Temp Pulse Resp BP Pulse Ox 98.3 F 68 14 106/66 100 08/17/17 23:28 08/18/17 02:00 08/17/17 23:28 08/17/17 23:28 08/17/17 23:28 Intake & Output 08/17/17 08/18/17 08/19/17 06:59 06:59 06:59 Intake Total 795 2119 Output Total 50 Balance 745 2119 Weight 73.7 kg 67.8 kg General appearance: PRESENT: no acute distress, cooperative, thin Head exam: PRESENT: atraumatic, normocephalic Eye exam: PRESENT: conjunctiva pink, EOMI, PERRLA Ear exam: PRESENT: normal external ear exam Mouth exam: PRESENT: moist, neck supple Neck exam: PRESENT: full ROM. ABSENT: JVD, tenderness Respiratory exam: PRESENT: clear to auscultation miguelina Cardiovascular exam: PRESENT: systolic murmur. ABSENT: diastolic murmur - IRR GI/Abdominal exam: PRESENT: normal bowel sounds, soft. ABSENT: tenderness Extremities exam: ABSENT: joint swelling, pedal edema Musculoskeletal exam: PRESENT: full ROM Neurological exam: PRESENT: altered Results Laboratory Results: 08/17/17 05:39 08/18/17 06:49 08/18/17 06:49 Sodium 139.4 Potassium 3.7 Chloride 100 Carbon Dioxide 30 Anion Gap 9 BUN 6 L Creatinine 1.02 Est GFR ( Amer) > 60 Est GFR (Non-Af Amer) > 60 Glucose 155 H Calcium 8.3 L Magnesium 1.7 Total Bilirubin 0.9 AST 41 ALT 32 Alkaline Phosphatase 44 Total Protein 5.5 L Albumin 2.8 L 08/11/17 06:20 NT-Pro-B Natriuret Pep 5230 H Impressions: Abdomen/Pelvis CTA 07/31/17 16:40 IMPRESSION: 1. There is significant gaseous distention of the right, transverse , and left colons. There is appears to be long segment narrowing of the distal sigmoid colon without definite mass lesion this area on CT. Question possible large bowel obstruction secondary to underlying stricture. There is significant redundancy within the colon. 2. No aortic dissection identified. There is aneurysmal dilatation of the infrarenal abdominal aorta measuring 3.5 x 3.7 cm. 3. 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 The SMA is patent without greater than 50% narrowing. The SUZIE is occluded at its origin and fills distally via collaterals. Multifocal hemodynamically significant narrowing throughout the iliac arteries as detailed above. Chest/Abdomen CTA 07/31/17 16:41 IMPRESSION: 1. There is significant gaseous distention of the right, transverse , and left colons. There is appears to be long segment narrowing of the distal sigmoid colon without definite mass lesion this area on CT. Question possible large bowel obstruction secondary to underlying stricture. There is significant redundancy within the colon. 2. No aortic dissection identified. There is aneurysmal dilatation of the infrarenal abdominal aorta measuring 3.5 x 3.7 cm. 3. 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 The SMA is patent without greater than 50% narrowing. The SUZIE is occluded at its origin and fills distally via collaterals. Multifocal hemodynamically significant narrowing throughout the iliac arteries as detailed above. Interventional Vascular Procedure 08/03/17 00:00 IMPRESSION: SUCCESSFUL PLACEMENT OF A 5 FR DUAL LUMEN 31 CM PICC IN THE RIGHT BASILIC VEIN. PICC Line Insertion 08/03/17 00:00 IMPRESSION: SUCCESSFUL PLACEMENT OF A 5 FR DUAL LUMEN 31 CM PICC IN THE RIGHT BASILIC VEIN. Abdomen X-Ray 08/08/17 08:00 IMPRESSION: Distention of some small bowel loops postsurgically. Ileus versus partial small bowel obstruction. Venous Doppler Study 08/11/17 00:00 IMPRESSION: There is DVT and SVT in the right upper extremity as described. KUB X-Ray 08/11/17 12:22 IMPRESSION: SATISFACTORY POSITION OF THE NASOGASTRIC TUBE. NO CHANGE IN THE SMALL BOWEL DILATION, SUGGESTING EITHER ILEUS OR PARTIAL OBSTRUCTION. Chest X-Ray 08/16/17 00:00 IMPRESSION: Small right pleural effusion with right lower lobe airspace disease atelectasis versus pneumonia. This is more prominent than on chest film 08/11/2017. Abdomen/Pelvis CT 08/17/17 00:00 IMPRESSION: No CT evidence of bowel obstruction High-grade narrowing of the proximal SMA and celiac artery without CT evidence of bowel ischemia Moderate to large bilateral pleural effusions with near complete collapse of the right and left lower lobes. Assessment & Plan - Diagnosis (1) Sigmoid volvulus Is this a current diagnosis for this admission?: Yes Plan: CT scan of the abdomen obtained on 08/17 does not show any problems that may relate to surgery including ileus. However did show bilateral pleural effusions suggestive of fluid overload. Oral intake still poor and requires a lot of encouragement and assistance. He has never been able to feed himself since developed dementia. Findings were discussed with . (2) Dementia Qualifiers: Dementia type: unspecified type Dementia behavioral disturbance: with behavioral disturbance Qualified Code(s): F03.91 - Unspecified dementia with behavioral disturbance Is this a current diagnosis for this admission?: Yes Plan: Accordingly patient is baseline as per family. Off restrains. Continue exelon patch. (3) S/P colectomy Is this a current diagnosis for this admission?: Yes Plan: No ileus of obstruction as per CT of the abdomen and pelvis obtained on 08/17 (4) Hypokalemia Is this a current diagnosis for this admission?: Yes Plan: Replace and to discontinue IV fluids due to the presence of bilateral pleural effusions (5) Atrial fibrillation Qualifiers: Atrial fibrillation type: persistent Qualified Code(s): I48.1 - Persistent atrial fibrillation Is this a current diagnosis for this admission?: Yes Plan: Continue toprol xl (6) Fluid overload Qualifiers: Hypervolemia type: other Qualified Code(s): E87.79 - Other fluid overload Is this a current diagnosis for this admission?: Yes Plan: Appears severe as per CT of the abdomen and pelvis. Patient had been placed on Lasix IV. We will request interventional radiology to proceed with thoracentesis in the side that appears the worse. Order echocardiogram. (7) DVT of axillary vein, acute right Is this a current diagnosis for this admission?: Yes Plan: Hold off Eliquis in anticipation for thoracentesis. Secondary to PICC. (8) Aspiration pneumonia due to gastric secretions Qualifiers: Laterality: right Lung location: unspecified part of lung Qualified Code( s): J69.0 - Pneumonitis due to inhalation of food and vomit Is this a current diagnosis for this admission?: Yes Plan: CXR shows worsening. Concern that bilateral effusions may be also infectious. Continue dependent and Zyvox - Time Time Spent with patient: 15-24 minutes Medications reviewed and adjusted accordingly: Yes Anticipated discharge: Other - [facility] when ready - Inpatient Certification Based on my medical assessment, after consideration of the patient's comorbidities, presenting symptoms, or acuity I expect that the services needed warrant INPATIENT care.: Yes I certify that my determination is in accordance with my understanding of Medicare's requirements for reasonable and necessary INPATIENT services [42 CFR 412.3e].: Yes Medical Necessity: Need for IV Antibiotics, Risk of Complication if Not Cared For in Hospital
[2017-08-18] MEDS: RIVASTIGMINE 4.6 MG/24 HR PATCH.TD24 TD SCH (16:39)
[2017-08-18] MEDS: OLANZAPINE 5 MG TABLET PO SCH (21:11)
[2017-08-19] MEDS ORDERED: LORAZEPAM INJ 2 MG/1 ML VIAL ONE (00:39)
[2017-08-19] MEDS: METOCLOPRAMIDE HCL INJ/PF 10 MG/2 ML SDV IV SCH ×5 (00:45→17:41)
[2017-08-19] MEDS: IMIPENEM/CILASTATIN SODIUM 500 MG in NORMAL SALINE 100 ML IV SCH ×4 (02:11→22:00)
[2017-08-19] MEDS: LINEZOLID 300 ML IV SCH (06:15)
[2017-08-19 06:27] LABS: HEMATOCRIT 32.6 % (37.9-51.0); HEMOGLOBIN 11.4 g/dL (13.5-17.0); HGB HCT DIFFERENCE 1.6; MEAN CORPUSCULAR HEMOGLOBIN 31.8 pg (27.0-33.4); MEAN CORPUSCULAR HGB CONC 34.9 g/dL (32.0-36.0); MEAN CORPUSCULAR VOLUME 91 fl (80-97); RED BLOOD COUNT 3.58 10^6/uL (4.35-5.55); RED CELL DISTRIBUTION WIDTH 15.1 % (11.5-14.0); WHITE BLOOD COUNT 7.3 10^3/uL (4.0-10.5)
[2017-08-19 06:57] LABS: ALANINE AMINOTRANSFERASE 35 U/L (21-72); ALBUMIN 3.1 g/dL (3.5-5.0); ALKALINE PHOSPHATASE 52 U/L (38-126); ANION GAP 12 (5-19); ASPARTATE AMINO TRANSFERASE 41 U/L (17-59); BILIRUBIN,DIRECT 0.6 mg/dL (0.0-0.4); BILIRUBIN,TOTAL 0.9 mg/dL (0.2-1.3); BLOOD UREA NITROGEN 7 mg/dL (7-20); CALCIUM 8.7 mg/dL (8.4-10.2); CARBON DIOXIDE 28 mmol/L (22-30); CHLORIDE 102 mmol/L (98-107); CREATININE RESULT 1.04 mg/dL (0.52-1.25); GLUCOSE 92 mg/dL (75-110); MAGNESIUM 1.9 mg/dL (1.6-2.3); SODIUM 141.9 mmol/L (137-145); TOTAL PROTEIN 5.7 g/dL (6.3-8.2)
[2017-08-19 09:28] LABS: PROTHROMBIN TIME 16.2 SEC (11.4-15.4)
[2017-08-19 09:29] LABS: PARTIAL THROMBOPLASTIN TIME 42.4 SEC (23.5-35.8)
[2017-08-19] MEDS: LEVOTHYROXINE SODIUM 0.075 MG TABLET PO SCH (09:29)
--- NOTE | 2017-08-19 09:35 | XCELERA REPORT ---
[address] [address] Transthoracic Echocardiogram Report Name: SUZI GARCIA SR Age: 76 yrs Gender: Male : 1940 Patient Status: Inpatient Patient Location: [address] [place] [address] Study Date: 08/18/2017 03:29 PM Height: 65 in Weight: 149 lb BSA: 1.7 m2 Procedure: A complete two-dimensional transthoracic echocardiogram was performed (2D, M-mode, spectral and color flow Doppler). The study was technically difficult with many images being suboptimal in quality. Reason For Study: fluid overload Ordering Physician: REBEKAH ANGEL Performed By: Carol Ann Amin Interpretation Summary The study was technically difficult with many images being suboptimal in quality. The left ventricular ejection fraction is normal. There is borderline concentric left ventricular hypertrophy. The left ventricle is grossly normal size. LV diastolic function not assessed. Regional wall motion abnormalities cannot be excluded due to limited visualization. The right ventricular systolic function is normal. The right atrium is borderline dilated. The left atrium is mildly dilated. There is no mitral valve stenosis. There is a trace amount of mitral regurgitation There is no aortic valve stenosis No aortic regurgitation is present. There is a trace or physiologic amount of tricuspid regurgitation Tricuspid regurgitation jet envelope not well defined to measure RV systolic pressure accurately. The aortic root is not well visualized. The inferior vena cava was not well visualized There is no pericardial effusion. MMode/2D Measurements & Calculations IVSd: 0.86 cm LVIDd: 4.9 cm FS: 39.5 % Ao root diam: 2.5 cm LVIDs: 3.0 cm EDV(Teich): 113.7 ml LVPWd: 0.87 cm ESV(Teich): 34.2 ml Ao root area: 4.7 cm2 EF(Teich): 69.9 % Doppler Measurements & Calculations MV E max salvatore: MV dec slope: Ao V2 max: LV V1 max P.0 cm/sec 81.6 cm/sec 2.0 mmHg MV A max salvatore: 423.0 cm/sec2 Ao max PG: LV V1 max: 62.9 cm/sec MV dec time: 0.22 sec2.7 mmHg 71.2 cm/sec MV E/A: 1.5 Left Ventricle The left ventricle is grossly normal size. There is borderline concentric left ventricular hypertrophy. The left ventricular ejection fraction is normal. LV diastolic function not assessed. Regional wall motion abnormalities cannot be excluded due to limited visualization. Right Ventricle The right ventricle is grossly normal size. There is normal right ventricular wall thickness. The right ventricular systolic function is normal. Atria The right atrium is borderline dilated. The left atrium is mildly dilated. Interarterial septum not well visualized and not well dopplered. Cannot comment on ASD/PFO presence. Mitral Valve The mitral valve is grossly normal. There is no mitral valve stenosis. There is a trace amount of mitral regurgitation. Aortic Valve The aortic valve is not well visualized secondary to technical limitations. There is no aortic valve stenosis. No aortic regurgitation is present. Tricuspid Valve The tricuspid valve is not well visualized secondary to technical limitations. There is no tricuspid stenosis. There is a trace or physiologic amount of tricuspid regurgitation. Tricuspid regurgitation jet envelope not well defined to measure RV systolic pressure accurately. Pulmonic Valve The pulmonic valve is not well visualized. Great Vessels The aortic root is not well visualized. The inferior vena cava was not well visualized. Effusions There is no pericardial effusion. : REBEKAH ANGEL > Ilda Mabry
[2017-08-19] MEDS ORDERED: DOXYCYCLINE HYCLATE 100 MG TABLET PO ONE (11:00)
--- NOTE | 2017-08-19 11:30 | RADIOLOGY REPORT (SQ) ---
EXAM DESCRIPTION: CHEST SINGLE VIEW COMPLETED DATE/TIME: 08/19/2017 11:16 am REASON FOR STUDY: S/P RT THORACENTESIS COMPARISON: 08/16/2016 EXAM PARAMETERS: NUMBER OF VIEWS: One view. TECHNIQUE: Single frontal radiographic view of the chest acquired. RADIATION DOSE: NA LIMITATIONS: None. FINDINGS: LUNGS AND PLEURA: Relatively low lung volumes. MEDIASTINUM AND HILAR STRUCTURES: No masses. Contour normal. HEART AND VASCULAR STRUCTURES: Heart normal in size. Normal vasculature. BONES: No acute findings. HARDWARE: None in the chest. OTHER: No other significant finding. IMPRESSION: NO ACUTE RADIOGRAPHIC FINDING IN THE CHEST. TECHNICAL DOCUMENTATION: JOB ID: [id number] [employer]- All Rights Reserved
--- NOTE | 2017-08-19 11:48 | RADIOLOGY REPORT (SQ) ---
EXAM DESCRIPTION: U/S THORACENTESIS WITH IMAGING COMPLETED DATE/TIME: 08/19/2017 11:16 am REASON FOR STUDY: pleural effusion COMPARISON: Chest film 08/16/2017, CT abdomen pelvis 08/17/2017 LIMITATIONS: None. PROCEDURE: Procedure, risks, benefit, and alternative explained to patient who then gave written con sent. The posterior right chest wall was marked using ultrasound guidance. A time-out was called fo r correct marking verification. Chest prepped and draped using sterile technique. Local anesthesia a chieved using 6 ml of 1% lidocaine injection. A 6fr Safe-T- Centesis set was introduced into the pos terior right pleural space. Fluid was aspirated. The catheter was removed and the entry site was co cordelia with sterile bandage. No immediate complications noted. Post procedure chest x-ray, dictated s eparately, demonstrates no right-sided pneumothorax. Images acquired during the procedure were stored on PACS. FINDINGS: ENTRY SITE: Posterior right thorax FLUID VOLUME: 450 mL of clear straw-colored fluid FLUID ANALYSIS: Yes, sent for cytology and routine testing OTHER: No immediate complication on chest x-ray dictated separately IMPRESSION: SUCCESSFUL THORACENTESIS USING ULTRASOUND GUIDANCE. COMMENT: Patient medication list reviewed: Yes- Quality ID# [id number]:Eligible professional attests to doc umenting in the medical record they obtained, updated, or reviewed the patient's current medications. Quality ID #[id number]: Final reports for procedures using fluoroscopy that document radiation exposure alhaji new, or exposure time and number of fluorographic images (if radiation exposure indices are not avail able) TECHNICAL DOCUMENTATION: JOB ID: [id number] [email or web address]- All Rights Reserved
[2017-08-19 13:17] LABS: FLUID APPEARANCE SLIGHTLY HAZY; FLUID TYPE PLEURAL
[2017-08-19 13:18] LABS: FLUID RBC DILUENT USED NONE USED; FLUID RBC DILUTION FACTOR 1; FLUID RBC SIDE 1 158; FLUID RBC SIDE 2 140; TOTAL RBC SQUARES COUNTED FLD 150
[2017-08-19] MEDS: METOPROLOL SUCCINATE 25 MG TAB.SR.24H PO SCH (13:49)
[2017-08-19] MEDS: LISINOPRIL 5 MG TABLET PO SCH (13:49)
[2017-08-19] MEDS: FENTANYL 12 MCG/HR PATCH.TD72 TD SCH (13:50)
[2017-08-19] MEDS: FUROSEMIDE INJ/PF 40 MG/4 ML SDV IV SCH ×2 (13:52→21:59)
[2017-08-19] MEDS: RIVASTIGMINE 4.6 MG/24 HR PATCH.TD24 TD SCH (14:18)
--- NOTE | 2017-08-19 14:32 | RADIOLOGY REPORT (SQ) ---
EXAM DESCRIPTION: CHEST SINGLE VIEW COMPLETED DATE/TIME: 08/19/2017 1:23 pm REASON FOR STUDY: 2 HOURS S/P RT THORACENTESIS COMPARISON: Chest films 08/05/2017, 08/11/2017, 04/15/2017, 08/19/2017 EXAM PARAMETERS: NUMBER OF VIEWS: One view. TECHNIQUE: Single frontal radiographic view of the chest acquired. RADIATION DOSE: NA LIMITATIONS: None. FINDINGS: LUNGS AND PLEURA: No pneumothorax 2 hours post right thoracentesis. No residual right pleural fluid. Minimal bibasilar atelectasis. MEDIASTINUM AND HILAR STRUCTURES: No masses. Contour normal. HEART AND VASCULAR STRUCTURES: Heart normal in size. Normal vasculature. BONES: No acute findings. HARDWARE: None in the chest. OTHER: No other significant finding. IMPRESSION: No pneumothorax 2 hours post right thoracentesis. Minimal bibasilar airspace disease li sara atelectasis left greater than right TECHNICAL DOCUMENTATION: JOB ID: [id number] [employer]- All Rights Reserved
--- NOTE | 2017-08-19 15:20 | PDOC PROGRESS REPORT ---
Subjective Progress Note for:: 08/19/17 Subjective:: Unable to obtain since markedly confused. Was agitated last night and required to be medicated with Ativan. We contacted his POA(Meaghan) and updated about patient overall medical status. I communicated my concerns of patient having extremely poor oral intake which is not a good sign in patients with dementia. POA (Meaghan) expressed that she was appreciative about the honest update about his progress. Patient is to continue full code however after discussion with other family members they wish to proceed with hospice. They would like to see if hospice can talk with her sister who shares the POA status and is coming from [place] over the weekend. She was made aware that I was coming off the service but that author was to update incoming physician about her wishes. ROS: Unable to obtain due to mental status All significant laboratories and diagnostics had been reviewed. Physical Exam Vital Signs: Temp Pulse Resp BP Pulse Ox 98.1 F 65 18 122/62 96 08/19/17 00:00 08/19/17 02:00 08/19/17 00:00 08/19/17 00:00 08/19/17 00:00 Intake & Output 08/18/17 08/19/17 08/20/17 06:59 06:59 06:59 Intake Total 2118 1948 Balance 2118 1948 Weight 67.8 kg 69.9 kg General appearance: PRESENT: no acute distress, cooperative Head exam: PRESENT: atraumatic, normocephalic Eye exam: PRESENT: EOMI, PERRLA Ear exam: PRESENT: normal external ear exam Mouth exam: PRESENT: moist, neck supple Neck exam: PRESENT: full ROM. ABSENT: JVD, tenderness Cardiovascular exam: PRESENT: diastolic murmur - IRR, systolic murmur Vascular exam: PRESENT: normal capillary refill GI/Abdominal exam: PRESENT: guarding, normal bowel sounds. ABSENT: soft, tenderness Neurological exam: PRESENT: altered Results Laboratory Results: 08/19/17 05:58 08/19/17 05:58 08/18/17 08/19/17 08/19/17 06:49 05:58 05:58 WBC 7.3 RBC 3.58 L Hgb 11.4 L Hct 32.6 L MCV 91 MCH 31.8 MCHC 34.9 RDW 15.1 H Plt Count 253 Sodium 139.4 141.9 Potassium 3.7 4.0 Chloride 100 102 Carbon Dioxide 30 28 Anion Gap 9 12 BUN 6 L 7 Creatinine 1.02 1.04 Est GFR ( Amer) > 60 > 60 Est GFR (Non-Af Amer) > 60 > 60 Glucose 155 H 92 Calcium 8.3 L 8.7 Magnesium 1.7 1.9 Total Bilirubin 0.9 0.9 AST 41 41 ALT 32 35 Alkaline Phosphatase 44 52 Total Protein 5.5 L 5.7 L Albumin 2.8 L 3.1 L 08/11/17 08/18/17 06:20 06:49 NT-Pro-B Natriuret Pep 5230 H 2330 H Impressions: Abdomen/Pelvis CTA 07/31/17 16:40 IMPRESSION: 1. There is significant gaseous distention of the right, transverse , and left colons. There is appears to be long segment narrowing of the distal sigmoid colon without definite mass lesion this area on CT. Question possible large bowel obstruction secondary to underlying stricture. There is significant redundancy within the colon. 2. No aortic dissection identified. There is aneurysmal dilatation of the infrarenal abdominal aorta measuring 3.5 x 3.7 cm. 3. 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 The SMA is patent without greater than 50% narrowing. The SUZIE is occluded at its origin and fills distally via collaterals. Multifocal hemodynamically significant narrowing throughout the iliac arteries as detailed above. Chest/Abdomen CTA 07/31/17 16:41 IMPRESSION: 1. There is significant gaseous distention of the right, transverse , and left colons. There is appears to be long segment narrowing of the distal sigmoid colon without definite mass lesion this area on CT. Question possible large bowel obstruction secondary to underlying stricture. There is significant redundancy within the colon. 2. No aortic dissection identified. There is aneurysmal dilatation of the infrarenal abdominal aorta measuring 3.5 x 3.7 cm. 3. 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 The SMA is patent without greater than 50% narrowing. The SUZIE is occluded at its origin and fills distally via collaterals. Multifocal hemodynamically significant narrowing throughout the iliac arteries as detailed above. Interventional Vascular Procedure 08/03/17 00:00 IMPRESSION: SUCCESSFUL PLACEMENT OF A 5 FR DUAL LUMEN 31 CM PICC IN THE RIGHT BASILIC VEIN. PICC Line Insertion 08/03/17 00:00 IMPRESSION: SUCCESSFUL PLACEMENT OF A 5 FR DUAL LUMEN 31 CM PICC IN THE RIGHT BASILIC VEIN. Abdomen X-Ray 08/08/17 08:00 IMPRESSION: Distention of some small bowel loops postsurgically. Ileus versus partial small bowel obstruction. Venous Doppler Study 08/11/17 00:00 IMPRESSION: There is DVT and SVT in the right upper extremity as described. KUB X-Ray 08/11/17 12:22 IMPRESSION: SATISFACTORY POSITION OF THE NASOGASTRIC TUBE. NO CHANGE IN THE SMALL BOWEL DILATION, SUGGESTING EITHER ILEUS OR PARTIAL OBSTRUCTION. Chest X-Ray 08/16/17 00:00 IMPRESSION: Small right pleural effusion with right lower lobe airspace disease atelectasis versus pneumonia. This is more prominent than on chest film 08/11/2017. Abdomen/Pelvis CT 08/17/17 00:00 IMPRESSION: No CT evidence of bowel obstruction High-grade narrowing of the proximal SMA and celiac artery without CT evidence of bowel ischemia Moderate to large bilateral pleural effusions with near complete collapse of the right and left lower lobes. Assessment & Plan - Diagnosis (1) Sigmoid volvulus Is this a current diagnosis for this admission?: Yes Plan: CT scan of the abdomen obtained on 08/17 does not show any problems that may relate to surgery including ileus. However did show bilateral pleural effusions suggestive of fluid overload. Oral intake still poor and requires a lot of encouragement and assistance. He has never been able to feed himself since developed dementia. Findings were discussed with POA. (2) Dementia Qualifiers: Dementia type: unspecified type Dementia behavioral disturbance: with behavioral disturbance Qualified Code(s): F03.91 - Unspecified dementia with behavioral disturbance Is this a current diagnosis for this admission?: Yes Plan: Accordingly patient is baseline as per family. Off restrains. Continue exelon patch. (3) S/P colectomy Is this a current diagnosis for this admission?: Yes Plan: No ileus or obstruction as per CT of the abdomen and pelvis obtained on 08/17 (4) Hypokalemia Is this a current diagnosis for this admission?: Yes Plan: Replaced (5) Atrial fibrillation Qualifiers: Atrial fibrillation type: persistent Qualified Code(s): I48.1 - Persistent atrial fibrillation Is this a current diagnosis for this admission?: Yes Plan: Continue toprol xl. ECHO noted. (6) Fluid overload Qualifiers: Hypervolemia type: other Qualified Code(s): E87.79 - Other fluid overload Is this a current diagnosis for this admission?: Yes Plan: Appears severe as per CT of the abdomen and pelvis. Continue Lasix IV. For thoracentesis today (7) DVT of axillary vein, acute right Is this a current diagnosis for this admission?: Yes Plan: Secondary to PICC. To restart Eliquis in a.m. (8) Aspiration pneumonia due to gastric secretions Qualifiers: Laterality: right Lung location: unspecified part of lung Qualified Code( s): J69.0 - Pneumonitis due to inhalation of food and vomit Is this a current diagnosis for this admission?: Yes Plan: CXR shows worsening. Concern that bilateral effusions may be also infectious. Continue Imipenem and Zyvox (9) Pleural effusion due to CHF (congestive heart failure) Is this a current diagnosis for this admission?: Yes Plan: For thoracentesis today. Echocardiogram did not show EF but according to the reading likely problem may relate to diastolic dysfunction (10) Anemia Qualifiers: Anemia type: unspecified type Qualified Code(s): D64.9 - Anemia, unspecified Is this a current diagnosis for this admission?: Yes Plan: Likely due to chronic disease. So far stable - Time Time Spent with patient: 25-34 minutes Medications reviewed and adjusted accordingly: Yes Anticipated discharge: Other - [facility]: Other - Unable to determine at this time - Inpatient Certification Based on my medical assessment, after consideration of the patient's comorbidities, presenting symptoms, or acuity I expect that the services needed warrant INPATIENT care.: Yes I certify that my determination is in accordance with my understanding of Medicare's requirements for reasonable and necessary INPATIENT services [42 CFR 412.3e].: Yes Medical Necessity: Need For Continuous Telemetry Monitoring, Need for IV Antibiotics, Risk of Complication if Not Cared For in Hospital
[2017-08-19] MEDS: LORAZEPAM INJ 2 MG/1 ML VIAL IV SCH (21:59)
[2017-08-19] MEDS: DOXYCYCLINE HYCLATE 100 MG TABLET PO SCH (22:01)
[2017-08-19] MEDS: OLANZAPINE 5 MG TABLET PO SCH (22:02)
[2017-08-20] MEDS: IMIPENEM/CILASTATIN SODIUM 500 MG in NORMAL SALINE 100 ML IV SCH ×4 (03:00→20:57)
[2017-08-20] MEDS: METOCLOPRAMIDE HCL INJ/PF 10 MG/2 ML SDV IV SCH ×3 (05:06→18:13)
[2017-08-20] MEDS: METOPROLOL SUCCINATE 25 MG TAB.SR.24H PO SCH (08:59)
[2017-08-20] MEDS: LEVOTHYROXINE SODIUM 0.075 MG TABLET PO SCH (08:59)
[2017-08-20] MEDS: LISINOPRIL 5 MG TABLET PO SCH (09:00)
[2017-08-20] MEDS: DOXYCYCLINE HYCLATE 100 MG TABLET PO SCH ×2 (09:01→21:20)
[2017-08-20] MEDS: FUROSEMIDE INJ/PF 40 MG/4 ML SDV IV SCH ×2 (09:01→21:20)
[2017-08-20] MEDS: RIVASTIGMINE 4.6 MG/24 HR PATCH.TD24 TD SCH (11:00)
--- NOTE | 2017-08-20 11:51 | PDOC PROGRESS REPORT ---
Subjective Progress Note for:: 08/20/17 Subjective:: The patient is a 76-year-old male who was admitted with a sigmoid volvulus. He has undergone surgery. Postoperatively he developed an ileus. This corrected with replacement of potassium and IV Reglan. Other complications have included a right upper extremity thrombosis due to a PICC line. The patient had a thoracentesis yesterday. This is likely a transudate based on the labs that are currently available. He has developed some volume overload. The family has been discussing the possibility of hospice with the care team as of yesterday. Currently, he remains full code. Physical Exam Vital Signs: Temp Pulse Resp BP Pulse Ox 98.1 F 82 18 139/85 H 96 08/20/17 08:00 08/20/17 08:00 08/20/17 08:00 08/20/17 08:00 08/20/17 08:00 Intake & Output 08/19/17 08/20/17 08/21/17 06:59 06:59 06:59 Intake Total 194 677 Balance 194 677 Weight 69.9 kg 69.6 kg Additional comments: The patient appears to be elderly and frail. The patient does not communicate verbally. When I was trying to examine him he tried to puncture my chest with a fork. However, he was not belligerent or combative. He was just annoyed that I was trying to examine him. I was able to listen to his lungs. He does have some rales at the bases. His cardiac exam is noted to be regular without murmurs, gallops or rubs. The abdomen is nondistended. Bowel sounds are present but are hypoactive. The incision looks good. Lisseth are still present. There is no guarding or rebound noted. No hernias or masses are present. The lower extremities are warm to touch. No pitting edema is present. Skin is warm, dry, intact without lesions or rashes. Results Laboratory Results: 08/19/17 05:58 08/19/17 05:58 08/19/17 10:50 Fluid Type PLEURAL Fluid Source Fluid Color YELLOW Fluid Appearance SLIGHTLY HAZY Fluid Viscosity LIQUID Fluid WBC 81 Fluid RBC 248 08/11/17 08/18/17 06:20 06:49 NT-Pro-B Natriuret Pep 5230 H 2330 H Impressions: Abdomen/Pelvis CTA 07/31/17 16:40 IMPRESSION: 1. There is significant gaseous distention of the right, transverse , and left colons. There is appears to be long segment narrowing of the distal sigmoid colon without definite mass lesion this area on CT. Question possible large bowel obstruction secondary to underlying stricture. There is significant redundancy within the colon. 2. No aortic dissection identified. There is aneurysmal dilatation of the infrarenal abdominal aorta measuring 3.5 x 3.7 cm. 3. 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 The SMA is patent without greater than 50% narrowing. The SUZIE is occluded at its origin and fills distally via collaterals. Multifocal hemodynamically significant narrowing throughout the iliac arteries as detailed above. Chest/Abdomen CTA 07/31/17 16:41 IMPRESSION: 1. There is significant gaseous distention of the right, transverse , and left colons. There is appears to be long segment narrowing of the distal sigmoid colon without definite mass lesion this area on CT. Question possible large bowel obstruction secondary to underlying stricture. There is significant redundancy within the colon. 2. No aortic dissection identified. There is aneurysmal dilatation of the infrarenal abdominal aorta measuring 3.5 x 3.7 cm. 3. 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 The SMA is patent without greater than 50% narrowing. The SUZIE is occluded at its origin and fills distally via collaterals. Multifocal hemodynamically significant narrowing throughout the iliac arteries as detailed above. Interventional Vascular Procedure 08/03/17 00:00 IMPRESSION: SUCCESSFUL PLACEMENT OF A 5 FR DUAL LUMEN 31 CM PICC IN THE RIGHT BASILIC VEIN. PICC Line Insertion 08/03/17 00:00 IMPRESSION: SUCCESSFUL PLACEMENT OF A 5 FR DUAL LUMEN 31 CM PICC IN THE RIGHT BASILIC VEIN. Abdomen X-Ray 08/08/17 08:00 IMPRESSION: Distention of some small bowel loops postsurgically. Ileus versus partial small bowel obstruction. Venous Doppler Study 08/11/17 00:00 IMPRESSION: There is DVT and SVT in the right upper extremity as described. KUB X-Ray 08/11/17 12:22 IMPRESSION: SATISFACTORY POSITION OF THE NASOGASTRIC TUBE. NO CHANGE IN THE SMALL BOWEL DILATION, SUGGESTING EITHER ILEUS OR PARTIAL OBSTRUCTION. Abdomen/Pelvis CT 08/17/17 00:00 IMPRESSION: No CT evidence of bowel obstruction High-grade narrowing of the proximal SMA and celiac artery without CT evidence of bowel ischemia Moderate to large bilateral pleural effusions with near complete collapse of the right and left lower lobes. Chest X-Ray 08/19/17 00:00 IMPRESSION: No pneumothorax 2 hours post right thoracentesis. Minimal bibasilar airspace disease likely atelectasis left greater than right Thoracentesis Ultrasound 08/19/17 00:00 IMPRESSION: SUCCESSFUL THORACENTESIS USING ULTRASOUND GUIDANCE. Assessment & Plan - Diagnosis (1) Aspiration pneumonia due to gastric secretions Qualifiers: Laterality: right Lung location: unspecified part of lung Qualified Code( s): J69.0 - Pneumonitis due to inhalation of food and vomit Is this a current diagnosis for this admission?: Yes Plan: Respiratory status is stable today. (2) Atrial fibrillation Qualifiers: Atrial fibrillation type: persistent Qualified Code(s): I48.1 - Persistent atrial fibrillation Is this a current diagnosis for this admission?: Yes Plan: Continue Toprol and Eliquis. (3) DVT of axillary vein, acute right Is this a current diagnosis for this admission?: Yes Plan: Continue Eliquis (4) Dementia Qualifiers: Dementia type: unspecified type Dementia behavioral disturbance: with behavioral disturbance Qualified Code(s): F03.91 - Unspecified dementia with behavioral disturbance Is this a current diagnosis for this admission?: Yes Plan: Very advanced (5) Fluid overload Qualifiers: Hypervolemia type: other Qualified Code(s): E87.79 - Other fluid overload Is this a current diagnosis for this admission?: Yes Plan: Continue Lasix (6) Hypokalemia Is this a current diagnosis for this admission?: Yes Plan: Repeat labs in the morning (7) Pleural effusion due to CHF (congestive heart failure) Is this a current diagnosis for this admission?: Yes Plan: Patient had thoracentesis yesterday. This was uneventful. 450 mL of straw- colored fluid was removed. There is negative so far. Labs are unremarkable. (8) Postoperative ileus Is this a current diagnosis for this admission?: Yes Plan: Resolved (9) S/P colectomy Is this a current diagnosis for this admission?: Yes (10) Sigmoid volvulus Is this a current diagnosis for this admission?: Yes - Time Time Spent with patient: 25-34 minutes - Inpatient Certification Medical Necessity: Risk of Complication if Not Cared For in Hospital - Plan Summary Plan Summary: At this point in time the patient remains a full code. However, discussions are underway regarding the patient's CODE STATUS and whether or not he would be most appropriate for hospice. Certainly, I am available to all family members for additional discussions.
[2017-08-20] MEDS: OLANZAPINE 5 MG TABLET PO SCH (20:57)
[2017-08-20] MEDS: LORAZEPAM INJ 2 MG/1 ML VIAL IV SCH (21:20)
[2017-08-21] MEDS: METOCLOPRAMIDE HCL INJ/PF 10 MG/2 ML SDV IV SCH ×4 (01:30→18:05)
[2017-08-21] MEDS: IMIPENEM/CILASTATIN SODIUM 500 MG in NORMAL SALINE 100 ML IV SCH ×4 (03:57→20:34)
[2017-08-21 06:26] LABS: ALANINE AMINOTRANSFERASE 38 U/L (21-72); ALBUMIN 3.9 g/dL (3.5-5.0); ALKALINE PHOSPHATASE 63 U/L (38-126); ANION GAP 14 (5-19); ASPARTATE AMINO TRANSFERASE 47 U/L (17-59); BILIRUBIN,DIRECT 0.8 mg/dL (0.0-0.4); BILIRUBIN,TOTAL 1.2 mg/dL (0.2-1.3); BLOOD UREA NITROGEN 17 mg/dL (7-20); CALCIUM 9.1 mg/dL (8.4-10.2); CARBON DIOXIDE 30 mmol/L (22-30); CHLORIDE 99 mmol/L (98-107); CREATININE RESULT 1.08 mg/dL (0.52-1.25); GLUCOSE 90 mg/dL (75-110); MAGNESIUM 1.9 mg/dL (1.6-2.3); PHOSPHORUS 3.8 mg/dL (2.5-4.5); POTASSIUM 3.8 mmol/L (3.6-5.0); SODIUM 142.6 mmol/L (137-145); TOTAL PROTEIN 7.3 g/dL (6.3-8.2)
[2017-08-21 07:26] LABS: ABSOLUTE BASOPHILS # (AUTO) 0.1 10^3/uL (0.0-0.2); ABSOLUTE EOSINOPHILS # (AUTO) 0.2 10^3/uL (0.0-0.6); ABSOLUTE LYMPHOCYTES (AUTO) 1.4 10^3/uL (0.5-4.7); ABSOLUTE MONOCYTES (AUTO) 1.3 10^3/uL (0.1-1.4); ABSOLUTE NEUT (AUTO) 5.6 10^3/uL (1.7-8.2); BASOPHILS % (AUTO) 1.1 % (0-2); HEMATOCRIT 38.5 % (37.9-51.0); HEMOGLOBIN 13.1 g/dL (13.5-17.0); HGB HCT DIFFERENCE 0.8; LYMPHOCYTES % (AUTO) 16.5 % (13-45); MEAN CORPUSCULAR HEMOGLOBIN 31.2 pg (27.0-33.4); MEAN CORPUSCULAR VOLUME 92 fl (80-97); MONOCYTES % (AUTO) 14.8 % (3-13); RED CELL DISTRIBUTION WIDTH 15.3 % (11.5-14.0); SEGMENTED NEUTROPHILS % (AUTO) 65.6 % (42-78); WHITE BLOOD COUNT 8.5 10^3/uL (4.0-10.5)
[2017-08-21] MEDS: LEVOTHYROXINE SODIUM 0.075 MG TABLET PO SCH (09:04)
[2017-08-21] MEDS: DOXYCYCLINE HYCLATE 100 MG TABLET PO SCH ×2 (09:16→21:36)
[2017-08-21] MEDS: METOPROLOL SUCCINATE 25 MG TAB.SR.24H PO SCH (09:18)
[2017-08-21] MEDS: FUROSEMIDE INJ/PF 40 MG/4 ML SDV IV SCH (09:18)
[2017-08-21] MEDS: LISINOPRIL 5 MG TABLET PO SCH (09:18)
[2017-08-21] MEDS: RIVASTIGMINE 4.6 MG/24 HR PATCH.TD24 TD SCH (12:07)
--- NOTE | 2017-08-21 12:59 | PDOC PROGRESS REPORT ---
Subjective Progress Note for:: 08/21/17 Subjective:: The patient is a 76-year-old male who was admitted with a sigmoid volvulus. He has undergone surgery. Postoperatively he developed an ileus. This corrected with replacement of potassium and IV Reglan. Other complications have included a right upper extremity thrombosis due to a PICC line. The patient had a thoracentesis 08/19/17. This is likely a transudate based on the labs that are currently available but LDH and glucose are pending. Thus, they appear to be send outs and may not be very accurate. The family has been discussing the possibility of hospice with the care team as of 08/19/17. Currently , he remains full code. I did speak with family last evening. Both daughters will be here today and I plan to have a family conference with the and daughters jocelyne. Physical Exam Vital Signs: Temp Pulse Resp BP Pulse Ox 97.9 F 75 18 120/64 94 08/21/17 12:00 08/21/17 08:00 08/21/17 12:00 08/21/17 12:00 08/21/17 12:00 Intake & Output 08/20/17 08/21/17 08/22/17 06:59 06:59 06:59 Intake Total 677 1320 Balance 677 1320 Weight 69.6 kg 62.5 kg Additional comments: It was again difficult to examine this patient. Initially, when I entered the room he appeared to be sleeping. As I was examining him he continued to push me away and kept telling me issue. His mental status appears to be unchanged from yesterday. He does not follow commands and he is not appropriate. His lungs demonstrate decreased breath sounds in the axillary areas bilaterally but are clear anteriorly. His cardiac exam appears to be regular. I did not appreciate any murmurs, gallops or rubs. The belly was soft. Bowel sounds are noted. He did not not have guarding, rebound, hernias or masses present. The lower extremities are without edema. Skin is warm dry and intact. In general, I would state that the exam is consistent with euvolemic at this time and not volume overload. Results Laboratory Results: 08/21/17 06:54 08/21/17 04:11 08/21/17 08/21/17 08/21/17 04:11 04:11 06:54 WBC Cancelled 8.5 RBC Cancelled 4.20 L Hgb Cancelled 13.1 L Hct Cancelled 38.5 MCV Cancelled 92 MCH Cancelled 31.2 MCHC Cancelled 34.0 RDW Cancelled 15.3 H Plt Count Cancelled 264 Seg Neutrophils % Cancelled 65.6 Lymphocytes % Cancelled 16.5 Monocytes % Cancelled 14.8 H Eosinophils % Cancelled 2.0 Basophils % Cancelled 1.1 Absolute Neutrophils Cancelled 5.6 Absolute Lymphocytes Cancelled 1.4 Absolute Monocytes Cancelled 1.3 Absolute Eosinophils Cancelled 0.2 Absolute Basophils Cancelled 0.1 Sodium 142.6 Potassium 3.8 Chloride 99 Carbon Dioxide 30 Anion Gap 14 BUN 17 Creatinine 1.08 Est GFR ( Amer) > 60 Est GFR (Non-Af Amer) > 60 Glucose 90 Calcium 9.1 Phosphorus 3.8 Magnesium 1.9 Total Bilirubin 1.2 AST 47 ALT 38 Alkaline Phosphatase 63 Total Protein 7.3 Albumin 3.9 08/11/17 08/18/17 06:20 06:49 NT-Pro-B Natriuret Pep 5230 H 2330 H Impressions: Abdomen/Pelvis CTA 07/31/17 16:40 IMPRESSION: 1. There is significant gaseous distention of the right, transverse , and left colons. There is appears to be long segment narrowing of the distal sigmoid colon without definite mass lesion this area on CT. Question possible large bowel obstruction secondary to underlying stricture. There is significant redundancy within the colon. 2. No aortic dissection identified. There is aneurysmal dilatation of the infrarenal abdominal aorta measuring 3.5 x 3.7 cm. 3. 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 The SMA is patent without greater than 50% narrowing. The SUZIE is occluded at its origin and fills distally via collaterals. Multifocal hemodynamically significant narrowing throughout the iliac arteries as detailed above. Chest/Abdomen CTA 07/31/17 16:41 IMPRESSION: 1. There is significant gaseous distention of the right, transverse , and left colons. There is appears to be long segment narrowing of the distal sigmoid colon without definite mass lesion this area on CT. Question possible large bowel obstruction secondary to underlying stricture. There is significant redundancy within the colon. 2. No aortic dissection identified. There is aneurysmal dilatation of the infrarenal abdominal aorta measuring 3.5 x 3.7 cm. 3. 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 The SMA is patent without greater than 50% narrowing. The SUZIE is occluded at its origin and fills distally via collaterals. Multifocal hemodynamically significant narrowing throughout the iliac arteries as detailed above. Interventional Vascular Procedure 08/03/17 00:00 IMPRESSION: SUCCESSFUL PLACEMENT OF A 5 FR DUAL LUMEN 31 CM PICC IN THE RIGHT BASILIC VEIN. PICC Line Insertion 08/03/17 00:00 IMPRESSION: SUCCESSFUL PLACEMENT OF A 5 FR DUAL LUMEN 31 CM PICC IN THE RIGHT BASILIC VEIN. Abdomen X-Ray 08/08/17 08:00 IMPRESSION: Distention of some small bowel loops postsurgically. Ileus versus partial small bowel obstruction. Venous Doppler Study 08/11/17 00:00 IMPRESSION: There is DVT and SVT in the right upper extremity as described. KUB X-Ray 08/11/17 12:22 IMPRESSION: SATISFACTORY POSITION OF THE NASOGASTRIC TUBE. NO CHANGE IN THE SMALL BOWEL DILATION, SUGGESTING EITHER ILEUS OR PARTIAL OBSTRUCTION. Abdomen/Pelvis CT 08/17/17 00:00 IMPRESSION: No CT evidence of bowel obstruction High-grade narrowing of the proximal SMA and celiac artery without CT evidence of bowel ischemia Moderate to large bilateral pleural effusions with near complete collapse of the right and left lower lobes. Chest X-Ray 08/19/17 00:00 IMPRESSION: No pneumothorax 2 hours post right thoracentesis. Minimal bibasilar airspace disease likely atelectasis left greater than right Thoracentesis Ultrasound 08/19/17 00:00 IMPRESSION: SUCCESSFUL THORACENTESIS USING ULTRASOUND GUIDANCE. Assessment & Plan - Diagnosis (1) Aspiration pneumonia due to gastric secretions Qualifiers: Laterality: right Lung location: unspecified part of lung Qualified Code( s): J69.0 - Pneumonitis due to inhalation of food and vomit Is this a current diagnosis for this admission?: Yes Plan: Respiratory status is stable today. (2) Atrial fibrillation Qualifiers: Atrial fibrillation type: persistent Qualified Code(s): I48.1 - Persistent atrial fibrillation Is this a current diagnosis for this admission?: Yes Plan: Continue Toprol and Eliquis. (3) DVT of axillary vein, acute right Is this a current diagnosis for this admission?: Yes Plan: Continue Eliquis (4) Dementia Qualifiers: Dementia type: unspecified type Dementia behavioral disturbance: with behavioral disturbance Qualified Code(s): F03.91 - Unspecified dementia with behavioral disturbance Is this a current diagnosis for this admission?: Yes Plan: Very advanced (5) Fluid overload Qualifiers: Hypervolemia type: other Qualified Code(s): E87.79 - Other fluid overload Is this a current diagnosis for this admission?: Yes Plan: Continue Lasix - but - as patient now appears euvolemic I will cut back. (6) Hypokalemia Is this a current diagnosis for this admission?: Yes Plan: K 3.8 today. (7) Pleural effusion due to CHF (congestive heart failure) Is this a current diagnosis for this admission?: Yes Plan: Patient had thoracentesis Tuesday. This was uneventful. 450 mL of straw- colored fluid was removed. Culture is negative so far. Labs are unremarkable. but LDH and Glucose are pending. (8) Postoperative ileus Is this a current diagnosis for this admission?: Yes Plan: Resolved (9) S/P colectomy Is this a current diagnosis for this admission?: Yes (10) Sigmoid volvulus Is this a current diagnosis for this admission?: Yes - Time Time Spent with patient: 15-24 minutes - Inpatient Certification Medical Necessity: Significant Comorbidiites Make Outpatient Treatment Too Risky , Need Close Monitoring Due to Risk of Patient Decompensation, Risk of Complication if Not Cared For in Hospital - Plan Summary Plan Summary: She appears to be nearing the point where he can be transferred to a care facility. Jocelyne, at a family meeting I will try to elaborate on the goals of care. I will determine if the family feels that the patient is most appropriate for prison placement or hospice.
[2017-08-21 13:00] LABS: GLUCOSE BODY FLUID 105 mg/dL (.)
[2017-08-21] MEDS: APIXABAN 5 MG TABLET PO SCH (18:05)
[2017-08-21] MEDS: OLANZAPINE 5 MG TABLET PO SCH (20:34)
[2017-08-21] MEDS: LORAZEPAM INJ 2 MG/1 ML VIAL IV SCH (21:36)
[2017-08-22] MEDS: METOCLOPRAMIDE HCL INJ/PF 10 MG/2 ML SDV IV SCH ×2 (00:10→05:25)
[2017-08-22] MEDS: IMIPENEM/CILASTATIN SODIUM 500 MG in NORMAL SALINE 100 ML IV SCH ×4 (02:20→19:37)
[2017-08-22] MEDS: FENTANYL 12 MCG/HR PATCH.TD72 TD SCH (09:49)
[2017-08-22] MEDS: LEVOTHYROXINE SODIUM 0.075 MG TABLET PO SCH (09:50)
[2017-08-22] MEDS: DOXYCYCLINE HYCLATE 100 MG TABLET PO SCH (09:50)
[2017-08-22] MEDS: FUROSEMIDE 40 MG TABLET PO SCH (09:50)
[2017-08-22] MEDS: APIXABAN 5 MG TABLET PO SCH ×2 (09:52→17:26)
[2017-08-22] MEDS ORDERED: ALPRAZOLAM 0.5 MG TABLET PO PRN (11:43)
--- NOTE | 2017-08-22 11:58 | PDOC PROGRESS REPORT ---
Subjective Progress Note for:: 08/22/17 Subjective:: The patient is a 76-year-old male who was admitted with a sigmoid volvulus. He has undergone surgery. Postoperatively he developed an ileus. This corrected with replacement of potassium and IV Reglan. Other complications have included a right upper extremity thrombosis due to a PICC line. The patient had a thoracentesis 08/19/17. This is likely a transudate based on the labs that are currently available but LDH and glucose are pending. Thus, they appear to be send outs and may not be very accurate. The family has been discussing the possibility of hospice with the care team as of 08/19/17. Currently , he remains full code. I did speak with family last evening. The patient's power of contracts attorney is his daughter Areli. At this point time she wants the patient to go to a skilled facility. She wants her father to have the best possibility of as full a recovery as possible. Her goals of care do not appear to be in line with what hospice would provide. I Did clarify with the entire family that this is what Mr. Keith would want if he could speak for himself. The patient was awake this morning. He appeared to be calm. He asked me to sit down. At times, his speech is unintelligible. He remains very confused. Physical Exam Vital Signs: Temp Pulse Resp BP Pulse Ox 98.5 F 77 17 152/51 H 97 08/22/17 07:31 08/22/17 07:31 08/22/17 07:31 08/22/17 07:31 08/22/17 07:31 Intake & Output 08/21/17 08/22/17 08/23/17 06:59 06:59 06:59 Intake Total 1320 750 Balance 1320 750 Weight 62.5 kg 66.3 kg Additional comments: The patient was very calm this morning. His daughter was with him at the bedside. He only became agitated when I was trying to examine him because my hands are cold. His facial appearance is unremarkable. His lungs were difficult to hear as I could not position him for a complete exam, but, they are clear anteriorly and in the mid axillary lines. I did not hear any adventitious sounds. The cardiac exam is regular without murmurs, gallops or rubs. The abdomen is soft and flat. Bowel sounds are present. The patient continues to have ton in place. The suture line looks unremarkable. The ostomy bag has pink tissue with minimal stool output. The lower extremities are warm to touch. No edema is present. The skin is warm, dry and intact without lesions or rashes. Results Laboratory Results: 08/21/17 06:54 08/21/17 04:11 08/19/17 08/21/17 10:50 04:11 WBC Cancelled RBC Cancelled Hgb Cancelled Hct Cancelled MCV Cancelled MCH Cancelled MCHC Cancelled RDW Cancelled Plt Count Cancelled Seg Neutrophils % Cancelled Lymphocytes % Cancelled Monocytes % Cancelled Eosinophils % Cancelled Basophils % Cancelled Absolute Neutrophils Cancelled Absolute Lymphocytes Cancelled Absolute Monocytes Cancelled Absolute Eosinophils Cancelled Absolute Basophils Cancelled Fluid Glucose 105 Fluid LDH 128 08/11/17 08/18/17 06:20 06:49 NT-Pro-B Natriuret Pep 5230 H 2330 H Impressions: Abdomen/Pelvis CTA 07/31/17 16:40 IMPRESSION: 1. There is significant gaseous distention of the right, transverse , and left colons. There is appears to be long segment narrowing of the distal sigmoid colon without definite mass lesion this area on CT. Question possible large bowel obstruction secondary to underlying stricture. There is significant redundancy within the colon. 2. No aortic dissection identified. There is aneurysmal dilatation of the infrarenal abdominal aorta measuring 3.5 x 3.7 cm. 3. 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 The SMA is patent without greater than 50% narrowing. The SUZIE is occluded at its origin and fills distally via collaterals. Multifocal hemodynamically significant narrowing throughout the iliac arteries as detailed above. Chest/Abdomen CTA 07/31/17 16:41 IMPRESSION: 1. There is significant gaseous distention of the right, transverse , and left colons. There is appears to be long segment narrowing of the distal sigmoid colon without definite mass lesion this area on CT. Question possible large bowel obstruction secondary to underlying stricture. There is significant redundancy within the colon. 2. No aortic dissection identified. There is aneurysmal dilatation of the infrarenal abdominal aorta measuring 3.5 x 3.7 cm. 3. 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 The SMA is patent without greater than 50% narrowing. The SUZIE is occluded at its origin and fills distally via collaterals. Multifocal hemodynamically significant narrowing throughout the iliac arteries as detailed above. Interventional Vascular Procedure 08/03/17 00:00 IMPRESSION: SUCCESSFUL PLACEMENT OF A 5 FR DUAL LUMEN 31 CM PICC IN THE RIGHT BASILIC VEIN. PICC Line Insertion 08/03/17 00:00 IMPRESSION: SUCCESSFUL PLACEMENT OF A 5 FR DUAL LUMEN 31 CM PICC IN THE RIGHT BASILIC VEIN. Abdomen X-Ray 08/08/17 08:00 IMPRESSION: Distention of some small bowel loops postsurgically. Ileus versus partial small bowel obstruction. Venous Doppler Study 08/11/17 00:00 IMPRESSION: There is DVT and SVT in the right upper extremity as described. KUB X-Ray 08/11/17 12:22 IMPRESSION: SATISFACTORY POSITION OF THE NASOGASTRIC TUBE. NO CHANGE IN THE SMALL BOWEL DILATION, SUGGESTING EITHER ILEUS OR PARTIAL OBSTRUCTION. Abdomen/Pelvis CT 08/17/17 00:00 IMPRESSION: No CT evidence of bowel obstruction High-grade narrowing of the proximal SMA and celiac artery without CT evidence of bowel ischemia Moderate to large bilateral pleural effusions with near complete collapse of the right and left lower lobes. Chest X-Ray 08/19/17 00:00 IMPRESSION: No pneumothorax 2 hours post right thoracentesis. Minimal bibasilar airspace disease likely atelectasis left greater than right Thoracentesis Ultrasound 08/19/17 00:00 IMPRESSION: SUCCESSFUL THORACENTESIS USING ULTRASOUND GUIDANCE. Assessment & Plan - Diagnosis (1) Aspiration pneumonia due to gastric secretions Qualifiers: Laterality: right Lung location: unspecified part of lung Qualified Code( s): J69.0 - Pneumonitis due to inhalation of food and vomit Is this a current diagnosis for this admission?: Yes Plan: Respiratory status is stable today. Today is day number 6 out of 7 of imipenem. Doxycycline has been discontinued as I do not see any added benefit. (2) Atrial fibrillation Qualifiers: Atrial fibrillation type: persistent Qualified Code(s): I48.1 - Persistent atrial fibrillation Is this a current diagnosis for this admission?: Yes Plan: Continue Toprol and Eliquis. (3) DVT of axillary vein, acute right Is this a current diagnosis for this admission?: Yes Plan: Continue Eliquis (4) Dementia Qualifiers: Dementia type: unspecified type Dementia behavioral disturbance: with behavioral disturbance Qualified Code(s): F03.91 - Unspecified dementia with behavioral disturbance Is this a current diagnosis for this admission?: Yes Plan: Very advanced. The patient's dementia is making it very difficult for him to participate in rehabilitation exercises. (5) Fluid overload Qualifiers: Hypervolemia type: other Qualified Code(s): E87.79 - Other fluid overload Is this a current diagnosis for this admission?: Yes Plan: Continue Lasix - but - as patient now appears euvolemic I will cut back. (6) Hypokalemia Is this a current diagnosis for this admission?: Yes Plan: K 3.8 yesterday. Will repeat in am. (7) Pleural effusion due to CHF (congestive heart failure) Is this a current diagnosis for this admission?: Yes Plan: Patient had thoracentesis Tuesday. This was uneventful. 450 mL of straw- colored fluid was removed. Culture is negative so far. Labs are unremarkable. but LDH and Glucose are pending. (8) Postoperative ileus Is this a current diagnosis for this admission?: Yes Plan: Resolved. Stop reglan. (9) S/P colectomy Is this a current diagnosis for this admission?: Yes (10) Sigmoid volvulus Is this a current diagnosis for this admission?: Yes - Time Time Spent with patient: 25-34 minutes - Inpatient Certification Medical Necessity: Need for IV Antibiotics - Plan Summary Plan Summary: The patient was scheduled to be discharged today back to our with hospice. However, the family is not agreeable to pursue hospice at this time. They would prefer [facility] facility. I have discussed this with discharge planning. Discharge planning will speak to the patient's POAAreli. At this point time the patient will complete imipenem therapy tomorrow.
[2017-08-22] MEDS: LISINOPRIL 5 MG TABLET PO SCH (12:03)
[2017-08-22] MEDS: METOPROLOL SUCCINATE 25 MG TAB.SR.24H PO SCH (12:03)
[2017-08-22] MEDS: RIVASTIGMINE 4.6 MG/24 HR PATCH.TD24 TD SCH (12:05)
--- NOTE | 2017-08-22 18:45 | Progress Note ---
Provider Note Provider Note: The patient was due to stop antibiotics tomorrow morning. However, he has lost his IV access. Antibiotics were on board for aspiration for 6 days. He has been afebrile with a normal white blood cell count. I do not think he requires any additional antibiotics. Therefore, we did not replace the patient's IV. In terms of the pleural fluid cytology is still pending today.
[2017-08-22] MEDS: OLANZAPINE 5 MG TABLET PO SCH (21:18)
[2017-08-22] MEDS ORDERED: APIXABAN 5 MG TABLET PO SCH (22:00)
[2017-08-23] MEDS: IMIPENEM/CILASTATIN SODIUM 500 MG in NORMAL SALINE 100 ML IV SCH ×4 (03:11→21:28)
[2017-08-23 07:29] LABS: ANION GAP 15 (5-19); BLOOD UREA NITROGEN 28 mg/dL (7-20); CALCIUM 8.7 mg/dL (8.4-10.2); CARBON DIOXIDE 32 mmol/L (22-30); CHLORIDE 97 mmol/L (98-107); CREATININE RESULT 0.98 mg/dL (0.52-1.25); GLUCOSE 111 mg/dL (75-110); POTASSIUM 3.3 mmol/L (3.6-5.0); SODIUM 143.9 mmol/L (137-145)
[2017-08-23] MEDS: LEVOTHYROXINE SODIUM 0.075 MG TABLET PO SCH (07:54)
[2017-08-23] MEDS: FUROSEMIDE 40 MG TABLET PO SCH (10:05)
[2017-08-23] MEDS: LISINOPRIL 5 MG TABLET PO SCH (10:05)
[2017-08-23] MEDS: APIXABAN 5 MG TABLET PO SCH ×2 (10:05→17:25)
[2017-08-23] MEDS: METOPROLOL SUCCINATE 25 MG TAB.SR.24H PO SCH (10:05)
[2017-08-23] MEDS: RIVASTIGMINE 4.6 MG/24 HR PATCH.TD24 TD SCH (11:59)
--- NOTE | 2017-08-23 14:21 | PDOC PROGRESS REPORT ---
Subjective Progress Note for:: 08/23/17 Subjective:: No overnight events. Was sleeping peacefully in room upon entering. Despite multiple prompts, was not answering questions for me. Per discharge planning note from 08/22, patient's family decided they no longer want hospice and that they want the most aggressive treatments for the patient. Will need to be placed in SNF and then return to the [facility]. [facility] notified of change in plan. Physical Exam Vital Signs: Temp Pulse Resp BP Pulse Ox 97.9 F 70 18 127/53 H 98 08/23/17 11:20 08/23/17 11:20 08/23/17 11:20 08/23/17 11:20 08/23/17 11:20 Intake & Output 08/22/17 08/23/17 08/24/17 06:59 06:59 06:59 Intake Total 750 830 Balance 750 830 Weight 66.3 kg 62 kg General appearance: PRESENT: no acute distress, well-nourished Head exam: PRESENT: atraumatic, normocephalic Eye exam: PRESENT: conjunctiva pink. ABSENT: scleral icterus Mouth exam: PRESENT: moist Neck exam: ABSENT: carotid bruit, JVD, lymphadenopathy, thyromegaly Respiratory exam: PRESENT: clear to auscultation miguelina. ABSENT: rales, rhonchi, wheezes Cardiovascular exam: PRESENT: RRR. ABSENT: diastolic murmur, rubs, systolic murmur Pulses: PRESENT: normal dorsalis pedis pul Vascular exam: PRESENT: normal capillary refill GI/Abdominal exam: PRESENT: normal bowel sounds, soft. ABSENT: distended, guarding, mass, organolmegaly, rebound, tenderness Rectal exam: PRESENT: deferred Extremities exam: ABSENT: calf tenderness, clubbing, pedal edema Neurological exam: PRESENT: other - Unable to perform neuro exam as patient uncooperative. ABSENT: motor sensory deficit Psychiatric exam: PRESENT: other - Unable to assess. ABSENT: homicidal ideation , suicidal ideation Skin exam: PRESENT: dry, intact, warm. ABSENT: cyanosis, rash Results Laboratory Results: 08/21/17 06:54 08/23/17 06:28 08/23/17 06:28 Sodium 143.9 Potassium 3.3 L Chloride 97 L Carbon Dioxide 32 H Anion Gap 15 BUN 28 H Creatinine 0.98 Est GFR ( Amer) > 60 Est GFR (Non-Af Amer) > 60 Glucose 111 H Calcium 8.7 08/19/17 10:50 Pleural Fluid - Right Pleural Effusion Gram Stain - Final 08/19/17 10:50 Pleural Fluid - Right Pleural Effusion Body Fluid Culture - Final NO AEROBIC OR ANAEROBIC ORGANISMS RECOVERED 08/11/17 08/18/17 06:20 06:49 NT-Pro-B Natriuret Pep 5230 H 2330 H Impressions: Abdomen/Pelvis CTA 07/31/17 16:40 IMPRESSION: 1. There is significant gaseous distention of the right, transverse , and left colons. There is appears to be long segment narrowing of the distal sigmoid colon without definite mass lesion this area on CT. Question possible large bowel obstruction secondary to underlying stricture. There is significant redundancy within the colon. 2. No aortic dissection identified. There is aneurysmal dilatation of the infrarenal abdominal aorta measuring 3.5 x 3.7 cm. 3. 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 The SMA is patent without greater than 50% narrowing. The SUZIE is occluded at its origin and fills distally via collaterals. Multifocal hemodynamically significant narrowing throughout the iliac arteries as detailed above. Chest/Abdomen CTA 07/31/17 16:41 IMPRESSION: 1. There is significant gaseous distention of the right, transverse , and left colons. There is appears to be long segment narrowing of the distal sigmoid colon without definite mass lesion this area on CT. Question possible large bowel obstruction secondary to underlying stricture. There is significant redundancy within the colon. 2. No aortic dissection identified. There is aneurysmal dilatation of the infrarenal abdominal aorta measuring 3.5 x 3.7 cm. 3. 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 The SMA is patent without greater than 50% narrowing. The SUZIE is occluded at its origin and fills distally via collaterals. Multifocal hemodynamically significant narrowing throughout the iliac arteries as detailed above. Interventional Vascular Procedure 08/03/17 00:00 IMPRESSION: SUCCESSFUL PLACEMENT OF A 5 FR DUAL LUMEN 31 CM PICC IN THE RIGHT BASILIC VEIN. PICC Line Insertion 08/03/17 00:00 IMPRESSION: SUCCESSFUL PLACEMENT OF A 5 FR DUAL LUMEN 31 CM PICC IN THE RIGHT BASILIC VEIN. Abdomen X-Ray 08/08/17 08:00 IMPRESSION: Distention of some small bowel loops postsurgically. Ileus versus partial small bowel obstruction. Venous Doppler Study 08/11/17 00:00 IMPRESSION: There is DVT and SVT in the right upper extremity as described. KUB X-Ray 08/11/17 12:22 IMPRESSION: SATISFACTORY POSITION OF THE NASOGASTRIC TUBE. NO CHANGE IN THE SMALL BOWEL DILATION, SUGGESTING EITHER ILEUS OR PARTIAL OBSTRUCTION. Abdomen/Pelvis CT 08/17/17 00:00 IMPRESSION: No CT evidence of bowel obstruction High-grade narrowing of the proximal SMA and celiac artery without CT evidence of bowel ischemia Moderate to large bilateral pleural effusions with near complete collapse of the right and left lower lobes. Chest X-Ray 08/19/17 00:00 IMPRESSION: No pneumothorax 2 hours post right thoracentesis. Minimal bibasilar airspace disease likely atelectasis left greater than right Thoracentesis Ultrasound 08/19/17 00:00 IMPRESSION: SUCCESSFUL THORACENTESIS USING ULTRASOUND GUIDANCE. Assessment & Plan - Diagnosis (1) Aspiration pneumonia due to gastric secretions Qualifiers: Laterality: right Lung location: unspecified part of lung Qualified Code( s): J69.0 - Pneumonitis due to inhalation of food and vomit Is this a current diagnosis for this admission?: Yes Plan: Respiratory status is stable today. Completed 6 days of imipenem on 08/22. Doxycycline was previously discontinued (2) Dementia Qualifiers: Dementia type: unspecified type Dementia behavioral disturbance: with behavioral disturbance Qualified Code(s): F03.91 - Unspecified dementia with behavioral disturbance Is this a current diagnosis for this admission?: Yes Plan: Stable at baseline (3) AAA (abdominal aortic aneurysm) without rupture Is this a current diagnosis for this admission?: Yes (4) Anemia Qualifiers: Anemia type: unspecified type Qualified Code(s): D64.9 - Anemia, unspecified Is this a current diagnosis for this admission?: Yes Plan: Last Hg 13.1 on 08/21, improved from ~10 earlier in admission. Will CTM intermittently. (5) Atrial fibrillation Qualifiers: Atrial fibrillation type: persistent Qualified Code(s): I48.1 - Persistent atrial fibrillation Is this a current diagnosis for this admission?: Yes Plan: Continue Eliquis and Metoprolol - Time Time Spent with patient: Less than 15 minutes Critical Time spent with patient: Less than 15 minutes Anticipated discharge: SNF - Accepted by (SNF) on 08/24/17 - Plan Summary Plan Summary: Hospice revoked by family. Completed antibiotic course. Clinically stable. Discharge to SNF on 08/24
[2017-08-23] MEDS: OLANZAPINE 5 MG TABLET PO SCH (21:27)
[2017-08-24] MEDS: IMIPENEM/CILASTATIN SODIUM 500 MG in NORMAL SALINE 100 ML IV SCH ×2 (02:06→10:43)
[2017-08-24 06:28] LABS: HEMATOCRIT 37.1 % (37.9-51.0); HEMOGLOBIN 12.8 g/dL (13.5-17.0); HGB HCT DIFFERENCE 1.3; MEAN CORPUSCULAR HEMOGLOBIN 31.3 pg (27.0-33.4); MEAN CORPUSCULAR HGB CONC 34.4 g/dL (32.0-36.0); MEAN CORPUSCULAR VOLUME 91 fl (80-97); RED BLOOD COUNT 4.08 10^6/uL (4.35-5.55); RED CELL DISTRIBUTION WIDTH 14.9 % (11.5-14.0); WHITE BLOOD COUNT 8.7 10^3/uL (4.0-10.5)
[2017-08-24] MEDS: LEVOTHYROXINE SODIUM 0.075 MG TABLET PO SCH (07:44)
[2017-08-24] MEDS: FUROSEMIDE 40 MG TABLET PO SCH (11:06)
[2017-08-24] MEDS: METOPROLOL SUCCINATE 25 MG TAB.SR.24H PO SCH (11:06)
[2017-08-24] MEDS: APIXABAN 5 MG TABLET PO SCH ×2 (11:06→17:35)
[2017-08-24] MEDS: LISINOPRIL 5 MG TABLET PO SCH (11:07)
[2017-08-24] MEDS: RIVASTIGMINE 4.6 MG/24 HR PATCH.TD24 TD SCH (11:26)
--- NOTE | 2017-08-24 13:20 | PDOC TRANSFER SUMMARY ---
General - Admit/Disc Date/PCP Admission Date/Primary Care Provider: 07/31/17 18:22 Discharge Date: 08/24/17 - Discharge Diagnosis (1) Large bowel obstruction Is this a current diagnosis for this admission?: Yes Summary: Secondary to Sigmond Volvulus S/P Muir's Procedure: Pt doing well. (2) Hypokalemia Is this a current diagnosis for this admission?: Yes Summary: Resolved (3) AAA (abdominal aortic aneurysm) without rupture Is this a current diagnosis for this admission?: Yes Summary: Supportive care. Family states that pt is being followed as outpatient. (4) CAD (coronary artery disease) Is this a current diagnosis for this admission?: Yes Summary: Continue current medications (5) Dementia Is this a current diagnosis for this admission?: Yes Summary: Continue current medications (6) Stroke Is this a current diagnosis for this admission?: No Summary: supportive care. (7) Aspiration pneumonia due to gastric secretions Is this a current diagnosis for this admission?: Yes Summary: Pt completed 7 days of Mandi (8) Pleural effusion due to CHF (congestive heart failure) Is this a current diagnosis for this admission?: Yes Summary: S/P Thoracentesis: Pt doing well. (9) Postoperative ileus Is this a current diagnosis for this admission?: Yes Summary: Resolved. (10) Sigmoid volvulus Is this a current diagnosis for this admission?: Yes Summary: S/P Muir's Procedure: Pt doing well. - Additional Information Resuscitation Status: Full Code Discharge Diet: Cardiac Discharge Activity: Other - with assistance Home Medications: Acetaminophen [Mapap] 650 mg PO Q6HP PRN 07/31/17 Tamsulosin HCl 0.8 mg PO QPM 07/31/17 Alprazolam [Xanax 0.5 mg Tablet] 0.5 mg PO HSP PRN #5 tablet 08/24/17 Apixaban [Eliquis 5 mg Tablet] 5 mg PO BID tablet 08/24/17 Fentanyl [Duragesic 12 Mcg/Hr Transdermal Patch] 1 each TD Q3DAYS #1 patch.td72 08/24/17 Furosemide [Lasix 40 mg Tablet] 40 mg PO DAILY tablet 08/24/17 Levothyroxine Sodium [Synthroid 0.075 mg Tablet] 0.075 mg PO QAM tablet Lisinopril [Prinivil 5 mg Tablet] 5 mg PO DAILY tablet 08/24/17 Metoprolol Succinate [Toprol Xl 25 mg Tab.sr] 25 mg PO DAILY tab.sr.24h Olanzapine [Zyprexa 5 mg Tablet] 5 mg PO DAILY@2000 tablet 08/24/17 Rivastigmine [Exelon 4.6 mg/24 Hr Transdermal Patch] 1 each TD NOON patch.td24 08/24/17 History of Present Illness Admission Date/PCP: 07/31/17 18:22 History of Present Illness: SUZI GARCIA SR is a 76 year old male presented with complaint of abd pain. Hospital Course Hospital Course: Pt is a 76 year old male who was admitted for bowel obstruction. Pt was found to have Sigmond Volvulus which required surgery. Pt has surgery and developed postoperative ileus which resolved. Pt was found to have a. fib and was placed on Xarelto. Pt has known AAA and risk and benefits were explained to family but they wanted anticoagulation. Pt also developed DVT in right upper ext during hospitalization. Pt has advanced dementia. Family requested that pt remain full code. Physical Exam Vital Signs: Temp Pulse Resp BP Pulse Ox 98.3 F 67 17 106/46 L 100 08/24/17 11:30 08/24/17 11:30 08/24/17 11:30 08/24/17 11:30 08/24/17 11:30 Intake & Output 08/23/17 08/24/17 08/25/17 06:59 06:59 06:59 Intake Total 830 737 Balance 830 737 Weight 62 kg 69.5 kg General appearance: PRESENT: no acute distress, thin Head exam: PRESENT: atraumatic, normocephalic Eye exam: PRESENT: conjunctiva pink, EOMI, PERRLA. ABSENT: scleral icterus Ear exam: PRESENT: normal external ear exam Mouth exam: PRESENT: moist, tongue midline Neck exam: ABSENT: carotid bruit, JVD, lymphadenopathy, thyromegaly Respiratory exam: PRESENT: clear to auscultation miguelina. ABSENT: rales, rhonchi, wheezes Cardiovascular exam: PRESENT: RRR. ABSENT: diastolic murmur, rubs, systolic murmur Pulses: PRESENT: normal dorsalis pedis pul Vascular exam: PRESENT: normal capillary refill GI/Abdominal exam: PRESENT: normal bowel sounds, soft. ABSENT: distended, guarding, mass, organolmegaly, rebound, tenderness Rectal exam: PRESENT: deferred Extremities exam: PRESENT: other - + muscle wasting Neurological exam: PRESENT: alert, altered, awake, oriented to person Psychiatric exam: PRESENT: agitated Skin exam: PRESENT: dry, intact, warm. ABSENT: cyanosis, rash Results Laboratory Results: 08/24/17 05:56 08/23/17 06:28 08/24/17 05:56 WBC 8.7 RBC 4.08 L Hgb 12.8 L Hct 37.1 L MCV 91 MCH 31.3 MCHC 34.4 RDW 14.9 H Plt Count 263 08/19/17 10:50 Pleural Fluid - Right Pleural Effusion Gram Stain - Final 08/19/17 10:50 Pleural Fluid - Right Pleural Effusion Body Fluid Culture - Final NO AEROBIC OR ANAEROBIC ORGANISMS RECOVERED 08/11/17 08/18/17 06:20 06:49 NT-Pro-B Natriuret Pep 5230 H 2330 H Impressions: Abdomen/Pelvis CTA 07/31/17 16:40 IMPRESSION: 1. There is significant gaseous distention of the right, transverse , and left colons. There is appears to be long segment narrowing of the distal sigmoid colon without definite mass lesion this area on CT. Question possible large bowel obstruction secondary to underlying stricture. There is significant redundancy within the colon. 2. No aortic dissection identified. There is aneurysmal dilatation of the infrarenal abdominal aorta measuring 3.5 x 3.7 cm. 3. 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 The SMA is patent without greater than 50% narrowing. The SUZIE is occluded at its origin and fills distally via collaterals. Multifocal hemodynamically significant narrowing throughout the iliac arteries as detailed above. Chest/Abdomen CTA 07/31/17 16:41 IMPRESSION: 1. There is significant gaseous distention of the right, transverse , and left colons. There is appears to be long segment narrowing of the distal sigmoid colon without definite mass lesion this area on CT. Question possible large bowel obstruction secondary to underlying stricture. There is significant redundancy within the colon. 2. No aortic dissection identified. There is aneurysmal dilatation of the infrarenal abdominal aorta measuring 3.5 x 3.7 cm. 3. 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 The SMA is patent without greater than 50% narrowing. The SUZIE is occluded at its origin and fills distally via collaterals. Multifocal hemodynamically significant narrowing throughout the iliac arteries as detailed above. Interventional Vascular Procedure 08/03/17 00:00 IMPRESSION: SUCCESSFUL PLACEMENT OF A 5 FR DUAL LUMEN 31 CM PICC IN THE RIGHT BASILIC VEIN. PICC Line Insertion 08/03/17 00:00 IMPRESSION: SUCCESSFUL PLACEMENT OF A 5 FR DUAL LUMEN 31 CM PICC IN THE RIGHT BASILIC VEIN. Abdomen X-Ray 08/08/17 08:00 IMPRESSION: Distention of some small bowel loops postsurgically. Ileus versus partial small bowel obstruction. Venous Doppler Study 08/11/17 00:00 IMPRESSION: There is DVT and SVT in the right upper extremity as described. KUB X-Ray 08/11/17 12:22 IMPRESSION: SATISFACTORY POSITION OF THE NASOGASTRIC TUBE. NO CHANGE IN THE SMALL BOWEL DILATION, SUGGESTING EITHER ILEUS OR PARTIAL OBSTRUCTION. Abdomen/Pelvis CT 08/17/17 00:00 IMPRESSION: No CT evidence of bowel obstruction High-grade narrowing of the proximal SMA and celiac artery without CT evidence of bowel ischemia Moderate to large bilateral pleural effusions with near complete collapse of the right and left lower lobes. Chest X-Ray 08/19/17 00:00 IMPRESSION: No pneumothorax 2 hours post right thoracentesis. Minimal bibasilar airspace disease likely atelectasis left greater than right Thoracentesis Ultrasound 08/19/17 00:00 IMPRESSION: SUCCESSFUL THORACENTESIS USING ULTRASOUND GUIDANCE. Transfer Plan - Disposition Transfer Plan: [facility] - Time Spent with Patient Time spent with patient: Greater than 30 Minutes
[2017-08-24] MEDS ORDERED: LORAZEPAM INJ 2 MG/1 ML VIAL IM ONE (17:00)
[2017-08-24 17:37] VITALS: BP 111/60
== END 2017-08-24 17:35 | DRG 329 ==
LOC: ER 14:23 → EH 18:22 → UNDOADMIN 18:25 → EH 18:25 → 4S 20:19 → ICU 08-01 21:18 → 3S 08-06 04:43 → ICU 08-11 13:25 → 3S 08-13 17:34 → 4N 08-17 17:36
PROC: 0D1M0Z4 Bypass Descending Colon to Cutaneous, Open Approach (ICD-10-PCS; 2017-08-01)
PROC: 0BH17EZ Insertion of Endotracheal Airway into Trachea, Via Natural or Artificial Opening (ICD-10-PCS; 2017-08-01)
PROC: 5A1945Z Respiratory Ventilation, 24-96 Consecutive Hours (ICD-10-PCS; 2017-08-01)
PROC: 0DTN0ZZ Resection of Sigmoid Colon, Open Approach (ICD-10-PCS; principal; 2017-08-01 19:30)
PROC: 02HV33Z Insertion of Infusion Device into Superior Vena Cava, Percutaneous Approach (ICD-10-PCS; 2017-08-03)
PROC: B5181ZA Fluoroscopy of Superior Vena Cava using Low Osmolar Contrast, Guidance (ICD-10-PCS; 2017-08-03)
PROC: B548ZZA Ultrasonography of Superior Vena Cava, Guidance (ICD-10-PCS; 2017-08-03)
PROC: 3E0G76Z Introduction of Nutritional Substance into Upper GI, Via Natural or Artificial Opening (ICD-10-PCS; 2017-08-04)
PROC: 0D9670Z Drainage of Stomach with Drainage Device, Via Natural or Artificial Opening (ICD-10-PCS; 2017-08-07)
PROC: 0D9670Z Drainage of Stomach with Drainage Device, Via Natural or Artificial Opening (ICD-10-PCS; 2017-08-11)
PROC: 0W993ZX Drainage of Right Pleural Cavity, Percutaneous Approach, Diagnostic (ICD-10-PCS; 2017-08-19)
DX: K56.2 Volvulus (principal); J69.0 Pneumonitis due to inhalation of food and vomit; J95.821 Acute postprocedural respiratory failure; J91.8 Pleural effusion in other conditions classified elsewhere; T82.868A Thrombosis due to vascular prosthetic devices, implants and grafts, initial encounter; F02.81 Dementia in other diseases classified elsewhere, unspecified severity, with behavioral disturbance; I48.1 Persistent atrial fibrillation; I50.30 Unspecified diastolic (congestive) heart failure; I82.621 Acute embolism and thrombosis of deep veins of right upper extremity; E87.6 Hypokalemia; K56.7 Ileus, unspecified; G30.9 Alzheimer's disease, unspecified; I71.4 Abdominal aortic aneurysm, without rupture; I25.10 Atherosclerotic heart disease of native coronary artery without angina pectoris; I50.9 Heart failure, unspecified; Z79.02 Long term (current) use of antithrombotics/antiplatelets; E78.5 Hyperlipidemia, unspecified; D72.829 Elevated white blood cell count, unspecified; Z79.899 Other long term (current) drug therapy; E03.9 Hypothyroidism, unspecified; M19.90 Unspecified osteoarthritis, unspecified site; N41.9 Inflammatory disease of prostate, unspecified; F32.9 Major depressive disorder, single episode, unspecified; I11.0 Hypertensive heart disease with heart failure; D64.9 Anemia, unspecified; Z90.49 Acquired absence of other specified parts of digestive tract; Z79.82 Long term (current) use of aspirin; Z88.0 Allergy status to penicillin; Z88.8 Allergy status to other drugs, medicaments and biological substances; Z88.7 Allergy status to serum and vaccine; Z87.891 Personal history of nicotine dependence; Z86.73 Personal history of transient ischemic attack (TIA), and cerebral infarction without residual deficits; Z78.1 Physical restraint status; Y84.8 Other medical procedures as the cause of abnormal reaction of the patient, or of later complication, without mention of misadventure at the time of the procedure
CPT/HCPCS: 00840; 32555; 36415; 36569; 71010; 71275; 74000; 74020; 74174; 74177; 76937; 80048; 80053; 80076; 81001; 82272; 82550; 82553; 82803; 82945; 83615; 83690; 83735; 83880; 84100; 84484; 85025; 85027; 85610; 85730; 86850; 86900; 86901; 87070; 87075; 87205; 88305; 88307; 88341; 88342; 89050; 93005; 93010; 93306; 93971; 94002; 94003; 94660; 94799; 96361; 96365; 96366; 96375; 99285; G8978-GP; G8979-GP; G8987-GO; G8988-GO; G8996-GN; G8997-GN; G8998-GN; J0330; J0360; J0743; J1630; J1642; J1650; J1940; J1956; J2020; J2060; J2250; J2270; J2405; J2704; J2765; J3010; J3480; J3490; J7030; J7040; J7060; S0028

== ENCOUNTER 2017-09-02 23:27 | Emergency (ER) | payer OTHER, MEDICARE ==
[2017-09-03] MEDS ORDERED: NORMAL SALINE 250 ML IV PRN ×2 (00:01→02:59)
[2017-09-03] MEDS ORDERED: LIDOCAINE 2% INJ-PF (100 MG/5 ML) SYRINGE ONE (00:16)
--- NOTE | 2017-09-03 00:24 | ER Document Report ---
ED General - General Stated Complaint: RECTAL BLEEDING Time Seen by Provider: 09/02/17 23:36 Notes: Patient is a 76-year-old male, past medical history of profound dementia, nonverbal at baseline, who had a Marjorie procedure performed approximately 4 weeks ago for sigmoid volvulus, anticoagulated on apixaban for A. fib who presents with massive GI bleeding from his ostomy site. No additional history can be provided as patient is nonverbal. Bleeding started apparently 2 hours prior to arrival to the emergency department TRAVEL OUTSIDE OF THE [place] IN LAST 30 DAYS: No - Related Data Allergies/Adverse Reactions: donepezil Allergy (Verified 05/31/17 08:24) Influenza Virus Vaccines Allergy (Verified 05/31/17 08:24) loratadine Allergy (Verified 05/31/17 08:24) Penicillins Allergy (Verified 05/31/17 08:24) Past Medical History - General Information source: Emergency Med Personnel Cannot obtain history due to: Dementia - Social History Smoking Status: Unknown if Ever Smoked Lives with: [facility] Family History: Other - unable to obtain - Past Medical History Cardiac Medical History: Reports: Hx Atrial Fibrillation, Hx Hypercholesterolemia, Hx Hypertension - on meds Denies: Hx Heart Attack Pulmonary Medical History: Reports: Hx Bronchitis - hx of Denies: Hx Asthma, Hx COPD, Hx Pneumonia Neurological Medical History: Reports: Hx Cerebrovascular Accident. Denies: Hx Seizures Endocrine Medical History: Reports: Hx Hypothyroidism Renal/ Medical History: Musculoskeltal Medical History: Reports Hx Arthritis Psychiatric Medical History: Reports: Hx Anxiety, Hx Dementia, Hx Depression Past Surgical History: Reports: Hx Appendectomy, Hx Herniorrhaphy - Immunizations Hx Diphtheria, Pertussis, Tetanus Vaccination: Yes Review of Systems - Review of Systems -: Yes ROS unobtainable due to patient's medical condition Physical Exam - Vital signs Vitals: Resp BP Pulse Ox 24 H 161/141 H 81 L 09/02/17 23:36 09/02/17 23:36 09/02/17 23:36 Notes: PHYSICAL EXAMINATION: GENERAL: Emaciated, cachectic, nonverbal HEAD: Atraumatic, normocephalic. EYES: sclera anicteric, conjunctiva are normal. ENT: nares patent, oropharynx clear without exudates. Dry mucous membranes. NECK: supple without lymphadenopathy LUNGS: Breath sounds clear to auscultation bilaterally and equal. No wheezes rales or rhonchi. HEART: Regular rate and rhythm without murmurs ABDOMEN: Soft, diffuse mild tenderness, active bleeding from an ostomy in the left lower quadrant EXTREMITIES: Contracted upper and lower extremities NEUROLOGICAL: Patient does not follow commands, does move his torso but does not spontaneously move the extremities PSYCH: Nonverbal SKIN: Warm, Dry, normal turgor, Course - Re-evaluation Re-evalutation: 09/03/17 00:20 Patient presents with a massive GI hemorrhage into his ostomy bag of bright red blood unfortunately anticoagulated on apixaban. Patient is completely nonverbal , severely demented, and appears to have no quality of life. He is in diapers, contracted in the bed, cries in pain during IV line placements, but is unable to even tell me his name. His daughter who is apparently the healthcare power of traffic law attorney is not answering her phone and it does go directly to [employer] same unable to speak with her regarding guidance and management of this terminally ill patient. Unfortunately, review of the prior medical records indicates that family did want full resuscitative efforts despite patient's poor prognosis. I will therefore continue to work under the assumption that the family would want us to pursue aggressive care. When patient arrived, he was extremely contracted making IV line and central line placement options extremely limited. He would not turn his head to allow placement of an external jugular or internal jugular central line and is so contracted a femoral line is likewise not possible. Patient is also aggressively moving about in the bed making a subclavian line high risk. Patient did have a 20- gauge in his left forearm and we were able to establish an additional point of axis in the left foot. Intraosseous line was placed in the left humerus. A immediate request for type and screen with pack red blood cells and FFP were requested. I also placed a call to the on-call surgeon who has stated that given that we do not have GI coverage there is not likely anything acutely surgical to do for this patient and he has recommended transfer. Will contact [facility] as soon as we have initial laboratories to allow for guidance. Patient is not hypotensive is actually quite profoundly hypertensive with initial pressures in the 210-220 systolic. Heart rate not dramatically elevated, ranging anywhere between 80-120 with atrial fibrillation. 09/03/17 00:35 After placement blood pressure cuff on the lower extremity, as the initial blood pressures did not seem to be accurate, we are actually obtaining markedly hypotensive pressure is now between 40s and 60s systolic. Emergency release blood has not been ordered. I continue to not hear from the daughter. I do not expect that the patient will be able to survive this massive bleed. However , will continue to take the greatest efforts to extend his life based on prior family wishes. Will also contact [facility] for emergent transfer 09/03/17 00:48 Patient is responding to fluid resuscitation is received 1.5 L of rapid infused normal saline will await blood. His pressure is now up to 95 on 76. 09/03/17 01:14 I have spoken with Dr. Daly the surgical technology teacher at [facility] who has stated that he does feel there is a surgical component and given that the surgery was performed here the patient does need to be evaluated by her surgeon directly. I again contacted and requested that he come to the bedside to assess the patient. He has agreed. Blood pressure remains stable in the upper 90s at this time after receiving 2 units of packed red blood cells and total 2 L of IV fluids. Norepinephrine has been ordered but is currently being held as patient's map has not fallen below 65 after blood and fluid resuscitation. Awaiting FFP. Will continue to transfuse additional red blood cells if patient continues to drop his blood pressures. 09/03/17 01:32 has come to the bedside and evaluated the patient. The stoma is not bleeding and he states that again the patient needs a scope of the ostomy by GI. Although he does scope he states he does not perform interventions so there are no additional services that can be provided here at this hospital and he needs a GI physician. [facility] has again been contacted to request transfer to the intensive care unit 09/03/17 02:28 Patient has now been accepted by at [facility]. Patient has stabilized well maintaining blood pressures in the low 100s, upper 90s after receiving 2 units of packed red blood cells and IV fluids. He is receiving FFP. 09/03/17 04:02 Patient has had 6 units of packed red blood cells, 2 units of FFP, is on norepinephrine to maintain maps above 65. He remains critically ill. Transfer has arrived for transport. - Vital Signs Vital signs: Temp Pulse Resp BP Pulse Ox 98.0 F 99 16 105/55 L 95 09/03/17 01:28 09/03/17 00:28 09/03/17 03:01 09/03/17 02:55 09/03/17 03:01 - Laboratory Result Diagrams: 09/03/17 01:23 09/03/17 01:51 Laboratory results interpreted by me: 09/03/17 09/03/17 09/03/17 00:21 01:23 01:51 WBC 30.2 H* RDW 15.0 H Seg Neuts % (Manual) 90 H Band Neutrophils % 2 L Lymphocytes % (Manual) 2 L Abs Neuts (Manual) 27.8 H Abs Monocytes (Manual) 1.8 H PT Chloride 97 L BUN 51 H Creatinine 1.84 H Est GFR ( Amer) 43 L Est GFR (Non-Af Amer) 36 L Glucose 147 H Crossmatch See Detail 09/03/17 02:08 WBC RDW Seg Neuts % (Manual) Band Neutrophils % Lymphocytes % (Manual) Abs Neuts (Manual) Abs Monocytes (Manual) PT 19.1 H Chloride BUN Creatinine Est GFR ( Amer) Est GFR (Non-Af Amer) Glucose Crossmatch Critical Care Note - Critical Care Note Total time excluding time spent on procedures (mins): 76 Comments: Critical care time spent obtaining history from patient or surrogate, discussions with consultants, development of treatment plan with patient or surrogate, evaluation of patient's response to treatment, examination of patient , ordering and performing treatments and interventions, ordering and review of laboratory studies, re-evaluation of patient's condition, ordering and review of radiographic studies and review of old charts Discharge - Discharge Clinical Impression: Hemorrhagic shock GI bleed Qualifiers: GI bleed type/associated pathology: unspecified gastrointestinal hemorrhage type Qualified Code(s): K92.2 - Gastrointestinal hemorrhage, unspecified Condition: Critical Disposition: [facility]
[2017-09-03] MEDS ORDERED: DEXTROSE 5%-WATER 250 ML with NOREPINEPHRINE BITARTRATE 4 MG IV PRN ×2 (00:39)
[2017-09-03] MEDS ORDERED: NOREPINEPHRINE BITARTRATE INJ/PF 4 MG/4 ML SDV IV ONE (01:00)
[2017-09-03 01:36] LABS: HEMOGLOBIN 14.8 g/dL (13.5-17.0); HGB HCT DIFFERENCE 0.4; MEAN CORPUSCULAR HEMOGLOBIN 31.3 pg (27.0-33.4); MEAN CORPUSCULAR HGB CONC 33.7 g/dL (32.0-36.0); MEAN CORPUSCULAR VOLUME 93 fl (80-97); RED BLOOD COUNT 4.74 10^6/uL (4.35-5.55)
[2017-09-03 01:40] LABS: WHITE BLOOD COUNT 30.2 10^3/uL (4.0-10.5)
[2017-09-03 02:00] LABS: BAND NEUTROPHILS % (MANUAL) 2 % (3-5); BASOPHILS % (MANUAL) 0 % (0-2); EOSINOPHILS % (MANUAL) 0 % (0-6); LYMPHOCYTES % (MANUAL) 2 % (13-45); TOTAL CELLS COUNTED 100
[2017-09-03 02:03] LABS: ANISOCYTOSIS SLIGHT; OVALOCYTES SLIGHT; PLATELET CLUMPS PRESENT; POIKILOCYTOSIS 1+; TEAR DROP CELLS 1+; TOXIC GRANULATION 1+; TOXIC VACUOLATION PRESENT
[2017-09-03 02:19] LABS: ANION GAP 19 (5-19); BLOOD UREA NITROGEN 51 mg/dL (7-20); CALCIUM 8.8 mg/dL (8.4-10.2); CARBON DIOXIDE 25 mmol/L (22-30); CHLORIDE 97 mmol/L (98-107); CREATININE RESULT 1.84 mg/dL (0.52-1.25); GLUCOSE 147 mg/dL (75-110); POTASSIUM 4.2 mmol/L (3.6-5.0); SODIUM 141.4 mmol/L (137-145)
[2017-09-03 02:39] LABS: PROTHROMBIN TIME 19.1 SEC (11.4-15.4)
[2017-09-03 02:40] LABS: PARTIAL THROMBOPLASTIN TIME 29.7 SEC (23.5-35.8)
[2017-09-03 04:04] VITALS: BP 98/47
--- NOTE | 2017-09-03 04:09 | RADIOLOGY REPORT (SQ) ---
EXAM DESCRIPTION: CHEST SINGLE VIEW COMPLETED DATE/TIME: 09/03/2017 3:37 am REASON FOR STUDY: post-subclavian COMPARISON: 08/19/2017. EXAM PARAMETERS: NUMBER OF VIEWS: One view. TECHNIQUE: Single frontal radiographic view of the chest acquired. RADIATION DOSE: NA LIMITATIONS: None. FINDINGS: LUNGS AND PLEURA: Minimal haziness -layered effusion of the right costophrenic angle. Mod erate lung volume. MEDIASTINUM AND HILAR STRUCTURES: No masses. Contour normal. HEART AND VASCULAR STRUCTURES: Heart normal in size. Normal vasculature. BONES: No acute findings. HARDWARE: Right subclavian central line tip at the cavoatrial junction. OTHER: No other significant finding. IMPRESSION: Minimal haziness -layered effusion of the right costophrenic angle. Madan regalado TECHNICAL DOCUMENTATION: JOB ID: [id number] [employer]- All Rights Reserved
--- NOTE | 2017-09-03 14:10 | EKG REPORT ---
SEVERITY:- DEFECTIVE ECG - ARTIFACTS.REPEAT EKG : Confirmed by: Ilda Mabry MD 03-Sep-2017 14:10:14
--- NOTE | 2017-09-03 17:40 | OPERATIVE REPORT E ---
Operative Report NAME: SUZI GARCIA : 1940 AGE: 76Y DATE OF SURGERY: ROOM: OPERATIVE PROCEDURE: Insertion of a right subclavian central line. SURGEON: JIMMY NGUYEN M.D. INDICATION: Patient hypotension _ He needed central and IV access for medication administration and also monitoring. Patient with dementia, unable to give consent by himself. Patient's family tried to be reached multiple times; not available, so I because it was a lifesaving emergency procedure. DESCRIPTION OF PROCEDURE: The patient was placed in Trendelenburg position. . After that, after 1% lidocaine needle tract was dilated over the tract, triple-lumen catheter inserted into the superior vena cava, excellent venous flow, all the catheter lumens flushed with saline, and then the catheter was secured in place . The patient tolerated the procedure well. Meanwhile, patient is getting stabilized more. DICTATING PHYSICIAN: JIMMY NGUYEN M.D. [id number] Y#: [id number] ID: [id number] JOB#: [id number] ACCT: [id number] cc:JIMMY NGUYEN M.D. > MTDD
--- NOTE | 2017-09-03 17:53 | CONSULTATION REPORT E ---
Consultation Report NAME: SUZI GARCIA : 1940 AGE: 76Y DATE: 09/02/2017 TO: JIMMY NGUYEN M.D. FROM: Shelli CABA, Requesting Physician HISTORY OF PRESENT ILLNESS: A 76-year-old male patient. ER physician called for GI bleeding. Apparently patient had a sigmoid colectomy done for a few weeks ago. The patient has a significant past medical history, significant for atrial fibrillation and anticoagulated for that. He was brought from a longterm to the ER with a history of GI bleeding through colostomy. The patient was hypotensive in the ER and was resuscitated with PRBCs and fluids. Now hemodynamically getting stable. PAST MEDICAL PROBLEMS: As I mentioned. SURGICAL HISTORY: As I mentioned. PHYSICAL EXAMINATION: HEAD AND NECK EXAMINATION: No lymphadenopathy. CHEST EXAM: Both lungs clear air entry. ABDOMINAL EXAM: Soft, nontender. No distention. Well-healed midline incision. Colostomy in the left periumbilical area examined. The looks clean. No bleeding around the colostomy. No bleeding from the colostomy site. It seems to be there is blood-stained liquid stool coming from the proximal colon. IMPRESSION OVERALL: Gastrointestinal bleeding, not from the colostomy site itself, most from a proximal GI source. PLAN: Because of morbidity and multiple medical issues, for this reason transfusion of PRBC was given. Agreed to for medical management of the GI bleeding, including thermotherapy, coagulation therapy, etc. These tests are not available here. Everything was discussed with the ER physicican and recieving physician . DICTATING PHYSICIAN: JIMMY NGUYEN M.D. [id number] Y#: [id number] ID: [id number] JOB#: [id number] ACCT: [id number] cc:JIMMY NGUYEN M.D. > EVAN
[2017-09-05 13:46] LABS: PATH REVIEW PATHOLOGIST REVIEWED
== END 2017-09-03 03:56 | disposition short-term general hospital (02) ==
LOC: ER 23:27
PROC: 05H533Z Insertion of Infusion Device into Right Subclavian Vein, Percutaneous Approach (ICD-10-PCS; principal; 2017-09-02)
DX: R57.8 Other shock (principal); K92.2 Gastrointestinal hemorrhage, unspecified; F03.90 Unspecified dementia, unspecified severity, without behavioral disturbance, psychotic disturbance, mood disturbance, and anxiety; I95.9 Hypotension, unspecified; I48.91 Unspecified atrial fibrillation; E78.00 Pure hypercholesterolemia, unspecified; I10 Essential (primary) hypertension; E03.9 Hypothyroidism, unspecified; Z86.73 Personal history of transient ischemic attack (TIA), and cerebral infarction without residual deficits; Z88.0 Allergy status to penicillin; Z93.3 Colostomy status
CPT/HCPCS: 93005; 99291; 99292; 96365; 96366; 86900; 86901; 36415; 36430; 86850; 85025; 85610; 85730; 80048; 86920; 71010; 93010; 36556; C1751; P9017; P9016; J3490; J7060

== ENCOUNTER 2017-11-12 12:05 | Inpatient (IN) | payer OTHER, MEDICARE ==
[2017-11-12] MEDS ORDERED: NORMAL SALINE 1000 ML 1,000 ML IV ONE (13:29)
[2017-11-12 14:37] LABS: HEMATOCRIT 52.3 % (37.9-51.0); HEMOGLOBIN 17.7 g/dL (13.5-17.0); MEAN CORPUSCULAR HGB CONC 33.7 g/dL (32.0-36.0); MEAN CORPUSCULAR VOLUME 92 fl (80-97); PLATELET COUNT 110 10^3/uL (150-450); RED CELL DISTRIBUTION WIDTH 17.6 % (11.5-14.0); WHITE BLOOD COUNT 27.7 10^3/uL (4.0-10.5)
[2017-11-12 14:57] LABS: ABSOLUTE LYMPHOCYTES# (MANUAL) 1.1 10^3/uL (0.5-4.7); ABSOLUTE MONOCYTES # (MANUAL) 1.7 10^3/uL (0.1-1.4); ABSOLUTE NEUTROPHILS# (MANUAL) 24.9 10^3/uL (1.7-8.2); BAND NEUTROPHILS % (MANUAL) 2 % (3-5); BASOPHILS % (MANUAL) 0 % (0-2); EOSINOPHILS % (MANUAL) 0 % (0-6); LYMPHOCYTES % (MANUAL) 4 % (13-45); MONOCYTES % (MANUAL) 6 % (3-13); NUCLEATED RED BLOOD CELLS 1 /100 WBC (0); SEGMENTED NEUTROPHILS % (MAN) 88 % (42-78); TOTAL CELLS COUNTED 100
[2017-11-12 14:58] LABS: ANISOCYTOSIS 1+; OVALOCYTES SLIGHT; POIKILOCYTOSIS SLIGHT; POLYCHROMASIA SLIGHT
[2017-11-12 14:59] LABS: PLATELET COMMENT DECREASED
[2017-11-12] MEDS ORDERED: CLINDAMYCIN 600 MG/D5W RTU 600 MG/50 ML RTUPB IV ONE (15:01)
[2017-11-12 15:07] LABS: ALANINE AMINOTRANSFERASE 29 U/L (21-72); ALBUMIN 4.1 g/dL (3.5-5.0); ALKALINE PHOSPHATASE 104 U/L (38-126); ANION GAP 16 (5-19); ASPARTATE AMINO TRANSFERASE 24 U/L (17-59); BILIRUBIN,DIRECT 2.3 mg/dL (0.0-0.4); BILIRUBIN,TOTAL 3.3 mg/dL (0.2-1.3); BLOOD UREA NITROGEN 80 mg/dL (7-20); CALCIUM 10.5 mg/dL (8.4-10.2); CARBON DIOXIDE 25 mmol/L (22-30); CHLORIDE 117 mmol/L (98-107); GLUCOSE 165 mg/dL (75-110); POTASSIUM 4.4 mmol/L (3.6-5.0); TOTAL PROTEIN 7.6 g/dL (6.3-8.2)
[2017-11-12] MEDS ORDERED: NORMAL SALINE 1000 ML 1,000 ML IV PRN (15:26)
[2017-11-12] MEDS ORDERED: DILTIAZEM HCL INJ 25 MG/5 ML VIAL IV ONE (15:58)
--- NOTE | 2017-11-12 15:58 | RADIOLOGY REPORT (SQ) ---
EXAM DESCRIPTION: CT SOFT TISSUE NECK WITH COMPLETED DATE/TIME: 11/12/2017 3:44 pm REASON FOR STUDY: right neck mass COMPARISON: None. TECHNIQUE: Post IV contrasted scanning from skull base through lung apices with review of bone, soft tissue and lung windows. Reconstructed coronal and sagittal MPR images reviewed. All images stored on PACS. All CT scanners at this facility use dose modulation, iterative reconstruction, and/or weight based d osing when appropriate to reduce radiation dose to as low as reasonably achievable (ALARA). [facility]: Dose Right [facility]: CareDose [facility]: Dose Right [facility]: Teradose 4D [facility]: GetNinjas CONTRAST TYPE AND DOSE: contrast/concentration: Isovue 300.00 mg/ml; Total Contrast Delivered: 75.0 ml; Total Saline Delivered: 55.0 ml RENAL FUNCTION: Creatinine 1.9 RADIATION DOSE: CT Rad equipment meets quality standard of care and radiation dose reduction techniq ues were employed. CTDIvol: 7.0 mGy. DLP: 212 mGy-cm. . LIMITATIONS: None. FINDINGS: SKULL BASE: Mastoid air cells clear. Inferior brain parenchyma unremarkable. Bilateral h igh cervical, petrous and cavernous ICAs are occluded MAJOR SALIVARY GLANDS: Massive enlargement of the right submandibular gland, 6 cm AP x 3 cm transvers e by 5 cm craniocaudad. This is likely due to sialadenitis. Tumor could not entirely be excluded. Remainder the major salivary glands are otherwise unremarkable. LYMPHADENOPATHY: No adenopathy. MUCOSAL MASSES OR ASYMMETRY: No mucosal masses or asymmetry. LARYNX/CORDS: No abnormal findings. 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 Occluded right ICA is best shown on sagittal image 19. Occluded left ICA is best shown on sagittal images 36-38. LUNG APICES: Hyperinflated from obstructive disease BONES: Degenerative disc changes at C4-5, C5-6, C6-7. THYROID: Diffusely small PARANASAL SINUSES: Clear. OTHER: No other significant finding. IMPRESSION: Massive enlargement of the right submandibular gland, worrisome for sialadenitis. Tumor could not entirely be excluded. Incidental finding of bilateral chronic appearing cervical ICA occlusions with chronic vertebral sanjuanita ry is providing collateral inflow intracranially TECHNICAL DOCUMENTATION: JOB ID: [id number] Quality ID # [id number]: Final reports with documentation of one or more dose reduction techniques (e.g., Au tomated exposure control, adjustment of the mA and/or kV according to patient size, use of iterative reconstruction technique) 2010 [facility]- All Rights Reserved
--- NOTE | 2017-11-12 15:59 | ER Document Report ---
ED General - General Chief Complaint: Abscess Stated Complaint: POSSIBLE ABSCESS Time Seen by Provider: 11/12/17 12:13 Mode of Arrival: Medic Information source: Relative, Outside Facility Records Cannot obtain history due to: Dementia, Altered mental status Notes: 77-year-old male presents from care facility where he was noted that he had oral intake over the past 3 days. Patient was noted by family to be dehydrated sent in for further evaluation mass was noted of the right lower jaw anterior neck Patient is a full code with worsening dementia does not speak TRAVEL OUTSIDE OF THE [place] IN LAST 30 DAYS: No - HPI Onset: Other - 3 day duration Onset/Duration: Worse Quality of pain: Achy Severity: Mild Pain Level: 1 Associated symptoms: Other Exacerbated by: Food Relieved by: Denies Similar symptoms previously: No Recently seen / treated by doctor: No - Related Data Allergies/Adverse Reactions: donepezil Allergy (Verified 05/31/17 08:24) Influenza Virus Vaccines Allergy (Verified 05/31/17 08:24) loratadine Allergy (Verified 05/31/17 08:24) Penicillins Allergy (Verified 05/31/17 08:24) Past Medical History - Social History Smoking Status: Smoker,Current Status Unk Cigarette use (# per day): No Chew tobacco use (# tins/day): No Smoking Education Provided: No Frequency of alcohol use: None Drug Abuse: None Family History: Other - unable to obtain Patient has suicidal ideation: No Patient has homicidal ideation: No - Past Medical History Cardiac Medical History: Reports: Hx Atrial Fibrillation, Hx Hypercholesterolemia, Hx Hypertension - on meds Denies: Hx Heart Attack Pulmonary Medical History: Reports: Hx Bronchitis - hx of Denies: Hx Asthma, Hx COPD, Hx Pneumonia Neurological Medical History: Reports: Hx Cerebrovascular Accident. Denies: Hx Seizures Endocrine Medical History: Reports: Hx Hypothyroidism Renal/ Medical History: Denies: Hx Peritoneal Dialysis Musculoskeltal Medical History: Reports Hx Arthritis Psychiatric Medical History: Reports: Hx Anxiety, Hx Dementia, Hx Depression Past Surgical History: Reports: Hx Appendectomy, Hx Herniorrhaphy - Immunizations Hx Diphtheria, Pertussis, Tetanus Vaccination: Yes Review of Systems - Review of Systems Notes: ALL OTHER SYSTEMS REVIEWED AND NEGATIVE. Dictation was performed using [employer] voice recognition software PHYSICAL EXAMINATION: GENERAL: ill-appearing, dry appearance HEAD: Atraumatic, normocephalic. EYES: Pupils equal round and reactive to light, extraocular movements intact, sclera anicteric, conjunctiva are normal. ENT: Nares patent, oropharynx clear without exudates. Moist mucous membranes. NECK: right neck mass LUNGS: Breath sounds clear to auscultation bilaterally and equal. No wheezes rales or rhonchi. HEART: afib rvr ABDOMEN: Soft, nontender, nondistended abdomen. No guarding, no rebound. No masses appreciated. Musculoskeletal: Normal range of motion, no pitting or edema. No cyanosis. NEUROLOGICAL: altered SKIN: Warm, Dry, normal turgor, no rashes or lesions noted. -: Yes ROS unobtainable due to patient's medical condition Physical Exam - Vital signs Vitals: Pulse Ox 98 11/12/17 12:18 Course - Re-evaluation Re-evalutation: On arrival patient is ill-appearing, high risk from her PD mortality, CT was emergently ordered, it is noted that the patient's kidney function is 1.8 with a BUN of 80 however I need a clear image of the neck unfortunately, I expect further renal injury but given the septic appearance it is necessary. IV antibiotics have been ordered 11/12/17 15:58 Family contacted I spoke with 2 sons and daughter patient will require to be transferred 11/12/17 16:06 Aurea does not have maxillofacial [place] not picking up transfer [facility] paged 11/12/17 17:05 [place] paged 11/12/17 17:10 Patient was noted to be in A. fib RVR, Cardizem bolus was given heart rate went from 160s down to 110 but steadily increased to the 130s-140s, his blood pressure continued to drop, IV fluids have been ordered and been bolused, given his hypotension and septic appearance central line was placed emergently in the left IJ. Levo fed will be started, I did contact [facility] again for placement 11/12/17 17:20 I spoke with both daughters, decision made by BAO Ro[facility] to make patient a DNR, no surgical intervention, confirmed by nurse Zelda 11/12/17 17:23 I will admit the patient to the hospitalist service at this time given that no surgical interventions necessary - Vital Signs Vital signs: Temp Pulse Resp BP Pulse Ox 97.0 F 19 117/86 H 98 11/12/17 12:25 02/03/18 12:39 11/12/17 12:25 11/12/17 12:24 - Laboratory Result Diagrams: 11/12/17 14:16 11/12/17 14:16 Laboratory results interpreted by me: 11/12/17 11/12/17 14:16 14:16 WBC 27.7 H RBC 5.70 H Hgb 17.7 H Hct 52.3 H RDW 17.6 H Plt Count 110 L Seg Neuts % (Manual) 88 H Band Neutrophils % 2 L Lymphocytes % (Manual) 4 L Abs Neuts (Manual) 24.9 H Abs Monocytes (Manual) 1.7 H Sodium 158.0 H Chloride 117 H BUN 80 H Creatinine 1.89 H Est GFR ( Amer) 42 L Est GFR (Non-Af Amer) 35 L Glucose 165 H Calcium 10.5 H Total Bilirubin 3.3 H Direct Bilirubin 2.3 H - Diagnostic Test Radiology reviewed: Image reviewed, Reports reviewed Procedures - Central Line Left Internal jugular Time completed: 17:00 Consent obtained: No - Emergency Central line pre-insertion: Sterile PPE donned, Betadine prep applied, Sterile drapes applied Central line size (Fr.): 18 Central line lumen type: Triple Anesthetic type: 1% Lidocaine mL's of anesthesia: 5 Ultrasound guided: Yes CM at insertion site: 3 Line secured with sutures: Yes Central line post-insertion: Blood return from lumens, Biopatch applied, Sutured , Sterile dressing applied, Position confirmed w/ CXR Number of attempts: 2 Complications: No Critical Care Note - Critical Care Note Total time excluding time spent on procedures (mins): 115 Comments: 115 minutes of critical care time spent in direct contact evaluating and reevaluating the patient, treating symptoms, reviewing labs and studies and speaking with family and consultants excluding any procedures Discharge - Discharge Clinical Impression: Submandibular abscess, Septic shock Condition: Critical Disposition: ADMITTED INPATIENT Admitting Provider: Hospitalist Unit Admitted: ICU
[2017-11-12] MEDS ORDERED: DEXTROSE 5%-WATER 250 ML with NOREPINEPHRINE BITARTRATE 4 MG IV PRN ×4 (17:04→18:21)
[2017-11-12] MEDS ORDERED: NOREPINEPHRINE BITARTRATE INJ/PF 4 MG/4 ML SDV IV ONE (17:09)
[2017-11-12 17:16] LABS: VENOUS BLOOD BASE EXCESS -1.8 mmol/L; VENOUS BLOOD HCO3 23.7 mmol/L (20-32); VENOUS BLOOD PCO2 43.2 mmHg (35-63); VENOUS BLOOD PH 7.36 (7.30-7.42)
--- NOTE | 2017-11-12 17:37 | EKG REPORT ---
SEVERITY:- ABNORMAL ECG - ATRIAL FIBRILLATION, V-RATE 118-181 REPOLARIZATION ABNORMALITY, PROB RATE RELATED BORDERLINE PROLONGED QT INTERVAL : Confirmed by: Hayden Castellanos MD 12-Nov-2017 17:36:23
--- NOTE | 2017-11-12 18:09 | RADIOLOGY REPORT (SQ) ---
EXAM DESCRIPTION: CHEST SINGLE VIEW COMPLETED DATE/TIME: 11/12/2017 5:55 pm REASON FOR STUDY: post central line placement COMPARISON: 09/03/2017 EXAM PARAMETERS: NUMBER OF VIEWS: One view. TECHNIQUE: Single frontal radiographic view of the chest acquired. RADIATION DOSE: NA LIMITATIONS: None. FINDINGS: LUNGS AND PLEURA: No opacities, masses or pneumothorax. No pleural effusion. MEDIASTINUM AND HILAR STRUCTURES: No masses. Contour normal. HEART AND VASCULAR STRUCTURES: Heart normal in size. Normal vasculature. BONES: No acute findings. HARDWARE: A left cervical central vascular access catheter terminates in the region of the superior v jessica cava. OTHER: No other significant finding. IMPRESSION: 1. Left central vascular access catheter without evidence of complication. 2. No acute cardiopulmonary abnormality. TECHNICAL DOCUMENTATION: JOB ID: [id number] [employer]- All Rights Reserved
[2017-11-12] MEDS ORDERED: DEXTROSE 5%-1/2 NORMAL SALINE 1,000 ML IV PRN (18:10)
[2017-11-12] MEDS ORDERED: IPRATROPIUM/ALBUTEROL 0.5-2.5 MG/3 ML AMPUL NEB PRN (18:10)
[2017-11-12] MEDS: DILTIAZEM HCL/D5W 125 MG/125 ML RTUINJ IV PRN (18:26)
--- NOTE | 2017-11-12 18:34 | PDOC H&P ---
History of Present Illness Admission Date/PCP: 11/12/17 17:33 History of Present Illness: SUZI GARCIA is a 77 year old male who was brought to the emergency room by his family from the halfway apparently after the visit today and they found him to be dehydrated as well as with poor oral intake and swelling in his right mandibular area. Patient was found to be septic with a submandibular abscess in the emergency room. Past Medical History Cardiac Medical History: Reports: Atrial Fibrillation, Hyperlipidema, Hypertension - on meds Denies: Myocardial Infarction Pulmonary Medical History: Reports: Bronchitis - hx of Denies: Asthma, Chronic Obstructive Pulmonary Disease (COPD), Pneumonia Neurological Medical History: Denies: Seizures Endocrine Medical History: Reports: Hypothyroidism Musculoskeltal Medical History: Reports: Arthritis Psychiatric Medical History: Reports: Dementia, Depression Hematology: Denies: Anemia Past Surgical History Past Surgical History: Reports: Appendectomy, Herniorrhaphy Social History Smoking Status: Smoker,Current Status Unk Frequency of Alcohol Use: None Hx Recreational Drug Use: No - not known at this time Family History Family History: Other - unable to obtain Parental Family History Reviewed: No - Unknown Children Family History Reviewed: Yes Sibling(s) Family History Reviewed.: Unknown Medication/Allergy Home Medications: Acetaminophen [Mapap] 650 mg PO Q6HP PRN 07/31/17 Tamsulosin HCl 0.8 mg PO QPM 07/31/17 Alprazolam [Xanax 0.5 mg Tablet] 0.5 mg PO HSP PRN #5 tablet 08/24/17 Apixaban [Eliquis 5 mg Tablet] 5 mg PO BID tablet 08/24/17 Fentanyl [Duragesic 12 Mcg/Hr Transdermal Patch] 1 each TD Q3DAYS #1 patch.td72 08/24/17 Furosemide [Lasix 40 mg Tablet] 40 mg PO DAILY tablet 08/24/17 Levothyroxine Sodium [Synthroid 0.075 mg Tablet] 0.075 mg PO QAM tablet Lisinopril [Prinivil 5 mg Tablet] 5 mg PO DAILY tablet 08/24/17 Metoprolol Succinate [Toprol Xl 25 mg Tab.sr] 25 mg PO DAILY tab.sr.24h Olanzapine [Zyprexa 5 mg Tablet] 5 mg PO DAILY@2000 tablet 08/24/17 Rivastigmine [Exelon 4.6 mg/24 Hr Transdermal Patch] 1 each TD NOON patch.td24 08/24/17 Allergies/Adverse Reactions: donepezil Allergy (Verified 05/31/17 08:24) Influenza Virus Vaccines Allergy (Verified 05/31/17 08:24) loratadine Allergy (Verified 05/31/17 08:24) Penicillins Allergy (Verified 05/31/17 08:24) Review of Systems ROS unobtainable: Due to mental status Constitutional: ABSENT: chills, fever(s), headache(s), weight gain, weight loss Eyes: ABSENT: visual disturbances Ears: ABSENT: hearing changes Cardiovascular: ABSENT: chest pain, dyspnea on exertion, edema, orthropnea, palpitations Respiratory: ABSENT: cough, hemoptysis Gastrointestinal: ABSENT: abdominal pain, constipation, diarrhea, hematemesis, hematochezia, nausea, vomiting Genitourinary: ABSENT: dysuria, hematuria Musculoskeletal: ABSENT: joint swelling Integumentary: ABSENT: rash, wounds Neurological: ABSENT: abnormal gait, abnormal speech, confusion, dizziness, focal weakness, syncope Psychiatric: ABSENT: anxiety, depression, homidical ideation, suicidal ideation Endocrine: ABSENT: cold intolerance, heat intolerance, polydipsia, polyuria Hematologic/Lymphatic: ABSENT: easy bleeding, easy bruising Physical Exam Vital Signs: Temp Pulse Resp BP Pulse Ox 97.5 F 19 117/86 H 98 18 17:22 11/12/17 12:39 11/12/17 12:25 11/12/17 12:24 General appearance: PRESENT: no acute distress, thin - Elderly and frail Head exam: PRESENT: atraumatic Eye exam: PRESENT: other - Eyes closed Mouth exam: PRESENT: other - Swelling in the right mandibular area with tenderness Teeth exam: PRESENT: other - Unable to examine Neck exam: ABSENT: tenderness Respiratory exam: PRESENT: clear to auscultation miguelina, unlabored. ABSENT: accessory muscle use, chest wall tenderness, tachypnea Cardiovascular exam: PRESENT: irregular rhythm, tachycardia Pulses: PRESENT: normal dorsalis pedis pul Extremities exam: PRESENT: full ROM. ABSENT: calf tenderness - Lethargic, clubbing, pedal edema Neurological exam: ABSENT: alert, altered, awake, oriented to person, oriented to place, oriented to time, oriented to situation, reflexes normal, abnormal gait, ataxia, CN II-XII grossly intact, motor sensory deficit, normal gait, aphasic, other Results Impressions: Soft Tissue Neck CT 11/12/17 13:29 IMPRESSION: Massive enlargement of the right submandibular gland, worrisome for sialadenitis. Tumor could not entirely be excluded. Incidental finding of bilateral chronic appearing cervical ICA occlusions with chronic vertebral artery is providing collateral inflow intracranially Chest X-Ray 11/12/17 17:22 IMPRESSION: 1. Left central vascular access catheter without evidence of complication. 2. No acute cardiopulmonary abnormality. Status: Image reviewed by me Assessment & Plan - Diagnosis (1) Dehydration with hypernatremia Is this a current diagnosis for this admission?: Yes Plan: Judicious hypotonic IV fluids. Because of his sepsis and hypotension I would like to give normal saline however due to his sodium of 158 I will give hypertonic saline with D5 which is relatively hypotonic to his osmolarity (2) Acute renal failure Is this a current diagnosis for this admission?: Yes Plan: Due to intravascular volume depletion as well as severe dehydration prerenal. We will continue IV fluids and monitor kidney function (3) Do not resuscitate Is this a current diagnosis for this admission?: Yes Plan: Discussions with the family by the ER physician confirmed by me as to his DNR status (4) Septic shock Is this a current diagnosis for this admission?: Yes Plan: With tachycardia, end organ damage, leukocytosis and source infection of submandibular abscess. Patient is currently on Levophed and we will titrate this to maintain adequate blood pressure preferably a map of more than 65 (6) Dementia Qualifiers: (7) Leukocytosis Qualifiers: Leukocytosis type: bandemia Qualified Code(s): D72.825 - Bandemia Is this a current diagnosis for this admission?: Yes Plan: We will follow up on CBC (8) Transaminitis Is this a current diagnosis for this admission?: Yes Plan: Secondary to acute infection likely from hypovolemia (9) Atrial fibrillation Qualifiers: Atrial fibrillation type: persistent Qualified Code(s): I48.1 - Persistent atrial fibrillation Is this a current diagnosis for this admission?: Yes Plan: Patient was in atrial fibrillation on arrival to the emergency room. He does have a history of underlying A. fib. Currently with a rapid ventricular response up to about 150. He has received about 3 L of IV fluid. Pressure is relatively acceptable with Levophed at this time so we will use Cardizem judiciously just to reduce his tachycardia. Obviously what he really needs is the fluids but since he still tachycardic despite 3 L of IV fluid we will transfuse heart rate down with Cardizem - Time Time Spent: 50 to 70 Minutes Critical Time spent with patient: 15-24 minutes Medications reviewed and adjusted accordingly: Yes Anticipated discharge: SNF - Inpatient Certification Medical Necessity: Need Close Monitoring Due to Risk of Patient Decompensation, Need for IV Antibiotics
[2017-11-12] MEDS ORDERED: LEVOFLOXACIN 500 MG/D5W RTU 500 MG/100 ML RTUPB IV SCH (19:00)
[2017-11-12] MEDS: CLINDAMYCIN 600 MG/D5W RTU 600 MG/50 ML RTUPB IV SCH (21:36)
[2017-11-12] MEDS ORDERED: FAMOTIDINE INJ/PF 20 MG/2 ML SDV IV SCH (22:00)
[2017-11-13] MEDS ORDERED: NOREPINEPHRINE BITARTRATE INJ/PF 4 MG/4 ML SDV IV ONE (01:17)
[2017-11-13] MEDS: CLINDAMYCIN 600 MG/D5W RTU 600 MG/50 ML RTUPB IV SCH ×3 (05:36→22:20)
[2017-11-13] MEDS: DEXTROSE 5%-1/2 NORMAL SALINE 1,000 ML IV PRN ×4 (05:36→18:17)
[2017-11-13 07:43] LABS: HEMATOCRIT 34.5 % (37.9-51.0); MEAN CORPUSCULAR HEMOGLOBIN 30.6 pg (27.0-33.4); MEAN CORPUSCULAR HGB CONC 33.4 g/dL (32.0-36.0); MEAN CORPUSCULAR VOLUME 92 fl (80-97); RED BLOOD COUNT 3.77 10^6/uL (4.35-5.55); RED CELL DISTRIBUTION WIDTH 17.3 % (11.5-14.0); WHITE BLOOD COUNT 18.8 10^3/uL (4.0-10.5)
[2017-11-13 08:02] LABS: ALANINE AMINOTRANSFERASE 23 U/L (21-72); ALBUMIN 2.4 g/dL (3.5-5.0); ALKALINE PHOSPHATASE 54 U/L (38-126); ANION GAP 11 (5-19); ASPARTATE AMINO TRANSFERASE 14 U/L (17-59); BILIRUBIN,DIRECT 1.4 mg/dL (0.0-0.4); CALCIUM 8.2 mg/dL (8.4-10.2); CARBON DIOXIDE 25 mmol/L (22-30); CHLORIDE 115 mmol/L (98-107); GLUCOSE 170 mg/dL (75-110); SODIUM 150.7 mmol/L (137-145); TOTAL PROTEIN 4.8 g/dL (6.3-8.2)
[2017-11-13 08:11] LABS: BLOOD UREA NITROGEN 54 mg/dL (7-20)
[2017-11-13 08:12] LABS: HEMOGLOBIN 11.5 g/dL (13.5-17.0); PLATELET COUNT 88 10^3/uL (150-450)
[2017-11-13 08:14] LABS: POTASSIUM 2.8 mmol/L (3.6-5.0)
[2017-11-13] MEDS: ENOXAPARIN SODIUM INJ 30 MG/0.3 ML DISP.SYRIN SUBCUT SCH (10:06)
[2017-11-13] MEDS: POTASSIUM CHLORIDE 20 MEQ/50 ML RTU IV SCH ×3 (11:49→15:47)
--- NOTE | 2017-11-13 11:57 | PDOC PROGRESS REPORT ---
Subjective Progress Note for:: 11/13/17 Subjective:: Patient was admitted with septic shock secondary to submandibular abscess. He was also found to be in atrial fibrillation with rapid ventricular response in addition to being very dehydrated with hypernatremia as well as acute renal failure Patient appears to have responded somewhat positively overnight. He is still on the Levophed but Cardizem has been discontinued as his heart rate has improved and is currently sinus. His laboratory parameters also looking better. I discussed again with family at bedside and they are aware that although he does appear to have made some progress his condition still remains very precarious and serious. Reason For Visit: SUBMANDIBULAR ABSCESS,SEPSIS,ATRIAL FIB WITH RVR Physical Exam Vital Signs: Temp Pulse Resp BP Pulse Ox 96.6 F L 63 14 118/63 97 11/13/17 10:00 11/13/17 10:00 11/13/17 11:00 11/13/17 10:57 11/13/17 11:00 Intake & Output 11/12/17 11/13/17 11/14/17 06:59 06:59 06:59 Output Total 400 135 Balance -400 -135 Weight 50.6 kg General appearance: PRESENT: no acute distress, hard of hearing, thin. ABSENT: severe distress Head exam: PRESENT: atraumatic, normocephalic Eye exam: PRESENT: conjunctiva pink, EOMI, PERRLA. ABSENT: scleral icterus Ear exam: PRESENT: normal external ear exam Mouth exam: PRESENT: dry mucosa, other - Right submandibular swelling and tenderness Neck exam: ABSENT: carotid bruit, JVD, lymphadenopathy, thyromegaly Respiratory exam: PRESENT: clear to auscultation miguelina. ABSENT: rales, rhonchi, wheezes Cardiovascular exam: PRESENT: RRR. ABSENT: diastolic murmur, rubs, systolic murmur Pulses: PRESENT: normal dorsalis pedis pul Vascular exam: PRESENT: normal capillary refill GI/Abdominal exam: PRESENT: normal bowel sounds, soft. ABSENT: distended, guarding, mass, organolmegaly, rebound, tenderness Rectal exam: PRESENT: deferred Extremities exam: PRESENT: full ROM. ABSENT: calf tenderness, clubbing, pedal edema Neurological exam: PRESENT: other - Eyes closed but occasionally tries to open his eyes. He is currently not verbally responsive. Psychiatric exam: PRESENT: suicidal ideation, other - Unable to evaluate due to his condition Skin exam: PRESENT: dry Results Laboratory Results: 11/13/17 07:05 11/13/17 07:05 11/12/17 11/13/17 11/13/17 23:35 07:05 07:05 WBC RBC Hgb Hct MCV MCH MCHC RDW Plt Count Sodium 150.7 H Potassium 2.8 L* D Chloride 115 H Carbon Dioxide 25 Anion Gap 11 BUN 54 H D Creatinine 1.48 H Est GFR ( Amer) 55 L Est GFR (Non-Af Amer) 46 L Glucose 170 H Lactic Acid 3.3 H Calcium 8.2 L Magnesium Total Bilirubin 2.0 H AST 14 L ALT 23 Alkaline Phosphatase 54 Total Protein 4.8 L Albumin 2.4 L TSH 11.60 H 11/13/17 11/13/17 11/13/17 07:05 07:05 07:05 WBC 18.8 H RBC 3.77 L Hgb 11.5 L D Hct 34.5 L MCV 92 MCH 30.6 MCHC 33.4 RDW 17.3 H Plt Count 88 L Sodium Potassium Chloride Carbon Dioxide Anion Gap BUN Creatinine Est GFR ( Amer) Est GFR (Non-Af Amer) Glucose Lactic Acid 4.7 H Calcium Magnesium 1.9 Total Bilirubin AST ALT Alkaline Phosphatase Total Protein Albumin TSH 11/13/17 11:14 WBC RBC Hgb Hct MCV MCH MCHC RDW Plt Count Sodium Potassium Chloride Carbon Dioxide Anion Gap BUN Creatinine Est GFR ( Amer) Est GFR (Non-Af Amer) Glucose Lactic Acid 3.7 H Calcium Magnesium Total Bilirubin AST ALT Alkaline Phosphatase Total Protein Albumin TSH Impressions: Soft Tissue Neck CT 11/12/17 13:29 IMPRESSION: Massive enlargement of the right submandibular gland, worrisome for sialadenitis. Tumor could not entirely be excluded. Incidental finding of bilateral chronic appearing cervical ICA occlusions with chronic vertebral artery is providing collateral inflow intracranially Chest X-Ray 11/12/17 17:22 IMPRESSION: 1. Left central vascular access catheter without evidence of complication. 2. No acute cardiopulmonary abnormality. Assessment & Plan - Diagnosis (1) Dementia Qualifiers: Dementia type: Alzheimer's disease Is this a current diagnosis for this admission?: Yes (2) Do not resuscitate Is this a current diagnosis for this admission?: Yes (3) Septic shock Is this a current diagnosis for this admission?: Yes Plan: With tachycardia, end organ damage, leukocytosis and source infection of submandibular abscess. Continue Levophed and titrate this to maintain adequate blood pressure preferably a map of more than 65 (4) Dehydration with hypernatremia Is this a current diagnosis for this admission?: Yes Plan: Judicious hypotonic IV fluids. His sodium was decreased from 158-150 as well as improvement of his prerenal azotemia. (5) Acute renal failure Qualifiers: Acute renal failure type: with acute tubular necrosis Qualified Code(s): N17.0 - Acute kidney failure with tubular necrosis Is this a current diagnosis for this admission?: Yes Plan: Due to intravascular volume depletion as well as severe dehydration prerenal. We will continue IV fluids and monitor kidney function (6) Submandibular abscess Is this a current diagnosis for this admission?: Yes Plan: We will continue clindamycin and Levaquin as this seems to have responded pretty well to these (7) Leukocytosis Qualifiers: Leukocytosis type: bandemia Qualified Code(s): D72.825 - Bandemia Is this a current diagnosis for this admission?: Yes Plan: Secondary to sepsis, improved (8) Transaminitis Is this a current diagnosis for this admission?: Yes Plan: Secondary to sepsis likely from hypovolemia (9) Atrial fibrillation Qualifiers: Atrial fibrillation type: persistent Qualified Code(s): I48.1 - Persistent atrial fibrillation Is this a current diagnosis for this admission?: Yes Plan: Patient was in atrial fibrillation on arrival to the emergency room. He does have a history of underlying A. fib. He is off Cardizem drip. Will restart rate control agent as appropriate. (10) Hypothyroid Qualifiers: Hypothyroidism type: unspecified Qualified Code(s): E03.9 - Hypothyroidism , unspecified Is this a current diagnosis for this admission?: Yes Plan: TSH is elevated at 11.7. I will start him on IV Synthroid. (11) Electrolyte abnormality Is this a current diagnosis for this admission?: Yes Plan: He is hypokalemic and this will be replaced as per protocol. - Time Time Spent with patient: 35 or more minutes - Including discussion with family Medications reviewed and adjusted accordingly: Yes Anticipated discharge: SNF Within: within 72 hours - Inpatient Certification Medical Necessity: Need For IV Fluids, Need For Continuous Telemetry Monitoring , Need for IV Antibiotics - Plan Summary Plan Summary: Prognosis is poor
[2017-11-13] MEDS: FAMOTIDINE INJ/PF 20 MG/2 ML SDV IV SCH (22:20)
[2017-11-14] MEDS ORDERED: LEVOTHYROXINE SODIUM INJ/PF 0.5 MG SDV IV SCH (06:00)
[2017-11-14 06:39] LABS: HEMOGLOBIN 9.9 g/dL (13.5-17.0); MEAN CORPUSCULAR HEMOGLOBIN 31.1 pg (27.0-33.4); MEAN CORPUSCULAR HGB CONC 34.3 g/dL (32.0-36.0); MEAN CORPUSCULAR VOLUME 91 fl (80-97); RED CELL DISTRIBUTION WIDTH 17.6 % (11.5-14.0); WHITE BLOOD COUNT 8.7 10^3/uL (4.0-10.5)
[2017-11-14] MEDS: CLINDAMYCIN 600 MG/D5W RTU 600 MG/50 ML RTUPB IV SCH ×3 (06:40→22:00)
[2017-11-14] MEDS: DEXTROSE 5%-1/2 NORMAL SALINE 1,000 ML IV PRN ×2 (06:41→10:50)
[2017-11-14 06:42] LABS: ANION GAP 8 (5-19); BLOOD UREA NITROGEN 37 mg/dL (7-20); CALCIUM 7.4 mg/dL (8.4-10.2); CARBON DIOXIDE 22 mmol/L (22-30); CHLORIDE 111 mmol/L (98-107); GLUCOSE 140 mg/dL (75-110); POTASSIUM 3.1 mmol/L (3.6-5.0); SODIUM 141.3 mmol/L (137-145)
[2017-11-14 07:36] LABS: PLATELET COUNT 62 10^3/uL (150-450)
--- NOTE | 2017-11-14 09:14 | PDOC PROGRESS REPORT ---
Subjective Progress Note for:: 11/14/17 Subjective:: Patient was admitted with septic shock secondary to submandibular abscess. He was also found to be in atrial fibrillation with rapid ventricular response in addition to being very dehydrated with hypernatremia as well as acute renal failure Patient continues to improve. He is more awake now, off Levophed and Cardizem. Reason For Visit: SUBMANDIBULAR ABSCESS,SEPSIS,ATRIAL FIB WITH RVR Physical Exam Vital Signs: Temp Pulse Resp BP Pulse Ox 98.2 F 60 14 105/90 H 97 11/14/17 06:00 11/13/17 22:00 11/14/17 06:45 11/14/17 06:27 11/14/17 06:45 Intake & Output 11/13/17 11/14/17 11/15/17 06:59 06:59 06:59 Intake Total 5807 Output Total 400 1615 Balance -400 4192 Weight 50.6 kg 53.9 kg General appearance: PRESENT: no acute distress, thin Head exam: PRESENT: atraumatic Eye exam: PRESENT: other - eyes closed Mouth exam: PRESENT: dry mucosa, other - R submandibular swelling, less swollen Respiratory exam: PRESENT: clear to auscultation miguelina. ABSENT: rales, rhonchi, wheezes Cardiovascular exam: PRESENT: RRR. ABSENT: diastolic murmur, rubs, systolic murmur GI/Abdominal exam: PRESENT: normal bowel sounds, soft. ABSENT: distended, guarding, mass, organolmegaly, rebound, tenderness Extremities exam: PRESENT: full ROM. ABSENT: calf tenderness, clubbing, pedal edema Musculoskeletal exam: PRESENT: other - muscle wasting, Neurological exam: PRESENT: altered Psychiatric exam: PRESENT: other - unable to evaluate Results Laboratory Results: 11/14/17 06:20 11/14/17 06:20 11/13/17 11/13/17 11/14/17 07:05 11:14 06:20 WBC 8.7 RBC 3.20 L Hgb 9.9 L Hct 29.0 L MCV 91 MCH 31.1 MCHC 34.3 RDW 17.6 H Plt Count 62 L Sodium Potassium Chloride Carbon Dioxide Anion Gap BUN Creatinine Est GFR ( Amer) Est GFR (Non-Af Amer) Glucose Lactic Acid 3.7 H Calcium Magnesium 1.9 11/14/17 06:20 WBC RBC Hgb Hct MCV MCH MCHC RDW Plt Count Sodium 141.3 Potassium 3.1 L Chloride 111 H Carbon Dioxide 22 Anion Gap 8 BUN 37 H Creatinine 1.33 H Est GFR ( Amer) > 60 Est GFR (Non-Af Amer) 52 L Glucose 140 H Lactic Acid Calcium 7.4 L Magnesium Impressions: Soft Tissue Neck CT 11/12/17 13:29 IMPRESSION: Massive enlargement of the right submandibular gland, worrisome for sialadenitis. Tumor could not entirely be excluded. Incidental finding of bilateral chronic appearing cervical ICA occlusions with chronic vertebral artery is providing collateral inflow intracranially Chest X-Ray 11/12/17 17:22 IMPRESSION: 1. Left central vascular access catheter without evidence of complication. 2. No acute cardiopulmonary abnormality. Assessment & Plan - Diagnosis (1) Submandibular abscess Is this a current diagnosis for this admission?: Yes Plan: We will continue clindamycin and Levaquin. Patient seems to have responded pretty well to these (2) Acute renal failure Qualifiers: Acute renal failure type: with acute tubular necrosis Qualified Code(s): N17.0 - Acute kidney failure with tubular necrosis Is this a current diagnosis for this admission?: Yes Plan: Due to intravascular volume depletion as well as severe dehydration prerenal. Kidney function improved (3) Septic shock Is this a current diagnosis for this admission?: Yes Plan: With tachycardia, end organ damage, leukocytosis and source infection of submandibular abscess. BC yielding gram positive organisms (4) Dehydration with hypernatremia Is this a current diagnosis for this admission?: Yes Plan: Resolved. (5) Dementia Qualifiers: Dementia type: Alzheimer's disease Is this a current diagnosis for this admission?: Yes (6) Do not resuscitate Is this a current diagnosis for this admission?: Yes (7) Leukocytosis Qualifiers: Leukocytosis type: bandemia Qualified Code(s): D72.825 - Bandemia Is this a current diagnosis for this admission?: Yes Plan: Secondary to sepsis, improved (8) Transaminitis Is this a current diagnosis for this admission?: Yes Plan: Secondary to sepsis likely from hypovolemia, resolving (9) Atrial fibrillation Qualifiers: Atrial fibrillation type: persistent Qualified Code(s): I48.1 - Persistent atrial fibrillation Is this a current diagnosis for this admission?: Yes Plan: Patient was in atrial fibrillation on arrival to the emergency room. He does have a history of underlying A. fib. He is off Cardizem drip. Will restart rate control agent as appropriate. (10) Hypothyroid Qualifiers: Hypothyroidism type: unspecified Qualified Code(s): E03.9 - Hypothyroidism , unspecified Is this a current diagnosis for this admission?: Yes Plan: TSH is elevated at 11.7. Cont IV Synthroid. (11) Electrolyte abnormality Is this a current diagnosis for this admission?: Yes Plan: Cont to replace per protocol (12) Anemia Qualifiers: Anemia type: unspecified type Qualified Code(s): D64.9 - Anemia, unspecified Is this a current diagnosis for this admission?: Yes Plan: Patient was severely dehydrated on admission explaining his hemoconcentration. With marked improvement of his dehydration, azotemia, his hemoglobin is back to baseline. There is no evidence of acute blood loss - Time Time Spent with patient: 15-24 minutes Medications reviewed and adjusted accordingly: Yes Anticipated discharge: SNF Within: within 72 hours - Inpatient Certification Medical Necessity: Need for IV Antibiotics, Risk of Complication if Not Cared For in Hospital
[2017-11-14] MEDS ORDERED: POTASSI CL 20 MEQ/50 ML RIDER 20 MEQ/50 ML RTUPB IV SCH (09:30)
[2017-11-14] MEDS: ENOXAPARIN SODIUM INJ 30 MG/0.3 ML DISP.SYRIN SUBCUT SCH (10:10)
[2017-11-14] MEDS: LEVOFLOXACIN 500 MG/D5W RTU 500 MG/100 ML RTUPB IV SCH (10:50)
[2017-11-14] MEDS: DILTIAZEM HCL/D5W 125 MG/125 ML RTUINJ IV PRN (11:01)
[2017-11-14] MEDS ORDERED: METOPROLOL TARTRATE PF/INJ 5 MG/5 ML SDV IV ONE (11:47)
[2017-11-14] MEDS ORDERED: LEVOTHYROXINE SODIUM INJ/PF 0.1 MG SDV IV ONE (16:00)
[2017-11-14] MEDS ORDERED: DILTIAZEM HCL/D5W 125 MG/125 ML RTUINJ IV PRN (21:46)
[2017-11-14] MEDS: FAMOTIDINE INJ/PF 20 MG/2 ML SDV IV SCH (22:01)
[2017-11-15] MEDS: CLINDAMYCIN 600 MG/D5W RTU 600 MG/50 ML RTUPB IV SCH ×3 (05:03→21:51)
[2017-11-15] MEDS: LEVOTHYROXINE SODIUM INJ/PF 0.1 MG SDV IV SCH (05:03)
[2017-11-15] MEDS: METOPROLOL TARTRATE PF/INJ 5 MG/5 ML SDV IV PRN ×2 (05:07→09:26)
[2017-11-15 05:43] LABS: HEMATOCRIT 33.9 % (37.9-51.0); HEMOGLOBIN 11.7 g/dL (13.5-17.0); MEAN CORPUSCULAR HEMOGLOBIN 30.8 pg (27.0-33.4); MEAN CORPUSCULAR HGB CONC 34.6 g/dL (32.0-36.0); MEAN CORPUSCULAR VOLUME 89 fl (80-97); RED BLOOD COUNT 3.81 10^6/uL (4.35-5.55); RED CELL DISTRIBUTION WIDTH 17.1 % (11.5-14.0); WHITE BLOOD COUNT 9.4 10^3/uL (4.0-10.5)
[2017-11-15 06:08] LABS: PLATELET COUNT 85 10^3/uL (150-450)
[2017-11-15 06:09] LABS: ANION GAP 8 (5-19); BLOOD UREA NITROGEN 27 mg/dL (7-20); CALCIUM 7.3 mg/dL (8.4-10.2); CARBON DIOXIDE 25 mmol/L (22-30); CHLORIDE 106 mmol/L (98-107); GLUCOSE 76 mg/dL (75-110); POTASSIUM 3.1 mmol/L (3.6-5.0); SODIUM 138.6 mmol/L (137-145)
[2017-11-15] MEDS: POTASSI CL 20 MEQ/50 ML RIDER 20 MEQ/50 ML RTUPB IV SCH ×2 (08:39→11:33)
[2017-11-15] MEDS: ENOXAPARIN SODIUM INJ 30 MG/0.3 ML DISP.SYRIN SUBCUT SCH (09:26)
[2017-11-15] MEDS: LEVOFLOXACIN 500 MG/D5W RTU 500 MG/100 ML RTUPB IV SCH (10:51)
--- NOTE | 2017-11-15 12:16 | PDOC PROGRESS REPORT ---
Subjective Progress Note for:: 11/15/17 Subjective:: Patient was admitted with septic shock secondary to submandibular abscess. He was also found to be in atrial fibrillation with rapid ventricular response in addition to being very dehydrated with hypernatremia as well as acute renal failure Patient is more awake but non verbal. Daughter is at bedside. She says she is the POA. She requests Palliative care for the patient and hospice has been consulted. We will continue current treatment until seen by hospice and transitioned. No tube feeding or any other aggressive feeding per daughter, no TPN and speech eval has been cancelled Reason For Visit: SUBMANDIBULAR ABSCESS,SEPSIS,ATRIAL FIB WITH RVR Physical Exam Vital Signs: Temp Pulse Resp BP Pulse Ox 97.5 F 98 16 114/58 L 96 11/15/17 06:58 11/15/17 09:55 11/15/17 09:55 11/15/17 07:01 11/15/17 09:55 Intake & Output 11/14/17 11/15/17 11/16/17 06:59 06:59 06:59 Intake Total 5807 2877 Output Total 1615 3275 Balance 4192 -398 Weight 53.9 kg 54.7 kg General appearance: PRESENT: thin - elderly and frail Head exam: PRESENT: atraumatic Mouth exam: PRESENT: other - Decreasing swelling R submandibular, less tender Throat exam: PRESENT: other - unable to examine Respiratory exam: PRESENT: clear to auscultation miguelina. ABSENT: rales, rhonchi, wheezes Cardiovascular exam: PRESENT: RRR. ABSENT: diastolic murmur, rubs, systolic murmur Rectal exam: PRESENT: deferred Neurological exam: PRESENT: awake. ABSENT: oriented to person, oriented to place, oriented to time, oriented to situation Skin exam: PRESENT: abrasion - lower extremities Results Laboratory Results: 11/15/17 05:15 11/15/17 05:15 11/15/17 11/15/17 05:15 05:15 WBC 9.4 RBC 3.81 L Hgb 11.7 L Hct 33.9 L MCV 89 MCH 30.8 MCHC 34.6 RDW 17.1 H Plt Count 85 L Sodium 138.6 Potassium 3.1 L Chloride 106 Carbon Dioxide 25 Anion Gap 8 BUN 27 H Creatinine 1.15 Est GFR ( Amer) > 60 Est GFR (Non-Af Amer) > 60 Glucose 76 Calcium 7.3 L Impressions: Soft Tissue Neck CT 11/12/17 13:29 IMPRESSION: Massive enlargement of the right submandibular gland, worrisome for sialadenitis. Tumor could not entirely be excluded. Incidental finding of bilateral chronic appearing cervical ICA occlusions with chronic vertebral artery is providing collateral inflow intracranially Chest X-Ray 11/12/17 17:22 IMPRESSION: 1. Left central vascular access catheter without evidence of complication. 2. No acute cardiopulmonary abnormality. Assessment & Plan - Diagnosis (1) Submandibular abscess Is this a current diagnosis for this admission?: Yes Plan: Continue clindamycin and Levaquin. Patient seems to have responded pretty well to these (2) Acute renal failure Qualifiers: Acute renal failure type: with acute tubular necrosis Qualified Code(s): N17.0 - Acute kidney failure with tubular necrosis Is this a current diagnosis for this admission?: Yes Plan: Due to intravascular volume depletion as well as severe dehydration prerenal. Kidney function improved and almost resolved (3) Septic shock Is this a current diagnosis for this admission?: Yes Plan: With tachycardia, end organ damage, leukocytosis and source infection of submandibular abscess. BC yielding gram positive organisms Resolved (4) Dehydration with hypernatremia Is this a current diagnosis for this admission?: Yes Plan: Resolved. (5) Dementia Qualifiers: Dementia type: Alzheimer's disease Is this a current diagnosis for this admission?: Yes (6) Do not resuscitate Is this a current diagnosis for this admission?: Yes Plan: He is DNR but hospice care being considered (7) Leukocytosis Qualifiers: Leukocytosis type: bandemia Qualified Code(s): D72.825 - Bandemia Is this a current diagnosis for this admission?: Yes Plan: Secondary to sepsis,resolved (8) Transaminitis Is this a current diagnosis for this admission?: Yes Plan: Secondary to sepsis likely from hypovolemia, resolving (9) Atrial fibrillation Qualifiers: Atrial fibrillation type: persistent Qualified Code(s): I48.1 - Persistent atrial fibrillation Is this a current diagnosis for this admission?: Yes Plan: Patient was in atrial fibrillation on arrival to the emergency room. He does have a history of underlying A. fib. He is off Cardizem drip. restart rate control agent as appropriate. (10) Hypothyroid Qualifiers: Hypothyroidism type: unspecified Qualified Code(s): E03.9 - Hypothyroidism , unspecified Is this a current diagnosis for this admission?: Yes Plan: TSH is elevated at 11.7. Cont IV Synthroid. (11) Electrolyte abnormality Is this a current diagnosis for this admission?: Yes Plan: Cont to replace per protocol (12) Anemia Qualifiers: Anemia type: unspecified type Qualified Code(s): D64.9 - Anemia, unspecified Is this a current diagnosis for this admission?: Yes Plan: Patient was severely dehydrated on admission explaining his hemoconcentration. With marked improvement of his dehydration, azotemia, his hemoglobin is back to baseline. There is no evidence of acute blood loss - Time Time Spent with patient: 15-24 minutes Medications reviewed and adjusted accordingly: Yes Anticipated discharge: Hospice Within: within 48 hours - Inpatient Certification Medical Necessity: Need for IV Antibiotics, Other - Arrangements for possible hospice care
[2017-11-15] MEDS: FAMOTIDINE INJ/PF 20 MG/2 ML SDV IV SCH (21:51)
[2017-11-16] MEDS: CLINDAMYCIN 600 MG/D5W RTU 600 MG/50 ML RTUPB IV SCH ×3 (05:06→21:52)
[2017-11-16] MEDS: LEVOTHYROXINE SODIUM INJ/PF 0.1 MG SDV IV SCH (05:07)
[2017-11-16 05:30] LABS: ANION GAP 5 (5-19); BLOOD UREA NITROGEN 26 mg/dL (7-20); CALCIUM 7.5 mg/dL (8.4-10.2); CARBON DIOXIDE 26 mmol/L (22-30); CHLORIDE 108 mmol/L (98-107); GLUCOSE 70 mg/dL (75-110); MAGNESIUM 1.4 mg/dL (1.6-2.3); POTASSIUM 3.2 mmol/L (3.6-5.0)
[2017-11-16] MEDS ORDERED: ENOXAPARIN SODIUM INJ 40 MG/0.4 ML DISP.SYRIN SUBCUT SCH (10:00)
[2017-11-16] MEDS: LEVOFLOXACIN 500 MG/D5W RTU 500 MG/100 ML RTUPB IV SCH (10:59)
--- NOTE | 2017-11-16 17:16 | PDOC PROGRESS REPORT ---
Subjective Progress Note for:: 11/16/17 Subjective:: Nursing states that pt is doing well. Parents that patient is to go to facility at time of discharge. Reason For Visit: SUBMANDIBULAR ABSCESS,SEPSIS,ATRIAL FIB WITH RVR Physical Exam Vital Signs: Temp Pulse Resp BP Pulse Ox 98.3 F 104 H 16 112/58 L 83 L 11/16/17 11:18 11/16/17 14:00 11/16/17 08:24 11/16/17 11:24 11/16/17 11:18 Intake & Output 11/15/17 11/16/17 11/17/17 06:59 06:59 06:59 Intake Total 2877 300 Output Total 3275 700 Balance -398 -400 Weight 54.7 kg 49.6 kg General appearance: PRESENT: no acute distress, well-developed, well-nourished Head exam: PRESENT: atraumatic, normocephalic Eye exam: PRESENT: conjunctiva pink, EOMI. ABSENT: scleral icterus Ear exam: PRESENT: normal external ear exam Mouth exam: PRESENT: moist, tongue midline Neck exam: ABSENT: carotid bruit, JVD, lymphadenopathy, thyromegaly Respiratory exam: PRESENT: clear to auscultation miguelina. ABSENT: rales, rhonchi, wheezes Cardiovascular exam: PRESENT: RRR. ABSENT: diastolic murmur, rubs, systolic murmur Pulses: PRESENT: normal dorsalis pedis pul Vascular exam: PRESENT: normal capillary refill GI/Abdominal exam: PRESENT: other - Colostomy bag in place, abdomen scaphoid Rectal exam: PRESENT: deferred Extremities exam: PRESENT: full ROM. ABSENT: calf tenderness, clubbing, pedal edema Neurological exam: PRESENT: other - Sleeping. ABSENT: motor sensory deficit Psychiatric exam: PRESENT: appropriate affect, normal mood. ABSENT: homicidal ideation, suicidal ideation Skin exam: PRESENT: dry, warm Results Laboratory Results: 11/15/17 05:15 11/16/17 04:53 11/16/17 04:53 Sodium 139.0 Potassium 3.2 L Chloride 108 H Carbon Dioxide 26 Anion Gap 5 BUN 26 H Creatinine 1.16 Est GFR ( Amer) > 60 Est GFR (Non-Af Amer) > 60 Glucose 70 L Calcium 7.5 L Magnesium 1.4 L Impressions: Soft Tissue Neck CT 02/03/18 13:29 IMPRESSION: Massive enlargement of the right submandibular gland, worrisome for sialadenitis. Tumor could not entirely be excluded. Incidental finding of bilateral chronic appearing cervical ICA occlusions with chronic vertebral artery is providing collateral inflow intracranially Chest X-Ray 11/12/17 17:22 IMPRESSION: 1. Left central vascular access catheter without evidence of complication. 2. No acute cardiopulmonary abnormality. Assessment & Plan - Diagnosis (1) Septic shock Is this a current diagnosis for this admission?: Yes Plan: Secondary to Submandibular Abscess: Resolved (2) Bacteremia Is this a current diagnosis for this admission?: Yes Plan: Staph Aureus: Will continue clindamycin. (3) Submandibular abscess Is this a current diagnosis for this admission?: Yes Plan: Continue patient on clindamycin. Will discontinue Levaquin. (4) Acute renal failure Qualifiers: Acute renal failure type: with acute tubular necrosis Qualified Code(s): N17.0 - Acute kidney failure with tubular necrosis Is this a current diagnosis for this admission?: Yes Plan: In setting of chronic kidney disease stage II: Resolved (5) Dehydration with hypernatremia Is this a current diagnosis for this admission?: Yes Plan: Resolved (6) Dementia Qualifiers: Dementia type: Alzheimer's disease Is this a current diagnosis for this admission?: Yes Plan: Supportive Care (7) Leukocytosis Qualifiers: Leukocytosis type: bandemia Qualified Code(s): D72.825 - Bandemia Is this a current diagnosis for this admission?: Yes Plan: Resolved. (8) Do not resuscitate Is this a current diagnosis for this admission?: Yes (9) Hypokalemia Is this a current diagnosis for this admission?: Yes Plan: Will give Potassium replacement. BMP in am (10) Hypomagnesemia Is this a current diagnosis for this admission?: Yes Plan: Will give Magnesium replacement. Will check Mag in am. (11) DVT prophylaxis Is this a current diagnosis for this admission?: Yes Plan: Lovenox - Time Time Spent with patient: 25-34 minutes
[2017-11-16] MEDS: MAGNESIUM SULFATE/D5W 1 GM/100 ML RTUPB IV SCH ×2 (18:07→19:28)
[2017-11-16] MEDS: POTASSI CL 20 MEQ/50 ML RIDER 20 MEQ/50 ML RTUPB IV SCH ×2 (18:17→20:22)
[2017-11-16] MEDS: FAMOTIDINE INJ/PF 20 MG/2 ML SDV IV SCH (21:52)
[2017-11-17 04:38] LABS: ABSOLUTE LYMPHOCYTES (AUTO) 0.9 10^3/uL (0.5-4.7); ABSOLUTE MONOCYTES (AUTO) 0.6 10^3/uL (0.1-1.4); ABSOLUTE NEUT (AUTO) 4.4 10^3/uL (1.7-8.2); BASOPHILS % (AUTO) 0.2 % (0-2); EOSINOPHILS % (AUTO) 0.5 % (0-6); HEMOGLOBIN 12.2 g/dL (13.5-17.0); LYMPHOCYTES % (AUTO) 14.6 % (13-45); MEAN CORPUSCULAR HEMOGLOBIN 31.2 pg (27.0-33.4); MEAN CORPUSCULAR HGB CONC 34.8 g/dL (32.0-36.0); MEAN CORPUSCULAR VOLUME 90 fl (80-97); MONOCYTES % (AUTO) 10.8 % (3-13); RED CELL DISTRIBUTION WIDTH 16.8 % (11.5-14.0); SEGMENTED NEUTROPHILS % (AUTO) 73.9 % (42-78); TOTAL CELLS COUNTED % (AUTO) 100 %
[2017-11-17 04:42] LABS: PLATELET COUNT 91 10^3/uL (150-450)
[2017-11-17 04:53] LABS: ANION GAP 8 (5-19); BLOOD UREA NITROGEN 22 mg/dL (7-20); CALCIUM 7.8 mg/dL (8.4-10.2); CARBON DIOXIDE 25 mmol/L (22-30); CHLORIDE 107 mmol/L (98-107); GLUCOSE 81 mg/dL (75-110); MAGNESIUM 1.9 mg/dL (1.6-2.3); POTASSIUM 3.4 mmol/L (3.6-5.0); SODIUM 139.9 mmol/L (137-145)
[2017-11-17] MEDS: CLINDAMYCIN 600 MG/D5W RTU 600 MG/50 ML RTUPB IV SCH ×3 (05:06→22:13)
[2017-11-17] MEDS: LEVOTHYROXINE SODIUM INJ/PF 0.1 MG SDV IV SCH (05:07)
[2017-11-17] MEDS ORDERED: POTASSI CL 20 MEQ/50 ML RIDER 20 MEQ/50 ML RTUPB IV SCH (06:00)
[2017-11-17] MEDS: METOPROLOL TARTRATE PF/INJ 5 MG/5 ML SDV IV PRN (07:38)
[2017-11-17] MEDS: POTASSI CL 20 MEQ/50 ML RIDER 20 MEQ/50 ML RTUPB IV SCH ×3 (07:49→12:30)
--- NOTE | 2017-11-17 12:34 | PDOC PROGRESS REPORT ---
Subjective Progress Note for:: 11/17/17 Subjective:: Pt seen earlier this morning. No new issues. Reason For Visit: SUBMANDIBULAR ABSCESS,SEPSIS,ATRIAL FIB WITH RVR Physical Exam Vital Signs: Temp Pulse Resp BP Pulse Ox 97.8 F 130 H 16 130/91 H 99 11/17/17 07:40 11/17/17 07:40 11/17/17 07:40 11/17/17 07:40 11/17/17 04:03 Intake & Output 11/16/17 11/17/17 11/18/17 06:59 06:59 06:59 Intake Total 300 453 Output Total 700 700 Balance -400 -247 Weight 49.6 kg 49.5 kg General appearance: PRESENT: no acute distress, thin Head exam: PRESENT: atraumatic, normocephalic Eye exam: PRESENT: conjunctiva pink, EOMI Ear exam: PRESENT: normal external ear exam Mouth exam: PRESENT: moist, tongue midline Neck exam: ABSENT: carotid bruit, JVD, lymphadenopathy, thyromegaly Respiratory exam: PRESENT: clear to auscultation miguelina. ABSENT: rales, rhonchi, wheezes Cardiovascular exam: PRESENT: RRR. ABSENT: diastolic murmur, rubs, systolic murmur Pulses: PRESENT: normal dorsalis pedis pul Vascular exam: PRESENT: normal capillary refill GI/Abdominal exam: PRESENT: other - Colostomy bag in place Rectal exam: PRESENT: deferred Extremities exam: ABSENT: calf tenderness, clubbing, pedal edema Neurological exam: PRESENT: alert Psychiatric exam: ABSENT: homicidal ideation, suicidal ideation Skin exam: PRESENT: dry, warm Results Laboratory Results: 11/17/17 04:15 11/17/17 04:15 11/17/17 11/17/17 04:15 04:15 WBC 6.0 RBC 3.90 L Hgb 12.2 L Hct 35.0 L MCV 90 MCH 31.2 MCHC 34.8 RDW 16.8 H Plt Count 91 L Seg Neutrophils % 73.9 Lymphocytes % 14.6 Monocytes % 10.8 Eosinophils % 0.5 Basophils % 0.2 Absolute Neutrophils 4.4 Absolute Lymphocytes 0.9 Absolute Monocytes 0.6 Absolute Eosinophils 0.0 Absolute Basophils 0.0 Sodium 139.9 Potassium 3.4 L Chloride 107 Carbon Dioxide 25 Anion Gap 8 BUN 22 H Creatinine 1.18 Est GFR ( Amer) > 60 Est GFR (Non-Af Amer) > 60 Glucose 81 Calcium 7.8 L Magnesium 1.9 Impressions: Soft Tissue Neck CT 11/12/17 13:29 IMPRESSION: Massive enlargement of the right submandibular gland, worrisome for sialadenitis. Tumor could not entirely be excluded. Incidental finding of bilateral chronic appearing cervical ICA occlusions with chronic vertebral artery is providing collateral inflow intracranially Chest X-Ray 11/12/17 17:22 IMPRESSION: 1. Left central vascular access catheter without evidence of complication. 2. No acute cardiopulmonary abnormality. Assessment & Plan - Diagnosis (1) Septic shock Is this a current diagnosis for this admission?: Yes Plan: Secondary to Submandibular Abscess: Resolved (2) Bacteremia Is this a current diagnosis for this admission?: Yes Plan: Staph Aureus: Will continue clindamycin. (3) Submandibular abscess Is this a current diagnosis for this admission?: Yes Plan: Continue patient on clindamycin. Will discontinue Levaquin. (4) Acute renal failure Qualifiers: Acute renal failure type: with acute tubular necrosis Qualified Code(s): N17.0 - Acute kidney failure with tubular necrosis Is this a current diagnosis for this admission?: Yes Plan: In setting of chronic kidney disease stage II: Resolved (5) Dehydration with hypernatremia Is this a current diagnosis for this admission?: Yes Plan: Resolved (6) Dementia Qualifiers: Dementia type: Alzheimer's disease Is this a current diagnosis for this admission?: Yes Plan: Supportive Care (7) Leukocytosis Qualifiers: Leukocytosis type: bandemia Qualified Code(s): D72.825 - Bandemia Is this a current diagnosis for this admission?: Yes Plan: Resolved. (8) Hypokalemia Is this a current diagnosis for this admission?: Yes Plan: Resolving. (9) Hypomagnesemia Is this a current diagnosis for this admission?: Yes Plan: Resolved (10) DVT prophylaxis Is this a current diagnosis for this admission?: Yes Plan: Lovenox (11) Do not resuscitate Is this a current diagnosis for this admission?: Yes - Time Time Spent with patient: 25-34 minutes - Tried to call Pierce Keith at [phone] but no answer. Spoke to Areli who was able to give additional information about plan of care. Areli that I called [facility] [phone] but no one answered.
[2017-11-17] MEDS: FAMOTIDINE INJ/PF 20 MG/2 ML SDV IV SCH (22:13)
[2017-11-18] MEDS: LEVOTHYROXINE SODIUM INJ/PF 0.1 MG SDV IV SCH (05:41)
[2017-11-18] MEDS: CLINDAMYCIN 600 MG/D5W RTU 600 MG/50 ML RTUPB IV SCH ×2 (05:41→13:57)
[2017-11-18 09:00] VITALS: BP 130/85
[2017-11-18] MEDS ORDERED: TUBERCULIN,PURIF.PROT.DERIV. 5 TU/0.1 ML TEST 1 ML VIAL ID ONE (11:30)
--- NOTE | 2017-11-18 11:37 | PDOC DISCHARGE SUMMARY ---
General - Admit/Disc Date/PCP Admission Date/Primary Care Provider: 11/12/17 17:33 Discharge Date: 11/18/17 - Discharge Diagnosis (1) Septic shock Is this a current diagnosis for this admission?: Yes Summary: Secondary to submandibular abscess: Resolved. Patient will continue on clindamycin for total of 10 days. Family has requested hospice at facility. (2) Bacteremia Is this a current diagnosis for this admission?: Yes Summary: Staph aureus secondary to submandibular abscess: Patient will complete clindamycin for 10 days. (3) Submandibular abscess Is this a current diagnosis for this admission?: Yes Summary: Secondary to staph aureus: Patient will complete treatment with clindamycin. Patient will be followed by hospice once at facility (4) Acute renal failure Is this a current diagnosis for this admission?: Yes Summary: Resolved (5) Dehydration with hypernatremia Is this a current diagnosis for this admission?: Yes Summary: In setting of sepsis: Resolved (6) Dementia Is this a current diagnosis for this admission?: Yes Summary: Supportive care (7) Leukocytosis Is this a current diagnosis for this admission?: Yes Summary: In setting of sepsis: Resolved (8) Hypokalemia Is this a current diagnosis for this admission?: Yes Summary: Resolved (9) Hypomagnesemia Is this a current diagnosis for this admission?: Yes Summary: Resolved (10) Do not resuscitate Is this a current diagnosis for this admission?: Yes Summary: Family is requesting that patient be DNR. Family also interested in hospice at facility. - Additional Information Resuscitation Status: Do Not Resuscitate Discharge Diet: Other (Comments) - regular pureed diet with nectar thick Discharge Activity: Activity As Tolerated Prescriptions: Clindamycin HCl 600 mg PO Q8H #60 capsule Home Medications: Acetaminophen [Tylenol] 650 mg PO Q6HP PRN 11/13/17 Citalopram Hydrobromide [Celexa 20 mg Tablet] 20 mg PO DAILY 11/13/17 Docusate Sodium [Colace] 240 mg PO QHS 11/13/17 Guaifenesin [Robitussin Syrup 200 mg/10 ml Ud Cup] 200 mg PO Q4HP PRN 11/13/17 Levothyroxine Sodium [Synthroid 0.088 mg Tablet] 88 mcg PO DAILY 11/13/17 Magnesium Hydroxide [Milk of Magnesia 30 ml Udcup] 30 ml PO PRN PRN 11/13/17 Pantoprazole Sodium [Protonix] 40 mg PO DAILY 11/13/17 Quetiapine Fumarate [Seroquel 25 mg Tablet] 25 mg PO Q12 11/13/17 Simvastatin [Zocor 20 mg Tablet] 20 mg PO QHS 11/13/17 Tamsulosin HCl [Flomax 0.4 mg Cap.sr] 0.8 mg PO DAILY 11/13/17 Clindamycin HCl 600 mg PO Q8H #60 capsule 11/18/17 History of Present Illness Patient complains of: Dehydration and right submandibular abscess History of Present Illness: SUZI GARCIA is a 77 year old male admitted to the emergency room due to dehydration and right submandibular abscess. Patient was found to be bacteremic during hospitalization and placed on IV antibiotics. Hospital Course Hospital Course: Patient is a 77-year-old gentleman that was admitted to our facility due to sepsis secondary to submandibular abscess. Patient's blood cultures demonstrated staph aureus. Patient was placed on broad-spectrum antibiotics and narrowed to clindamycin. Patient's white blood cell count resolved. Patient was also found to have acute renal injury however has resolved with IV fluid resuscitation. Patient was also noted to have hypokalemia and hypomagnesemia which is also resolved. Family has decided that patient will be followed by hospice once at facility. Has spoke with family and they are aware of the plan to continue to treat patient submandibular abscess for additional days. Physical Exam Vital Signs: Temp Pulse Resp BP Pulse Ox 97.6 F 89 16 130/85 H 94 11/18/17 07:07 11/18/17 07:07 11/18/17 07:07 11/18/17 07:07 11/18/17 07:07 Intake & Output 11/17/17 11/18/17 11/19/17 06:59 06:59 06:59 Intake Total 453 310 Output Total 700 860 Balance -247 -550 Weight 49.5 kg 48.7 kg General appearance: PRESENT: no acute distress, thin Head exam: PRESENT: normocephalic Eye exam: PRESENT: conjunctiva pink Ear exam: PRESENT: normal external ear exam Mouth exam: PRESENT: other - Right mandibular mass Neck exam: ABSENT: carotid bruit, JVD, lymphadenopathy, thyromegaly Respiratory exam: PRESENT: clear to auscultation miguelina. ABSENT: rales, rhonchi, wheezes Cardiovascular exam: PRESENT: irregular rhythm. ABSENT: diastolic murmur, rubs , systolic murmur Pulses: PRESENT: normal dorsalis pedis pul Vascular exam: PRESENT: normal capillary refill GI/Abdominal exam: PRESENT: other - Colostomy bag in place Rectal exam: PRESENT: deferred Extremities exam: PRESENT: full ROM. ABSENT: calf tenderness, clubbing, pedal edema Neurological exam: PRESENT: awake Psychiatric exam: PRESENT: appropriate affect, normal mood. ABSENT: homicidal ideation, suicidal ideation Skin exam: PRESENT: dry, intact, warm. ABSENT: cyanosis, rash Results Laboratory Results: 11/17/17 04:15 11/17/17 04:15 Impressions: Soft Tissue Neck CT 11/12/17 13:29 IMPRESSION: Massive enlargement of the right submandibular gland, worrisome for sialadenitis. Tumor could not entirely be excluded. Incidental finding of bilateral chronic appearing cervical ICA occlusions with chronic vertebral artery is providing collateral inflow intracranially Chest X-Ray 11/12/17 17:22 IMPRESSION: 1. Left central vascular access catheter without evidence of complication. 2. No acute cardiopulmonary abnormality. Plan Time Spent: Greater than 30 Minutes
== END 2017-11-18 17:30 | DRG 871 ==
LOC: ER 12:05 → EH 17:33 → ICU 22:21 → 3N 11-15 07:06
PROVIDERS: ADMIT Student in an Organized Health Care Education/Training Program; ATTEND Student in an Organized Health Care Education/Training Program
PROC: 02HV33Z Insertion of Infusion Device into Superior Vena Cava, Percutaneous Approach (ICD-10-PCS; principal; 2017-11-12)
DX: A41.01 Sepsis due to Methicillin susceptible Staphylococcus aureus (principal); R65.21 Severe sepsis with septic shock; N17.9 Acute kidney failure, unspecified; K12.2 Cellulitis and abscess of mouth; I48.1 Persistent atrial fibrillation; E87.0 Hyperosmolality and hypernatremia; Z51.5 Encounter for palliative care; E86.0 Dehydration; E87.6 Hypokalemia; E83.42 Hypomagnesemia; G30.9 Alzheimer's disease, unspecified; F02.80 Dementia in other diseases classified elsewhere, unspecified severity, without behavioral disturbance, psychotic disturbance, mood disturbance, and anxiety; D64.9 Anemia, unspecified; I12.9 Hypertensive chronic kidney disease with stage 1 through stage 4 chronic kidney disease, or unspecified chronic kidney disease; N18.2 Chronic kidney disease, stage 2 (mild); Z66 Do not resuscitate; E78.5 Hyperlipidemia, unspecified; E03.9 Hypothyroidism, unspecified; Z90.49 Acquired absence of other specified parts of digestive tract; F32.9 Major depressive disorder, single episode, unspecified; Z87.891 Personal history of nicotine dependence; Z88.0 Allergy status to penicillin; Z88.8 Allergy status to other drugs, medicaments and biological substances; Z88.7 Allergy status to serum and vaccine; Z93.3 Colostomy status; Z78.1 Physical restraint status; Z86.73 Personal history of transient ischemic attack (TIA), and cerebral infarction without residual deficits; M19.90 Unspecified osteoarthritis, unspecified site
CPT/HCPCS: 36415; 70491; 71045; 80048; 80053; 82803; 82962; 83605; 83735; 84443; 85025; 85027; 87040; 87077; 87186; 93005; 93010; 96360; 96361; 99291; 99292; C1751; J1650; J1956; J3475; J3480; J3490; J7030; J7060; S0028